=== PATIENT | male | born 1955 | race Caucasian/White ===

== ENCOUNTER 2017-07-10 19:30 | Inpatient (IN) ==
[2017-07-10 20:15] LABS: Basophils # 0.1 K/mcL (0.0-0.2); Basophils % 0.7 %; Eosinophils # 0.4 K/mcL (0.0-0.6); Eosinophils % 5.3 %; Hematocrit 44.7 % (37.5-50.1); Hemoglobin 15.8 g/dL (12.9-16.9); Immature Granulocytes % 0.5 % (0-4); Lymphocytes # 2.9 K/mcL (0.6-4.6); Lymphocytes % 36.2 %; Mean Corpuscular HGB Conc 35.3 g/dL (31.6-35.5); Mean Corpuscular Hemoglobin 31.2 pg (28.0-33.3); Mean Corpuscular Volume 88.3 fL (83.0-100.0); Mean Platelet Volume 9.4 fL (9.4-12.4); Monocytes # 0.5 K/mcL (0.0-1.3); Monocytes % 6.7 %; Neutrophils # 4.1 K/mcL (1.6-8.9); Platelet Count 248 K/mcL (140-400); Red Blood Count 5.06 M/mcL (4.19-5.50); Red Cell Distribution Width 12.4 % (11.5-14.5); Segmented Neutrophils % 50.6 %
[2017-07-10 20:21] LABS: INR 2.9; Prothrombin Time 32.3 Seconds (9.4-12.1)
[2017-07-10 20:24] LABS: Activated Partial Thrombo Time 42.5 Seconds (26.0-36.0)
[2017-07-10 20:27] LABS: BUN/Creatinine Ratio 15 (6-26); Blood Urea Nitrogen 17 mg/dL (8-26); Calcium 9.7 mg/dL (8.6-10.8); Carbon Dioxide 23 mEq/L (19-29); Chloride 104 mEq/L (98-109); Glucose 167 mg/dL (70-99); Osmolality,Calculated 291 (280-300); Potassium 4.3 mEq/L (3.5-4.5); Sodium 138 mEq/L (136-145); eGFR For African Americans > 60 (> 60); eGFR For Non-African Americans > 60 (> 60)
--- NOTE | 2017-07-10 20:40 | Emergency Department Note ---
Disposition Clinical Impression: NSTEMI (non-ST elevated myocardial infarction), Elevated troponin Chest pain Qualifiers: Chest pain type: unspecified Qualified Code(s): R07.9 - Chest pain, unspecified Disposition: Admitted As Inpatient Condition: Good General Adult HPI - General Chief complaint: ED Chest Pain Stated complaint: "CP/SOB" Time Seen by Provider: 07/10/17 20:18 Source: patient Limitations: no limitations Nursing Notes Reviewed: Yes Vital Signs Reviewed: Yes - History of Present Illness HPI Narrative: 61-year-old male who reports left-sided chest pain and dyspnea. He states this feels exactly the same as when he had his prior heart issues requiring stents. He has had multiple stents on at least 3 different occasions. Most recent of which was approximately 2 years ago. He states that he is on aspirin, Plavix, and Coumadin. He has a history of atrial fibrillation and says that he takes coumadin. He also denies any history of DVT or valve replacement. Other medical problems include hypertension, hyperlipidemia, diabetes. He denies a productive cough. He states that this is been going on for 1-2 weeks which has slowly been worsening. It was initially intermittent and is now becoming more constant. 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 Arciniega who recommended that he come to the emergency department if his symptoms worsen. They have worsened so he presented here. Radiation: non-radiation Pain Severity: moderate Pain Scale: 5 Consistency: intermittent Improves with: nothing Worsens with: other (Exertion) Associated symptoms: Reports: denies other symptoms Treatments Prior to Arrival: none - Related Data Home Medications Medication Instructions Recorded Confirmed Clopidogrel [Plavix] 75 mg PO DAILY 09/24/15 07/10/17 Insulin ASPART [NovoLOG] 0 unit SQ TIDWM 09/24/15 07/10/17 Insulin Glargine,Hum.rec.anlog 50 unit SQ BID 09/24/15 07/10/17 [Lantus Solostar] Ranolazine [Ranexa] 500 mg PO BID 09/24/15 07/10/17 Alirocumab [Praluent Pen] 75 mg SQ Q2W 07/10/17 07/10/17 Amlodipine Besylate 10 mg PO DAILY 07/10/17 07/10/17 Aspirin Enteric Coated [Aspirin EC] 81 mg PO DAILY 07/10/17 07/10/17 Isosorbide MONOnitrate [Isosorbide 240 mg PO DAILY 07/10/17 07/10/17 Mononitrate ER] Losartan [Cozaar] 12.5 mg PO DAILY 07/10/17 07/10/17 Metformin HCl [Glucophage] 1,000 mg PO BID 07/10/17 07/10/17 Metoprolol Succinate 100 mg PO DAILY 07/10/17 07/10/17 Metoprolol XL (24 HR) Succ [Toprol 25 mg PO DAILY 07/10/17 07/10/17 XL] Nitroglycerin [Nitroglycerin] 1 - 2 spray SL AD PRN 07/10/17 07/10/17 Nitroglycerin [Nitrostat] 0.4 mg SL Q5M PRN 07/10/17 07/10/17 Warfarin perPT [Coumadin perPT] 7 mg PO QPM 07/10/17 07/10/17 Allergies Allergy/AdvReac Type Severity Reaction Status Date / Time lisinopril AdvReac Cough Verified 07/10/17 19:59 Oxycodone [From OxyContin] AdvReac Gastrointestinal Verified 07/10/17 19:59 Upset All systems ED: reviewed and negative except as stated. Constitutional: Denies: fever ENT ED: Denies: throat pain Cardiovascular: Reports: chest pain Respiratory: Reports: dyspnea. Denies: cough Gastrointestinal: Denies: abdominal pain Musculoskeletal: Denies: back pain Integumentary: Denies: rash Endocrine: Denies: fatigue Past Medical History - Past Medical History Medical history: Reports: coronary artery disease, diabetes Surgical history: Reports: angioplasty/stent, appendectomy, knee replacement, pacemaker/AICD Psychiatric history: Reports: no psych history - Social History Smoking Status: Never smoker Smokeless Tobacco Status: No Alcohol use: Reports: none Drug use: Reports: none Physical Exam - General Limitations: no limitations General appearance: alert, in no apparent distress - Head Head exam: atraumatic - Eye Eye exam: Present: normal appearance, PERRL - ENT ENT exam: normal exam - Neck Neck exam: Present: normal inspection - Chest Chest inspection: Present: normal inspection - Respiratory Respiratory exam: Present: normal lung sounds bilaterally. Absent: respiratory distress - Cardiovascular Cardiovascular exam: Present: regular rate, normal rhythm - Abdominal Exam Abdominal exam: Present: soft - Extremities Exam Extremities exam: Present: normal inspection - Neurological Exam Neurological exam: Present: alert, oriented X3 - Skin Skin exam: Present: warm, dry Course Course Narrative: History troponin is elevated at 0.15. No changes on EKG to suggest a ST elevation. I called and spoke with Dr. Arciniega with cardiology. He does not recommend heparin at this time as the patient is already anticoagulated with a INR greater than 2. We have started a nitroglycerin drip and given him his aspirin. He will be admitted to the hospitalist with a cardiology consult Vital Signs Temperature 98.1 F 07/10/17 19:55 Pulse Rate 71 07/10/17 19:55 Respiratory Rate 20 07/10/17 19:55 Blood Pressure 162/78 07/10/17 19:55 O2 Sat by Pulse Oximetry 98 07/10/17 19:55 Temperature 98.1 F 07/10/17 19:55 Pulse Rate 60 07/10/17 22:50 Respiratory Rate 12 07/10/17 22:50 Blood Pressure 125/62 07/10/17 22:50 O2 Sat by Pulse Oximetry 96 07/10/17 22:50 Oxygen Delivery Oxygen Delivery Room Air Medical Decision Making - Medical Records Medical records reviewed: Yes I reviewed the patient's medical records. - Lab Data Lab results reviewed: Yes I reviewed the patient's lab results. Result diagrams: 07/10/17 20:05 07/10/17 20:05 Lab Results 07/10/17 07/10/17 07/10/17 Range/Units 20:05 20:05 20:05 WBC 8.1 (4.3-11.1) K/mcL RBC 5.06 (4.19-5.50) M/mcL Hgb 15.8 (12.9-16.9) g/dL Hct 44.7 (37.5-50.1) % MCV 88.3 (83.0-100.0) fL MCH 31.2 (28.0-33.3) pg MCHC 35.3 (31.6-35.5) g/dL RDW 12.4 (11.5-14.5) % Plt Count 248 (140-400) K/mcL MPV 9.4 (9.4-12.4) fL Immature Gran % 0.5 (0-4) % Seg Neutrophils % 50.6 % Lymphocytes % 36.2 % Monocytes % 6.7 % Eosinophils % 5.3 % Basophils % 0.7 % Neutrophils # 4.1 (1.6-8.9) K/mcL Lymphocytes # 2.9 (0.6-4.6) K/mcL Monocytes # 0.5 (0.0-1.3) K/mcL Eosinophils # 0.4 (0.0-0.6) K/mcL Basophils # 0.1 (0.0-0.2) K/mcL PT 32.3 H (9.4-12.1) Seconds INR 2.9 APTT 42.5 H (26.0-36.0) Seconds Sodium 138 (136-145) mEq/L Potassium 4.3 (3.5-4.5) mEq/L Chloride 104 (98-109) mEq/L Carbon Dioxide 23 (19-29) mEq/L BUN 17 (8-26) mg/dL Creatinine 1.12 (0.72-1.25) mg/dL Est GFR ( Amer) > 60 (> 60) Est GFR (Non-Af Amer) > 60 (> 60) BUN/Creatinine Ratio 15 (6-26) Glucose 167 H (70-99) mg/dL Calculated Osmolality 291 (280-300) Calcium 9.7 (8.6-10.8) mg/dL Troponin I (0-0.03) ng/mL 07/10/17 Range/Units 20:05 WBC (4.3-11.1) K/mcL RBC (4.19-5.50) M/mcL Hgb (12.9-16.9) g/dL Hct (37.5-50.1) % MCV (83.0-100.0) fL MCH (28.0-33.3) pg MCHC (31.6-35.5) g/dL RDW (11.5-14.5) % Plt Count (140-400) K/mcL MPV (9.4-12.4) fL Immature Gran % (0-4) % Seg Neutrophils % % Lymphocytes % % Monocytes % % Eosinophils % % Basophils % % Neutrophils # (1.6-8.9) K/mcL Lymphocytes # (0.6-4.6) K/mcL Monocytes # (0.0-1.3) K/mcL Eosinophils # (0.0-0.6) K/mcL Basophils # (0.0-0.2) K/mcL PT (9.4-12.1) Seconds INR APTT (26.0-36.0) Seconds Sodium (136-145) mEq/L Potassium (3.5-4.5) mEq/L Chloride (98-109) mEq/L Carbon Dioxide (19-29) mEq/L BUN (8-26) mg/dL Creatinine (0.72-1.25) mg/dL Est GFR ( Amer) (> 60) Est GFR (Non-Af Amer) (> 60) BUN/Creatinine Ratio (6-26) Glucose (70-99) mg/dL Calculated Osmolality (280-300) Calcium (8.6-10.8) mg/dL Troponin I 0.15 H* (0-0.03) ng/mL - Radiology Data Radiology results reviewed: Yes I reviewed the patient's radiology results. - EKG Data EKG #1 EKG attestation: Yes I reviewed and interpreted this EKG. Rate: normal Interpretation: other (Ventricular pacemaker with a rate of 66. No Linda' s criteria fulfilled.) Critical Care Time Critical Care Time: Yes Total Critical Care Time: 40 Attestation: Critical care performed: Time is exclusive of separately billable procedures. Time includes: direct patient care, patient reassessment, coordination of patient care, interpretation of data (laboratory data, radiology data, and respiratory data), review of patient's medical records, medical consultation and documentation of patient care. Procedures included in critical care time: Procedures excluded from critical care time: Attestation Statement - Attestation Attestation: I, Devonte Okeefe MD, personally evaluated this patient and discussed their management with the resident physician. I reviewed the resident's note and agree with the documented findings, medical decision making, and plan of care. 61-year-old male with history of coronary artery disease and multiple coronary artery stents presents to the emergency department complaining of intermittent left-sided chest pains over the past 1-2 weeks which have been getting progressively worse. Today the pain became worse with exertion. He describes it as a dull heaviness in the left chest which he states is the same as the pain he had last time he had to have a stent placed. On examination patient is a well-developed well-nourished well-appearing male in no acute distress. He is alert and oriented 3. There is no cyanosis or diaphoresis. Chest is nontender to palpation. Breath sounds are clear and equal bilaterally. Heart regular rate and rhythm. Abdomen soft and nontender with normal bowel sounds. EKG shows an electronic ventricular pacemaker with a totally paced rhythm. Chest x-ray negative. Labs reviewed. Troponin is elevated at 0.15. Patient was placed on a nitroglycerin drip. Dr. Palmer discussed with cardiology and they recommended admission and serial troponins. The hospitalist, Dr. Wade, was consulted and accepted admission of the patient.
[2017-07-10] MEDS ORDERED: Aspirin 325 MG TABLET PO ONE (21:01)
[2017-07-10] MEDS ORDERED: Nitroglycerin 0.4 MG TAB.SUBL SL PRN (21:59)
[2017-07-10] MEDS: Nitroglycerin 25 MG/250 ML INFUS..BTL IVC SCH (22:10)
--- NOTE | 2017-07-11 00:28 | Internal Med History&Physical ---
Date of Encounter: 07/11/17 Time of Encounter: 00:25 Assessment and Plan (1) Paroxysmal A-fib Current visit: Yes Status: Acute Patient is on Coumadin, INR's 2.9, hold Coumadin for anticipated coronary angiogram (2) Diabetes mellitus Current visit: No Status: Chronic Patient is NPO for possible coronary angiography. We will keep patient on sliding scale insulin Q4 hours. his glucose is 167. He is a large dose of insulin at home will hold for now since he is NPO and unsure of timing of coronary angiography. Qualifiers: Diabetes mellitus type: type 2 Diabetes mellitus complication status: with unspecified complications Qualified Code(s): E11.8 - Type 2 diabetes mellitus with unspecified complications; Z79.4 - prison (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 insulin; Z79.4 - manager intermediate (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 insulin; Z79.4 - manager intermediate (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 insulin; Z79.4 - manager intermediate (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 insulin (3) NSTEMI (non-ST elevated myocardial infarction) Current visit: Yes Status: Acute Patient is currently on nitro drip. We will keep NPO for possible coronary angiography in the morning. Heart rate IS 60. Continue aspirin Plavix, beta blockers. His INR IS 2.9. Cardiology service therefore recommend holding off heparin drip for now Internal Medicine - H&P: HPI Chief complaint: chest pain History of present illness: Mr. Dominguez is a 61 year old male patient with history of coronary artery disease status post PCI presents with emergency room today with the main complaining of chest pain. For the past 2 weeks patient has been having left pectoral chest pain that was initially occurring intermittently but today pain has been more or less constant at rest. This provoked the patient to come to the emergency room for further management. He noticed that the pain was associated shortness of breath. Patient notices some improvement to the pain with sublingual nitroglycerin. Patient heaven angiogram at our facility 1 1/2 year ago and was found to have chronic total occlusion of the RCA and distal LAD and was transferred to [place] where he had one stent placed. Patient is compliant with his cardiac medications including aspirin Plavix Past Med Surg Social Fam HX - Past Medical History Medical history: coronary artery disease, diabetes Psychiatric history: no psych history - Past Surgical History Surgical History: angioplasty/stent, appendectomy, knee replacement, pacemaker/ AICD - Social History Smoking Status: Never smoker Smokeless Tobacco Status: No Alcohol use: none Drug use: none - Family History Father Living Status: Hx Family Cardiac Disorders: Yes ([place]) Mother Living Status: Hx Family Cardiac Disorders: Yes ([place]) Internal Medicine - H&P: Meds Clopidogrel [Plavix] 75 mg PO DAILY 09/24/15 [History] Insulin ASPART [NovoLOG] 0 unit SQ TIDWM 09/24/15 [History] Insulin Glargine,Hum.rec.anlog [Lantus Solostar] 50 unit SQ BID 09/24/15 [ History] Ranolazine [Ranexa] 500 mg PO BID 09/24/15 [History] Alirocumab [Praluent Pen] 75 mg SQ Q2W 07/10/17 [History] Amlodipine Besylate 10 mg PO DAILY 07/10/17 [History] Aspirin Enteric Coated [Aspirin EC] 81 mg PO DAILY 07/10/17 [History] Isosorbide MONOnitrate [Isosorbide Mononitrate ER] 240 mg PO DAILY 07/10/17 [ History] Losartan [Cozaar] 12.5 mg PO DAILY 07/10/17 [History] Metformin HCl [Glucophage] 1,000 mg PO BID 07/10/17 [History] Metoprolol Succinate 100 mg PO DAILY 07/10/17 [History] Metoprolol XL (24 HR) Succ [Toprol XL] 25 mg PO DAILY 07/10/17 [History] Nitroglycerin [Nitroglycerin] 1 - 2 spray SL AD PRN 07/10/17 [History] Nitroglycerin [Nitrostat] 0.4 mg SL Q5M PRN 07/10/17 [History] Warfarin perPT [Coumadin perPT] 7 mg PO QPM 07/10/17 [History] 3 Allergy/AdvReac Type Severity Reaction Status Date / Time lisinopril AdvReac Cough Verified 07/10/17 19:59 Oxycodone [From OxyContin] AdvReac Gastrointestinal Verified 07/10/17 19:59 Upset All Systems PM: A 10-system review of systems was performed and is negative for pertinent findings except as documented above in the HPI. Review of systems: 10 point review systems is negative except for HPI - Constitutional Vitals: Temp Pulse Resp BP Pulse Ox 98 F 60 16 147/79 96 07/11/17 00:12 07/11/17 00:12 07/11/17 00:12 07/11/17 00:12 07/11/17 00:12 Exam: Gen.: patient is alert oriented times 3 cardiac: normal S1 S2 no additional sounds or murmurs chest: no active wheezing or bronchial breathing abdomen soft nontender nondistended normal bowel sounds lower extremity no swelling. Neuro: no new focal deficits Internal Med - H&P Results - Labs CBC & Chem 7: 07/10/17 20:05 07/10/17 20:05
[2017-07-11 03:09] LABS: Basophils # 0.1 K/mcL (0.0-0.2); Basophils % 0.7 %; Eosinophils # 0.4 K/mcL (0.0-0.6); Eosinophils % 5.2 %; Hematocrit 42.3 % (37.5-50.1); Hemoglobin 14.7 g/dL (12.9-16.9); Immature Granulocytes % 0.4 % (0-4); Lymphocytes # 3.6 K/mcL (0.6-4.6); Lymphocytes % 47.3 %; Mean Corpuscular HGB Conc 34.8 g/dL (31.6-35.5); Mean Corpuscular Hemoglobin 30.8 pg (28.0-33.3); Mean Corpuscular Volume 88.5 fL (83.0-100.0); Mean Platelet Volume 9.3 fL (9.4-12.4); Monocytes # 0.5 K/mcL (0.0-1.3); Monocytes % 6.5 %; Neutrophils # 3.1 K/mcL (1.6-8.9); Platelet Count 195 K/mcL (140-400); Red Blood Count 4.78 M/mcL (4.19-5.50); Red Cell Distribution Width 12.4 % (11.5-14.5); Segmented Neutrophils % 39.9 %
[2017-07-11 03:17] LABS: INR 2.7; Prothrombin Time 29.2 Seconds (9.4-12.1)
[2017-07-11 03:20] LABS: Activated Partial Thrombo Time 39.8 Seconds (26.0-36.0)
[2017-07-11 03:24] LABS: BUN/Creatinine Ratio 18 (6-26); Blood Urea Nitrogen 16 mg/dL (8-26); Calcium 9.1 mg/dL (8.6-10.8); Carbon Dioxide 25 mEq/L (19-29); Chloride 105 mEq/L (98-109); Glucose 111 mg/dL (70-99); Osmolality,Calculated 284 (280-300); Potassium 3.5 mEq/L (3.5-4.5); Sodium 136 mEq/L (136-145); eGFR For African Americans > 60 (> 60); eGFR For Non-African Americans > 60 (> 60)
[2017-07-11] MEDS: *HR* Morphine 2 MG/ML SYRINGE IVP PRN ×4 (06:20→21:02)
[2017-07-11] MEDS: Insulin LISPRO 300 UNITS/3 ML VIAL SQ SCH ×5 (06:25→20:58)
[2017-07-11] MEDS: Isosorbide MONOnitrate (24 HR) 60 MG TAB.ER.24H PO SCH (09:05)
[2017-07-11] MEDS: Ranolazine 500 MG TAB.ER.12H PO SCH ×2 (09:06→20:52)
[2017-07-11] MEDS: Aspirin Enteric Coated 81 MG Tablet PO SCH (09:06)
[2017-07-11] MEDS: Metoprolol XL (24 HR) Succ 25 MG TAB.ER.24H PO SCH (09:06)
[2017-07-11] MEDS: Metoprolol XL (24 HR) Succ 50 MG TAB.ER.24H PO SCH (09:07)
[2017-07-11] MEDS: amLODIPine 5 MG TABLET PO SCH (09:07)
--- NOTE | 2017-07-11 09:39 | Event Note ---
<Lorenzo Anderson - Last Filed: 07/11/17 09:28> Date of Encounter: 07/11/17 Time of Encounter: 09:28 61 year old male with PMH CAD s/p multiple stents, dual lead pacemaker for ALance fib (on coumadin), HTN, HLD, and type 2 DM presented with chest pain and found to have a STEMI. He reports that his pain has been increasing in frequency and consistency over the past 2 weeks. This morning his chest pain is more controlled (/) on nitro drip and PRN morphine. He reports some dyspnea on exertion as well. He denies syncope, light-headedness, palpitations, cough, N/V/ D/C, dysuria, or leg pain/edema. Exam: Gen: NAD, A&Ox3, well developed, well nourished CV: RRR, no murmurs, no peripheral edema Lungs: CTAB, no wheezes, rhonchi, or crackles Abd: soft, NT/ND, BSx4, no organomegaly Ext: pulses symmetric, no edema Skin: dry and intact Neuro: no focal deficits A/P: NSTEMI - on ASA, Plavix, and coumadin. Troponins stable 0.15, 0.23, 0.22 - continue nitro drip - cardiology consulted A. fib - paced at 60 bpm, coumadin being held in expectation for LHC - INR 2.7 this morning (down from 2.9) DM - on insulin at home. Continue SSI. Monitor blood sugar as pt is currently NPO HTN - normotensive currently - continue home meds <Debbie Ibrahim - Last Filed: 07/11/17 14:56> Date of Encounter: 07/11/17 I have seen and examined the patient independently. I have discussed with resident physician regarding the management plan. Agree with the documentation. Patient has history of CAD, with elevated troponin and chest pain. Consider NSTEMI. Cardiology consult on case and plan for LHC. Patient currently has improved the chest pain. We will continue NTG drip and morphine for pain. Continue closely monitor patient. Hold the Coumadin to prepare catheterization.
--- NOTE | 2017-07-11 10:12 | Cardiology Consult Note ---
Date of Encounter: 07/11/17 Time of Encounter: 08:00 Assessment and Plan (1) NSTEMI (non-ST elevated myocardial infarction) Current Visit: Yes Status: Acute Per cardiology: -ADmitted with chest pain. -Troponins 0.15, 0.23, 0.22. -No acute ischemic ECG findings -Typical chest pain symptoms. -Currently on nitro drip at 15mcg/min. -On asa, statin, beta rené, and plavix. -Of note, INR 2.7. -Currently rates pain 2/10, states much improved. -Recommend holding coumadin in anticipation for LHC. -Unable to perform LHC today due to INR 2.7. Will make NPO after midnight for possible LHC tomorrow. -Recommend titrating nitroglycerin drip for chest pain control. Only on 15mcg/ min. Continue morphine PRN. -Will order TTE. (2) Chest pain Current Visit: Yes Status: Acute Per cardiology: -Admitted with chest pain. -Occurs with exertion. -Pain relieved with nitro. -States similar to previous angina symptoms. -States at worse, pain was 8/10. -Currently pain 2/10. -On nitro drip at 15mcg/min. -Has mophine PRN. -Recommend titrating nitroglycerin drip for pain control. -Continue morphine PRN. Qualifiers: Chest pain type: unspecified Qualified Code(s): R07.9 - Chest pain, unspecified (3) Ischemic cardiomyopathy Current Visit: No Status: Chronic Per cardiology: -Known ischemic cardiomyopathy. -Last TTE 09/2015 with LVEF 50%, atypical septal motion, mild-moderate MR, mild TR, mild SC, device lead visualized, apex, apical septal, mid anterior septal kemp hypokinetic. All other visualized kemp with normal motion. -On beta rené and ARB. -Euvolemic on exam. -Will repeat TTE. (4) Paroxysmal A-fib Current Visit: Yes Status: Chronic Per cardiology: -Known PAF. -Last device check in office with no events noted. -On beta rené and coumadin. -Hold coumadin for anticipation of LHC. -Will continue to monitor. (5) Coronary artery disease Current Visit: No Status: Chronic Per cardiology: -Known CAD with previous PCI. -Last LHC with 15% stenosis left main, 15% in stent restenosis of proximal LAD, 50% mid LAD, 100% distal/apical LAD, apical LAD fillw via left to left collaterals, 80% diagonal 1 small vessel. 30% proximal circumflex, 30% mid circumflex, 60% OM1 small vessel and diffusely diseased, 40% OM2, 100% proximal RCA, right PDA fills via colleterals from left to right. -On asa, statin, beta rené, ARB, plavix, and ranexa. -Current on nitro drip. -Echo pending. -PLan for [facility] when able. Qualifiers: Coronary Disease-Associated Artery/Lesion type: [place] artery [place] vs. transplanted heart: [place] heart Associated angina: angina presence unspecified Qualified Code(s): I25.10 - Atherosclerotic heart disease of [place] coronary artery without angina pectoris (6) Pacemaker Current Visit: Yes Status: Chronic Per cardiology: -Has known dual chamber pacemaker for complete heart block. -Last device check 04/03/17 with no event noted, battery longevity 8 years. -Will continue to monitor. Discussion w patient/family: The assessment and plan as outlined above was discussed with the patient who expressed understanding and agreement. All questions were answered. Thank you for involving us in the care of your patient. Please call with any questions. Discussed and reviewed with . History of Present Illness Consult date: 07/10/17 Requesting physician: Ronnie Palmer Consult reason: chest pain, elevated troponin Chief complaint: chest pain History of present illness: Mr. Dominguez is a 61 year old male with a relevant past medical history of CAD s/p PCI, atrial fibrillation, cardiomyopathy, hyperlipidemia, HTN, DMII. Patient presented to [facility] with complaints of chest pain. Patient states he has been having intermittent chest pain for a few weeks. Patient states yesterday while lifting a chair, he had 8/10 chest pain that was sharp and mid sternal. Patient states pain is similar to previous anginal symptoms. Patient reports pain increased with exertion and is lessened with nitroglycerin. Patient also reports increased fatigue and increased shortness of breath. Currently patient states has chest pressure and rates a 2/10. States pain much improved from admission. Past Med Surg Social Fam HX - Past Medical History Attestation: Yes The following information was validated with the patient. Source: patient, old records reviewed Medical history: coronary artery disease, diabetes Psychiatric history: no psych history - Past Surgical History Surgical History: angioplasty/stent, appendectomy, knee replacement, pacemaker/ AICD - Social History Smoking Status: Never smoker Smokeless Tobacco Status: No Alcohol use: none Drug use: none - Family History Father Living Status: Age at : 60 Cause of : heart attack Hx Family Cardiac Disorders: Yes (AL) Mother Living Status: Age at : 85 Hx Family Cardiac Disorders: Yes (AL) Medications and Allergies Clopidogrel [Plavix] 75 mg PO DAILY 09/24/15 [History] Insulin ASPART [NovoLOG] 0 unit SQ TIDWM 09/24/15 [History] Insulin Glargine,Hum.rec.anlog [Lantus Solostar] 50 unit SQ BID 09/24/15 [ History] Ranolazine [Ranexa] 500 mg PO BID 09/24/15 [History] Alirocumab [Praluent Pen] 75 mg SQ Q2W 07/10/17 [History] Amlodipine Besylate 10 mg PO DAILY 07/10/17 [History] Aspirin Enteric Coated [Aspirin EC] 81 mg PO DAILY 07/10/17 [History] Isosorbide MONOnitrate [Isosorbide Mononitrate ER] 240 mg PO DAILY 07/10/17 [ History] Losartan [Cozaar] 12.5 mg PO DAILY 07/10/17 [History] Metformin HCl [Glucophage] 1,000 mg PO BID 07/10/17 [History] Metoprolol Succinate 100 mg PO DAILY 07/10/17 [History] Metoprolol XL (24 HR) Succ [Toprol XL] 25 mg PO DAILY 07/10/17 [History] Nitroglycerin [Nitroglycerin] 1 - 2 spray SL AD PRN 07/10/17 [History] Nitroglycerin [Nitrostat] 0.4 mg SL Q5M PRN 07/10/17 [History] Warfarin perPT [Coumadin perPT] 7 mg PO QPM 07/10/17 [History] 3 Allergy/AdvReac Type Severity Reaction Status Date / Time lisinopril AdvReac Cough Verified 07/10/17 19:59 Oxycodone [From OxyContin] AdvReac Gastrointestinal Verified 07/10/17 19:59 Upset All Systems Review: A 10-system review of systems was performed and is negative for pertinent findings except as documented above in the HPI. - Constitutional Constitutional: fatigue - Cardiovascular Cardiovascular: as per HPI, chest pain with exertion, dyspnea on exertion Physical Examination Vital Signs, Last 4 Hours Temp Pulse Resp BP Pulse Ox 07/11/17 07:34 97.8 F 62 14 129/75 95 General: Conversant, No Apparent Distress HEENT: Atraumatic, Normocephaly, Mucus Membranes Moist Neck: No JVD, Normal carotid pulses Cardiac: Reg Rate and Rhythm, Normal S1 and S2, No Murmur Lungs: Normal Breath Sounds, No Wheeze, Rales, Rhonchi Neuro: Alert and responsive, No focal deficits noted Abdomen: Soft, Non-Tender Skin: No rashes noted on visualized skin Musculoskeletal: No Chest Wall Tenderness Extremities: No Clubbing, No Cyanosis, No Edema, Normal Pulses Results 07/11/17 03:01 07/11/17 03:01 Lab Results Impressions Chest X-Ray 07/10/17 20:01 IMPRESSION: No acute process. D/ / Lukas Castañeda MD / Lukas Castañeda MD Interpreting Provider: Lukas Castañeda MD Active Medications Amlodipine Besylate (Norvasc) 10 mg PO DAILY [facility] Stop: 01/10/18 09:01 Last Admin: 07/11/17 09:07 Dose: 10 mg Aspirin (Aspirin Ec) 81 mg PO DAILY [facility] Stop: 01/10/18 09:01 Last Admin: 07/11/17 09:06 Dose: 81 mg Clopidogrel Bisulfate (Plavix) 75 mg PO DAILY [facility] Stop: 01/10/18 09:01 Last Admin: 07/11/17 09:06 Dose: 75 mg Nitroglycerin (Nitroglycerin Premix 25 Mg/250 Ml) 25 mg in 250 mls @ 3 mls/hr IVC .Q24H [facility]; 5 MCG/MIN PRN Reason: Protocol Stop: 01/09/18 21:01 Last Titration: 07/10/17 22:51 Dose: 15 mcg/min, 9 mls/hr Insulin Human Lispro (Humalog) 0 units SQ Q4HR [facility] PRN Reason: Protocol Stop: 01/10/18 04:01 Last Admin: 07/11/17 09:14 Dose: Not Given Isosorbide Mononitrate (Imdur) 240 mg PO DAILY [facility] Stop: 01/10/18 09:01 Last Admin: 07/11/17 09:05 Dose: 240 mg Losartan Potassium (Cozaar) 12.5 mg PO DAILY [facility] PRN Reason: Protocol Stop: 01/10/18 09:01 Last Admin: 07/11/17 09:06 Dose: 12.5 mg Metoprolol Succinate (Toprol Xl) 100 mg PO DAILY [facility] Stop: 01/10/18 09:01 Last Admin: 07/11/17 09:07 Dose: 100 mg Metoprolol Succinate (Toprol Xl) 25 mg PO DAILY [facility] Stop: 01/10/18 09:01 Last Admin: 07/11/17 09:06 Dose: 25 mg Morphine Sulfate (Morphine Sulfate) 2 mg IVP Q4HR PRN PRN Reason: Chest Pain Stop: 01/10/18 04:55 Last Admin: 07/11/17 06:20 Dose: 2 mg Nitroglycerin (Nitroglycerin) 0.4 mg SL Q5MIN PRN PRN Reason: Chest Pain Stop: 01/09/18 22:00 Ranolazine (Ranexa) 500 mg PO BID [facility] Stop: 01/10/18 09:01 Last Admin: 07/11/17 09:06 Dose: 500 mg Laboratory Tests 07/10/17 07/11/17 07/11/17 20:05 03:01 03:01 Hgb 14.7 INR Creatinine Troponin I 0.15 H* 0.23 H* 07/11/17 07/11/17 07/11/17 03:01 03:01 07:35 Hgb INR 2.7 Creatinine 0.87 Troponin I 0.22 H* - Imaging and Cardiology Chest Xray: report reviewed Stress Test: report reviewed Echo: report reviewed - EKG Interpretation EKG results cardiology: personally reviewed (ECG with paced rhythm, HR 66.), other (Telemetry reviewed with average HR previous 12 hours noted to be 61, paced rhythm.) Consult Discharge Plan - Plan Referrals: Tera Massey DO [Primary Care Provider] -
[2017-07-11] MEDS ORDERED: Dextrose Gel 15 GM PO PRN ×2 (13:44)
[2017-07-11] MEDS ORDERED: D5% in Water 1,000 ML IVC PRN (13:44)
[2017-07-11] MEDS ORDERED: *HR* Dextrose 50 % in Water (Syg) 50 ML SYRINGE IVP PRN (13:44)
[2017-07-11] MEDS ORDERED: ALIROCUMAB 75 MG/ML SQ SCH (17:00)
--- NOTE | 2017-07-11 19:20 | Electrocardiograph Report ---
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
[2017-07-11] MEDS: Insulin DETEMIR 100 UNIT/ML X5UNITS SQ SCH (20:52)
[2017-07-12] MEDS: Nitroglycerin 25 MG/250 ML INFUS..BTL IVC SCH ×2 (01:19→20:18)
[2017-07-12] MEDS: Insulin LISPRO 300 UNITS/3 ML VIAL SQ SCH ×6 (01:20→20:14)
[2017-07-12] MEDS: *HR* Morphine 2 MG/ML SYRINGE IVP PRN ×5 (02:04→20:32)
[2017-07-12 04:55] LABS: Hematocrit 45.2 % (37.5-50.1); Hemoglobin 15.5 g/dL (12.9-16.9); Mean Corpuscular HGB Conc 34.3 g/dL (31.6-35.5); Mean Corpuscular Hemoglobin 30.6 pg (28.0-33.3); Mean Corpuscular Volume 89.2 fL (83.0-100.0); Mean Platelet Volume 9.3 fL (9.4-12.4); Platelet Count 211 K/mcL (140-400); Red Blood Count 5.07 M/mcL (4.19-5.50); Red Cell Distribution Width 12.5 % (11.5-14.5)
[2017-07-12 04:57] LABS: INR 1.7; Prothrombin Time 18.8 Seconds (9.4-12.1)
[2017-07-12 05:12] LABS: BUN/Creatinine Ratio 14 (6-26); Blood Urea Nitrogen 13 mg/dL (8-26); Calcium 9.2 mg/dL (8.6-10.8); Carbon Dioxide 23 mEq/L (19-29); Chloride 106 mEq/L (98-109); Glucose 195 mg/dL (70-99); Osmolality,Calculated 291 (280-300); Potassium 4.2 mEq/L (3.5-4.5); Sodium 138 mEq/L (136-145); eGFR For African Americans > 60 (> 60); eGFR For Non-African Americans > 60 (> 60)
[2017-07-12] MEDS: Ranolazine 500 MG TAB.ER.12H PO SCH ×2 (08:07→20:14)
[2017-07-12] MEDS: Metoprolol XL (24 HR) Succ 50 MG TAB.ER.24H PO SCH (08:07)
[2017-07-12] MEDS: Isosorbide MONOnitrate (24 HR) 60 MG TAB.ER.24H PO SCH (08:08)
[2017-07-12] MEDS: Aspirin Enteric Coated 81 MG Tablet PO SCH (08:08)
[2017-07-12] MEDS: amLODIPine 5 MG TABLET PO SCH (08:08)
[2017-07-12] MEDS: Metoprolol XL (24 HR) Succ 25 MG TAB.ER.24H PO SCH (08:08)
--- NOTE | 2017-07-12 08:45 | Event Note ---
Date of Encounter: 07/12/17 Time of Encounter: 08:45 - Cardiology Event Note NSTEMI, peak troponin 0.23. CP currently 2/10 on nitro gtt. INR 1.7 today. LHC today--R/B/A discussed. Pt agrees to proceed.
--- NOTE | 2017-07-12 09:04 | Pre-Sedation Evaluation ---
Pre-sedation evaluation - Pre-sedation checklist Date of procedure: 07/12/17 Procedure: [facility] Recent Vitals: Last Vital Signs Temp 97.7 F 07/12/17 07:49 Pulse 61 07/12/17 07:49 Resp 18 07/12/17 07:49 BP 117/71 07/12/17 07:49 Pulse Ox 95 07/12/17 07:49 H&P (including ROS) documented in medical record: Yes Previous reaction to sedatives/anesthetics: No Dietary Status: NPO after Midnight Airway Assessment: Patient can open mouth completely, TMJ function normal Dentition: No loose teeth or bridges, full dentition Possible difficult airway: No ASA Classification *see protocol: CLASS IV-Severe systemic disease/constant threat to pt's life Plan of Care: Pt appropriate candidate for procedure/moderate/conscious sedation , Risks/benefits of procedure/sedation discussed w/ patient/family, If not NPO; Risk of intake outweiged by necessity to perform procedure
[2017-07-12] MEDS ORDERED: *HR* Midazolam HCl 2 MG/2 ML VIAL ONE (09:07)
[2017-07-12] MEDS ORDERED: 0.9 % Sodium Chloride 1,000 ML ONE (09:07)
[2017-07-12] MEDS ORDERED: Heparin 1,000 UNITS/500 mL NS 500 ML ONE (10:24)
[2017-07-12] MEDS ORDERED: Nitroglycerin 1,000 MCG/10 ML VIAL IV ONE (10:24)
[2017-07-12] MEDS ORDERED: *HR* Heparin 10,000 UNIT/10 ML VIAL ONE (10:24)
--- NOTE | 2017-07-12 10:27 | Invasive Diagnostic Lab Proc ---
Name: Lukas Dominguez Date of Study: 07/12/2017 Date: 1955 Ht: 72.0in Medical Record#: [id number] Age: 61 Wt: 216.05lb Gender: Male BSA: 2.2 Order #: [id number] BMI: 29.26 Physicians Procedure Physician: Jone Townsend DO Referring MD: Referring MD: Staff Name Position Time In Joselin Rivera RT (R) Scrub 08:58 AM Carolina Paulino RN Monitor 08:58 AM Javon Corrigan RN Branch Rental Manager 08:58 AM Joselin Rivera RT (R) Scrub 09:04 AM Elvin Almaraz RN Branch Rental Manager 09:05 AM Carolina Paulino RN Monitor 09:05 AM Elvin Almaraz RN Branch Rental Manager 08:58 AM Indications Indication Non-Stemi Procedures Performed Procedure L HRT ARTERY/VENTRICLE ANGIO Pre-Procedure Checklist Informed consent is complete signed and on chart. H&P is on chart. ID band is on and ID verified with patient. Patient NPO for procedure The procedure was described for the patient and questions were answered. Blood Pressure: 145/72 ECG is on chart. Rhythm: Paced Plan of Care Patient will tolerate the procedure without complications. Adequate level of comfort will be maintained. Hemodynamics will remain stable Patient will recover from procedure without complications. Respiratory function will be maintained. Cardiac rhythm will remain stable. Patient temperature will be maintained. Patient and/or family have verbalized understanding of the procedure. Patient Education Chief Complaint/Reason for Test: Cardiac Cath Developmental Category: Adult (18-64 years) Developmentally Appropriate for Age: Yes Learning Barriers: None Education Needs: Procedure Education Method: Verbal Information Taught: Cardiac Cath Educational Evaluation: Able to repeat information Intravenous Access Time IV Size Location DC'd Fluid/Drip Rate Units RN 08:59 AM 18g 1 1/" Patent On Arrival Rt Antecubital Allergies lisinopril Oxycodone Vital Signs Time BP (mmHg) HR (bpm) O2 Sat. RR (bpm) LOC 117 / 71 61 95 % 18 09:08 AM / % 5 = Fully awake and oriented or at pre-proc level 09:08 AM / % 5 = Fully awake and oriented or at pre-proc level 09:23 AM / % 5 = Fully awake and oriented or at pre-proc level 09:38 AM / % 5 = Fully awake and oriented or at pre-proc level 09:43 AM / % 5 = Fully awake and oriented or at pre-proc level 09:08 AM 145 / 72 70 95 % 18 09:12 AM 140 / 70 60 98 % 17 09:17 AM 111 / 58 59 96 % 21 09:23 AM 122 / 61 60 96 % 17 09:27 AM 123 / 65 60 97 % 15 09:32 AM 119 / 61 60 97 % 12 09:37 AM 119 / 66 60 98 % 15 09:42 AM 123 / 68 60 98 % 11 09:47 AM 131 / 67 60 96 % 20 09:52 AM 130 / 67 60 98 % 19 09:57 AM 138 / 68 59 97 % 22 10:02 AM 138 / 75 60 98 % 18 10:07 AM 132 / 73 60 96 % 17 Procedural Medications Time Medication Dose Units Method Given By 09:17 AM Oxygen 2 L/min nasal cannula Elvin Almaraz RN 09:18 AM Versed 2 mg Intravenous Elvin Almaraz RN 09:39 AM Lidocaine 2% 10 ml Subcutaneous Jone Townsend DO ASA Classification: CLASS IV- Severe systemic that is constant threat to patient's life Magali Score Preprocedure Postprocedure Activity 2- Moves 4 extremities sustained head lift Activity 2- Moves 4 extremities sustained head lift Circulation 2- SBP +/= 20 points of pre-anesthetic level Circulation 2- SBP +/= 20 points of pre-anesthetic level Consciousness 2- Awake and alert oriented x 3 Consciousness 2- Awake and alert oriented x 3 O2 Saturation 2- Able to maintain O2 satruation of 92% on room air O2 Saturation 2- Able to maintain O2 satruation of 92% on room air Respiratory 2- Able to deep breathe and cough well Respiratory 2- Able to deep breathe and cough well Total Score 10 Total Score 10 Contrast Agent: Isovue Diagnostic Contrast: 60 ml Total Contrast: 60 ml Fluoro Dose: 217 mGy Procedure Log Time Note Enter By 08:58 AM Pt arrived to general labor 2 at 08:58 [facility] 08:58 AM Joselin Rivera RT (R) Position: Scrub Time in: 08:58 [email or web address] 08:58 AM Carolina Paulino RN Position: Monitor [facility]: [email or web address] 08:58 AM Elvin Almaraz RN Position: Branch Rental Manager Time in: 8:58 ejohnson 08:58 AM Patient charges- Angio tray pack, Navilyst 3mm J, Pulse Oximetry and ACIST tubing and transducer [email or web address] 08:58 AM IV Supplies used: J loop Angio Cath. [email or web address] 09:04 AM CathStat 09:05 AM Patient charges- Angio tray pack, Navilyst 3mm J, Pulse Oximetry and ACIST tubing and transducer dspell 09:05 AM Case Delayed No [email or web address] 09:06 AM Hair removed from procedure site in procedure lab using clippers. Bilateral groin prepped with Chloraprep by Joselin Rivera (R), safety strap applied then patient was draped. Skin intact. [email or web address] 09:06 AM Physician arrived 09:06 [email or web address] 09:06 AM Meet and greet completed dsp 09:06 AM Sign in performed according to hospital policy. [email or web address] 09:06 AM Procedure start 09:06 dspell 09:07 AM Vitals capture started with the following parameters, Patient=Adult, Interval=5 min, Initial Avwjvvxk=924 mmHg, Deflation Rate=5 mmHg, Cuff placed on Right Arm 09:07 AM Recorded ECG: HR=63 Condition=Condition 1 09:07 AM Time: 09:07 Patient comfortable and pain free: Yes ejlanson 09:08 AM Time: 09:08LOC: 5 = Fully awake and oriented or at pre-proc level ejohnson 09:08 AM HR=70 bpm, HUWG=577/72 mmhg, SpO2=95.0 %, Resp=18 B/min, Comment=V-Paced 09:12 AM HR=60 bpm, NEYU=967/70 mmhg, SpO2=98.0 %, Resp=17 B/min, Comment=V-Paced 09:17 AM ASA Class CLASS IV- Severe systemic that is constant threat to patient's life ejohnson 09:17 AM HR=59 bpm, TBAE=919/58 mmhg, SpO2=96.0 %, Resp=21 B/min, Comment=V-Paced 09:17 AM Time: 09:17 Oxygen on at 2 L/min per nasal cannula by Elvin Almaraz RN [email or web address] 09:18 AM Time: 09:18 Versed 2 mg Intravenous Given by Elvin Almaraz RNlajenni 09:18 AM physician paged. He returned call and stated that he was seeing a patient with an elevated troponin on one of the nursing units ejohnson 09:18 AM Pressure channel 2 zeroed. 09:23 AM Time: 09:08LOC: 5 = Fully awake and oriented or at pre-proc level ejohnson 09:23 AM Time: 09:07 Patient comfortable and pain free: Yes ejohnson 09:23 AM HR=60 bpm, CPLI=617/61 mmhg, SpO2=96.0 %, Resp=17 B/min, Comment=V-Paced 09:27 AM HR=60 bpm, PVTI=730/65 mmhg, SpO2=97.0 %, Resp=15 B/min, Comment=V-Paced 09:32 AM HR=60 bpm, RSES=218/61 mmhg, SpO2=97.0 %, Resp=12 B/min, Comment=V-Paced 09:37 AM HR=60 bpm, SVBU=067/66 mmhg, SpO2=98.0 %, Resp=15 B/min, Comment=V-Paced 09:38 AM Time: :23LOC: 5 = Fully awake and oriented or at pre-proc level ejohnson 09:38 AM Time: 09:23 Patient comfortable and pain free: Yes ejohnson 09:39 AM Time out performed according to hospital policy ejohnson 09:39 AM Time: 09:39 10 ml Lidocaine 2% to right groin Subcutaneous Given by Jone Townsend DO ejohnson 09:40 AM Pressure channel 2 zeroed. 09:42 AM Micro-Introducer Kit utilized for sheath placement ejohnson 09:42 AM Sheath exchanged for a 6 Fr 11 cm Cordis Jennifer sheath [id number] ejohnson 09:42 AM HR=60 bpm, GJBL=154/68 mmhg, SpO2=98.0 %, Resp=11 B/min, Comment=V-Paced 09:43 AM 5Fr FR 4 catheter inserted over the wire DNC ejohnson 09:43 AM Time: 09:38LOC: 5 = Fully awake and oriented or at pre-proc level ejohnson 09:43 AM Time: 09:38 Patient comfortable and pain free: Yes ejohnson 09:43 AM Pressure channel 2 zeroed. 09:44 AM Recorded Pressure: LV, HR=61, Condition=Condition 1 (Left Ventricle) LV 112/0/12 09:44 AM Recorded Pressure: LV, Ao, HR=60, Condition=Condition 1 (Left Ventricle) LV 105/-1/6, (Aorta) Ao 102/55/73 09:44 AM Recorded Pressure: Ao, HR=60, Condition=Condition 1 (Aorta) Ao 99/52/73 09:44 AM Recorded Pressure: Ao, HR=60, Condition=Condition 1 (Aorta) Ao 109/55/76 09:45 AM RCA angiography performed in AP. ejohnson 09:45 AM Catheter removed ejohnson 09:45 AM 6Fr XB LAD 3.5 [place] Bright-Tip guide catheter was used to cannulate the PCI vessel successfully. reused? No ejohnson 09:46 AM Coronary Dominance: Left ejohnson 09:46 AM Lesion found in Mid RCA. Pre Stenosis: 100 ejohnson 09:46 AM Right Coronary, Right Posterior Descending Arteries with Right Posterolateral and Acute Marginal branches with 100 % stenosis. ejohnson 09:47 AM Recorded Pressure: Ao, HR=59, Condition=Condition 1 (Aorta) Ao 107/54/74 09:47 AM LCA angiography performed in multiple views. ejohnson 09:47 AM HR=60 bpm, QQPV=661/67 mmhg, SpO2=96.0 %, Resp=20 B/min, Comment=V-Paced 09:50 AM Cardiothoracic surgeon consulted by physician ejohnson 09:52 AM HR=60 bpm, XDTK=852/67 mmhg, SpO2=98.0 %, Resp=19 B/min, Comment=V-Paced 09:55 AM Catheter removed ejohnson 09:57 AM HR=59 bpm, TNQG=724/68 mmhg, SpO2=97.0 %, Resp=22 B/min, Comment=V-Paced 09:59 AM Time: 09:43 Patient comfortable and pain free: Yes ejohnson 09:59 AM Time: 09:43LOC: 5 = Fully awake and oriented or at pre-proc level ejohnson 09:59 AM Procedure completed at 09:59 ejohnson 10:00 AM Sign out completed: Radiation Dose 217.47 mGy Fluoro Time: 1.3 Isovue 370 - 200ml contrast 60 ml given by Jone Townsend, DO. Complications: NoneCardiac Rehab Consult needed: NoConfirmed administered medications: Yes ejohnson 10:00 AM Arterial sheath pulled using manual compression and V+ Pad for 15 minutes by Joselin Rivera RT (R), then Vpad was replaced with sterile 4x4 before going back to his room ejohnson 10:01 AM Post ECG Paced ejohnson 10:01 AM Post Blood Pressure 138/68 ejohnson 10:01 AM 10:01 Post Pulses Bilateral DP & PT 1+ ejohnson 10:01 AM Information taught Cardiac Cath ejohnson 10:01 AM Education needs Plan of Care, Disease Process, and Responsibilities of Patient in Care ejohnson 10:01 AM Learning barriers :None ejohnson 10:01 AM Education Methods Verbal ejohnson 10:01 AM Education evaluation Able to repeat information ejohnson 10:02 AM Plavix, Effient or Brilinta given No, was given on the unit ejohnson 10:02 AM Family placed in consult room ejohnson 10:02 AM HR=60 bpm, NUDI=918/75 mmhg, SpO2=98.0 %, Resp=18 B/min, Comment=V-Paced 10:03 AM Complications: None ejohnson 10:07 AM Lesion found in Proximal LAD. Pre Stenosis: 95 ejohnson 10:07 AM Lesion found in Distal LAD. Pre Stenosis: 99 ejohnson 10:07 AM Lesion found in 1st Diagonal. Pre Stenosis: 90 ejohnson 10:07 AM HR=60 bpm, CJYI=806/73 mmhg, SpO2=96.0 %, Resp=17 B/min, Comment=V-Paced 10:08 AM Lesion found in 1st Marginal. Pre Stenosis: 80 ejohnson 10:08 AM Proximal Left Anterior Descending Coronary Artery with 95% stenosis. ejohnson 10:09 AM Mid/Distal Left Anterior Descending Coronary Artery and diagonal branches with 99% stenosis. ejohnson 10:09 AM Circumflex, Obtuse Marginal, Left Posterior Descending, and Left Posterolateral Coronary Arteries with 80 % stenosis. ejohnson 10:14 AM Site status No bleeding/hematoma - Rt Groin as reported by Joselin Rivera RT (R) at 10:14 ejohnson 10:14 AM Opsite applied ejohnson 10:14 AM Time: 09:59 Patient comfortable and pain free: Yes ejohnson 10:18 AM Report given to Herb OROZCO Pt taken to 2NE Room #27. 10:18 ejohnson 10:18 AM Delay to floor No ejohnson 10:18 AM Patient out of room: 10:18 ejohnson Complications Complication None Hemodynamics Pressures Site Systolic/A Wave Diastolic/V Wave Mean LV 112 0 12 LV 105 -1 6 AO 102 55 73 AO 99 52 73 AO 109 55 76 AO 107 54 74 Post Procedure Information Blood Pressure: 138/68 mmHg Rhythm: Paced Post procedural instructions were given Surgery consult for CABG Site Checks Time Location Status Staff Sheath In? Note 10:14 AM Rt Groin No bleeding/hematoma Joselin Rivera RT (R) Pulses Time Site Pre-Procedure Post-Procedure Note 07/12/2017 8:59:00 AM Bilateral DP & PT 2+ 07/12/2017 8:59:00 AM Bilateral radial 2+ 10:01:00 AM Bilateral DP & PT 1+ Updated by Carolina Paulino RN on 07/12/2017 10:19:31 AM Carolina Paulino RN electronically signed on 07/12/2017 10:20:08 AM with status of Final
[2017-07-12] MEDS: 0.9 % Sodium Chloride 1,000 ML IVC SCH (10:45)
[2017-07-12] MEDS: Insulin DETEMIR 100 UNIT/ML X5UNITS SQ SCH ×2 (10:59→20:13)
--- NOTE | 2017-07-12 12:26 | Cardiothoracic Consult Note ---
Date of Encounter: 07/12/17 Time of Encounter: 12:21 Assessment and Plan (1) Coronary artery disease Current Visit: No Status: Chronic The assessment and plan as outlined above was discussed with the patient and/or family members who expressed understanding and agreement. All questions were answered. The patient has well preserved ventricular function. The right coronary artery is small and does not appear bypassable. The circumflex coronary artery is 80% blocked and has branches which could the bypass. The proximal one half of the LAD is filled with stents and has a 95% in-stent stenosis. The distal LAD is 99 % and a small vessel. There does appear to be a segment between the proximal and distal parts that might be amenable to bypass. However, the only way that I am aware of 2 no would be at surgery. If the LAD was not bypassable, he would be best if the patient was at [facility] surgery could be placed on ventricular support for possible eventual transplant. This was discussed with the family and they are also requesting transfer back to [facility]. Qualifiers: Coronary Disease-Associated Artery/Lesion type: [place] artery [place] vs. transplanted heart: [place] heart Associated angina: angina presence unspecified Qualified Code(s): I25.10 - Atherosclerotic heart disease of [place] coronary artery without angina pectoris - History of Present Illness Consult date: 07/12/17 History of present illness: Mr. Dominguez is a 61 year old male The patient is a 61-year-old gentleman who has a history of previous stent placement, both here and in [place]. He was told 2 years ago at [facility] that his only option was a heart transplant. He was admitted with chest pain and a positive troponin of 0.23. He does have a history of atrial fibrillation and is status post ablation. He has a pacemaker in place. He has been on Coumadin for atrial fibrillation and Plavix for his stents. He did receive Plavix today. Echocardiogram revealed ejection fraction of 55% and no significant valvular dysfunction. Cardiac catheterization revealed ejection fraction of 60%. His right coronary artery was 100% small and did not appear to be bypassable. It did fill by collaterals. The circumflex was 80% blocked and had several branches which could be bypassed. The proximal one half of the LAD was filled with stents. There was a 95% in-stent restenosis in the proximal LAD. The distal LAD was 99% and a small vessel. Past medical history is notable for diabetes on insulin and oral agents. He has had diabetes for many years. He also has a history of hypertension and hyperlipidemia. Social history. He lives outside of [place]. 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 Does not smoke and does not drink. Family history is positive for coronary artery disease. Review of systems is negative for stroke or TIA. Negative for saphenous vein varicosities or strippings. He is status post bilateral total knee replacements. Past Med Surg Social Fam HX - Past Medical History Medical history: coronary artery disease, diabetes Psychiatric history: no psych history - Past Surgical History Surgical History: angioplasty/stent, appendectomy, knee replacement, pacemaker/ AICD - Social History Smoking Status: Never smoker Smokeless Tobacco Status: No Alcohol use: none Drug use: none - Family History Father Living Status: Age at : 60 Cause of : heart attack Hx Family Cardiac Disorders: Yes ([place]) Mother Living Status: Age at : 85 Hx Family Cardiac Disorders: Yes ([place]) Medications and Allergies Clopidogrel [Plavix] 75 mg PO DAILY 09/24/15 [History] Insulin ASPART [NovoLOG] 0 unit SQ TIDWM 09/24/15 [History] Insulin Glargine,Hum.rec.anlog [Lantus Solostar] 50 unit SQ BID 09/24/15 [ History] Ranolazine [Ranexa] 500 mg PO BID 09/24/15 [History] Alirocumab [Praluent Pen] 75 mg SQ Q2W 07/10/17 [History] Amlodipine Besylate 10 mg PO DAILY 07/10/17 [History] Aspirin Enteric Coated [Aspirin EC] 81 mg PO DAILY 07/10/17 [History] Isosorbide MONOnitrate [Isosorbide Mononitrate ER] 240 mg PO DAILY 07/10/17 [ History] Losartan [Cozaar] 12.5 mg PO DAILY 07/10/17 [History] Metformin HCl [Glucophage] 1,000 mg PO BID 07/10/17 [History] Metoprolol Succinate 100 mg PO DAILY 07/10/17 [History] Metoprolol XL (24 HR) Succ [Toprol XL] 25 mg PO DAILY 07/10/17 [History] Nitroglycerin [Nitroglycerin] 1 - 2 spray SL AD PRN 07/10/17 [History] Nitroglycerin [Nitrostat] 0.4 mg SL Q5M PRN 07/10/17 [History] Warfarin perPT [Coumadin perPT] 7 mg PO QPM 07/10/17 [History] 3 Allergy/AdvReac Type Severity Reaction Status Date / Time lisinopril AdvReac Cough Verified 07/10/17 19:59 Oxycodone [From OxyContin] AdvReac Gastrointestinal Verified 07/10/17 19:59 Upset All Systems Review: A 10-system review of systems was performed and is negative for pertinent findings except as documented above in the HPI. Physical Examination Vital Signs, Last 4 Hours Temp Pulse Resp BP Pulse Ox 07/12/17 11:03 60 122/89 07/12/17 11:00 61 119/68 07/12/17 10:37 97.8 F 60 12 122/89 94 Pupils are equal, round and reactive to light and accommodation. No oral lesions. Neck is supple. Trachea in the midline. No thyromegaly or carotid bruits. Lungs are clear to percussion and auscultation. Heart is in a paced rhythm and appears to be sinus. No murmurs, gallops or rubs. Abdomen is benign. No tenderness, rebound or guarding. He is status post appendectomy. Extremities. He is status post bilateral total knee replacements. No saphenous vein varicosities or strippings. 2+ pulses. Cranial nerves, motor and sensory intact. Results 07/12/17 04:27 07/12/17 04:27 Lab Results, Last 24 hours 07/12/17 07/12/17 07/12/17 04:27 04:27 04:27 WBC 7.0 Hgb 15.5 Hct 45.2 Plt Count 211 INR 1.7 Sodium 138 Potassium 4.2 Chloride 106 Carbon Dioxide 23 BUN 13 Creatinine 0.93 Glucose 195 H Calcium 9.2 Consult Discharge Plan - Plan Referrals: Tera Massey DO [Primary Care Provider] - 07/19/17 9:30 am
[2017-07-12] MEDS ORDERED: *HR* Heparin 5,000 UNIT/ML VIAL IVP PRN (12:30)
[2017-07-12] MEDS ORDERED: *HR* Heparin 5,000 UNIT/ML VIAL IVP ONE (12:30)
[2017-07-12] MEDS: Heparin 25,000 UNIT/500 ML D5W 25,000 UNIT/500 ML MLS IVC SCH (13:00)
[2017-07-12 13:28] LABS: Hematocrit 45.2 % (37.5-50.1); Hemoglobin 15.6 g/dL (12.9-16.9); Mean Corpuscular HGB Conc 34.5 g/dL (31.6-35.5); Mean Corpuscular Hemoglobin 30.7 pg (28.0-33.3); Mean Platelet Volume 9.8 fL (9.4-12.4); Platelet Count 234 K/mcL (140-400); Red Blood Count 5.08 M/mcL (4.19-5.50); Red Cell Distribution Width 12.5 % (11.5-14.5)
[2017-07-12 13:32] LABS: INR 1.6; Prothrombin Time 17.1 Seconds (9.4-12.1)
--- NOTE | 2017-07-12 14:29 | Discharge Summary ---
<Lorenzo Anderson - Last Filed: 07/12/17 15:06> Date of Encounter: 07/12/17 Time of Encounter: 14:27 - Discharge Diagnosis (1) Coronary artery disease Priority: Primary Status: Chronic Qualifiers: Coronary Disease-Associated Artery/Lesion type: [place] artery [place] vs. transplanted heart: [place] heart Associated angina: with unstable angina Qualified Code(s): I25.110 - Atherosclerotic heart disease of [place] coronary artery with unstable angina pectoris (2) NSTEMI (non-ST elevated myocardial infarction) Priority: Secondary Status: Acute (3) Pacemaker-dependent due to [place] cardiac rhythm insufficient to support life Priority: Secondary Status: Chronic (4) Diabetes mellitus Priority: Secondary Status: Chronic Qualifiers: Diabetes mellitus type: type 2 Diabetes mellitus complication status: with unspecified complications Diabetes mellitus mcc insulin use: with mcc use Qualified Code(s): E11.8 - Type 2 diabetes mellitus with unspecified complications; Z79.4 - 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 (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 insulin; Z79.4 - 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 ( 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 insulin; Z79.4 - detention (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 insulin; Z79.4 - 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 (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 insulin - Discharge Medications Home Medications: Clopidogrel [Plavix] 75 mg PO DAILY 09/24/15 [History] Insulin ASPART [NovoLOG] 0 unit SQ TIDWM 09/24/15 [History] Insulin Glargine,Hum.rec.anlog [Lantus Solostar] 50 unit SQ BID 09/24/15 [ History] Ranolazine [Ranexa] 500 mg PO BID 09/24/15 [History] Alirocumab [Praluent Pen] 75 mg SQ Q2W 07/10/17 [History] Amlodipine Besylate 10 mg PO DAILY 07/10/17 [History] Aspirin Enteric Coated [Aspirin EC] 81 mg PO DAILY 07/10/17 [History] Isosorbide MONOnitrate [Isosorbide Mononitrate ER] 240 mg PO DAILY 07/10/17 [ History] Losartan [Cozaar] 12.5 mg PO DAILY 07/10/17 [History] Metformin HCl [Glucophage] 1,000 mg PO BID 07/10/17 [History] Metoprolol Succinate 100 mg PO DAILY 07/10/17 [History] Metoprolol XL (24 HR) Succ [Toprol XL] 25 mg PO DAILY 07/10/17 [History] Nitroglycerin [Nitroglycerin] 1 - 2 spray SL AD PRN 07/10/17 [History] Nitroglycerin [Nitrostat] 0.4 mg SL Q5M PRN 07/10/17 [History] Warfarin perPT [Coumadin perPT] 7 mg PO QPM 07/10/17 [History] Allergies/Adverse Reactions: 3 Allergy/AdvReac Type Severity Reaction Status Date / Time lisinopril AdvReac Cough Verified 07/10/17 19:59 Oxycodone [From OxyContin] AdvReac Gastrointestinal Verified 07/10/17 19:59 Upset Procedures/tests Complete & Pending: Procedures Performed prior 72 hours Category Date Time Status CL Cardiac Catheterization [CL] Routine Train Electronic Technician 07/12/17 08:44 Completed EV echocardiogram Routine Y 07/11/17 08:25 Completed Date of admission: 07/11/17 00:22 Primary care physician: Tera Massey, Consults: 07/11/17 09:34 Consult to Cardiac Rehabilitation-Phase1 [CONS] Routine Comment: Reason for Consult: NSTEMI Call Completed: No Discharging clinician: Lorenzo Anderson Anticipated date of discharge: 07/12/17 - Patient Status Disposition: Transfer Other Condition: Good Functional capacity at discharge: independent ambulation Overall status at discharge: patient is not back to baseline - Discharge Instructions Follow Up With: Tera Massey DO [Primary Care Provider] - 07/19/17 9:30 am - Diet and Activity Activity: as per the cardiac rehab, as per physical therapy Diet: low fat, low cholesterol, low salt diet Interval History: Pt seen and examined. Reports continued chest discomfort, but responding well to nitro drip and morphine. He denies syncope, light-headedness, diaphoresis, dyspnea, cough, N/V/D/C, dysuria, or leg pain/edema. Hospital course: Mr. Dominguez is a 61 year old male with PMH of CAD s/p multiple stents, A. fib with pacemaker on coumadin, HTN, bilateral knee replacements, and type 2 DM presents to the hospital with chest pain and found to have NSTEMI. Troponins stable 0.15 , 0.23, 0.23. The patients is on ASA, plavix, statin, and BB. Chest pain is well controlled with nitro drip and morphine. He was told 2 years ago at [facility] that his only option was a heart transplant. Cardiology consulted and held coumadin in preparation for LHC. LHC shows severe three vessel coronary artery disease. LVEF 60%. Per cardiothoracic surgery consult: "The right coronary artery is small and does not appear bypassable. The circumflex coronary artery is 80% blocked and has branches which could the bypass. The proximal one half of the LAD is filled with stents and has a 95% in-stent stenosis. The distal LAD is 99% and a small vessel. There does appear to be a segment between the proximal and distal parts that might be amenable to bypass. If the LAD was not bypassable, he would be best if the patient was at [facility] surgery could be placed on ventricular support for possible eventual transplant. This was discussed with the family and they are also requesting transfer back to [facility]." The patient is currently on a heparin drip and a nitro drip. The patient is hemodynamically stable and will be transferred to [facility] for further evaluation and management. - Time Spent with Patient Total time spent providing and/or coordinating discharge services: Greater than 30 minutes - Constitutional Vitals: Temp Pulse Resp BP Pulse Ox 97.8 F 60 12 122/89 94 07/12/17 10:37 07/12/17 11:03 07/12/17 10:37 07/12/17 11:03 07/12/17 10:37 General appearance: Present: A&O X 3, no acute distress - Head Head exam: Present: atraumatic, normocephalic - Eye Eye exam: Present: conjuntiva pink, sclera anicteric - Neck Neck exam general surgery: Present: supple, trachea midline. Absent: lymphadenopathy - Respiratory Respiratory exam: Present: CTAB. Absent: accessory muscle use, rales, rhonchi, wheezes - Cardiovascular Cardiovascular exam: Present: RRR (paced), +S1, +S2. Absent: diastolic murmur, systolic murmur - GI/Abdominal GI/Abdominal exam: Present: normal bowel sounds, soft, no peritoneal signs. Absent: distended, tenderness - Extremities Exam Extremities exam: Present: warm, radial pulses palpable and symmetrical. Absent : calf tenderness, cyanotic, pedal edema - Neurological Exam Neurological exam: Present: CN II-XII intact, oriented X3, no focal deficits. Absent: facial droop, speech deficit - Skin Skin exam: Present: dry, intact <Debbie Ibrahim - Last Filed: 07/12/17 16:14> Date of Encounter: 07/12/17 Procedures/tests Complete & Pending: Procedures Performed prior 72 hours Category Date Time Status CL Cardiac Catheterization [CL] Routine Train Electronic Technician 07/12/17 08:44 Completed EV echocardiogram Routine Y 07/11/17 08:25 Completed Date of admission: 07/11/17 00:22 Primary care physician: Tera Massey, Consults: 07/11/17 09:34 Consult to Cardiac Rehabilitation-Phase1 [CONS] Routine Comment: Reason for Consult: NSTEMI Call Completed: No Hospital course: Mr. Dominguez is a 61 year old male - Time Spent with Patient Total time spent providing and/or coordinating discharge services: - Constitutional Vitals: Temp Pulse Resp BP Pulse Ox 97.7 F 63 12 96/53 94 07/12/17 15:16 07/12/17 15:16 07/12/17 15:16 07/12/17 15:16 07/12/17 15:16 - Attending Attestation I have seen and examined patient independently. I have discussed with the resident physician regarding the management plan. Agree with the documentation. Per cardiology and CT surgeon recommendation, Patient will be transferred to [facility] for further management. We will continue NTG drip and morphine for pain at this point. Hold the Coumadin, Plavix for possible future procedure. Waiting for [facility] bed available now.
[2017-07-12] MEDS: *HR* Heparin 5,000 UNIT/ML VIAL IVP PRN (22:27)
[2017-07-13] MEDS: Insulin LISPRO 300 UNITS/3 ML VIAL SQ SCH ×4 (00:03→13:21)
[2017-07-13] MEDS: *HR* Morphine 2 MG/ML SYRINGE IVP PRN ×3 (02:01→13:20)
[2017-07-13] MEDS: *HR* Heparin 5,000 UNIT/ML VIAL IVP PRN (06:11)
[2017-07-13] MEDS: amLODIPine 5 MG TABLET PO SCH (07:58)
[2017-07-13] MEDS: Metoprolol XL (24 HR) Succ 25 MG TAB.ER.24H PO SCH (07:58)
[2017-07-13] MEDS: Metoprolol XL (24 HR) Succ 50 MG TAB.ER.24H PO SCH (07:58)
[2017-07-13] MEDS: Ranolazine 500 MG TAB.ER.12H PO SCH (07:59)
[2017-07-13] MEDS: Aspirin Enteric Coated 81 MG Tablet PO SCH (07:59)
[2017-07-13] MEDS: Isosorbide MONOnitrate (24 HR) 60 MG TAB.ER.24H PO SCH (07:59)
[2017-07-13] MEDS: 0.9 % Sodium Chloride 1,000 ML IVC SCH ×2 (08:00→08:16)
[2017-07-13] MEDS: Insulin DETEMIR 100 UNIT/ML X5UNITS SQ SCH (08:04)
[2017-07-13 10:50] VITALS: BP 105/69
[2017-07-13] MEDS: Heparin 25,000 UNIT/500 ML D5W 25,000 UNIT/500 ML MLS IVC SCH (13:28)
--- NOTE | 2017-07-13 15:50 | Event Note ---
<Lorenzo Anderson - Last Filed: 07/13/17 15:48> Date of Encounter: 07/13/17 Time of Encounter: 15:48 The patient remained in the hospital overnight awaiting a bed at [facility]. He remained hemodynamically stable overnight and his pain was controlled. Reports no new symptoms and physical exam remained unremarkable. Heparin and Nitro drips were continued. He has now been transferred to [facility] for further management. <Debbie Ibrahim - Last Filed: 07/13/17 17:21> Date of Encounter: 07/13/17 I have seen and examined pt independently, I have discussed with Resident physician regarding the management plan. Agree with the documentation. Pt remains stable. On heparin and NTG drip. Transfered to [facility] in the afternoon.
[2017-07-13 18:10] LABS: CK-BB (CK isoenzymes) 0 % (0-0); CK-MB (CK isoenzymes) 0 % (0-4); CK-MM (CK-isoenzymes) 100 % (96-100)
[2017-07-13 18:10] LABS: CK-BB (CK isoenzymes) 0 % (0-0); CK-MB (CK isoenzymes) 0 % (0-4); CK-MM (CK-isoenzymes) 100 % (96-100)
[2017-07-16 08:09] LABS: CK Total (Ck Isoenzymes) 84 U/L (20-200)
[2017-07-16 08:09] LABS: CK Total (Ck Isoenzymes) 90 U/L (20-200)
== END 2017-07-13 15:04 | disposition short-term general hospital (02) | DRG 281 ==
LOC: EMEROO 19:30 → 2NENU 19:30
PROVIDERS: ADMIT Hospitalist; ATTEND Internal Medicine

== ENCOUNTER 2017-12-24 17:27 | Inpatient (IN) ==
[2017-12-24 18:15] LABS: Basophils # 0.1 K/mcL (0.0-0.2); Basophils % 0.7 %; Eosinophils # 0.3 K/mcL (0.0-0.6); Hematocrit 46.1 % (37.5-50.1); Hemoglobin 15.7 g/dL (12.9-16.9); Immature Granulocytes % 0.5 % (0-4); Lymphocytes # 2.9 K/mcL (0.6-4.6); Lymphocytes % 38.5 %; Mean Corpuscular HGB Conc 34.1 g/dL (31.6-35.5); Mean Corpuscular Hemoglobin 30.1 pg (28.0-33.3); Mean Corpuscular Volume 88.3 fL (83.0-100.0); Mean Platelet Volume 9.7 fL (9.4-12.4); Monocytes # 0.7 K/mcL (0.0-1.3); Monocytes % 9.3 %; Neutrophils # 3.5 K/mcL (1.6-8.9); Nucleated Red Blood Cells 0.9 /100 WBC (0); Platelet Count 295 K/mcL (140-400); Red Blood Count 5.22 M/mcL (4.19-5.50); Red Cell Distribution Width 14.3 % (11.5-14.5)
[2017-12-24 18:26] LABS: Troponin I < 0.03 ng/mL (< 0.04)
[2017-12-24 18:27] LABS: Alanine Aminotransferase 24 Units/L (7-52); Albumin 4.6 g/dL (3.5-5.7); Albumin/Globulin Ratio 1.8 (1.1-2.2); Alkaline Phosphatase 50 Units/L (34-104); Aspartate Amino Transferase 23 Units/L (13-39); BUN/Creatinine Ratio 17 (6-26); Bilirubin,Total 0.5 mg/dL (0.3-1.0); Blood Urea Nitrogen 16 mg/dL (8-23); Carbon Dioxide 23 mEq/L (23-29); Chloride 103 mEq/L (98-107); Globulin 2.6 g/dL (2.4-3.5); Glucose 185 mg/dL (70-105); Osmolality,Calculated 288 (280-300); Potassium 4.5 mEq/L (3.5-5.1); Sodium 136 mEq/L (136-145); Total Protein 7.2 g/dL (6.4-8.9); eGFR For African Americans > 60 (> 60); eGFR For Non-African Americans > 60 (> 60)
[2017-12-24] MEDS ORDERED: Nitroglycerin 0.4 MG TAB.SUBL SL ONE (19:09)
[2017-12-24] MEDS: Nitroglycerin 0.4 MG TAB.SUBL SL PRN ×3 (19:11→19:22)
--- NOTE | 2017-12-24 19:16 | Emergency Department Note ---
Disposition Clinical Impression: Unstable angina Disposition: Admitted As Inpatient Condition: Fair Time of Disposition: 20:35 Chest Pain HPI - General Chief Complaint: ED Chest Pain Stated Complaint: "CP, took 1 spray of nitro" Time Seen by Provider: 12/24/17 19:13 Source: patient Limitations: no limitations Vital Signs Reviewed: Yes Nursing Notes Reviewed: Yes - History of Present Illness HPI Narrative: Mr. Dominguez, a 62-year-old male, presents from home for evaluation of chest pain. Described as a left chest squeezing and 8 with radiation down his left arm described as tightness. He is associated worsening of his dyspnea. This occurred approximately 10 times today and 5 times yesterday. Each occurrence immediately improved with nitroglycerin nasal spray. To him, his symptoms are eerily similar to his prior ACS resulting in CABG. His symptoms occur at rest. One of these occurrences yesterday was 1 driving and was severe enough he had to extract puller. Commercial Producer: Dr. Pushpa Arciniega. He attempted to call her office today however, by time he called, she was not in. He was previously told by her that if his chest pain worsens to come to the emergency department. He was not sure if he should come here or to [facility] where he had his CABG. History of CAD with ACS status post CABG 3 (surgery at [facility], Dr. Pate July 2017). Hyperlipidemia. Pacemaker in place. ROS: Positive: As above Negative: Fever, chills, nausea, vomiting, diaphoresis Severity scale (1-10): 6 - Related Data Home Medications Medication Instructions Recorded Confirmed Clopidogrel [Plavix] 75 mg PO DAILY 09/24/15 12/24/17 Insulin ASPART [NovoLOG] 0 unit SQ TIDWM PRN 09/24/15 12/24/17 Insulin Glargine,Hum.rec.anlog 20 unit SQ BID 09/24/15 12/24/17 [Lantus Solostar] Ranolazine [Ranexa] 500 mg PO BID 09/24/15 12/24/17 Alirocumab [Praluent Pen] 75 mg SQ Q2W 07/10/17 12/24/17 Aspirin Enteric Coated [Aspirin EC] 81 mg PO DAILY 07/10/17 12/24/17 Metformin HCl [Glucophage] 1,000 mg PO BID 07/10/17 12/24/17 Nitroglycerin [Nitroglycerin] 1 - 2 spray SL AD PRN 07/10/17 12/24/17 Nitroglycerin [Nitrostat] 0.4 mg SL Q5M PRN 07/10/17 12/24/17 Warfarin perPT [Coumadin perPT] 6 mg PO DAILY 07/10/17 12/24/17 Lantus Solostar 20 units SQ BID 09/19/17 12/24/17 Mv-Mn/FA/Vit K/Lycop/Lut/Coq10 1 tab PO DAILY 09/19/17 12/24/17 [Daily Multivitamin Capsule] Amlodipine Besylate [Amlodipine 2.5 mg PO DAILY 12/24/17 12/24/17 Besylate] HYDROcodone/Acet 5/325 mg [[place] 1 tab PO TID PRN 12/24/17 12/24/17 5-325 mg] Metoprolol Tartrate [Metoprolol 50 mg PO BID 12/24/17 12/24/17 Tartrate] Tizanidine HCl [Tizanidine HCl] 4 mg PO TID PRN 12/24/17 12/24/17 Allergies Allergy/AdvReac Type Severity Reaction Status Date / Time lisinopril AdvReac Cough Verified 12/24/17 20:12 All systems ED: reviewed and negative except as stated. Review of Systems: As Per HPI Chest Pain PMH - Past Medical History Medical history: Reports: atrial fibrillation, coronary artery disease, diabetes , hyperlipidemia, hypertension Surgical history: Reports: angioplasty/stent, appendectomy, knee replacement, pacemaker/AICD Psychiatric history: Reports: no psych history Prior Cardiac Testing/Procedures: Echocardiogram, Stress Test, Stenting - Social History Smoking Status: Never smoker Alcohol use: Reports: none Drug use: Reports: none Physical Exam - General Limitations: no limitations General appearance: alert Course Course Narrative: I discussed the patient with Dr. Villa Arciniega, on-call cardiology. He agrees to bring the patient and will rule out ACS and will consider catheter needed. EKG dated 12/24/17 at 17:31 interpreted as electronic atrio ventricular paced rate of 71. Nonspecific ST-T changes. Compared to previous dated 07/10/2017 shows ventricular paced. Patient's lab work is unremarkable specifically troponin is normal. Chest x-ray is unremarkable. Patient's chest pain improved but returned after sublingual nitroglycerin 3. Patient's pain improved from 04/12-6/ with 1 inch Nitropaste drip. Will begin nitroglycerin drip watching for hypotension. I discussed the patient with the admitting hospitalist who agrees to accept the patient for continued evaluation and management with cardiology following. EKG dated 12/24/17 at 20:12 shows electronic paced at a rate of 62. Unchanged from previous. Chest X-Ray 12/24/17 17:34 IMPRESSION: No acute cardiopulmonary process. D/ / 12/24/2017 17:54:03 Clementine Byrne MD / viral Interpreting Provider: Clementine Byrne MD Vital Signs Temperature 98.1 F 12/24/17 17:30 Pulse Rate 84 12/24/17 17:30 Respiratory Rate 20 12/24/17 17:30 Blood Pressure 164/82 12/24/17 17:30 O2 Sat by Pulse Oximetry 95 12/24/17 17:30 Temperature 97.8 F 12/25/17 04:37 Pulse Rate 66 12/25/17 04:37 Respiratory Rate 14 12/25/17 04:37 Blood Pressure 115/64 12/25/17 04:37 O2 Sat by Pulse Oximetry 95 12/25/17 04:37 Oxygen Delivery Oxygen Delivery Room Air Chest Pain - Lab Data Result diagrams: 12/24/17 17:47 12/24/17 17:47 Lab Results 12/24/17 12/24/17 12/24/17 Range/Units 17:47 17:47 17:47 WBC 7.5 (4.3-11.1) K/mcL RBC 5.22 (4.19-5.50) M/mcL Hgb 15.7 (12.9-16.9) g/dL Hct 46.1 (37.5-50.1) % MCV 88.3 (83.0-100.0) fL MCH 30.1 (28.0-33.3) pg MCHC 34.1 (31.6-35.5) g/dL RDW 14.3 (11.5-14.5) % Plt Count 295 (140-400) K/mcL MPV 9.7 (9.4-12.4) fL Immature Gran % 0.5 (0-4) % Seg Neutrophils % 47.0 % Lymphocytes % 38.5 % Monocytes % 9.3 % Eosinophils % 4.0 % Basophils % 0.7 % Neutrophils # 3.5 (1.6-8.9) K/mcL Lymphocytes # 2.9 (0.6-4.6) K/mcL Monocytes # 0.7 (0.0-1.3) K/mcL Eosinophils # 0.3 (0.0-0.6) K/mcL Basophils # 0.1 (0.0-0.2) K/mcL Nucleated RBCs/100 WBC 0.9 H (0) /100 WBC PT 28.0 H (9.4-12.1) Seconds INR 2.5 Sodium 136 (136-145) mEq/L Potassium 4.5 (3.5-5.1) mEq/L Chloride 103 (98-107) mEq/L Carbon Dioxide 23 (23-29) mEq/L BUN 16 (8-23) mg/dL Creatinine 0.92 (0.70-1.30) mg/dL Est GFR ( Amer) > 60 (> 60) Est GFR (Non-Af Amer) > 60 (> 60) BUN/Creatinine Ratio 17 (6-26) Glucose 185 H (70-105) mg/dL Calculated Osmolality 288 (280-300) Calcium 10.0 (8.6-10.3) mg/dL Total Bilirubin 0.5 (0.3-1.0) mg/dL AST 23 (13-39) Units/L ALT 24 (7-52) Units/L Alkaline Phosphatase 50 (34-104) Units/L Troponin I < 0.03 (< 0.04) ng/mL Serum Total Protein 7.2 (6.4-8.9) g/dL Albumin 4.6 (3.5-5.7) g/dL Globulin 2.6 (2.4-3.5) g/dL Albumin/Globulin Ratio 1.8 (1.1-2.2) Heart Score - Score History: Highly Suspicious EKG: Non Specific repolarisation Disturbance Age: 45-65 Risk Factors: Equal/Greater than 3 risk factor or history of atherosclerotic disease Troponin: Less than normal limit HEART Score Total: 6 Attestation Statement - Attestation Attestation: I examined this patient and my medical decision-making was reviewed with the Resident Physician. I agree with the documented findings, disposition and treatment plan as described except to the extent set forth below. Chest pain. History of coronary artery disease. Patient will be admitted for further management at the recommendation of cardiology here Dr. Arciniega. EKG does not suggest STEMI at time of admission.
[2017-12-24] MEDS ORDERED: Nitroglycerin 1 INCH/GM PACKET TP ONE (19:19)
[2017-12-24 20:44] LABS: INR 2.5
[2017-12-24] MEDS ORDERED: tiZANidine 4 MG TABLET PO PRN (21:02)
[2017-12-24] MEDS ORDERED: Naloxone 0.4 MG/ML INJ IVP PRN (21:03)
[2017-12-24] MEDS ORDERED: Acetaminophen 325 MG TABLET PO PRN (21:03)
[2017-12-24] MEDS ORDERED: *HR* OxyCODONE Immed Rel 5 MG TABLET PO PRN (21:03)
[2017-12-24] MEDS: Nitroglycerin 25 MG/250 ML INFUS..BTL IVC SCH (21:10)
[2017-12-24] MEDS ORDERED: 0.9 % Sodium Chloride 500 ML ONE (21:15)
[2017-12-24] MEDS ORDERED: D5% in Water 1,000 ML IVC PRN (21:17)
[2017-12-24] MEDS ORDERED: *HR* Dextrose 50 % in Water (Syg) 50 ML SYRINGE IVP PRN (21:17)
[2017-12-24] MEDS ORDERED: Dextrose Gel 15 GM/37.5 ML TUBE PO PRN ×2 (21:17)
--- NOTE | 2017-12-24 21:58 | Internal Med History&Physical ---
Date of Encounter: 12/24/17 Time of Encounter: 21:56 Internal Medicine - H&P: HPI Chief complaint: Chest pain Admitted From: Home Plans for Post Hospital Care: Home History of present illness: Mr. Dominguez is a 62 year old male with medical history of coronary artery disease status post coronary artery bypass grafting done in 07/2017 at the [facility], atrial fibrillation with a pacemaker on Coumadin, diabetes mellitus, hyperlipidemia, nonsmoker. The patient reports a history of stable angina since his procedure, however since the past 24 hours, his chest pain has not resolved with his home doses of nitroglycerin. He states that chest pain feel pressure-like, nonradiating, with associated shortness of breath. There is no dizziness, no palpitations. He denies leg swelling, cough, fever or chills. There is no history of trauma. In the emergency room, the patient received Nitropaste, with minimal relief, he received nitroglycerin sublingual 3 times, with minimal relief, his chest pain got relieved with nitroglycerin infusion. He denies any neurologic, abdominal, or genitourinary symptoms. EKG was paced with a normal ventricular rate, no ST segment changes, initial troponin is negative. INR is therapeutic. Past Med Surg Social Fam HX - Past Medical History Medical history: atrial fibrillation, coronary artery disease, diabetes, hypertension Psychiatric history: no psych history - Past Surgical History Surgical History: angioplasty/stent, appendectomy, knee replacement, pacemaker/ AICD - Social History Smoking Status: Never smoker Smokeless Tobacco Status: No Alcohol use: none Drug use: none - Family History Father Living Status: Hx Family Cardiac Disorders: Yes ([place]) Mother Living Status: Hx Family Cardiac Disorders: Yes ([place]) Internal Medicine - H&P: Meds Clopidogrel [Plavix] 75 mg PO DAILY 09/24/15 [History] Insulin ASPART [NovoLOG] 0 unit SQ TIDWM PRN 09/24/15 [History] Insulin Glargine,Hum.rec.anlog [Lantus Solostar] 20 unit SQ BID 09/24/15 [ History] Ranolazine [Ranexa] 500 mg PO BID 09/24/15 [History] Alirocumab [Praluent Pen] 75 mg SQ Q2W 07/10/17 [History] Aspirin Enteric Coated [Aspirin EC] 81 mg PO DAILY 07/10/17 [History] Metformin HCl [Glucophage] 1,000 mg PO BID 07/10/17 [History] Nitroglycerin [Nitroglycerin] 1 - 2 spray SL AD PRN 07/10/17 [History] Nitroglycerin [Nitrostat] 0.4 mg SL Q5M PRN 07/10/17 [History] Warfarin perPT [Coumadin perPT] 6 mg PO DAILY 07/10/17 [History] Lantus Solostar 20 units SQ BID 09/19/17 [History] Mv-Mn/FA/Vit K/Lycop/Lut/Coq10 [Daily Multivitamin Capsule] 1 tab PO DAILY 09/19 [History] Amlodipine Besylate [Amlodipine Besylate] 2.5 mg PO DAILY 12/24/17 [History] HYDROcodone/Acet 5/325 mg [[place] 5-325 mg] 1 tab PO TID PRN 12/24/17 [History] Metoprolol Tartrate [Metoprolol Tartrate] 50 mg PO BID 12/24/17 [History] Tizanidine HCl [Tizanidine HCl] 4 mg PO TID PRN 12/24/17 [History] 3 Allergy/AdvReac Type Severity Reaction Status Date / Time lisinopril AdvReac Cough Verified 12/24/17 20:12 All Systems PM: A 10-system review of systems was performed and is negative for pertinent findings except as documented above in the HPI. - Constitutional Constitutional: as per HPI - EENT Eyes: as per HPI Ears: as per HPI Nose, mouth and throat: as per HPI - Breasts Breasts: as per HPI - Cardiovascular Cardiovascular ROS IM: as per HPI - Respiratory Respiratory: as per HPI - Gastrointestinal Gastrointestinal: as per HPI - Musculoskeletal Musculoskeletal ROS IM: as per HPI - Integumentary Integumentary IM: as per HPI - Neurological Neurological ROS: as per HPI - Hematologic/Lymphatic Hematologic/Lymphatic: as per HPI - Constitutional Vitals: Temp Pulse Resp BP Pulse Ox 98.6 F 75 14 161/78 95 12/24/17 21:30 12/24/17 21:45 12/24/17 21:30 12/24/17 21:45 12/24/17 21:30 General appearance: Present: A&O X 3, pleasant, no acute distress - Head Head exam: Present: atraumatic, normocephalic - Eye Eye exam: Present: PERRL, conjuntiva pink, sclera anicteric Pupils: Present: PERRL - Neck Neck exam general surgery: Present: supple, trachea midline. Absent: lymphadenopathy - Respiratory Respiratory exam: Present: CTAB. Absent: accessory muscle use, rales, rhonchi, wheezes - Cardiovascular Cardiovascular exam: Present: irregular rhythm, +S1, +S2. Absent: diastolic murmur, gallop, rubs, systolic murmur - GI/Abdominal GI/Abdominal exam: Present: normal bowel sounds, soft, no peritoneal signs. Absent: distended, tenderness - Extremities Exam Extremities exam: Present: warm, radial pulses palpable and symmetrical. Absent : calf tenderness, cyanotic, pedal edema - Neurological Exam Neurological exam: Present: alert, CN II-XII intact, oriented X3, no focal deficits. Absent: pronater drift, facial droop, speech deficit - Skin Skin exam: Present: dry, intact Internal Med - H&P Results - Labs CBC & Chem 7: 12/24/17 17:47 12/24/17 17:47 - Assessment and plan (1) Unstable angina pectoris Current Visit: Yes Status: Acute Assessment and plan: Continue nitroglycerin drip Continue home doses of aspirin and Plavix Continue home dose of metoprolol Patient has allergies to lisinopril and statins. Echocardiogram in the morning Stress test in the morning if patient is chest pain-free Cardiology evaluation Patient is hemodynamically stable at this time (2) Coronary artery disease with unstable angina pectoris Current Visit: Yes Status: Chronic Assessment and plan: As above Qualifiers: Coronary Disease-Associated Artery/Lesion type: [place] artery [place] vs. transplanted heart: [place] heart Qualified Code(s): I25.110 - Atherosclerotic heart disease of [place] coronary artery with unstable angina pectoris (3) Atrial fibrillation Current Visit: Yes Status: Chronic Assessment and plan: Heart rate is currently controlled and INR is therapeutic. Continue metoprolol and warfarin. Qualifiers: Atrial fibrillation type: chronic Qualified Code(s): I48.2 - Chronic atrial fibrillation (4) Diabetes mellitus Current Visit: Yes Status: Chronic Assessment and plan: Diabetic diet, fingersticks before meals at bedtime, basal and supplemental scale insulin. 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 Receives shots every 2 weeks. Check lipid panel in the morning. (6) Pacemaker Current Visit: Yes Status: Chronic Assessment and plan: Heart rate is stable. - Time Spent With Patient Total time spent is greater than 50% in coordination of care (as documented) at patient's floor/unit and/or counseling patient:
[2017-12-24] MEDS ORDERED: *HR* Warfarin 3 MG TABLET PO ONE (22:00)
[2017-12-24] MEDS: Ranolazine 500 MG TAB.ER.12H PO SCH (22:14)
[2017-12-24] MEDS: *HR* Morphine 2 MG/ML SYRINGE IVP PRN (23:24)
[2017-12-25] MEDS: *HR* Morphine 2 MG/ML SYRINGE IVP PRN ×5 (03:23→20:45)
[2017-12-25 05:02] LABS: INR 2.5; Prothrombin Time 27.9 Seconds (9.4-12.1)
[2017-12-25] MEDS ORDERED: Regadenoson 0.4 MG/5 ML SYRINGE IVP ONE (05:20)
[2017-12-25 05:26] LABS: Chol/HDL Ratio 3.6 (0-4.9)
[2017-12-25] MEDS: Multivit/Ca/Min/Fe/FA 1 TAB TABLET PO SCH (07:37)
[2017-12-25] MEDS: Aspirin Enteric Coated 81 MG Tablet PO SCH (07:37)
[2017-12-25] MEDS: amLODIPine 5 MG TABLET PO SCH (07:37)
[2017-12-25] MEDS: Ranolazine 500 MG TAB.ER.12H PO SCH ×2 (07:37→22:10)
[2017-12-25] MEDS: Insulin LISPRO 300 UNITS/3 ML VIAL SQ SCH ×4 (07:41→20:50)
[2017-12-25] MEDS ORDERED: Ranolazine 500 MG TAB.ER.12H PO SCH (09:00)
[2017-12-25] MEDS: Ondansetron 4 MG/2 ML VIAL IVP PRN ×3 (09:19→22:06)
--- NOTE | 2017-12-25 09:53 | Cardiology Consult Note ---
<EstelaWilfredo young R - Last Filed: 12/25/17 09:48> Date of Encounter: 12/25/17 Time of Encounter: 09:48 Assessment and Plan (1) Unstable angina Current Visit: Yes Status: Acute Presented with intermittent chest pain occurring at rest, left sided with radiation to left arm associated with nausea, not relieved by SL nitro, similar to prior anginal equivalent. Seen by Dr. Pushpa Arciniega 11/23/17. LHC was discussed at that time and pt opted for medical therapy, Ranexa 500mg BID was added. No improvement. Will increase to 1000mg BID. Nitro gtt and morphine have helped with pain. Nitro gtt currently at 30mcg/min. Troponin negative x 3. EKG paced. Symptoms concerning for unstable angina. CABG x 3 07/2017. TTE 07/2017 EF preserved. Will recheck TTE. Recommend LHC. R/B/A discussed. Pt agreeable. On Coumadin, INR 2.5. Will hold coumadin and plan for LHC once INR allows. (2) Coronary artery disease Current Visit: Yes Status: Chronic CAD with hx of PCI and CABG x 3 07/2017. ASA, Statin, Plavix, BB, Ranexa. Qualifiers: Coronary Disease-Associated Artery/Lesion type: [place] artery [place] vs. transplanted heart: [place] heart Associated angina: with unstable angina Qualified Code(s): I25.110 - Atherosclerotic heart disease of [place] coronary artery with unstable angina pectoris (3) Atrial fibrillation Current Visit: Yes Status: Chronic Known A-Fib, anticoagulated on Coumadin INR 2.5. Currently paced. Hold Coumadin in anticipation for LHC. Qualifiers: Atrial fibrillation type: chronic Qualified Code(s): I48.2 - Chronic atrial fibrillation Discussion w patient/family: The assessment and plan as outlined above was discussed with the patient and/or family members who expressed understanding and agreement. All questions were answered. Thank you for involving us in the care of your patient. Please call with any questions. I will discuss all the above with Dr. Townsend and make changes as necessary. History of Present Illness Consult date: 12/25/17 Requesting physician: Memo Patterson Consult reason: Chest pain, unstable angina Chief complaint: chest pain History of present illness: Mr. Dominguez is a 62 year old male with PMH of CAD s/p PCI, CABG x 3, atrial fibrillation, HTN, hyperlipidemia, PPM. His CABG was in July 2017 at [facility]. He states since that time he has had chronic chest wall pain and intermittent chest pain relieved with nitro. However, on Sunday, he began experiencing worsening chest pain at rest while driving and he had to pull off the road. This chest pain has been intermittent and not relieved with SL nitro, prompting ED evaluation. Troponin negative x 3. He is currently on nitro gtt at 30mcg/ min. He states nitro gtt and morphine have helped. Chest pain is described as left sided, achy, radiates to left arm associated with nausea. Current pain . Chronic exertional dyspnea. Reports current chest pain is similar to his prior anginal equivalent. He saw Dr. Pushpa Arciniega 11/23/17, reported chest pain at that time and LHC vs aggressive medical management was discussed and he opted for medical management at that time. Prior CV testing: Echocardiogram [facility] 07/22/17: Limited study EF 55-60% with hypokinesis of apical, anteroseptal, anterolateral kemp Cardiac catheterization 07/09/17: Impressions: There is severe three vessel coronary artery disease. The left ventricle is normal and has normal contractility EF 60% Coronary Dominance: Left Lesion Findings/Interventions * Left Main Coronary Artery The LMCA is angiographically free of disease. * Left Anterior Descending The Proximal LAD has patent stents present from a previous procedure. The Mid LAD has patent stents present from a previous procedure. There is a 95% in-stent stenosis in the Proximal LAD. There is a 99% stenosis in the Distal LAD. The lesion has collaterals which feed from left to left. There is a 90% stenosis in the 1st Diagonal. * Circumflex There is a 80% stenosis in the 1st Marginal. * Right Coronary Artery There is a 100% stenosis in the Mid RCA. The lesion has a ALICIA flow of 0 and has collaterals which feed from left to right. Past Med Surg Social Fam HX - Past Medical History Medical history: atrial fibrillation, coronary artery disease, diabetes, hyperlipidemia, hypertension Psychiatric history: no psych history - Past Surgical History Surgical History: angioplasty/stent, appendectomy, coronary bypass (CABG), knee replacement, pacemaker/AICD - Social History Smoking Status: Never smoker Smokeless Tobacco Status: No Alcohol use: none Drug use: none - Family History Father Living Status: Hx Family Cardiac Disorders: Yes ([place]) Mother Living Status: Hx Family Cardiac Disorders: Yes ([place]) Medications and Allergies Clopidogrel [Plavix] 75 mg PO DAILY 09/24/15 [History] Insulin ASPART [NovoLOG] 0 unit SQ TIDWM PRN 09/24/15 [History] Insulin Glargine,Hum.rec.anlog [Lantus Solostar] 20 unit SQ BID 09/24/15 [ History] Ranolazine [Ranexa] 500 mg PO BID 09/24/15 [History] Alirocumab [Praluent Pen] 75 mg SQ Q2W 07/10/17 [History] Aspirin Enteric Coated [Aspirin EC] 81 mg PO DAILY 07/10/17 [History] Metformin HCl [Glucophage] 1,000 mg PO BID 07/10/17 [History] Nitroglycerin [Nitroglycerin] 1 - 2 spray SL AD PRN 07/10/17 [History] Nitroglycerin [Nitrostat] 0.4 mg SL Q5M PRN 07/10/17 [History] Warfarin perPT [Coumadin perPT] 6 mg PO DAILY 07/10/17 [History] Lantus Solostar 20 units SQ BID 09/19/17 [History] Mv-Mn/FA/Vit K/Lycop/Lut/Coq10 [Daily Multivitamin Capsule] 1 tab PO DAILY 09/19 [History] Amlodipine Besylate [Amlodipine Besylate] 2.5 mg PO DAILY 12/24/17 [History] HYDROcodone/Acet 5/325 mg [[place] 5-325 mg] 1 tab PO TID PRN 12/24/17 [History] Metoprolol Tartrate [Metoprolol Tartrate] 50 mg PO BID 12/24/17 [History] Tizanidine HCl [Tizanidine HCl] 4 mg PO TID PRN 12/24/17 [History] 3 Allergy/AdvReac Type Severity Reaction Status Date / Time lisinopril AdvReac Cough Verified 12/24/17 20:12 All Systems Review: The remainder of the systems were reviewed and are negative - Cardiovascular Cardiovascular: as per HPI, chest pain at rest, chest pain with exertion, dyspnea on exertion, radiating jaw, neck or arm pain - Respiratory Respiratory: dyspnea - Gastrointestinal Gastrointestinal: nausea Physical Examination Vital Signs, Last 4 Hours Temp Pulse Resp BP Pulse Ox 12/25/17 09:23 61 14 111/62 95 12/25/17 07:31 97.8 F 62 16 114/64 95 Vital Signs Temp Pulse Resp BP Pulse Ox 12/25/17 09:23 61 14 111/62 95 12/25/17 07:31 97.8 F 62 16 114/64 95 12/25/17 04:37 97.8 F 66 14 115/64 95 12/25/17 02:29 97.8 F 63 16 109/68 96 12/25/17 01:08 118/73 12/25/17 00:01 60 129/72 12/24/17 23:16 98.3 F 60 14 121/72 96 12/24/17 22:51 63 143/77 12/24/17 22:39 73 126/76 12/24/17 22:16 71 139/77 12/24/17 21:57 65 141/80 12/24/17 21:45 75 161/78 12/24/17 21:30 98.6 F 66 14 158/77 95 12/24/17 21:03 98.6 F 65 14 172/82 98 12/24/17 20:54 18 143/86 12/24/17 19:28 71 18 135/75 99 12/24/17 19:15 69 18 153/92 95 12/24/17 17:30 98.1 F 84 20 164/82 95 Intake and Output 12/24/17 12/25/17 12/25/17 23:59 07:59 15:59 Intake Total 12.. 0 / 0 Output Total 0 / 0 400 / 400 Balance 12. / .1 -400 / -400 Intake: IV Fluids 12..1 Nitroglycerin Premix 25 MG/250 .. ML 25 mg In 250 ml @ 5 MCG/MIN 3 mls/hr IVC .Q24H [facility] Rx#: [id number] Oral 0 / 0 0 / 0 Output: Urine 0 / 0 400 / 400 Other: Weight 93.894 kg 88.4 kg Blood Glucose* 135 187 Patient Weight 12/25/17 23:59 Weight 88.4 kg General: Conversant, No Apparent Distress HEENT: Atraumatic, Normocephaly, Mucus Membranes Moist Neck: No JVD, Normal carotid pulses Cardiac: Other (paced) Lungs: Normal Breath Sounds, No Wheeze, Rales, Rhonchi Neuro: Alert and responsive, No focal deficits noted Abdomen: Soft, Non-Tender Skin: No rashes noted on visualized skin Musculoskeletal: No Chest Wall Tenderness Extremities: No Clubbing, No Cyanosis, No Edema, Normal Pulses Results 12/24/17 17:47 12/24/17 17:47 Lab Results 12/24/17 12/25/17 12/25/17 23:38 03:23 03:23 INR 2.5 Troponin I < 0.03 < 0.03 Short CBC 12/24/17 Range/Units 17:47 WBC 7.5 (4.3-11.1) K/mcL Hgb 15.7 (12.9-16.9) g/dL Hct 46.1 (37.5-50.1) % Plt Count 295 (140-400) K/mcL Neutrophils # 3.5 (1.6-8.9) K/mcL BMP 12/24/17 Range/Units 17:47 Sodium 136 (136-145) mEq/L Potassium 4.5 (3.5-5.1) mEq/L Chloride 103 (98-107) mEq/L Carbon Dioxide 23 (23-29) mEq/L BUN 16 (8-23) mg/dL Creatinine 0.92 (0.70-1.30) mg/dL Glucose 185 H (70-105) mg/dL Calcium 10.0 (8.6-10.3) mg/dL Cardiac Enzymes 12/25/17 12/24/17 12/24/17 Range/Units 03:23 23:38 17:47 Troponin I < 0.03 < 0.03 < 0.03 (< 0.04) ng/mL Liver Function 12/24/17 Range/Units 17:47 Total Bilirubin 0.5 (0.3-1.0) mg/dL AST 23 (13-39) Units/L ALT 24 (7-52) Units/L Alkaline Phosphatase 50 (34-104) Units/L Albumin 4.6 (3.5-5.7) g/dL Impressions Chest X-Ray 12/24/17 17:34 IMPRESSION: No acute cardiopulmonary process. D/ / 12/24/2017 17:54:03 Clementine Byrne MD / viral Interpreting Provider: Clementine Byrne MD Active Medications Acetaminophen (Tylenol) 650 mg PO Q6HR PRN PRN Reason: Mild Pain/Fever Stop: 06/25/18 21:04 Hydrocodone Bitart/Acetaminophen ([place] 5-325 Mg) 1 tab PO TID PRN PRN Reason: Pain Stop: 06/25/18 21:03 Amlodipine Besylate (Norvasc) 2.5 mg PO DAILY [facility]GR[facility] Stop: 06/26/18 09:01 Last Admin: 12/25/17 07:37 Dose: 2.5 mg Aspirin (Aspirin Ec) 81 mg PO DAILY NEGRITO Stop: 06/26/18 09:01 Last Admin: 12/25/17 07:37 Dose: 81 mg Clopidogrel Bisulfate (Plavix) 75 mg PO DAILY NEGRITO Stop: 06/26/18 09:01 Last Admin: 12/25/17 07:37 Dose: 75 mg Dextrose/Water (Dextrose 50% (Syg)) 25 ml IVP AD PRN PRN Reason: Hypoglycemia Stop: 06/25/18 21:18 Glucagon (Glucagen) 1 mg IM ONCE PRN PRN Reason: Hypoglycemia Stop: 06/25/18 21:18 Glucose (Gluctose) 15 gm PO ONCE PRN PRN Reason: Hypoglycemia Stop: 06/25/18 21:18 Glucose (Gluctose) 30 gm PO ONCE PRN PRN Reason: Hypoglycemia Stop: 06/25/18 21:18 Nitroglycerin (Nitroglycerin Premix 25 Mg/250 Ml) 25 mg in 250 mls @ 3 mls/hr IVC .Q24H NEGRITO; 5 MCG/MIN PRN Reason: Protocol Stop: 06/25/18 20:16 Last Titration: 12/24/17 22:40 Dose: 30 mcg/min, 18 mls/hr Dextrose (Dextrose 5%) 1,000 mls @ 100 mls/hr IVC .Q10H PRN PRN Reason: HYPOGLYCEMIA Stop: 06/25/18 21:18 Insulin Detemir (Levemir) 14 unit 0.15 unit/kg (14 unit) SQ HS NEGRITO Stop: 06/26/18 21:01 Insulin Human Lispro (Humalog) 0 units SQ TIDAC [facility]GR[facility] PRN Reason: Protocol Stop: 06/26/18 07:31 Last Admin: 12/25/17 07:41 Dose: Not Given Insulin Human Lispro (Humalog) 0 units SQ HS [facility] PRN Reason: Protocol Stop: 06/26/18 21:01 Metoprolol Tartrate (Lopressor) 50 mg PO BID [facility] Stop: 06/25/18 22:16 Last Admin: 12/25/17 07:37 Dose: 50 mg Morphine Sulfate (Morphine Sulfate) 2 mg IVP Q4HR PRN; Protocol PRN Reason: Chest Pain Stop: 06/25/18 23:20 Last Admin: 12/25/17 07:34 Dose: 2 mg Multivitamins/Calcium (Thera M Plus) 1 tab PO DAILY [facility] Stop: 06/26/18 09:01 Last Admin: 12/25/17 07:37 Dose: 1 tab Naloxone HCl (Narcan) 0.4 mg IVP Q2MIN PRN PRN Reason: SEE COMMENTS Stop: 06/25/18 21:04 Nitroglycerin (Nitroglycerin) 0.4 mg SL Q5MIN PRN PRN Reason: Chest Pain Stop: 06/25/18 19:01 Last Admin: 12/24/17 19:22 Dose: 0.4 mg Ondansetron HCl (Zofran) 4 mg IVP Q6HR PRN; Protocol PRN Reason: Nausea And Vomiting Stop: 06/26/18 09:09 Last Admin: 12/25/17 09:19 Dose: 4 mg Ranolazine (Ranexa) 500 mg PO BID [facility] Stop: 06/25/18 22:05 Last Admin: 12/25/17 07:37 Dose: 500 mg Tizanidine HCl (Zanaflex) 4 mg PO TID PRN PRN Reason: Muscle Spasm Stop: 06/25/18 21:03 Warfarin Sodium (Coumadin Perpt) 1 each PO DAILY@1800 PRN PRN Reason: SEE COMMENTS Stop: 06/26/18 18:01 - Imaging and Cardiology Echo: report reviewed Cardiac cath: report reviewed - EKG Interpretation EKG results cardiology: personally reviewed (paced), other (12 hr tele AVG HR 62 , paced) Consult Discharge Plan - Plan Referrals: Lico Gómez, [Primary Care Provider] - <Jone Townsend - Last Filed: 12/25/17 10:59> Date of Encounter: 12/25/17 - Attending Attestation I have personally performed a face to face evaluation on this patient. I have reviewed and agree with the care plan. History and Exam by me shows: CC: Chest pain Pt complains of recurrent mid epigastric chest pain, described as a squeezing sensation, accompanied by shortness of breath and mild diaphoresis, provoked by exercise although has occurred at rest, lasts five to fifteen minutes, usually relieved with one sublingual ntg. Pt reports recurrent episodes of chest pain on 12/22 and 12/23, took a total of twelve sl ntg for pain relief. He reports chest pain improved in ER with sl ntg, IV ntg, and IV Morphine, now 10/13, reports is present but pt is comfortable, reports he can rest and sleep at this level of pain. PMHx: Reviewed, reviewed pre CABG cath film PE: pt seen and examined, agree with findings as documented, with the addition of bilateral chest wall tenderness along mid clavicular line, different from presenting chest pain. IMP/Plan 1. Acute coronary syndrome, has ruled out for myocardial necrosis so far, chest pain improved but not resolved. Discussed LHC/possible PCI, risks and benfits reviewed, pt agrees to proceed. Pt is comfortable, INR still high at 2.6, will defer LHC x 24 hours for INR to normalize unless pt becomes acutely symptomatic or troponins rise. 2. CAD: severe three vessel CAD, post CABG at [facility] 08/19. 3. Chronic A fib with controlled ventricular response, on warfarin for primary stroke risk reduction, on hold for LHC. Assessment and Plan Discussion w patient/family: The assessment and plan as outlined above was discussed with the patient and/or family members who expressed understanding and agreement. All questions were answered. Thank you for involving us in the care of your patient. Please call with any questions. History of Present Illness History of present illness: Mr. Dominguez is a 62 year old male All Systems Review: The remainder of the systems were reviewed and are negative Physical Examination Vital Signs, Last 4 Hours Temp Pulse Resp BP Pulse Ox 12/25/17 09:23 61 14 111/62 95 12/25/17 07:31 97.8 F 62 16 114/64 95 Results 12/24/17 17:47 12/24/17 17:47 Lab Results 12/24/17 12/25/17 12/25/17 23:38 03:23 03:23 INR 2.5 Troponin I < 0.03 < 0.03
--- NOTE | 2017-12-25 10:55 | Internal Med Progress Note ---
Date of Encounter: 12/25/17 Time of Encounter: 10:52 - Assessment and plan (1) Unstable angina pectoris Current Visit: Yes Status: Acute Assessment and plan: Patient presented with intermittent chest pain which was occurring at rest not relieved by sublingual nitroglycerin he had been seen by Dr. Pushpa Arciniega at that time a left heart catheter was discussed however he opted for medical therapy was placed on Ranexa. Symptoms concerning for unstable angina Does have a history of CABG He was initiated on nitroglycerin drip and morphine which did help relieve the pain he is presently at 30 mics per minute of nitroglycerin. Troponins are negative 3 his EKG is a paced rhythm Patient was seen by cardiology recommending left heart catheter. Patient is agreeable however he is on Coumadin his INR is 2.5. Coumadin will be held and INR monitored will have left heart catheter once INR is acceptable Continue home doses of aspirin and Plavix Continue home dose of metoprolol Patient has allergies to lisinopril and statins. Echocardiogram pending results Nothing by mouth after midnight for pending left heart catheter Continuous cardiac monitoring (2) Coronary artery disease with unstable angina pectoris Current Visit: Yes Status: Chronic Assessment and plan: As above Qualifiers: Coronary Disease-Associated Artery/Lesion type: [place] artery [place] vs. transplanted heart: [place] heart Qualified Code(s): I25.110 - Atherosclerotic heart disease of [place] coronary artery with unstable angina pectoris (3) Atrial fibrillation Current Visit: Yes Status: Chronic Assessment and plan: Heart rate is currently controlled and INR is therapeutic. Continue metoprolol we will hold Coumadin for impending left heart catheter in a.m. Qualifiers: Atrial fibrillation type: chronic Qualified Code(s): I48.2 - Chronic atrial fibrillation (4) Dyslipidemia Current Visit: Yes Status: Chronic Assessment and plan: Not on a statins due to myalgia. Receives shots every 2 weeks. (5) Diabetes mellitus Current Visit: Yes Status: Chronic Assessment and plan: Diabetic diet, Accu-Cheks before meals at bedtime, basal and supplemental scale insulin. Qualifiers: Diabetes mellitus type: type 2 Diabetes mellitus snf insulin use: with middle or intermediate school principal use Diabetes mellitus complication status: with unspecified complications Qualified Code(s): E11.8 - Type 2 diabetes mellitus with unspecified complications; Z79.4 - bed bug exterminator (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 insulin; Z79.4 - bed bug exterminator (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 insulin; Z79.4 - bed bug exterminator (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 insulin; Z79.4 - bed bug exterminator (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 insulin (6) Pacemaker Current Visit: Yes Status: Chronic Assessment and plan: Heart rate is stable. - Time Spent With Patient Total time spent is greater than 50% in coordination of care (as documented) at patient's floor/unit and/or counseling patient: - Subjective Interval history: This patient is new to me,I did review medical records. Patient complains of 3/ 4 constant chest pressure, which is non radiaitng with no agrevating factors, states improve with nitroglycerine and morphine. He was seen by cardiology anticipating Left heart cath once INR is appropriate level - Constitutional Vitals: Temp Pulse Resp BP Pulse Ox 97.8 F 61 14 111/62 95 12/25/17 07:31 12/25/17 09:23 12/25/17 09:23 12/25/17 09:23 12/25/17 09:23 General appearance: Present: A&O X 3, pleasant, no acute distress - Head Head exam: Present: atraumatic, normocephalic - Eye Eye exam: Present: PERRL, conjuntiva pink, sclera anicteric Pupils: Present: PERRL - Neck Neck exam general surgery: Present: supple, trachea midline. Absent: lymphadenopathy - Respiratory Respiratory exam: Present: CTAB. Absent: accessory muscle use, rales, rhonchi, wheezes - Cardiovascular Cardiovascular exam: Present: RRR, +S1, +S2. Absent: diastolic murmur, gallop, rubs, systolic murmur - GI/Abdominal GI/Abdominal exam: Present: normal bowel sounds, soft, no peritoneal signs. Absent: distended, tenderness - Extremities Exam Extremities exam: Present: warm, radial pulses palpable and symmetrical. Absent : calf tenderness, cyanotic, pedal edema - Neurological Exam Neurological exam: Present: CN II-XII intact, oriented X3, no focal deficits. Absent: pronater drift, facial droop, speech deficit - Skin Skin exam: Present: dry, intact Internal Medicine: Result - Labs CBC & Chem 7: 12/25/17 10:54 12/25/17 10:54 Labs: Cardiac Enzymes 12/24/17 12/25/17 Range/Units 23:38 03:23 Troponin I < 0.03 < 0.03 (< 0.04) ng/mL - ABG Interpretation ABG results: PT/INR, D-dimer PT 27.9 Seconds (9.4-12.1) H 12/25/17 03:23 Consult Discharge Plan - Plan Referrals: Lico Gómez DO [Primary Care Provider] -
[2017-12-25 11:10] LABS: Basophils % 0.5 %; Eosinophils # 0.2 K/mcL (0.0-0.6); Eosinophils % 2.9 %; Hematocrit 40.3 % (37.5-50.1); Immature Granulocytes % 0.5 % (0-4); Lymphocytes % 23.9 %; Mean Corpuscular HGB Conc 34.5 g/dL (31.6-35.5); Mean Corpuscular Hemoglobin 30.4 pg (28.0-33.3); Mean Corpuscular Volume 88.2 fL (83.0-100.0); Mean Platelet Volume 9.7 fL (9.4-12.4); Monocytes # 0.7 K/mcL (0.0-1.3); Monocytes % 8.2 %; Neutrophils # 5.4 K/mcL (1.6-8.9); Platelet Count 243 K/mcL (140-400); Red Blood Count 4.57 M/mcL (4.19-5.50); Red Cell Distribution Width 14.3 % (11.5-14.5)
[2017-12-25 11:20] LABS: Hemoglobin 13.9 g/dL (12.9-16.9)
[2017-12-25 11:28] LABS: BUN/Creatinine Ratio 16 (6-26); Blood Urea Nitrogen 14 mg/dL (8-23); Carbon Dioxide 26 mEq/L (23-29); Chloride 103 mEq/L (98-107); Glucose 232 mg/dL (70-105); Osmolality,Calculated 288 (280-300); Potassium 4.6 mEq/L (3.5-5.1); Sodium 135 mEq/L (136-145); eGFR For African Americans > 60 (> 60); eGFR For Non-African Americans > 60 (> 60)
[2017-12-25] MEDS ORDERED: *HR* Promethazine 25 MG/ML VIAL IVP ONE (11:42)
[2017-12-25] MEDS ORDERED: *HR* Promethazine 25 MG/ML VIAL ONE (11:44)
[2017-12-25] MEDS: Nitroglycerin 25 MG/250 ML INFUS..BTL IVC SCH (11:50)
[2017-12-25] MEDS ORDERED: Warfarin perPT PO PRN (18:00)
[2017-12-25] MEDS ORDERED: 0.9 % Sodium Chloride 1,000 ML ONE (18:01)
[2017-12-25] MEDS: Insulin DETEMIR 100 UNIT/ML X5UNITS SQ SCH (20:48)
[2017-12-26] MEDS: Nitroglycerin 25 MG/250 ML INFUS..BTL IVC SCH ×2 (00:41→14:45)
[2017-12-26] MEDS: *HR* Morphine 2 MG/ML SYRINGE IVP PRN ×6 (00:45→22:46)
[2017-12-26] MEDS: Ondansetron 4 MG/2 ML VIAL IVP PRN ×4 (04:50→18:03)
[2017-12-26 06:31] LABS: Eosinophils % 4.5 %; Hematocrit 39.3 % (37.5-50.1); Hemoglobin 13.3 g/dL (12.9-16.9); Immature Granulocytes % 0.3 % (0-4); Lymphocytes % 31.8 %; Mean Corpuscular HGB Conc 33.8 g/dL (31.6-35.5); Mean Corpuscular Hemoglobin 29.9 pg (28.0-33.3); Mean Corpuscular Volume 88.3 fL (83.0-100.0); Mean Platelet Volume 9.7 fL (9.4-12.4); Monocytes % 12.1 %; Platelet Count 215 K/mcL (140-400); Red Blood Count 4.45 M/mcL (4.19-5.50); Red Cell Distribution Width 14.3 % (11.5-14.5); Segmented Neutrophils % 50.8 %
[2017-12-26 06:32] LABS: Basophils % 0.5 %; Eosinophils # 0.3 K/mcL (0.0-0.6); Lymphocytes # 2.1 K/mcL (0.6-4.6); Monocytes # 0.8 K/mcL (0.0-1.3); Neutrophils # 3.3 K/mcL (1.6-8.9)
[2017-12-26 06:34] LABS: INR 2.7; Prothrombin Time 29.2 Seconds (9.4-12.1)
[2017-12-26 06:43] LABS: BUN/Creatinine Ratio 11 (6-26); Blood Urea Nitrogen 11 mg/dL (8-23); Carbon Dioxide 24 mEq/L (23-29); Chloride 103 mEq/L (98-107); Glucose 230 mg/dL (70-105); Osmolality,Calculated 287 (280-300); Potassium 4.2 mEq/L (3.5-5.1); Sodium 135 mEq/L (136-145); eGFR For African Americans > 60 (> 60); eGFR For Non-African Americans > 60 (> 60)
[2017-12-26] MEDS: Aspirin Enteric Coated 81 MG Tablet PO SCH (08:57)
[2017-12-26] MEDS: Ranolazine 500 MG TAB.ER.12H PO SCH ×2 (08:57→20:39)
[2017-12-26] MEDS: amLODIPine 5 MG TABLET PO SCH (08:57)
[2017-12-26] MEDS: Multivit/Ca/Min/Fe/FA 1 TAB TABLET PO SCH (08:57)
[2017-12-26] MEDS: Insulin LISPRO 300 UNITS/3 ML VIAL SQ SCH ×4 (08:59→20:40)
--- NOTE | 2017-12-26 08:59 | Internal Med Progress Note ---
Date of Encounter: 12/26/17 Time of Encounter: 08:57 - Assessment and plan (1) Unstable angina pectoris Current Visit: Yes Status: Acute Assessment and plan: Patient presented with intermittent chest pain which was occurring at rest not relieved by sublingual nitroglycerin he had been seen by Dr. Pushpa Arciniega at that time a left heart catheter was discussed however he opted for medical therapy was placed on Ranexa. Symptoms concerning for unstable angina Does have a history of CABG He was initiated on nitroglycerin drip and morphine which did help relieve the pain he is presently at 30 mics per minute of nitroglycerin. Troponins are negative 3 his EKG is a paced rhythm Patient was seen by cardiology recommending left heart catheter. Patient is agreeable however he is on Coumadin his INR 2.5 on presentation Coumadin was held overnight and it was 2.7 this a.m. he was given 10 mg of vitamin K per cardiology recheck this afternoon was 2.1 we will continue to hold Coumadin and proceed with [facility] once INR appropriate level Continue home doses of aspirin and Plavix Continue home dose of metoprolol Patient has allergies to lisinopril and statins. Echocardiogram pending results Nothing by mouth after midnight for pending left heart catheter Continuous cardiac monitoring (2) Coronary artery disease with unstable angina pectoris Current Visit: Yes Status: Chronic Assessment and plan: As above Qualifiers: Coronary Disease-Associated Artery/Lesion type: [place] artery [place] vs. transplanted heart: [place] heart Qualified Code(s): I25.110 - Atherosclerotic heart disease of [place] coronary artery with unstable angina pectoris (3) Atrial fibrillation Current Visit: Yes Status: Chronic Assessment and plan: Heart rate is currently controlled and INR is therapeutic. Continue metoprolol we will hold Coumadin for impending left heart catheter in a.m. Qualifiers: Atrial fibrillation type: chronic Qualified Code(s): I48.2 - Chronic atrial fibrillation (4) Dyslipidemia Current Visit: Yes Status: Chronic Assessment and plan: Not on a statins due to myalgia. Receives shots every 2 weeks. (5) Diabetes mellitus Current Visit: Yes Status: Chronic Assessment and plan: Diabetic diet, Accu-Cheks before meals at bedtime, basal and supplemental scale insulin. Qualifiers: Diabetes mellitus type: type 2 Diabetes mellitus shelter insulin use: with intermediate frame tender use Diabetes mellitus complication status: with unspecified complications Qualified Code(s): E11.8 - Type 2 diabetes mellitus with unspecified complications; Z79.4 - intermediate frame tender (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 insulin; Z79.4 - intermediate frame tender (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 insulin; Z79.4 - nursing home (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 insulin; Z79.4 - intermediate frame tender (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 insulin (6) Pacemaker Current Visit: Yes Status: Chronic Assessment and plan: Heart rate is stable. - Time Spent With Patient Total time spent is greater than 50% in coordination of care (as documented) at patient's floor/unit and/or counseling patient: - Subjective Interval history: Patient cont to complain of CP on nitro gtt at 30mcg relieved with morphine. - Constitutional Vitals: Temp Pulse Resp BP Pulse Ox 98.0 F 73 14 120/66 95 12/26/17 07:00 12/26/17 08:56 12/26/17 08:56 12/26/17 08:56 12/26/17 08:56 General appearance: Present: A&O X 3, pleasant, no acute distress - Head Head exam: Present: atraumatic, normocephalic - Eye Eye exam: Present: PERRL, conjuntiva pink, sclera anicteric Pupils: Present: PERRL - Neck Neck exam general surgery: Present: supple, trachea midline. Absent: lymphadenopathy - Respiratory Respiratory exam: Present: CTAB. Absent: accessory muscle use, rales, rhonchi, wheezes - Cardiovascular Cardiovascular exam: Present: RRR, +S1, +S2. Absent: diastolic murmur, gallop, rubs, systolic murmur - GI/Abdominal GI/Abdominal exam: Present: normal bowel sounds, soft, no peritoneal signs. Absent: distended, tenderness - Extremities Exam Extremities exam: Present: warm, radial pulses palpable and symmetrical. Absent : calf tenderness, cyanotic, pedal edema - Neurological Exam Neurological exam: Present: CN II-XII intact, oriented X3, no focal deficits. Absent: pronater drift, facial droop, speech deficit - Skin Skin exam: Present: dry, intact Internal Medicine: Result - Labs CBC & Chem 7: 12/26/17 05:59 12/26/17 05:59 Labs: Short CBC 12/25/17 12/26/17 Range/Units 10:54 05:59 WBC 8.3 6.5 (4.3-11.1) K/mcL Hgb 13.9 D 13.3 (12.9-16.9) g/dL Hct 40.3 39.3 (37.5-50.1) % Plt Count 243 215 (140-400) K/mcL Neutrophils # 5.4 3.3 (1.6-8.9) K/mcL BMP 12/25/17 12/26/17 10:54 05:59 Sodium 135 L 135 L Potassium 4.6 4.2 Chloride 103 103 Carbon Dioxide 26 24 BUN 14 11 Creatinine 0.88 0.99 Glucose 232 H 230 H Calcium 9.0 9.0 - ABG Interpretation ABG results: PT/INR, D-dimer PT 29.2 Seconds (9.4-12.1) H 12/26/17 05:59 Consult Discharge Plan - Plan Referrals: Lico Gómez DO [Primary Care Provider] -
--- NOTE | 2017-12-26 10:49 | Event Note ---
Date of Encounter: 12/26/17 Time of Encounter: 10:48 - Cardiology Event Note INR 2.7 today despite holding Coumadin. Discussed with Dr. Townsend, who recommends 10mg IV vitamin K. Recheck INR at noon. If INR acceptable range at that time, then [facility] this afternoon. Pt continues to report intermittent chest pain overnight, on 30mcg/min nitro gtt. TTE pending.
[2017-12-26 12:28] LABS: INR 2.1; Prothrombin Time 22.5 Seconds (9.4-12.1)
--- NOTE | 2017-12-26 13:26 | Cardiology Progress Note ---
Date of Encounter: 12/26/17 Time of Encounter: 13:24 Assessment and Plan (1) Unstable angina Current Visit: Yes Status: Acute Presented with intermittent chest pain occurring at rest, left sided with radiation to left arm associated with nausea, not relieved by SL nitro, similar to prior anginal equivalent. Seen by Dr. Pushpa Arciniega 11/23/17. LHC was discussed at that time and pt opted for medical therapy, Ranexa 500mg BID was added. No improvement. Increased to 1000mg BID. Nitro gtt and morphine have helped with pain. Nitro gtt currently at 30mcg/min. Troponin negative x 3. EKG paced. Symptoms concerning for unstable angina. CABG x 3 07/2017. TTE 07/2017 EF preserved. Will recheck TTE. Recommend LHC. R/B/A discussed. Pt agreeable. On Coumadin, INR 2.7 this AM, gave 10mg IV Vitamin K, INR 2.1. LHC once INR allows. (2) Coronary artery disease Current Visit: Yes Status: Chronic CAD with hx of PCI and CABG x 3 07/2017. ASA, Statin, Plavix, BB, Ranexa. Qualifiers: Coronary Disease-Associated Artery/Lesion type: [place] artery [place] vs. transplanted heart: [place] heart Associated angina: with unstable angina Qualified Code(s): I25.110 - Atherosclerotic heart disease of [place] coronary artery with unstable angina pectoris (3) Atrial fibrillation Current Visit: Yes Status: Chronic Known A-Fib, anticoagulated on Coumadin INR 2.1. Currently paced. Hold Coumadin in anticipation for LHC. Qualifiers: Atrial fibrillation type: chronic Qualified Code(s): I48.2 - Chronic atrial fibrillation Discussion w patient/family: The assessment and plan as outlined above was discussed with the patient and/or family members who expressed understanding and agreement. All questions were answered. Thank you for involving us in the care of your patient. Please call with any questions. I will discuss all the above with Dr. Townsend and make changes as necessary. Subjective Principal diagnosis: Unstable angina Interval history: Continues to have intermittent chest pain on nitro gtt at 30mcg/min. Currently chest pain free. INR 2.7 this AM. Gave 10mg IV Vitamin K, rechecked INR at noon , 2.1. Objective Vital Signs, Last 4 Hours Temp Pulse Resp BP Pulse Ox 12/26/17 11:11 98.5 F 60 17 104/56 93 Vital Signs Temp Pulse Resp BP Pulse Ox 12/26/17 11:11 98.5 F 60 17 104/56 93 12/26/17 08:56 73 14 120/66 95 12/26/17 07:00 98.0 F 67 16 108/56 92 12/26/17 04:56 99.0 F 70 15 113/62 93 12/26/17 02:54 99.5 F 76 14 107/64 92 12/25/17 23:38 98.8 F 68 14 118/62 92 12/25/17 21:29 72 130/65 93 12/25/17 19:23 98.2 F 70 14 131/65 93 12/25/17 17:05 98.4 F 69 16 128/50 93 12/25/17 15:29 97.9 F 61 16 114/58 92 12/25/17 13:30 98.4 F 60 16 120/63 93 Intake and Output 12/25/17 12/26/17 12/26/17 23:59 07:59 15:59 Intake Total 460 / 460 250 / 250 0 / 0 Balance 460 / 460 250 / 250 0 / 0 Intake: IV Fluids 250 / 250 Nitroglycerin Premix 25 MG/250 250 / 250 ML 25 mg In 250 ml @ 5 MCG/MIN 3 mls/hr IVC .Q24H NEGRITO Rx#: [id number] Oral 460 / 460 0 / 0 Other: Meal Dinner NPO Percent of Meal Consumed 100% # Voids 1 Blood Glucose* 208 247 266 General: Conversant, No Apparent Distress HEENT: Atraumatic, Normocephaly, Mucus Membranes Moist Neck: No JVD, Normal carotid pulses Cardiac: Reg Rate and Rhythm, Normal S1 and S2, No Murmur Lungs: Normal Breath Sounds, No Wheeze, Rales, Rhonchi Neuro: Alert and responsive, No focal deficits noted Abdomen: Soft, Non-Tender Skin: No rashes noted on visualized skin Musculoskeletal: No Chest Wall Tenderness Extremities: No Clubbing, No Cyanosis, No Edema, Normal Pulses Results 12/26/17 05:59 12/26/17 05:59 Lab Results 12/26/17 12/26/17 12/26/17 05:59 05:59 05:59 WBC 6.5 Hgb 13.3 Hct 39.3 Plt Count 215 INR 2.7 Sodium 135 L Potassium 4.2 Chloride 103 Carbon Dioxide 24 BUN 11 Creatinine 0.99 Glucose 230 H Calcium 9.0 Magnesium 12/26/17 12/26/17 05:59 11:54 WBC Hgb Hct Plt Count INR 2.1 Sodium Potassium Chloride Carbon Dioxide BUN Creatinine Glucose Calcium Magnesium 1.9 Short CBC 12/26/17 Range/Units 05:59 WBC 6.5 (4.3-11.1) K/mcL Hgb 13.3 (12.9-16.9) g/dL Hct 39.3 (37.5-50.1) % Plt Count 215 (140-400) K/mcL Neutrophils # 3.3 (1.6-8.9) K/mcL BMP 12/26/17 Range/Units 05:59 Sodium 135 L (136-145) mEq/L Potassium 4.2 (3.5-5.1) mEq/L Chloride 103 (98-107) mEq/L Carbon Dioxide 24 (23-29) mEq/L BUN 11 (8-23) mg/dL Creatinine 0.99 (0.70-1.30) mg/dL Glucose 230 H (70-105) mg/dL Calcium 9.0 (8.6-10.3) mg/dL Impressions Echocardiogram 12/25/17 21:07 Impressions: LVEF 55%. Normal LV chamber size and function. Mild concentric left ventricular hypertrophy. Mild left ventricular diastolic dysfunction. Atypical septal motion consistent with post-operative status. Normal right ventricular structure and function. Mild mitral regurgitation. Mild to moderate tricuspid regurgitation. Mild pulmonary hypertension. Left Ventricular Wall Motion: Rest Echo Findings All wall segments showed normal motion. Findings: Study Quality * Technically adequate exam. ECG Findings * Paced rhythm. Left Ventricle * LVEF 55%. * Normal LV chamber size and function. * Mild concentric left ventricular hypertrophy. * Mild left ventricular diastolic dysfunction. * Atypical septal motion consistent with post-operative status. Right Ventricle * Normal right ventricular structure and function. Left Atrium * Mild to moderately dilated left atrium. Right Atrium * Mildly dilated right atrium. Aortic Valve * Trileaflet aortic valve with normal function. * No aortic regurgitation. * No aortic stenosis. Mitral Valve * Normal mitral valve structure. * Mild mitral regurgitation. * No mitral stenosis. Tricuspid Valve * Normal tricuspid valve structure and function. * Mild to moderate tricuspid regurgitation. * Mild pulmonary hypertension. Pulmonic Valve * Normal pulmonic valve structure and function. * Trace pulmonic regurgitation. Aorta * Normally sized aortic root. Pericardium * The pericardium appears normal. IVC * The IVC is not well evaluated. Pulmonary Artery * Normal visualized portions of the main pulmonary artery. Device lead * Device per history. Leads were not well visualized. Active Medications Acetaminophen (Tylenol) 650 mg PO Q6HR PRN PRN Reason: Mild Pain/Fever Stop: 06/25/18 21:04 Hydrocodone Bitart/Acetaminophen ([place] 5-325 Mg) 1 tab PO TID PRN PRN Reason: Pain Stop: 06/25/18 21:03 Amlodipine Besylate (Norvasc) 2.5 mg PO DAILY NEGRITO Stop: 06/26/18 09:01 Last Admin: 12/26/17 08:57 Dose: 2.5 mg Aspirin (Aspirin Ec) 81 mg PO DAILY NEGRITO Stop: 06/26/18 09:01 Last Admin: 12/26/17 08:57 Dose: 81 mg Clopidogrel Bisulfate (Plavix) 75 mg PO DAILY NEGRITO Stop: 06/26/18 09:01 Last Admin: 12/26/17 08:57 Dose: 75 mg Dextrose/Water (Dextrose 50% (Syg)) 25 ml IVP AD PRN PRN Reason: Hypoglycemia Stop: 06/25/18 21:18 Glucagon (Glucagen) 1 mg IM ONCE PRN PRN Reason: Hypoglycemia Stop: 06/25/18 21:18 Glucose (Gluctose) 15 gm PO ONCE PRN PRN Reason: Hypoglycemia Stop: 06/25/18 21:18 Glucose (Gluctose) 30 gm PO ONCE PRN PRN Reason: Hypoglycemia Stop: 06/25/18 21:18 Nitroglycerin (Nitroglycerin Premix 25 Mg/250 Ml) 25 mg in 250 mls @ 3 mls/hr IVC .Q24H NEGRITO; 5 MCG/MIN PRN Reason: Protocol Stop: 06/25/18 20:16 Last Admin: 12/26/17 00:41 Dose: 30 mcg/min, 18 mls/hr Dextrose (Dextrose 5%) 1,000 mls @ 100 mls/hr IVC .Q10H PRN PRN Reason: HYPOGLYCEMIA Stop: 06/25/18 21:18 Insulin Detemir (Levemir) 14 unit 0.15 unit/kg (14 unit) SQ HS NEGRITO Stop: 06/26/18 21:01 Last Admin: 12/25/17 20:48 Dose: 14 unit Insulin Human Lispro (Humalog) 0 units SQ TIDAC NEGRITO PRN Reason: Protocol Stop: 06/26/18 07:31 Last Admin: 12/26/17 12:10 Dose: Not Given Insulin Human Lispro (Humalog) 0 units SQ HS NEGRITO PRN Reason: Protocol Stop: 06/26/18 21:01 Last Admin: 12/25/17 20:50 Dose: 2 units Metoprolol Tartrate (Lopressor) 50 mg PO BID NEGRITO Stop: 06/25/18 22:16 Last Admin: 12/26/17 08:57 Dose: 50 mg Morphine Sulfate (Morphine Sulfate) 2 mg IVP Q4HR PRN; Protocol PRN Reason: Chest Pain Stop: 06/25/18 23:20 Last Admin: 12/26/17 09:07 Dose: 2 mg Multivitamins/Calcium (Thera M Plus) 1 tab PO DAILY NEGRITO Stop: 06/26/18 09:01 Last Admin: 12/26/17 08:57 Dose: 1 tab Naloxone HCl (Narcan) 0.4 mg IVP Q2MIN PRN PRN Reason: SEE COMMENTS Stop: 06/25/18 21:04 Nitroglycerin (Nitroglycerin) 0.4 mg SL Q5MIN PRN PRN Reason: Chest Pain Stop: 06/25/18 19:01 Last Admin: 12/24/17 19:22 Dose: 0.4 mg Ondansetron HCl (Zofran) 4 mg IVP Q6HR PRN; Protocol PRN Reason: Nausea And Vomiting Stop: 06/26/18 09:09 Last Admin: 12/26/17 09:07 Dose: 4 mg Ranolazine (Ranexa) 1,000 mg PO BID NEGRITO Stop: 06/26/18 21:01 Last Admin: 12/26/17 08:57 Dose: 1,000 mg Tizanidine HCl (Zanaflex) 4 mg PO TID PRN PRN Reason: Muscle Spasm Stop: 06/25/18 21:03 - Imaging and Cardiology Echo: report reviewed - EKG Interpretation EKG results cardiology: other (12 hr tele AVG HR 68, paced) Consult Discharge Plan - Plan Referrals: Lico Gómez, [Primary Care Provider] -
[2017-12-26] MEDS: Insulin DETEMIR 100 UNIT/ML X5UNITS SQ SCH (20:40)
[2017-12-26] MEDS: *HR* HYDROcodone/Acet 5/325 mg TABLET PO PRN (23:57)
[2017-12-27] MEDS: *HR* Morphine 2 MG/ML SYRINGE IVP PRN ×2 (02:55→08:29)
[2017-12-27 05:24] LABS: INR 1.3; Prothrombin Time 14.5 Seconds (9.4-12.1)
[2017-12-27] MEDS: Nitroglycerin 25 MG/250 ML INFUS..BTL IVC SCH (05:31)
[2017-12-27] MEDS: Ranolazine 500 MG TAB.ER.12H PO SCH ×2 (08:18→20:31)
[2017-12-27] MEDS: amLODIPine 5 MG TABLET PO SCH (08:18)
[2017-12-27] MEDS: Aspirin Enteric Coated 81 MG Tablet PO SCH (08:18)
[2017-12-27] MEDS: Multivit/Ca/Min/Fe/FA 1 TAB TABLET PO SCH (08:20)
[2017-12-27] MEDS: Insulin LISPRO 300 UNITS/3 ML VIAL SQ SCH ×4 (08:23→20:33)
[2017-12-27 08:28] LABS: Basophils % 0.6 %; Eosinophils # 0.3 K/mcL (0.0-0.6); Eosinophils % 5.9 %; Hematocrit 40.8 % (37.5-50.1); Hemoglobin 13.7 g/dL (12.9-16.9); Immature Granulocytes % 0.2 % (0-4); Lymphocytes # 2.4 K/mcL (0.6-4.6); Lymphocytes % 44.7 %; Mean Corpuscular HGB Conc 33.6 g/dL (31.6-35.5); Mean Corpuscular Hemoglobin 30.1 pg (28.0-33.3); Mean Corpuscular Volume 89.7 fL (83.0-100.0); Mean Platelet Volume 9.7 fL (9.4-12.4); Monocytes # 0.5 K/mcL (0.0-1.3); Monocytes % 9.8 %; Neutrophils # 2.1 K/mcL (1.6-8.9); Platelet Count 204 K/mcL (140-400); Red Blood Count 4.55 M/mcL (4.19-5.50); Red Cell Distribution Width 14.1 % (11.5-14.5); Segmented Neutrophils % 38.8 %
--- NOTE | 2017-12-27 08:30 | Event Note ---
Date of Encounter: 12/27/17 Time of Encounter: 08:30 - Cardiology Event Note INR 1.3 today--acceptable to proceed with C today. R/B/A discussed. Pt agrees to proceed.
[2017-12-27 08:38] LABS: BUN/Creatinine Ratio 9 (6-26); Blood Urea Nitrogen 9 mg/dL (8-23); Calcium 9.2 mg/dL (8.6-10.3); Carbon Dioxide 25 mEq/L (23-29); Chloride 104 mEq/L (98-107); Glucose 224 mg/dL (70-105); Osmolality,Calculated 288 (280-300); Potassium 4.2 mEq/L (3.5-5.1); Sodium 136 mEq/L (136-145); eGFR For African Americans > 60 (> 60); eGFR For Non-African Americans > 60 (> 60)
[2017-12-27] MEDS ORDERED: 0.9 % Sodium Chloride 1,000 ML ONE ×2 (08:45→09:07)
[2017-12-27] MEDS ORDERED: ISOVUE-370 200 ML INFUS..BTL IV ONE ×2 (08:45→10:27)
[2017-12-27] MEDS ORDERED: Heparin 1,000 UNITS/500 mL 500 ML ONE (08:45)
[2017-12-27] MEDS ORDERED: *HR* Heparin 10,000 UNIT/10 ML VIAL ONE (08:45)
[2017-12-27] MEDS ORDERED: *HR* Midazolam HCl 2 MG/2 ML VIAL ONE (09:07)
[2017-12-27] MEDS ORDERED: Nitroglycerin 1,000 MCG/10 ML VIAL IV ONE (09:18)
--- NOTE | 2017-12-27 09:24 | Pre-Sedation Evaluation ---
Pre-sedation evaluation - Pre-sedation checklist Date of procedure: 12/27/17 Procedure: heart cath Recent Vitals: Last Vital Signs Temp 98.1 F 12/27/17 08:51 Pulse 67 12/27/17 08:51 Resp 15 12/27/17 08:51 BP 148/84 12/27/17 08:51 Pulse Ox 96 12/27/17 08:51 H&P (including ROS) documented in medical record: Yes Previous reaction to sedatives/anesthetics: No Dietary Status: NPO after Midnight Airway Assessment: Patient can open mouth completely, TMJ function normal Dentition: No loose teeth or bridges Possible difficult airway: No ASA Classification *see protocol: CLASS III-Severe systemic disease Plan of Care: Risks/benefits of procedure/sedation discussed w/ patient/family
[2017-12-27] MEDS ORDERED: *HR* Bivalirudin 250 MG VIAL IVC ONE (09:49)
--- NOTE | 2017-12-27 14:01 | Invasive Diagnostic Lab Proc ---
Name: Lukas Dominguez Date of Study: 12/27/2017 Date: 1955 Ht: 72.0in Medical Record#: [id number] Age: 62 Wt: 194.01lb Gender: Male BSA: 2.1 Order #: [id number] BMI: 26.28 Physicians Procedure Physician: Jone Townsend DO Referring MD: Referring MD: Staff Name Position Time In SnugElvin bess RN Monitor 09:09 AM Tre Chaves RT (R) Scrub 09:09 AM Javon Corrigan RN Ammonia Print Operator 09:09 AM Indications Indication Unstable Angina Procedures Performed Procedure L HRT ART/GRFT ANGIO PRQ CARD ROBINSON STENT W/ANGIO 1 VSL Pre-Procedure Checklist Informed consent is complete signed and on chart. H&P is on chart. ID band is on and ID verified with patient. Patient NPO for procedure The procedure was described for the patient and questions were answered. Blood Pressure: 108/56 ECG is on chart. Rhythm: Paced Plan of Care Patient will tolerate the procedure without complications. Adequate level of comfort will be maintained. Hemodynamics will remain stable Patient will recover from procedure without complications. Respiratory function will be maintained. Cardiac rhythm will remain stable. Patient temperature will be maintained. Patient and/or family have verbalized understanding of the procedure. Patient Education Intravenous Access Time IV Size Location DC'd Fluid/Drip Rate Units RN 18g 1 1/" Patent On Arrival Lt Arm Javon Corrigan RN Allergies lisinopril Oxycodone Vital Signs Time BP (mmHg) HR (bpm) O2 Sat. RR (bpm) LOC 09:11 AM / % 5 = Fully awake and oriented or at pre-proc level 09:11 AM / % 4 = Oriented but drowsy 09:26 AM / % 4 = Oriented but drowsy 09:41 AM / % 4 = Oriented but drowsy 09:56 AM / % 4 = Oriented but drowsy 10:11 AM / % 4 = Oriented but drowsy 10:26 AM / % 4 = Oriented but drowsy 09:28 AM 132 / 74 60 98 % 09:33 AM 136 / 79 61 97 % 09:38 AM 125 / 72 60 98 % 09:43 AM 136 / 77 62 95 % 09:48 AM 129 / 69 65 97 % 09:53 AM 131 / 76 61 96 % 09:58 AM 136 / 73 61 96 % 10:03 AM 129 / 75 60 95 % 10:08 AM 135 / 71 60 98 % 10:13 AM 135 / 79 60 96 % 09:09 AM 146 / 85 71 95 % 09:13 AM 143 / 80 64 98 % 09:18 AM 134 / 77 60 99 % 09:23 AM 126 / 72 60 96 % 10:18 AM 133 / 75 62 94 % 10:23 AM 135 / 73 60 95 % 10:28 AM 141 / 81 64 97 % 10:33 AM 136 / 75 60 96 % 10:44 AM 136 / 92 63 94 % 16 5 = Fully awake and oriented or at pre-proc level 11:00 AM 126 / 77 64 93 % 16 5 = Fully awake and oriented or at pre-proc level 11:20 AM 117 / 79 60 93 % 16 5 = Fully awake and oriented or at pre-proc level 11:30 AM 127 / 77 60 94 % 16 5 = Fully awake and oriented or at pre-proc level 11:45 AM 123 / 78 60 93 % 16 4 = Oriented but drowsy 12:00 PM 142 / 77 60 91 % 16 4 = Oriented but drowsy 12:15 PM 139 / 82 60 94 % 16 5 = Fully awake and oriented or at pre-proc level 12:30 PM 121 / 83 61 94 % 16 5 = Fully awake and oriented or at pre-proc level 12:45 PM 130 / 86 60 95 % 16 5 = Fully awake and oriented or at pre-proc level 01:00 PM 121 / 79 60 96 % 16 5 = Fully awake and oriented or at pre-proc level 01:15 PM 148 / 87 60 96 % 18 5 = Fully awake and oriented or at pre-proc level 01:30 PM 140 / 85 60 96 % 16 5 = Fully awake and oriented or at pre-proc level 01:45 PM 124 / 81 62 96 % 16 5 = Fully awake and oriented or at pre-proc level Procedural Medications Time Medication Dose Units Method Given By 09:14 AM Oxygen 2 L/min nasal cannula Javon Corrigan RN 09:14 AM Versed 2 mg Intravenous Javon Corrigan RN 09:30 AM Lidocaine 2% 10 ml Subcutaneous Jone Townsend DO 09:51 AM Angiomax 0.75mg/kg bolus: 13.5 ml Intravenous Javon Corrigan RN 09:51 AM Angiomax 1.75mg/kg/hr: 31.5 ml/hr Intravenous Javon Corrigan RN 10:15 AM Nitroglycerin 100 mcg Intracoronary Jone Townsend DO ASA Classification: CLASS III- Severe systemic disease (i.e. prior AMI, diabetes with vascular complications, morbid obesity) Magali Score Preprocedure Postprocedure Activity 2- Moves 4 extremities sustained head lift Activity 2- Moves 4 extremities sustained head lift Circulation 2- SBP +/= 20 points of pre-anesthetic level Circulation 2- SBP +/= 20 points of pre-anesthetic level Consciousness 2- Awake and alert oriented x 3 Consciousness 2- Awake and alert oriented x 3 O2 Saturation 2- Able to maintain O2 satruation of 92% on room air O2 Saturation 2- Able to maintain O2 satruation of 92% on room air Respiratory 2- Able to deep breathe and cough well Respiratory 2- Able to deep breathe and cough well Total Score 10 Total Score 10 Contrast Agent: Isovue Diagnostic Contrast: 210 ml Total Contrast: 210 ml Fluoro Dose: 3075 mGy Procedure Log Time Note Enter By 09:05 AM Pt arrived to propagator laborer 2 at 09:05 [facility] 09:05 AM CathStat 09:05 AM Physician arrived 09:05 [facility] 09:05 AM Edinson and concepción completed [facility] 09:05 AM Sign in performed according to hospital policy. [facility] 09:05 AM Procedure start 09:05 [facility] 09:07 AM Vitals capture started with the following parameters, Patient=Adult, Interval=5 min, Initial Bcbxefrk=091 mmHg, Deflation Rate=5 mmHg, Cuff placed on Right Arm 09:09 AM HR=71 bpm, UABO=150/85 mmhg, SpO2=95.0 %, Comment=PACED 09:09 AM Elvin Almaraz RN Position: Monitor Time in: : [facility] 09:09 AM Tre Chaves RT (R) Position: Scrub Time in: : [facility] 09:09 AM Javon Corrigna RN Position: Ammonia Print Operator Time in: 09: [facility] 09:09 AM Patient charges- Angio tray pack, Navilyst 3mm J, Pulse Oximetry and ACIST tubing and transducer [facility] 09:10 AM Recorded ECG: HR=73 Condition=Condition 1 09:10 AM Hair removed from procedure site in procedure lab using clippers. Bilateral groin prepped with Chloraprep by Tre Chaves (More), then patient was draped. Skin intact. :11 AM Time: 09:11 Patient comfortable and pain free: Yes jcall: AM Time: :11LOC: 5 = Fully awake and oriented or at pre-proc level jcallan :11 AM Clinical Presentation: Unstable angina jcall:13 AM HR=64 bpm, NMJZ=201/80 mmhg, SpO2=98.0 %, Comment=PACED 09:14 AM Time: :14 Oxygen on at 2 L/min per nasal cannula by Javon Corrigan RN chidi :14 AM Time: :14 Versed 2 mg Intravenous Given by J[facility]on Cor[facility]igan [facility] AM Pressure channel 2 zeroed. 09:18 AM HR=60 bpm, DFUV=706/77 mmhg, SpO2=99.0 %, Comment=PACED :23 AM HR=60 bpm, OREO=447/72 mmhg, SpO2=96.0 %, Comment=PACED :26 AM Time: 09:11 Patient comfortable and pain free: Yes [facility] AM Time: :LOC: 4 = Oriented but drowsy jcan :27 AM ASA Class CLASS III- Severe systemic disease (i.e. prior AMI, diabetes with vascular complications, morbid obesity) jcall 09:28 AM HR=60 bpm, CVWU=790/74 mmhg, SpO2=98.0 %, Comment=PACED :30 AM Time out performed according to hospital policy :31 AM Time: :30 10 ml Lidocaine 2% to right groin Subcutaneous Given by Jone Townsend DO jcmaria alejandra 09:32 AM Micro-Introducer Kit utilized for sheath placement jc:33 AM Access obtained by percutaneous puncture. 6Fr 10cm Terumo Peerless sheath placed in right Femoral artery. [id number] [facility] 09:33 AM HR=61 bpm, WUKL=532/79 mmhg, SpO2=97.0 %, Comment=PACED 09:34 AM Recorded Pressure: LV, HR=61, Condition=Condition 1 (Left Ventricle) LV 68/-20/-18 09:34 AM 6Fr FR 4 catheter inserted over the wire DN jcallihan 09:34 AM Recorded Pressure: LV, Ao, HR=61, Condition=Condition 1 (Left Ventricle) LV 117/-5/5, (Aorta) Ao 113/59/81 09:34 AM Catheter selectively placed in left ventricle jcallihan 09:35 AM Bolus angiogram of left Ventricle complete: Hand injected 10 ml jcallihan 09:35 AM Catheter repositioned to RCA jcallihan 09:35 AM Recorded Pressure: Ao, HR=61, Condition=Condition 1 (Aorta) Ao 125/61/85 09:35 AM RCA angiography performed in multiple views. jcallihan 09:38 AM Recorded Pressure: Ao, HR=60, Condition=Condition 1 (Aorta) Ao 121/55/78 09:38 AM HR=60 bpm, STKI=790/72 mmhg, SpO2=98.0 %, Comment=PACED 09:39 AM Left DORINA to the LAD angio performed in multiple views. jcallihan 09:39 AM Catheter removed jcallihan 09:39 AM 6Fr FL 4 catheter inserted over the wire [facility] jcallihan 09:40 AM SVG to the 1st Diag angio performed in multiple views. Jump graft, occluded at 1st OM jcallihan 09:40 AM LCA angiography performed in multiple views. jcallihan 09:41 AM Time: 09:26 Patient comfortable and pain free: Yes jcallihan 09:41 AM Time: 09:26LOC: 4 = Oriented but drowsy jcallihan 09:41 AM Recorded Pressure: Ao, HR=63, Condition=Condition 1 (Aorta) Ao 120/59/82 09:43 AM HR=62 bpm, KGPD=167/77 mmhg, SpO2=95.0 %, Comment=PACED 09:48 AM HR=65 bpm, MOKC=343/69 mmhg, SpO2=97.0 %, Comment=PACED 09:49 AM Catheter removed jcallihan 09:49 AM PCI Status Urgent jcallihan 09:49 AM PCI Indication: PCI for high risk Non-STEMI or unstable angina jcallihan 09:49 AM Lesion found in 1st Marginal. Pre Stenosis: 80 Pre ALICIA Flow: 3: Complete and Brisk Flow/Perfusion jcallihan 09:50 AM 6Fr JL4 Cordis guide catheter was used to cannulate the PCI vessel successfully. reused? No jcallihan 09:50 AM .014 ChoICE PT Extra Support 300cm guide wire across target lesion- successful. reused? No jcallihan 09:50 AM Inflation device was opened. jcallihan 09:51 AM Time: 09:51 Angiomax 0.75mg/kg bolus: 13.5 ml Intravenous Given by Javon Corrigan RN Fierro pump jcallihan 09:52 AM Time: 09:51 Angiomax 1.75mg/kg/hr: 31.5 ml/hr Intravenous Given by Javon Corrigan RN Fierro pump jcallihan 09:52 AM Lesion found in Proximal LAD. Pre Stenosis: 90 Pre ALICIA Flow: jcallihan 09:53 AM Lesion found in Mid LAD. Pre Stenosis: 90 Pre ALICIA Flow: jcallihan 09:53 AM HR=61 bpm, XEVA=917/76 mmhg, SpO2=96.0 %, Comment=PACED 09:53 AM Lesion found in Ramus. Pre Stenosis: 80 Pre ALICIA Flow: jcallihan 09:54 AM 2.25mm x 20mm Synergy drug-eluting stent across target lesion- successful Lot #[id number] jcallihan 09:56 AM Time: 09:41LOC: 4 = Oriented but drowsy jcallihan 09:56 AM Time: 09:41 Patient comfortable and pain free: Yes jcallihan 09:56 AM Recorded Pressure: Ao, HR=61, Condition=Condition 1 (Aorta) Ao 119/67/87 09:56 AM Stent deployed @ 16 ricardo for 21 seconds jcallihan 09:57 AM Stent balloon reinflated @ 10 ricardo for 16 seconds jcallihan 09:58 AM Stent delivery system removed intact. jcallihan 09:58 AM HR=61 bpm, RETT=042/73 mmhg, SpO2=96.0 %, Comment=PACED 09:59 AM Lesion found in Mid RCA. Pre Stenosis: 100 Pre ALICIA Flow: jcallihan 09:59 AM Right Coronary, Right Posterior Descending Arteries with Right Posterolateral and Acute Marginal branches with 100 % stenosis. If graft is supplying this area, 0 % stenosis jcallihan 09:59 AM Circumflex, Obtuse Marginal, Left Posterior Descending, and Left Posterolateral Coronary Arteries with 80 % stenosis. If graft is supplying this area, 0 % stenosis jcallihan 10:00 AM Proximal Left Anterior Descending Coronary Artery with 90% stenosis. If graft is supplying this territory, 0 % stenosis. jcallihan 10:00 AM Mid/Distal Left Anterior Descending Coronary Artery and diagonal branches with 90% stenosis. If graft is supplying this area, 0 % stenosis jcallihan 10:02 AM 2.25mm x 20mm Synergy drug-eluting stent across target lesion- successful Lot #[id number] jcallan 10:03 AM Stent removed, undeployed. jcallihan 10:03 AM HR=60 bpm, XURD=818/75 mmhg, SpO2=95.0 %, Comment=PACED 10:04 AM 2.25mm x 12mm Synergy drug-eluting stent across target lesion- successful [facility][id number] [facility] Recorded Pressure: Ao, HR=61, Condition=Condition 1 (Aorta) Ao 129/69/91 10:07 AM .014 Choice Extra Support 300cm guide wire across target lesion- successful. reused? No ( 2nd wire down circ) jcallihan 10:08 AM HR=60 bpm, FUUP=597/71 mmhg, SpO2=98.0 %, Comment=PACED 10:09 AM Stent deployed @ 12 ricardo for 16 seconds [facility] Stent balloon reinflated @ 14 ricardo for 14 seconds [facility] AM Stent delivery system removed intact. jcallan 10:11 AM Time: 09:56 Patient comfortable and pain free: Yes jcallihan 10:11 AM Time: 09:56LOC: 4 = Oriented but drowsy jcallihan 10:11 AM 2.25mm x 12mm Synergy drug-eluting stent across target lesion- successful Lot [facility][id number] [facility] 10[facility]13 AM HR=60 bpm, UVHG=413/79 mmhg, SpO2=96.0 %, Comment=PACED 10:14 AM Stent deployed @ 14 ricardo for 20 seconds jcallan 10:14 AM 2nd Guide wire removed intact. jcallihan 10:15 AM Recorded Pressure: Ao, HR=61, Condition=Condition 1 (Aorta) Ao 133/72/95 10:15 AM Stent balloon reinflated @ 14 ricardo for 11 seconds jcallan 10:15 AM Stent delivery system removed intact. jcallihan 10:16 AM Time: 10:15 Nitroglycerin 100 mcg Intracoronary Given by Jone Townsend DO jcallihan 10:18 AM HR=62 bpm, EJQN=797/75 mmhg, SpO2=94.0 %, Comment=PACED 10:21 AM Recorded Pressure: Ao, HR=60, Condition=Condition 1 (Aorta) Ao 122/66/86 10:22 AM .014 ChoICE PT Extra Support 300cm guide wire across target lesion- successful. reused? No jcallihan 10:22 AM 1st wire in CIRC, 2nd wire in OM jcallihan 10:23 AM HR=60 bpm, PSOQ=273/73 mmhg, SpO2=95.0 %, Comment=PACED 10:25 AM 2.25mm x 8mm Synergy drug-eluting stent across target lesion- successful Lot #[id number] jcallihan 10:26 AM Time: 10:11LOC: 4 = Oriented but drowsy jcallihan 10:26 AM Time: 10:11 Patient comfortable and pain free: Yes jcallihan 10:27 AM Stent deployed @ 14 ricardo for 15 seconds jcallihan 10:28 AM Stent delivery system removed intact. jcallihan 10:28 AM HR=64 bpm, YEEU=716/81 mmhg, SpO2=97.0 %, Comment=PACED 10:28 AM Guide wire removed intact. #1 jcallihan 10:28 AM Guide wire removed intact. #2 jcallihan 10:29 AM Right groin shot obtained. jcallihan 10:30 AM Guide catheter removed intact. jcallihan 10:32 AM Procedure completed at 10:32 jcallihan 10:32 AM Did you address ALICIA flow and Dominance? Yes jcallihan 10:32 AM Coronary Dominance: Left jcallihan 10:32 AM Angiomaxx off jcallihan 10:33 AM Sign out completed: Radiation Dose 3075 mGy Fluoro Time: 18.6 Isovue 370 - 200ml contrast 210 ml given by Jone Townsend DO. Complications: NoneCardiac Rehab Consult needed: YesConfirmed administered medications: Yes jcallihan 10:33 AM Isovue 370 - 200ml,2 Bottle(s) used. jcallihan 10:33 AM Sheath left in place to be pulled on floor/holding areaV+Pad jcallihan 10:33 AM Estimated Blood Loss: less than 20cc jcallihan 10:33 AM HR=60 bpm, FCJF=197/75 mmhg, SpO2=96.0 %, Comment=PACED 10:41 AM Post ECG Paced jcallihan 10:41 AM Post Blood Pressure 136/75 jcallihan 10:41 AM Time: 10:26 Patient comfortable and pain free: Yes jcallihan 10:41 AM Time: 10:LOC: 4 = Oriented but drowsy jcallihan 10:43 AM 10:43 Post Pulses Bilateral DP & PT 1+ jcallihan 10:43 AM 10:43 Post Pulses Bilateral radial 2+ jcallihan 10:44 AM Information taught Cardiac Cath and PCI jcallihan 10:44 AM Education needs Procedure, Plan of Care, and Responsibilities of Patient in Care jcallihan 10:44 AM Learning barriers :None jcallihan 10:44 AM Education Methods Verbal jcallihan 10:44 AM Education evaluation Able to repeat information jcallihan 10:44 AM Site status No bleeding/hematoma - Rt Groin as reported by Tre Chaves RT (R) at 10:44 jcallihan 10:44 AM Opsite applied jcallihan 10:44 AM Report given to mary OROZCO Pt taken to Holding room Room #14. 10:44 jcallihan 10:44 AM Plavix, Effient or Brilinta given Yes jcallihan 10:44 AM Patient out of room: 10:44 jcallihan 10:44 AM Family placed in consult room. jcallihan 10:44 AM Complications: None jcallihan 10:44 AM Fluoro Time: 18.6 jcallihan 10:45 AM Isovue 370 - 200ml contrast 210 ml given by Jone Townsend. jcallihan 10:45 AM Radiation Dose 3075 mGy jcallihan 12:45 PM patient voided 700cc per urinal mprater 01:25 PM Arterial sheath pulled using manual compression and V+ Pad for 15 minutes by Mary Ivey RN mprater 01:40 PM Arterial sheath pulled, 2X2 closure device used and was Successful S/N. mprater 01:49 PM report called to [place] on 2N mprater 01:52 PM patient transported to 2N mprater Complications Complication None None Hemodynamics Pressures Site Systolic/A Wave Diastolic/V Wave Mean LV 68 -20 -18 LV 117 -5 5 AO 113 59 81 AO 125 61 85 AO 121 55 78 AO 120 59 82 AO 119 67 87 AO 129 69 91 AO 133 72 95 AO 122 66 86 Post Procedure Information Blood Pressure: 136/75 mmHg Rhythm: Paced Post procedural instructions were given Site Checks Time Location Status Staff Sheath In? Note 10:44 AM Rt Groin No bleeding/hematoma Tre Chaves RT (R) Yes 11:00 AM Rt Groin No bleeding/ No Hematoma Mary Ivey RN Yes 11:20 AM Rt Groin No bleeding/ No Hematoma Mary Ivey RN Yes 11:30 AM Rt Groin No bleeding/ No Hematoma Mary Ivey RN Yes 11:45 AM Rt Groin No bleeding/ No Hematoma Rodolfo Rincon RN Yes 12:00 PM Rt Groin No bleeding/ No Hematoma Rodolfo Rincon RN Yes 12:15 PM Rt Groin No bleeding/ No Hematoma Mary Ivey RN Yes 12:30 PM Rt Groin No bleeding/ No Hematoma Mary Ivey RN Yes 12:45 PM Rt Groin No bleeding/ No Hematoma Mary Ivey RN Yes 01:00 PM Rt Groin No bleeding/ No Hematoma Mary Ivey RN Yes 01:15 PM Rt Groin No bleeding/ No Hematoma Mary Ivey RN Yes 01:30 PM Rt Groin No bleeding/ No Hematoma Mary Ivey RN 01:48 PM Rt Groin No bleeding/ No Hematoma Mary Ivey RN Pulses Time Site Pre-Procedure Post-Procedure Note Rt DP and PT 2+ Lt DP and PT 1+ Bilateral radial 2+ 10:43:00 AM Bilateral DP & PT 1+ 10:43:00 AM Bilateral radial 2+ 12/27/2017 11:00:00 AM Bilateral DP & PT 1+ 12/27/2017 11:30:00 AM Bilateral DP & PT 1+ 12/27/2017 11:45:00 AM Bilateral DP & PT 1+ 12/27/2017 12:15:00 PM Bilateral DP & PT 1+ 12/27/2017 12:30:00 PM Bilateral DP & PT 1+ 12/27/2017 12:45:00 PM Bilateral DP & PT 1+ 12/27/2017 1:00:00 PM Bilateral DP & PT 1+ 12/27/2017 1:45:00 PM Bilateral DP & PT 1+ Updated by Mary Ivey RN on 12/27/2017 1:52:15 PM Mary Ivey RN electronically signed on 12/27/2017 1:53:25 PM with status of Final
[2017-12-27] MEDS: *HR* HYDROcodone/Acet 5/325 mg TABLET PO PRN ×2 (16:05→22:51)
[2017-12-27] MEDS ORDERED: Warfarin perPT PO PRN (18:00)
[2017-12-27] MEDS: Insulin DETEMIR 100 UNIT/ML X5UNITS SQ SCH (20:32)
--- NOTE | 2017-12-27 21:10 | Internal Med Progress Note ---
Date of Encounter: 12/27/17 Time of Encounter: 15:00 - Assessment and plan (1) Unstable angina pectoris Current Visit: Yes Status: Acute Assessment and plan: Patient presented with intermittent chest pain which was occurring at rest not relieved by sublingual nitroglycerin he had been seen by Dr. Pushpa Arciniega at that time a left heart catheter was discussed however he opted for medical therapy was placed on Ranexa. Symptoms concerning for unstable angina Does have a history of CABG He was initiated on nitroglycerin drip and morphine which did help relieve the pain he is presently at 30 mics per minute of nitroglycerin. Troponins are negative 3 his EKG is a paced rhythm Patient was seen by cardiology recommending left heart catheter. Patient is agreeable however he is on Coumadin waitied until INR acceptable,underwent LHC today Severe three vessel coronary disease PTCA/Drug eluting stent placed in 1st OM Cont cardiac monitoring coumadin resumed per cardiology No CP I (2) Coronary artery disease with unstable angina pectoris Current Visit: Yes Status: Chronic Assessment and plan: As above Qualifiers: Coronary Disease-Associated Artery/Lesion type: [place] artery [place] vs. transplanted heart: [place] heart Qualified Code(s): I25.110 - Atherosclerotic heart disease of [place] coronary artery with unstable angina pectoris (3) Atrial fibrillation Current Visit: Yes Status: Chronic Assessment and plan: Heart rate is currently controlled and check INR in am Continue metoprolol Coumadin resumed per cardiology. Qualifiers: Atrial fibrillation type: chronic Qualified Code(s): I48.2 - Chronic atrial fibrillation (4) Dyslipidemia Current Visit: Yes Status: Chronic Assessment and plan: Not on a statins due to myalgia. Receives shots every 2 weeks. (5) Diabetes mellitus Current Visit: Yes Status: Chronic Assessment and plan: Diabetic diet, Accu-Cheks before meals at bedtime, basal and supplemental scale insulin. Qualifiers: Diabetes mellitus type: type 2 Diabetes mellitus intermediate manager insulin use: with fdc use Diabetes mellitus complication status: with unspecified complications Qualified Code(s): E11.8 - Type 2 diabetes mellitus with unspecified complications; Z79.4 - computer terminal operator (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 insulin; Z79.4 - [facility] (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 insulin; Z79.4 - computer terminal operator (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 insulin; Z79.4 - [facility] (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 insulin (6) Pacemaker Current Visit: Yes Status: Chronic Assessment and plan: Heart rate is stable. - Time Spent With Patient Total time spent is greater than 50% in coordination of care (as documented) at patient's floor/unit and/or counseling patient: - Subjective Interval history: Patient seen and examined at bedside earlier today. Underwent LHC with stent placement tolerated procedure well, No cp voiced at this time , no bleeding he is hemodynamically stable - Constitutional Vitals: Temp Pulse Resp BP Pulse Ox 98.0 F 63 17 133/83 98 12/27/17 19:20 12/27/17 19:20 12/27/17 19:20 12/27/17 19:20 12/27/17 19:20 General appearance: Present: A&O X 3, pleasant, no acute distress - Head Head exam: Present: atraumatic, normocephalic - Eye Eye exam: Present: PERRL, conjuntiva pink, sclera anicteric Pupils: Present: PERRL - Neck Neck exam general surgery: Present: supple, trachea midline. Absent: lymphadenopathy - Respiratory Respiratory exam: Present: CTAB. Absent: accessory muscle use, rales, rhonchi, wheezes - Cardiovascular Cardiovascular exam: Present: RRR, +S1, +S2. Absent: diastolic murmur, gallop, rubs, systolic murmur - GI/Abdominal GI/Abdominal exam: Present: normal bowel sounds, soft, no peritoneal signs. Absent: distended, tenderness - Extremities Exam Extremities exam: Present: radial pulses palpable and symmetrical Additional comments: pedal pulses present lower extremities pink and warm with brisk cap refill. No hematoma to R groin area - Neurological Exam Neurological exam: Present: CN II-XII intact, oriented X3, no focal deficits. Absent: pronater drift, facial droop, speech deficit - Skin Skin exam: Present: dry, intact Internal Medicine: Result - Labs CBC & Chem 7: 12/27/17 07:55 12/27/17 07:55 Labs: Short CBC 12/27/17 Range/Units 07:55 WBC 5.4 (4.3-11.1) K/mcL Hgb 13.7 (12.9-16.9) g/dL Hct 40.8 (37.5-50.1) % Plt Count 204 (140-400) K/mcL Neutrophils # 2.1 (1.6-8.9) K/mcL BMP 12/27/17 07:55 Sodium 136 Potassium 4.2 Chloride 104 Carbon Dioxide 25 BUN 9 Creatinine 1.01 Glucose 224 H Calcium 9.2 - ABG Interpretation ABG results: PT/INR, D-dimer PT 14.5 Seconds (9.4-12.1) H 12/27/17 04:21 Consult Discharge Plan - Plan Referrals: Pushpa Arciniega MD [Partnered Physician] - 01/02/18 9:00 am Lico Gómez DO [Primary Care Provider] - 01/04/18 11:30 am
[2017-12-27] MEDS ORDERED: *HR* Warfarin 5 MG TABLET PO ONE (21:20)
[2017-12-28] MEDS: *HR* HYDROcodone/Acet 5/325 mg TABLET PO PRN ×4 (03:11→17:51)
[2017-12-28 05:13] LABS: Basophils # 0.1 K/mcL (0.0-0.2); Basophils % 0.8 %; Eosinophils # 0.3 K/mcL (0.0-0.6); Eosinophils % 5.1 %; Hematocrit 42.8 % (37.5-50.1); Hemoglobin 14.3 g/dL (12.9-16.9); Immature Granulocytes % 0.2 % (0-4); Lymphocytes # 2.1 K/mcL (0.6-4.6); Lymphocytes % 35.9 %; Mean Corpuscular HGB Conc 33.4 g/dL (31.6-35.5); Mean Corpuscular Hemoglobin 29.4 pg (28.0-33.3); Mean Corpuscular Volume 88.1 fL (83.0-100.0); Mean Platelet Volume 9.6 fL (9.4-12.4); Monocytes # 0.5 K/mcL (0.0-1.3); Monocytes % 8.4 %; Neutrophils # 2.9 K/mcL (1.6-8.9); Platelet Count 214 K/mcL (140-400); Red Blood Count 4.86 M/mcL (4.19-5.50); Red Cell Distribution Width 14.4 % (11.5-14.5); Segmented Neutrophils % 49.6 %
[2017-12-28 05:30] LABS: INR 1.2; Prothrombin Time 12.6 Seconds (9.4-12.1)
[2017-12-28 05:35] LABS: BUN/Creatinine Ratio 11 (6-26); Blood Urea Nitrogen 10 mg/dL (8-23); Calcium 9.2 mg/dL (8.6-10.3); Carbon Dioxide 24 mEq/L (23-29); Chloride 102 mEq/L (98-107); Glucose 249 mg/dL (70-105); Osmolality,Calculated 285 (280-300); Potassium 4.3 mEq/L (3.5-5.1); Sodium 134 mEq/L (136-145); eGFR For African Americans > 60 (> 60); eGFR For Non-African Americans > 60 (> 60)
[2017-12-28] MEDS: Insulin LISPRO 300 UNITS/3 ML VIAL SQ SCH ×3 (07:32→18:00)
[2017-12-28] MEDS: amLODIPine 5 MG TABLET PO SCH (07:32)
[2017-12-28] MEDS: Multivit/Ca/Min/Fe/FA 1 TAB TABLET PO SCH (07:33)
[2017-12-28] MEDS: Aspirin Enteric Coated 81 MG Tablet PO SCH (07:33)
[2017-12-28] MEDS: Ranolazine 500 MG TAB.ER.12H PO SCH (07:33)
--- NOTE | 2017-12-28 10:12 | Cardiology Progress Note ---
Date of Encounter: 12/28/17 Time of Encounter: 10:00 Assessment and Plan (1) Unstable angina Current Visit: Yes Status: Acute Per Cardiology: Chest pain free. Off NITRO drip, we will officially discontinue. (2) Coronary artery disease Current Visit: Yes Status: Chronic Per Cardiology: Hx CAD with hx of PCI and CABG x 3 07/2017. Status post catheterization with ROBINSON x 4: Impressions: There is severe three vessel coronary artery disease. The left ventricle is normal and has normal contractility EF 40%Patient had successful PTCA/Drug-Eluting Stent placement in the 1st OM. Lesion Findings/Interventions * Left Main Coronary Artery The LMCA is angiographically free of disease. * Left Anterior Descending There is a 90% stenosis in the Proximal LAD. There is a 90% stenosis in the Mid LAD. Distal LAD Filled by DAUGHERTY * Circumflex There is a 52 mm long, 80% stenosis in the 1st Marginal. The lesion has a ALICIA flow of 3. An intervention was performed on the 1st Marginal with a final stenosis of 0%. There were no lesion complications. The final ALICIA flow was 3. * Ramus There is a long 80% stenosis in the Ramus. Vessel is small. * Right Coronary Artery There is a 100% stenosis in the Mid RCA. L to R collaterals. Additional Findings: Grafts * The left internal mammary graft to the Mid LAD is patent. ALICIA flow is 3. * The saphenous vein graft to the 1st Diagonal is patent. ALICIA flow is 3. * The sequential saphenous vein graft to the 1st Marginal is occluded. CP free and hemodynamically stable post procedure. On ASA, Statin (Praluent injection as outpatient), Plavix, BB, Ranexa. Education provided regarding medications and postprocedure care. Cardiology will sign off, reconsult as needed, follow-up is arranged. All questions answered. Qualifiers: Coronary Disease-Associated Artery/Lesion type: [place] artery [place] vs. transplanted heart: [place] heart Associated angina: with unstable angina Qualified Code(s): I25.110 - Atherosclerotic heart disease of [place] coronary artery with unstable angina pectoris (3) Atrial fibrillation Current Visit: Yes Status: Chronic Per Cardiology: Known A-Fib, Currently AV paced. Anticoagulated on Coumadin, current INR 1.2-- subtherapeutic (was held prior to catheterization). Target INR 2.0-3.0. No bridging warranted. Patient remains on triple therapy. Qualifiers: Atrial fibrillation type: chronic Qualified Code(s): I48.2 - Chronic atrial fibrillation Discussion w patient/family: The assessment and plan as outlined above was discussed with the patient and/or family members who expressed understanding and agreement. All questions were answered. Thank you for involving us in the care of your patient. Please call with any questions. Subjective Principal diagnosis: Unstable angina Interval history: He denies any chest pain, shortness of breath, palpitations. Denies any concerns from his right groin site. Objective Vital Signs, Last 4 Hours Temp Pulse Resp BP Pulse Ox 12/28/17 08:07 98.0 F 60 16 124/75 93 General: Conversant, No Apparent Distress HEENT: Atraumatic, Normocephaly, Mucus Membranes Moist Neck: No JVD, Normal carotid pulses Cardiac: Reg Rate and Rhythm, Normal S1 and S2, No Murmur Lungs: Normal Breath Sounds, No Wheeze, Rales, Rhonchi Neuro: Alert and responsive, No focal deficits noted Abdomen: Soft, Non-Tender Skin: No rashes noted on visualized skin, Other (Right groin site dry and intact , no hematoma, no bleeding, no ecchymosis, right PT and DP pulses 2+ palpable) Musculoskeletal: No Chest Wall Tenderness Extremities: No Clubbing, No Cyanosis, No Edema, Normal Pulses Results 12/28/17 04:40 12/28/17 04:40 Lab Results Laboratory Tests 12/24/17 12/24/17 12/25/17 17:47 23:38 03:23 INR Creatinine Est GFR (Non-Af Amer) Troponin I < 0.03 < 0.03 < 0.03 12/28/17 12/28/17 04:40 04:40 INR 1.2 Creatinine 0.94 Est GFR (Non-Af Amer) > 60 Troponin I ITS Impressions Chest X-Ray 12/24/17 17:34 IMPRESSION: No acute cardiopulmonary process. D/ / 12/24/2017 17:54:03 Clementine Byrne MD / viral Interpreting Provider: Clementine Byrne MD Echocardiogram 12/25/17 21:07 Impressions: LVEF 55%. Normal LV chamber size and function. Mild concentric left ventricular hypertrophy. Mild left ventricular diastolic dysfunction. Atypical septal motion consistent with post-operative status. Normal right ventricular structure and function. Mild mitral regurgitation. Mild to moderate tricuspid regurgitation. Mild pulmonary hypertension. Left Ventricular Wall Motion: Rest Echo Findings All wall segments showed normal motion. Findings: Study Quality * Technically adequate exam. ECG Findings * Paced rhythm. Left Ventricle * LVEF 55%. * Normal LV chamber size and function. * Mild concentric left ventricular hypertrophy. * Mild left ventricular diastolic dysfunction. * Atypical septal motion consistent with post-operative status. Right Ventricle * Normal right ventricular structure and function. Left Atrium * Mild to moderately dilated left atrium. Right Atrium * Mildly dilated right atrium. Aortic Valve * Trileaflet aortic valve with normal function. * No aortic regurgitation. * No aortic stenosis. Mitral Valve * Normal mitral valve structure. * Mild mitral regurgitation. * No mitral stenosis. Tricuspid Valve * Normal tricuspid valve structure and function. * Mild to moderate tricuspid regurgitation. * Mild pulmonary hypertension. Pulmonic Valve * Normal pulmonic valve structure and function. * Trace pulmonic regurgitation. Aorta * Normally sized aortic root. Pericardium * The pericardium appears normal. IVC * The IVC is not well evaluated. Pulmonary Artery * Normal visualized portions of the main pulmonary artery. Device lead * Device per history. Leads were not well visualized. Active Medications Acetaminophen (Tylenol) 650 mg PO Q6HR PRN PRN Reason: Mild Pain/Fever Stop: 06/25/18 21:04 Hydrocodone Bitart/Acetaminophen ([place] 5-325 Mg) 1 tab PO TID PRN PRN Reason: Pain Stop: 06/25/18 21:03 Last Admin: 12/28/17 07:32 Dose: 1 tab Amlodipine Besylate (Norvasc) 2.5 mg PO DAILY NEGRITO Stop: 06/26/18 09:01 Last Admin: 12/28/17 07:32 Dose: 2.5 mg Aspirin (Aspirin Ec) 81 mg PO DAILY NEGRITO Stop: 06/26/18 09:01 Last Admin: 12/28/17 07:33 Dose: 81 mg Clopidogrel Bisulfate (Plavix) 75 mg PO DAILY NEGRITO Stop: 06/26/18 09:01 Last Admin: 12/28/17 07:33 Dose: 75 mg Dextrose/Water (Dextrose 50% (Syg)) 25 ml IVP AD PRN PRN Reason: Hypoglycemia Stop: 06/25/18 21:18 Glucagon (Glucagen) 1 mg IM ONCE PRN PRN Reason: Hypoglycemia Stop: 06/25/18 21:18 Glucose (Gluctose) 15 gm PO ONCE PRN PRN Reason: Hypoglycemia Stop: 06/25/18 21:18 Glucose (Gluctose) 30 gm PO ONCE PRN PRN Reason: Hypoglycemia Stop: 06/25/18 21:18 Nitroglycerin (Nitroglycerin Premix 25 Mg/250 Ml) 25 mg in 250 mls @ 3 mls/hr IVC .Q24H NEGRITO; 5 MCG/MIN PRN Reason: Protocol Stop: 06/25/18 20:16 Last Admin: 12/27/17 05:31 Dose: 30 mcg/min, 18 mls/hr Dextrose (Dextrose 5%) 1,000 mls @ 100 mls/hr IVC .Q10H PRN PRN Reason: HYPOGLYCEMIA Stop: 06/25/18 21:18 Insulin Detemir (Levemir) 14 unit 0.15 unit/kg (14 unit) SQ HS [facility] Stop: 06/26/18 21:01 Last Admin: 12/27/17 20:32 Dose: 14 unit Insulin Human Lispro (Humalog) 0 units SQ TIDAC NEGRITO PRN Reason: Protocol Stop: 06/26/18 07:31 Last Admin: 12/28/17 07:32 Dose: 6 units Insulin Human Lispro (Humalog) 0 units SQ HS [facility] PRN Reason: Protocol Stop: 06/26/18 21:01 Last Admin: 12/27/17 20:33 Dose: 3 units Metoprolol Tartrate (Lopressor) 50 mg PO BID [facility] Stop: 06/25/18 22:16 Last Admin: 12/28/17 07:33 Dose: 50 mg Morphine Sulfate (Morphine Sulfate) 2 mg IVP Q4HR PRN; Protocol PRN Reason: Chest Pain Stop: 06/25/18 23:20 Last Admin: 12/27/17 08:29 Dose: 2 mg Multivitamins/Calcium (Thera M Plus) 1 tab PO DAILY NEGRITO Stop: 06/26/18 09:01 Last Admin: 12/28/17 07:33 Dose: 1 tab Naloxone HCl (Narcan) 0.4 mg IVP Q2MIN PRN PRN Reason: SEE COMMENTS Stop: 06/25/18 21:04 Nitroglycerin (Nitroglycerin) 0.4 mg SL Q5MIN PRN PRN Reason: Chest Pain Stop: 06/25/18 19:01 Last Admin: 12/24/17 19:22 Dose: 0.4 mg Ondansetron HCl (Zofran) 4 mg IVP Q6HR PRN; Protocol PRN Reason: Nausea And Vomiting Stop: 06/26/18 09:09 Last Admin: 12/26/17 18:03 Dose: 4 mg Ranolazine (Ranexa) 1,000 mg PO BID NEGRITO Stop: 06/26/18 21:01 Last Admin: 12/28/17 07:33 Dose: 1,000 mg Tizanidine HCl (Zanaflex) 4 mg PO TID PRN PRN Reason: Muscle Spasm Stop: 06/25/18 21:03 Warfarin Sodium (Coumadin Perpt) 1 each PO DAILY@1800 PRN PRN Reason: SEE COMMENTS Stop: 06/28/18 18:01 - Imaging and Cardiology Echo: report reviewed Cardiac cath: report reviewed Consult Discharge Plan - Plan Referrals: Pushpa Arciniega MD [Partnered Physician] - 01/02/18 9:00 am Lico Gómez DO [Primary Care Provider] - 01/04/18 11:30 am
[2017-12-28 15:35] VITALS: BP 135/76
--- NOTE | 2017-12-28 16:53 | Electrocardiograph Report ---
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
--- NOTE | 2017-12-28 16:57 | Electrocardiograph Report ---
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
--- NOTE | 2017-12-28 17:18 | Discharge Summary ---
- NOTES TO OUTPATIENT PROVIDER Notes to Outpatient Provider: status post LHC with ROBINSON x4 - Severe three vessel CAD- INR 1.2 on discharge recheck on sunday- coumadin 6mg Date of Encounter: 12/28/17 Time of Encounter: 17:10 - Discharge Diagnosis (1) Unstable angina pectoris Priority: Primary Status: Acute (2) Coronary artery disease with unstable angina pectoris Priority: Secondary Status: Chronic Qualifiers: Coronary Disease-Associated Artery/Lesion type: [place] artery [place] vs. transplanted heart: [place] heart Qualified Code(s): I25.110 - Atherosclerotic heart disease of [place] coronary artery with unstable angina pectoris (3) Atrial fibrillation Priority: Secondary Status: Chronic Qualifiers: Atrial fibrillation type: chronic Qualified Code(s): I48.2 - Chronic atrial fibrillation (4) Dyslipidemia Priority: Secondary Status: Chronic (5) Diabetes mellitus Priority: Secondary Status: Chronic Qualifiers: Diabetes mellitus type: type 2 Diabetes mellitus fci insulin use: with fci use Diabetes mellitus complication status: with unspecified complications Qualified Code(s): E11.8 - Type 2 diabetes mellitus with unspecified complications; 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 Dominguez is a 62 year old male past medical hx of CAD s/p CABG 07/2017 at [facility] atrial fibrillation with pacemaker on coumadin DM HLD nonsmoker . The patient reports stable angina since procedure relieved with nitro. He saw Pushpa Arciniega 11/23/2017 with CP at that time offered LHC declined and opted for aggressive medical management. However he began to experience worsening CP at rest while driving and he had to pull off the road, pain was not relieved with nitro. He as seen in the ED trop negative x3 started on nitro gtt morphine relieved chest pain He was seen by cardiology he was to undergo LHC however he is on coumadin, which was held waiting for opitmal INR- given vit K INR appropiate and he received LHC 12/27/2016 wich revealed severe 3 vessel CAD and ROBINSON x4. He tolerated procedure well he was resumed back on Coumadin. Advised by cardiology to cont ASA Plavix and coumadin, statin BB, Renexa. current INR 1.2 will cont coumadin 6 mg over weekend and recheck INR on Sunday. He is to follow up with PCP and cardiology. I reveiwed medications follow up appointment and lab draw. He verbalized understanding He is hemodynamically stable and ready for discharge Discharge discussed with: patient - Time Spent with Patient Total time spent providing and/or coordinating discharge services: - Discharge Medications Prescriptions: HYDROcodone/Acet 5/325 mg [[place] 5-325 mg] 1 tab PO TID PRN 1 Days #3 tablet PRN Reason: Pain Home Medications: Clopidogrel [Plavix] 75 mg PO DAILY 09/24/15 [History] Insulin ASPART [NovoLOG] 0 unit SQ TIDWM PRN 09/24/15 [History] Insulin Glargine,Hum.rec.anlog [Lantus Solostar] 20 unit SQ BID 09/24/15 [ History] Ranolazine [Ranexa] 500 mg PO BID 09/24/15 [History] Alirocumab [Praluent Pen] 75 mg SQ Q2W 07/10/17 [History] Aspirin Enteric Coated [Aspirin EC] 81 mg PO DAILY 07/10/17 [History] Metformin HCl [Glucophage] 1,000 mg PO BID 07/10/17 [History] Nitroglycerin 1 - 2 spray SL AD PRN 07/10/17 [History] Nitroglycerin [Nitrostat] 0.4 mg SL Q5M PRN 07/10/17 [History] Warfarin perPT [Coumadin perPT] 6 mg PO DAILY 07/10/17 [History] Lantus Solostar 20 units SQ BID 09/19/17 [History] Mv-Mn/FA/Vit K/Lycop/Lut/Coq10 [Daily Multivitamin Capsule] 1 tab PO DAILY 09/19 [History] Amlodipine Besylate 2.5 mg PO DAILY 12/24/17 [History] Metoprolol Tartrate 50 mg PO BID 12/24/17 [History] Tizanidine HCl 4 mg PO TID PRN 12/24/17 [History] HYDROcodone/Acet 5/325 mg [[place] 5-325 mg] 1 tab PO TID PRN 1 Days #3 tablet [Rx] Allergies/Adverse Reactions: 3 Allergy/AdvReac Type Severity Reaction Status Date / Time lisinopril AdvReac Cough Verified 12/24/17 20:12 Date of admission: 12/28/17 09:42 Primary care physician: Lico Gómez DO Discharging clinician: Bella Ramirez Anticipated date of discharge: 12/28/17 - Constitutional Vitals: Temp Pulse Resp BP Pulse Ox 98.1 F 60 17 135/76 93 12/28/17 15:31 12/28/17 15:31 12/28/17 15:31 12/28/17 15:31 12/28/17 15:31 General appearance: Present: A&O X 3, pleasant, no acute distress - Head Head exam: Present: atraumatic, normocephalic - Eye Eye exam: Present: PERRL, conjuntiva pink, sclera anicteric Pupils: Present: PERRL - Neck Neck exam general surgery: Present: supple, trachea midline. Absent: lymphadenopathy - Respiratory Respiratory exam: Present: CTAB. Absent: accessory muscle use, rales, rhonchi, wheezes - Cardiovascular Cardiovascular exam: Present: RRR, +S1, +S2. Absent: diastolic murmur, gallop, rubs, systolic murmur - GI/Abdominal GI/Abdominal exam: Present: normal bowel sounds, soft, no peritoneal signs. Absent: distended, tenderness - Extremities Exam Extremities exam: Present: warm, radial pulses palpable and symmetrical. Absent : calf tenderness, cyanotic, pedal edema Additional comments: no swelling bleeding or hematoma at cath site - Neurological Exam Neurological exam: Present: CN II-XII intact, oriented X3, no focal deficits. Absent: pronater drift, facial droop, speech deficit - Skin Skin exam: Present: dry, intact - Patient Status Disposition: Home, Self-Care Condition: Fair Functional capacity at discharge: independent ambulation Overall status at discharge: patient is back to baseline - Discharge Instructions Instructions: Chest Pain (DC), Heart Healthy Diet (DC) Follow Up With: Pushpa Arciniega MD [Partnered Physician] - 01/02/18 9:00 am Lico Gómez DO [Primary Care Provider] - 01/04/18 11:30 am Additional Instructions: RISK FACTORS: STOP SMOKING: If you smoke, STOP. Smoking or tobacco use significantly increases your risk of heart disease because nicotine causes the arteries to narrow or constrict. It also causes fats to stick to the artery. Your chances of having a heart attack are greatly increased if you continue to smoke. For more information, call the education line for smoking cessation 3-976-HRLLNMT EAT A LOW FAT/CHOLESTEROL/SODIUM DIET: This diet may help reduce your chances of having a heart attack. LIFTING: Avoid lifting anything more than 10 pounds for 5-7 days Prior to straining, laughing, sneezing and/or coughing, apply manual pressure directly over insertion site. ACTIVITY: You may walk or climb stairs as tolerated You can resume sexual activity as tolerated In general, you are encouraged to engage in a minimum of 30 minutes or more of moderate intensity physical activity, such as brisk walking, daily or at least 3 -4 times weekly BATHING Do not submerge the site into water (bath tub, hot tub, swimming pool) for 1 week. This can be a source for infection into the blood stream. You may shower after 24 hours SITE CARE: After 24 hours, you may remove the dressing and leave the site open to air. Keep the site clean and dry. Clean gently and pat dry. You can expect bruising and tenderness that gradually resolve within a week or two. Return to work as instructed per your physician Resume driving as instructed per physician Keep all scheduled follow up appointments Resume medications as instructed IMPORTANT: If prescribed a Platelet Aggregation Inhibitor such as, Plavix, Brilinta or Effient: Duration of therapy is minimum one year These medications are often used in combination with Aspirin in prevention of future heart attacks Never discontinue unless consult with your Life Coach STROKE (CVA) Risk factors for a stroke are: Age, cigarette smoking, diabetes, excessive alcohol consumption, family history, high blood pressure, overweight, physical inactivity, prior stroke, heart attack, diagnosis of carotid artery stenosis or other artery disease. Warning signs: Sudden numbness or weakness of the face, arm or leg; especially on one side of the body, sudden confusion, trouble speaking or understanding, sudden trouble seeing in one or both eyes, sudden trouble walking, dizziness, loss of balance or coordination, sudden severe headache with no cause. Call 911 or go to the Emergency Room. CONGESTIVE HEART FAILURE: If you have been diagnosed with Congestive Heart Failure (CHF) and your symptoms return, make an appointment with your physician Weigh yourself daily. Notify your physician if you have a weight gain of two or more pounds in one day or five or more pounds in one week. If you experience any difficulty breathing, please call 911 BLEEDING: Although the risk of bleeding is minimal, it can happen. If you have any bleeding from the site, apply firm pressure above the puncture site for 10-15 minutes. If the bleeding does not stop, continue manual pressure and call 911 Contact your physician if: You develop a fever greater than 101 degrees Fahrenheit Your site becomes reddened or has any drainage You have an increase in pain or burning at the site or if a large knot forms at the site. If you experience chest pain, shortness of breath, dizziness, or extreme tiredness, stop the activity and rest. Please notify your physicians office if you experience any of these symptoms and they are not relieved by rest please call 911! - Diet and Activity Activity: increase activity as tolerated Diet: advance to your usual diet
[2017-12-28] MEDS ORDERED: *HR* Warfarin 3 MG TABLET PO ONE (18:00)
== END 2017-12-28 18:15 | disposition home or self-care (01) | DRG 246 ==
LOC: EMEROO 17:27 → 3BNU 17:27 → 2NNU 12-27 14:10
PROVIDERS: ADMIT Nurse Practitioner Acute Care; ATTEND Internal Medicine

== ENCOUNTER 2018-01-28 19:40 | Inpatient (IN) ==
[2018-01-28 20:14] LABS: Basophils # 0.1 K/mcL (0.0-0.2); Basophils % 0.9 %; Eosinophils # 0.3 K/mcL (0.0-0.6); Eosinophils % 4.8 %; Hemoglobin 14.1 g/dL (12.9-16.9); Immature Granulocytes % 0.3 % (0-4); Lymphocytes # 2.2 K/mcL (0.6-4.6); Lymphocytes % 34.8 %; Mean Corpuscular HGB Conc 34.4 g/dL (31.6-35.5); Mean Corpuscular Volume 90.1 fL (83.0-100.0); Mean Platelet Volume 9.9 fL (9.4-12.4); Monocytes # 0.5 K/mcL (0.0-1.3); Monocytes % 8.4 %; Neutrophils # 3.3 K/mcL (1.6-8.9); Platelet Count 230 K/mcL (140-400); Red Blood Count 4.55 M/mcL (4.19-5.50); Red Cell Distribution Width 13.3 % (11.5-14.5); Segmented Neutrophils % 50.8 %
[2018-01-28] MEDS ORDERED: Aspirin 81 MG TAB.CHEW PO STA (20:17)
--- NOTE | 2018-01-28 20:17 | Emergency Department Note ---
Disposition Clinical Impression: Chest pain Qualifiers: Chest pain type: unspecified Qualified Code(s): R07.9 - Chest pain, unspecified Disposition: Admitted As Inpatient Condition: Undetermined Referrals: Lico Gómez DO [Primary Care Provider] - Forms: ED Satisfaction Letter Time of Disposition: 20:54 Chest Pain HPI - General Chief Complaint: ED Chest Pain Stated Complaint: chest pain Time Seen by Provider: 01/28/18 19:49 Source: patient Mode of arrival: ambulatory Limitations: no limitations Vital Signs Reviewed: Yes Nursing Notes Reviewed: Yes - History of Present Illness HPI Narrative: Patient is a 62-year-old male who presents to [facility] ED with a chief complaint of 4 days of chest pain. States it has been constant and he has been getting short of breath with this as well. States the nitroglycerin seems to ease it up a little bit but then it comes right back. Denies any nausea, vomiting, fever or chills. States he has had intermittent coughing fits over the last several days. States it feels just like when one of his bypass grafts clotted off. Patient had triple bypass surgery done in July of last year at the [facility]. He then 2 months ago had chest pain and was admitted here and had 4 different stents placed by Dr. Townsend. Pt complaint: chest pain Duration: constant Pain Location: substernal Severity: moderate Severity scale (1-10): 6 Quality: aching Pain Radiation: none Improves with: nitroglycerin Worsens with: nothing Associated symptoms: Reports: dyspnea, cough. Denies: nausea, vomiting, diaphoresis, fever Treatments prior to arrival chest pain: aspirin (81 mg), nitroglycerin - Related Data Home Medications Medication Instructions Recorded Confirmed Clopidogrel [Plavix] 75 mg PO DAILY 09/24/15 12/24/17 Insulin ASPART [NovoLOG] 0 unit SQ TIDWM PRN 09/24/15 12/24/17 Insulin Glargine,Hum.rec.anlog 20 unit SQ BID 09/24/15 12/24/17 [Lantus Solostar] Ranolazine [Ranexa] 500 mg PO BID 09/24/15 12/24/17 Alirocumab [Praluent Pen] 75 mg SQ Q2W 07/10/17 12/24/17 Aspirin Enteric Coated [Aspirin EC] 81 mg PO DAILY 07/10/17 12/24/17 Metformin HCl [Glucophage] 1,000 mg PO BID 07/10/17 12/24/17 Nitroglycerin 1 - 2 spray SL AD PRN 07/10/17 12/24/17 Nitroglycerin [Nitrostat] 0.4 mg SL Q5M PRN 07/10/17 12/24/17 Warfarin perPT [Coumadin perPT] 6 mg PO DAILY 07/10/17 12/24/17 Lantus Solostar 20 units SQ BID 09/19/17 12/24/17 Mv-Mn/FA/Vit K/Lycop/Lut/Coq10 1 tab PO DAILY 09/19/17 12/24/17 [Daily Multivitamin Capsule] Amlodipine Besylate 2.5 mg PO DAILY 12/24/17 12/24/17 Metoprolol Tartrate 50 mg PO BID 12/24/17 12/24/17 Tizanidine HCl 4 mg PO TID PRN 12/24/17 12/24/17 Previous Rx's Medication Instructions Recorded HYDROcodone/Acet 5/325 mg [[place] 1 tab PO TID PRN 1 Days #3 tablet 12/28/17 5-325 mg] Allergies Allergy/AdvReac Type Severity Reaction Status Date / Time lisinopril AdvReac Cough Verified 12/24/17 20:12 All systems ED: reviewed and negative except as stated. Chest Pain PMH - Past Medical History Medical history: Reports: atrial fibrillation, coronary artery disease, diabetes , hyperlipidemia, hypertension Surgical history: Reports: angioplasty/stent, appendectomy, coronary bypass ( CABG), knee replacement, pacemaker/AICD Psychiatric history: Reports: no psych history Prior Cardiac Testing/Procedures: Echocardiogram, Stress Test, Stenting - Social History Smoking Status: Never smoker Alcohol use: Reports: none Drug use: Reports: none Physical Exam - General Limitations: no limitations General appearance: alert, in no apparent distress - Head Head exam: atraumatic, normocephalic, normal inspection - Eye Eye exam: Present: normal appearance, EOMI - ENT ENT exam: normal exam, normal oropharynx, mucous membranes moist - Neck Neck exam: Present: normal inspection, full ROM, trachea midline - Chest Chest inspection: Present: normal inspection, symmetric chest wall rise - Respiratory Respiratory exam: Present: normal lung sounds bilaterally - Cardiovascular Cardiovascular exam: Present: regular rate, normal rhythm, normal heart sounds - Abdominal Exam Abdominal exam: Present: soft, Non-Tender. Absent: tenderness, distention, guarding, rebound, rigidity - Extremities Exam Extremities exam: Present: normal inspection, full ROM. Absent: tenderness, pedal edema - Back Exam Back exam: Present: normal inspection, full ROM. Absent: tenderness - Neurological Exam Neurological exam: Present: alert, oriented X3 - Psychiatric Psychiatric exam: Present: normal affect, normal mood - Skin Skin exam: Present: warm, dry, intact, normal color Course Course Narrative: Patient seen and examined. Chest pain with difficulty breathing. History of coronary artery disease status post three-vessel bypass and four more stents recently. Cardiopulmonary workup initiated. Patient took a baby aspirin this morning, we will give 3 more aspirin. Concern for ACS. We will likely admit to hospitalist. With the patient's persistent chest pain, we will start nitro drip to help with his pain. - Reevaluation(s) Reevaluation #1: Labwork unremarkable. Troponin negative. We will admit for chest pain workup. I discussed with hospitalist who has accepted patient for admission. Time: 20:53 Vital Signs Pulse Rate 67 01/28/18 19:55 Respiratory Rate 19 01/28/18 19:55 Blood Pressure 162/85 01/28/18 19:55 O2 Sat by Pulse Oximetry 98 01/28/18 19:55 Pulse Rate 67 01/28/18 19:55 Respiratory Rate 19 01/28/18 19:55 Blood Pressure 162/85 01/28/18 19:55 O2 Sat by Pulse Oximetry 98 01/28/18 19:55 Oxygen Delivery Oxygen Delivery Room Air Chest Pain - Medical Records Medical records reviewed: Yes I reviewed the patient's medical records. - Lab Data Lab results reviewed: Yes I reviewed the patient's lab results. Result diagrams: 01/28/18 20:03 01/28/18 20:03 Lab Results 01/28/18 01/28/18 01/28/18 Range/Units 19:53 19:53 19:53 WBC (4.3-11.1) K/mcL RBC (4.19-5.50) M/mcL Hgb (12.9-16.9) g/dL Hct (37.5-50.1) % MCV (83.0-100.0) fL MCH (28.0-33.3) pg MCHC (31.6-35.5) g/dL RDW (11.5-14.5) % Plt Count (140-400) K/mcL MPV (9.4-12.4) fL Immature Gran % (0-4) % Seg Neutrophils % % Lymphocytes % % Monocytes % % Eosinophils % % Basophils % % Neutrophils # (1.6-8.9) K/mcL Lymphocytes # (0.6-4.6) K/mcL Monocytes # (0.0-1.3) K/mcL Eosinophils # (0.0-0.6) K/mcL Basophils # (0.0-0.2) K/mcL PT 28.2 H (9.4-12.1) Seconds INR 2.6 APTT 43.1 H (26.0-36.0) Seconds Sodium (136-145) mEq/L Potassium (3.5-5.1) mEq/L Chloride (98-107) mEq/L Carbon Dioxide (23-29) mEq/L BUN (8-23) mg/dL Creatinine (0.70-1.30) mg/dL Est GFR ( Amer) (> 60) Est GFR (Non-Af Amer) (> 60) BUN/Creatinine Ratio (6-26) Glucose (70-105) mg/dL Calculated Osmolality (280-300) Calcium (8.6-10.3) mg/dL Total Bilirubin 0.5 (0.3-1.0) mg/dL Direct Bilirubin 0.1 (0.0-0.2) mg/dL Indirect Bilirubin 0.4 (0.0-1.2) mg/dL AST 18 (13-39) Units/L ALT 19 (7-52) Units/L Alkaline Phosphatase 47 (34-104) Units/L Troponin I (< 0.04) ng/mL B-Natriuretic Peptide 128 H (Less than 100) pg/mL Serum Total Protein 6.8 (6.4-8.9) g/dL Albumin 4.5 (3.5-5.7) g/dL Globulin 2.3 L (2.4-3.5) g/dL Albumin/Globulin Ratio 2.0 (1.1-2.2) Lipase 30 (11-82) Units/L 01/28/18 01/28/18 Range/Units 20:03 20:03 WBC 6.4 (4.3-11.1) K/mcL RBC 4.55 (4.19-5.50) M/mcL Hgb 14.1 (12.9-16.9) g/dL Hct 41.0 (37.5-50.1) % MCV 90.1 (83.0-100.0) fL MCH 31.0 (28.0-33.3) pg MCHC 34.4 (31.6-35.5) g/dL RDW 13.3 (11.5-14.5) % Plt Count 230 (140-400) K/mcL MPV 9.9 (9.4-12.4) fL Immature Gran % 0.3 (0-4) % Seg Neutrophils % 50.8 % Lymphocytes % 34.8 % Monocytes % 8.4 % Eosinophils % 4.8 % Basophils % 0.9 % Neutrophils # 3.3 (1.6-8.9) K/mcL Lymphocytes # 2.2 (0.6-4.6) K/mcL Monocytes # 0.5 (0.0-1.3) K/mcL Eosinophils # 0.3 (0.0-0.6) K/mcL Basophils # 0.1 (0.0-0.2) K/mcL PT (9.4-12.1) Seconds INR APTT (26.0-36.0) Seconds Sodium 138 (136-145) mEq/L Potassium 4.1 (3.5-5.1) mEq/L Chloride 105 (98-107) mEq/L Carbon Dioxide 23 (23-29) mEq/L BUN 15 (8-23) mg/dL Creatinine 1.25 (0.70-1.30) mg/dL Est GFR ( Amer) > 60 (> 60) Est GFR (Non-Af Amer) 59 L (> 60) BUN/Creatinine Ratio 12 (6-26) Glucose 230 H (70-105) mg/dL Calculated Osmolality 294 (280-300) Calcium 9.5 (8.6-10.3) mg/dL Total Bilirubin (0.3-1.0) mg/dL Direct Bilirubin (0.0-0.2) mg/dL Indirect Bilirubin (0.0-1.2) mg/dL AST (13-39) Units/L ALT (7-52) Units/L Alkaline Phosphatase (34-104) Units/L Troponin I < 0.03 (< 0.04) ng/mL B-Natriuretic Peptide (Less than 100) pg/mL Serum Total Protein (6.4-8.9) g/dL Albumin (3.5-5.7) g/dL Globulin (2.4-3.5) g/dL Albumin/Globulin Ratio (1.1-2.2) Lipase (11-82) Units/L - Radiology Data Radiology results reviewed: Yes I reviewed the patient's radiology results. Chest X-Ray 01/28/18 19:53 IMPRESSION: Stable chest with no change left lower lobe scarring and/or atelectasis. D/ / 01/28/2018 20:45:04 Fabrizio Herrera MD / sarah Interpreting Provider: Fabrizio Herrera MD - EKG Data EKG attestation: Yes I reviewed and interpreted this EKG. EKG results narrative: EKG done at 1947 shows electronic ventricular paced rhythm with a rate of [address] elevation. There is mild ST depression in leads 1 and aVL with inverted T waves. This appears unchanged from prior EKG done 12/24/2017. Heart Score - Score History: Moderately Suspicious EKG: Non Specific repolarisation Disturbance Age: 45-65 Risk Factors: Equal/Greater than 3 risk factor or history of atherosclerotic disease Troponin: Less than normal limit HEART Score Total: 5
[2018-01-28 20:19] LABS: INR 2.6; Prothrombin Time 28.2 Seconds (9.4-12.1)
[2018-01-28 20:21] LABS: Activated Partial Thrombo Time 43.1 Seconds (26.0-36.0)
--- NOTE | 2018-01-28 20:31 | Emergency Department Note ---
Disposition Clinical Impression: Chest pain Qualifiers: Chest pain type: unspecified Qualified Code(s): R07.9 - Chest pain, unspecified Disposition: Admitted As Inpatient Condition: Undetermined Referrals: Lico Gómez DO [Primary Care Provider] - Forms: ED Satisfaction Letter General Adult HPI - General Chief complaint: ED Chest Pain Stated complaint: chest pain Time Seen by Provider: 01/28/18 19:49 Source: patient Mode of arrival: ambulatory Limitations: no limitations - History of Present Illness Pain Scale: 6 - Related Data Home Medications Medication Instructions Recorded Confirmed Clopidogrel [Plavix] 75 mg PO DAILY 09/24/15 12/24/17 Insulin ASPART [NovoLOG] 0 unit SQ TIDWM PRN 09/24/15 12/24/17 Insulin Glargine,Hum.rec.anlog 20 unit SQ BID 09/24/15 12/24/17 [Lantus Solostar] Ranolazine [Ranexa] 500 mg PO BID 09/24/15 12/24/17 Alirocumab [Praluent Pen] 75 mg SQ Q2W 07/10/17 12/24/17 Aspirin Enteric Coated [Aspirin EC] 81 mg PO DAILY 07/10/17 12/24/17 Metformin HCl [Glucophage] 1,000 mg PO BID 07/10/17 12/24/17 Nitroglycerin 1 - 2 spray SL AD PRN 07/10/17 12/24/17 Nitroglycerin [Nitrostat] 0.4 mg SL Q5M PRN 07/10/17 12/24/17 Warfarin perPT [Coumadin perPT] 6 mg PO DAILY 07/10/17 12/24/17 Lantus Solostar 20 units SQ BID 09/19/17 12/24/17 Mv-Mn/FA/Vit K/Lycop/Lut/Coq10 1 tab PO DAILY 09/19/17 12/24/17 [Daily Multivitamin Capsule] Amlodipine Besylate 2.5 mg PO DAILY 12/24/17 12/24/17 Metoprolol Tartrate 50 mg PO BID 12/24/17 12/24/17 Tizanidine HCl 4 mg PO TID PRN 12/24/17 12/24/17 Previous Rx's Medication Instructions Recorded HYDROcodone/Acet 5/325 mg [[place] 1 tab PO TID PRN 1 Days #3 tablet 12/28/17 5-325 mg] Allergies Allergy/AdvReac Type Severity Reaction Status Date / Time lisinopril AdvReac Cough Verified 12/24/17 20:12 Past Medical History - Past Medical History Medical history: Reports: atrial fibrillation, coronary artery disease, diabetes , hyperlipidemia, hypertension Surgical history: Reports: angioplasty/stent, appendectomy, coronary bypass ( CABG), knee replacement, pacemaker/AICD Psychiatric history: Reports: no psych history - Social History Smoking Status: Never smoker Smokeless Tobacco Status: No Alcohol use: Reports: none Drug use: Reports: none Physical Exam - General Limitations: no limitations General appearance: alert, in no apparent distress Course Vital Signs Pulse Rate 67 01/28/18 19:55 Respiratory Rate 01/28/18 19:55 Blood Pressure 162/85 01/28/18 19:55 O2 Sat by Pulse Oximetry 98 01/28/18 19:55 Pulse Rate 67 01/28/18 19:55 Respiratory Rate 19 01/28/18 19:55 Blood Pressure 162/85 01/28/18 19:55 O2 Sat by Pulse Oximetry 98 01/28/18 19:55 Oxygen Delivery Oxygen Delivery Room Air Medical Decision Making - Lab Data Result diagrams: 01/28/18 20:03 Lab Results 01/28/18 01/28/18 Range/Units 19:53 20:03 WBC 6.4 (4.3-11.1) K/mcL RBC 4.55 (4.19-5.50) M/mcL Hgb 14.1 (12.9-16.9) g/dL Hct 41.0 (37.5-50.1) % MCV 90.1 (83.0-100.0) fL MCH 31.0 (28.0-33.3) pg MCHC 34.4 (31.6-35.5) g/dL RDW 13.3 (11.5-14.5) % Plt Count 230 (140-400) K/mcL MPV 9.9 (9.4-12.4) fL Immature Gran % 0.3 (0-4) % Seg Neutrophils % 50.8 % Lymphocytes % 34.8 % Monocytes % 8.4 % Eosinophils % 4.8 % Basophils % 0.9 % Neutrophils # 3.3 (1.6-8.9) K/mcL Lymphocytes # 2.2 (0.6-4.6) K/mcL Monocytes # 0.5 (0.0-1.3) K/mcL Eosinophils # 0.3 (0.0-0.6) K/mcL Basophils # 0.1 (0.0-0.2) K/mcL PT 28.2 H (9.4-12.1) Seconds INR 2.6 APTT 43.1 H (26.0-36.0) Seconds Attestation Statement - Attestation Attestation: I examined this patient and my medical decision-making was reviewed with the Resident Physician. I agree with the documented findings, disposition and treatment plan as described except to the extent set forth below. 62 year old male presents to the ED with complaints of chest pain that is simliar to his event in the past and had 4 new stents placed here from two month ago, and CABG in , and before tht 9 stsents placed. PAtient states this is exactly how it feels whenevr he had his stents collapse in the past. Patient states that nitro does help his pain and that he follows here for his stents and his CABG was in [facility]. Denies productive cough or hemoptyosis. WE will admit to medicine.
[2018-01-28 20:39] LABS: Albumin 4.5 g/dL (3.5-5.7); Bilirubin,Direct 0.1 mg/dL (0.0-0.2); Bilirubin,Indirect 0.4 mg/dL (0.0-1.2); Bilirubin,Total 0.5 mg/dL (0.3-1.0); Globulin 2.3 g/dL (2.4-3.5); Total Protein 6.8 g/dL (6.4-8.9)
[2018-01-28 20:41] LABS: BUN/Creatinine Ratio 12 (6-26); Blood Urea Nitrogen 15 mg/dL (8-23); Calcium 9.5 mg/dL (8.6-10.3); Carbon Dioxide 23 mEq/L (23-29); Chloride 105 mEq/L (98-107); Glucose 230 mg/dL (70-105); Osmolality,Calculated 294 (280-300); Potassium 4.1 mEq/L (3.5-5.1); Sodium 138 mEq/L (136-145); Troponin I < 0.03 ng/mL (< 0.04); eGFR For African Americans > 60 (> 60); eGFR For Non-African Americans 59 (> 60)
[2018-01-28] MEDS: Nitroglycerin 25 MG/250 ML INFUS..BTL IVC SCH (20:46)
[2018-01-28] MEDS ORDERED: *HR* FentaNYL (PF) 100 MCG/2 ML VIAL IVP ONE (21:31)
[2018-01-28] MEDS ORDERED: Naloxone 0.4 MG/ML INJ IVP PRN (21:34)
[2018-01-28] MEDS ORDERED: *HR* OxyCODONE Immed Rel 5 MG TABLET PO PRN (21:34)
[2018-01-28] MEDS ORDERED: Acetaminophen 325 MG TABLET PO PRN (21:34)
[2018-01-28] MEDS ORDERED: Dextrose Gel 15 GM/37.5 ML TUBE PO PRN ×2 (21:40)
[2018-01-28] MEDS ORDERED: *HR* Dextrose 50 % in Water (Syg) 50 ML SYRINGE IVP PRN (21:40)
[2018-01-28] MEDS ORDERED: D5% in Water 1,000 ML IVC PRN (21:40)
--- NOTE | 2018-01-28 21:49 | Internal Med History&Physical ---
Date of Encounter: 01/28/18 Time of Encounter: 20:30 Internal Medicine - H&P: HPI Chief complaint: Chest pain Admitted From: Home Plans for Post Hospital Care: Home History of present illness: Mr. Dominguez is a 62 year old male presented to ER for chest pain. Past medical history is significant for diabetes, A. fib S/P ablation and PPM on Coumadin, CAD S/P CABG and stent, hypertension. Patient said he had CABG in last July and four stents about 2 months ago. Started from 2 weeks ago, he has intermittent chest pain. In last 4-5 days, the pain is getting worse and became constant. The pain located on left chest, dull, 8-9/10, no radiation. Patient denies nausea, vomiting. He has mild shortness of breath and diaphoresis. The chest pain is not related to breathing. Patient takes nitroglycerin, which can partially relieve the pain. Patient came to ER for further management. In the emergency room, EKG shows no significant ST changes, first troponin negative, chest x-ray unremarkable. Patient was started nitroglycerin drip, the pain get down to 7/10 on nitro drip. Patient was considered as stable angina and admitted for further management. Past Med Surg Social Fam HX - Past Medical History Medical history: atrial fibrillation, coronary artery disease, diabetes, hyperlipidemia, hypertension Psychiatric history: no psych history - Past Surgical History Surgical History: angioplasty/stent, appendectomy, coronary bypass (CABG), knee replacement, pacemaker/AICD - Social History Smoking Status: Never smoker Smokeless Tobacco Status: No Alcohol use: none Drug use: none - Family History Father Living Status: Hx Family Cardiac Disorders: Yes ([place]) Mother Living Status: Hx Family Cardiac Disorders: Yes ([place]) Internal Medicine - H&P: Meds Clopidogrel [Plavix] 75 mg PO DAILY 09/24/15 [History] Insulin ASPART [NovoLOG] 0 unit SQ TIDWM PRN 09/24/15 [History] Insulin Glargine,Hum.rec.anlog [Lantus Solostar] 20 unit SQ BID 09/24/15 [ History] Ranolazine [Ranexa] 500 mg PO BID 09/24/15 [History] Alirocumab [Praluent Pen] 75 mg SQ Q2W 07/10/17 [History] Aspirin Enteric Coated [Aspirin EC] 81 mg PO DAILY 07/10/17 [History] Metformin HCl [Glucophage] 1,000 mg PO BID 07/10/17 [History] Nitroglycerin 1 - 2 spray SL AD PRN 07/10/17 [History] Nitroglycerin [Nitrostat] 0.4 mg SL Q5M PRN 07/10/17 [History] Warfarin perPT [Coumadin perPT] 6 mg PO DAILY 07/10/17 [History] Lantus Solostar 20 units SQ BID 09/19/17 [History] Mv-Mn/FA/Vit K/Lycop/Lut/Coq10 [Daily Multivitamin Capsule] 1 tab PO DAILY 09/19 [History] Amlodipine Besylate 2.5 mg PO DAILY 12/24/17 [History] Metoprolol Tartrate 50 mg PO BID 12/24/17 [History] HYDROcodone/Acet 5/325 mg [[place] 5-325 mg] 1 tab PO TID PRN 1 Days #3 tablet [Rx] 3 Allergy/AdvReac Type Severity Reaction Status Date / Time lisinopril AdvReac Cough Verified 12/24/17 20:12 All Systems PM: A 10-system review of systems was performed and is negative for pertinent findings except as documented above in the HPI. - Constitutional Vitals: Pulse Resp BP Pulse Ox 59 12 139/69 98 01/28/18 20:53 01/28/18 20:53 01/28/18 20:53 01/28/18 20:53 General appearance: Present: A&O X 3, no acute distress, answers questions appropriately - Head Head exam: Present: atraumatic, normocephalic - Eye Eye exam: Present: PERRL, conjuntiva pink, sclera anicteric Pupils: Present: PERRL - Neck Neck exam general surgery: Present: supple, trachea midline. Absent: lymphadenopathy - Respiratory Respiratory exam: Present: CTAB. Absent: accessory muscle use, rales, rhonchi, wheezes - Cardiovascular Cardiovascular exam: Present: RRR, +S1, +S2. Absent: diastolic murmur, gallop, rubs, systolic murmur - GI/Abdominal GI/Abdominal exam: Present: normal bowel sounds, soft, no peritoneal signs. Absent: distended, tenderness - Extremities Exam Extremities exam: Present: warm, radial pulses palpable and symmetrical. Absent : calf tenderness, cyanotic, pedal edema - Neurological Exam Neurological exam: Present: CN II-XII intact, oriented X3, no focal deficits. Absent: pronater drift, facial droop, speech deficit - Skin Skin exam: Present: dry, intact Internal Med - H&P Results - Labs CBC & Chem 7: 01/28/18 20:03 01/28/18 20:03 - EKG Data -: EKG Interpreted by Myself (Pacing rhythm) Rate: normal - Assessment and plan (1) DVT prophylaxis Current Visit: Yes Status: Acute Assessment and plan: Patient is on Coumadin, INR is therapeutic. Continue Coumadin (2) Chest pain Current Visit: Yes Status: Acute Assessment and plan: Consider as stable angina considering patient has history of CAD S/P stent and pain is partially relieved by nitroglycerin. - Continuous cardiac monitoring - Track 3 sets of troponin - Echocardiogram in a.m. to reevaluate and the rule out wall movement abnormality and pericardial problem - Continue nitroglycerin drip, pain medication to help pain control - Continue home medication aspirin, Plavix, beta rené, ranexa, and imdur - Consult cardiology in a.m. for medication optimalization and further management. Qualifiers: Chest pain type: unspecified Qualified Code(s): R07.9 - Chest pain, unspecified (3) Coronary artery disease Current Visit: No Status: Chronic Assessment and plan: S/P stent, continue DAPT, beta rené. imdur, ranexa. Qualifiers: Coronary Disease-Associated Artery/Lesion type: circle artery [place] vs. 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 Continue Coumadin. Heart rate is well controlled now. Qualifiers: Atrial fibrillation type: chronic Qualified Code(s): I48.2 - Chronic atrial fibrillation (6) Unstable angina Current Visit: No Status: Acute Assessment and plan: Management as above (7) Hypertension Current Visit: Yes Status: Acute Assessment and plan: Hold home medications amlodipine because patient on nitroglycerin drip. Closely monitor BP Qualifiers: Hypertension type: essential hypertension Qualified Code(s): I10 - Essential (primary) hypertension - Time Spent With Patient Total time spent is greater than 50% in coordination of care (as documented) at patient's floor/unit and/or counseling patient: 40 minutes Greater than 35 minutes
[2018-01-28] MEDS: Insulin LISPRO 300 UNITS/3 ML VIAL SQ SCH (22:51)
[2018-01-28] MEDS: Insulin DETEMIR 100 UNIT/ML X5UNITS SQ SCH (22:51)
[2018-01-28] MEDS: *HR* FentaNYL (PF) 100 MCG/2 ML VIAL IVP PRN (23:51)
[2018-01-29 02:02] LABS: Basophils # 0.1 K/mcL (0.0-0.2); Basophils % 0.7 %; Eosinophils # 0.3 K/mcL (0.0-0.6); Eosinophils % 4.7 %; Hemoglobin 13.6 g/dL (12.9-16.9); Immature Granulocytes % 0.4 % (0-4); Lymphocytes % 40.8 %; Mean Corpuscular HGB Conc 34.9 g/dL (31.6-35.5); Mean Corpuscular Hemoglobin 31.8 pg (28.0-33.3); Mean Corpuscular Volume 91.1 fL (83.0-100.0); Mean Platelet Volume 10.1 fL (9.4-12.4); Monocytes # 0.6 K/mcL (0.0-1.3); Monocytes % 8.5 %; Neutrophils # 3.3 K/mcL (1.6-8.9); Platelet Count 209 K/mcL (140-400); Red Blood Count 4.28 M/mcL (4.19-5.50); Red Cell Distribution Width 13.3 % (11.5-14.5); Segmented Neutrophils % 44.9 %
[2018-01-29 02:15] LABS: INR 2.6; Prothrombin Time 28.5 Seconds (9.4-12.1)
[2018-01-29 02:24] LABS: BUN/Creatinine Ratio 18 (6-26); Blood Urea Nitrogen 18 mg/dL (8-23); Calcium 9.4 mg/dL (8.6-10.3); Carbon Dioxide 24 mEq/L (23-29); Chloride 106 mEq/L (98-107); Chol/HDL Ratio 3.6 (0-4.9); Cholesterol 141 mg/dL (< 200); Glucose 96 mg/dL (70-105); HDL Cholesterol 39 mg/dL (40-59); LDL Cholesterol,Calculated 53 mg/dL (0-99); Magnesium 1.9 mg/dL (1.6-2.6); Osmolality,Calculated 292 (280-300); Potassium 3.9 mEq/L (3.5-5.1); Sodium 140 mEq/L (136-145); Triglycerides 244 mg/dL (< 150); Troponin I < 0.03 ng/mL (< 0.04); eGFR For African Americans > 60 (> 60); eGFR For Non-African Americans > 60 (> 60)
[2018-01-29] MEDS: Insulin LISPRO 300 UNITS/3 ML VIAL SQ SCH ×4 (07:24→21:10)
[2018-01-29] MEDS: Aspirin Enteric Coated 81 MG Tablet PO SCH (07:43)
[2018-01-29] MEDS: Ranolazine 500 MG TAB.ER.12H PO SCH ×2 (07:43→21:10)
[2018-01-29] MEDS: *HR* FentaNYL (PF) 100 MCG/2 ML VIAL IVP PRN ×4 (07:50→21:10)
[2018-01-29] MEDS: Nitroglycerin 25 MG/250 ML INFUS..BTL IVC SCH ×2 (08:18→16:53)
[2018-01-29] MEDS ORDERED: Isosorbide MONOnitrate (24 HR) 30 MG TAB.ER.24H PO SCH (09:00)
--- NOTE | 2018-01-29 09:32 | Cardiology Consult Note ---
<Wilfredo Palmer R - Last Filed: 01/29/18 09:48> Date of Encounter: 01/29/18 Time of Encounter: 09:19 Assessment and Plan (1) Angina pectoris Current Visit: Yes Status: Acute Presented with chest pain at both rest and exertion, left sided associated with dyspnea and diaphoresis, mild relief with SL nitro, reports "identical" to prior anginal equivalent. Currently on nitro gtt at 40mcg/min. Nitro gtt and pain medication have helped. Troponin negative x 3. EKG paced. Ranexa was previously increased to 1000mg BID, unable to tolerate. Continue lower dose of 500mg BID. Imdur 30mg started as outpt 12/2017. Will increase to 60mg daily. Symptoms concerning for unstable angina. TTE 12/2017 EF 55%. Recheck limited TTE to re-evaluate EF. Discussed with Dr. Sibley. Recommend [facility]. R/B/A discussed. Pt agreeable. On Coumadin, INR 2.6 this AM. Will give 10mg IV Vitamin K today. Hold Coumadin and recheck INR in AM. C once INR allows. (2) Coronary artery disease Current Visit: No Status: Chronic CAD with hx of PCI and CABG x 3 07/2017 and PCI/ROBINSON to 1st OM 12/27/17. Reports compliance with DAPT. ASA, Statin, Plavix, BB, Imdur, Ranexa. Increase Imdur to 60mg daily. Qualifiers: Coronary Disease-Associated Artery/Lesion type: [place] artery [place] vs. transplanted heart: [place] heart Associated angina: with unstable angina Qualified Code(s): I25.110 - Atherosclerotic heart disease of [place] coronary artery with unstable angina pectoris (3) Atrial fibrillation Current Visit: No Status: Chronic Known A-Fib, anticoagulated on Coumadin INR 2.6. Currently paced. Hold Coumadin in anticipation for C. Will give Vitamin K 5mg PO tonight. Check INR in AM. Qualifiers: Atrial fibrillation type: unspecified Qualified Code(s): I48.91 - Unspecified atrial fibrillation Discussion w patient/family: The assessment and plan as outlined above was discussed with the patient and/or family members who expressed understanding and agreement. All questions were answered. Thank you for involving us in the care of your patient. Please call with any questions. I will discuss all the above with Dr. Sibley and make changes as necessary. History of Present Illness Consult date: 01/29/18 Requesting physician: Debbie Ibrahim Consult reason: angina Chief complaint: chest pain History of present illness: Mr. Dominguez is a 62 year old male with PMH of CAD s/p PCI, CABG x 3, atrial fibrillation on Coumadin, HTN, hyperlipidemia, PPM. His CABG was in July 2017 at [facility]. He states since that time he has had chronic chest wall pain and intermittent chest pain relieved with nitro. He experienced worsening chest pain 12/2017 and underwent LHC with ROBINSON to 1st OM. He states symptoms improved until 2 weeks ago when he started experiencing increasing chest pain, progressively worse in recent days. He describes the chest pain as left sided, achy and reports it feels "identical" to prior anginal equivalent. No exacerbating factors. Reports nitro helps take the edge off, but does not relieve it. He is currently on nitro gtt at 40mcg/min. He states nitro gtt and pain meds have helped. Intermittent dyspnea and diaphoresis. Chronic exertional dyspnea. Reports compliance with DAPT. Troponins negative x 3. Cardiology consulted for further recs. Prior CV testing: LHC 12/27/17: Severe 3 vessel CAD, EF 40%. Successful PTCA/ROBINSON to 1st OM. DAUGHERTY- LAD patent, SVG-1st OM occluded. Significant small vessel disease. TTE 12/25/17: EF 55%, mild cLVH mild LVDD, mild MR, mild-moderate TR, mild pthn. Past Med Surg Social Fam HX - Past Medical History Medical history: atrial fibrillation, coronary artery disease, diabetes, hyperlipidemia, hypertension Psychiatric history: no psych history - Past Surgical History Surgical History: angioplasty/stent, appendectomy, coronary bypass (CABG), knee replacement, pacemaker/AICD - Social History Smoking Status: Never smoker Smokeless Tobacco Status: No Alcohol use: none Drug use: none - Family History Father History Unknown: Yes Living Status: Hx Family Cardiac Disorders: Yes (MD) Mother Living Status: Hx Family Cardiac Disorders: Yes (Heart disease) Medications and Allergies Clopidogrel [Plavix] 75 mg PO DAILY 09/24/15 [History] Insulin ASPART [NovoLOG] 0 unit SQ TIDWM PRN 09/24/15 [History] Insulin Glargine,Hum.rec.anlog [Lantus Solostar] 20 unit SQ BID 09/24/15 [ History] Ranolazine [Ranexa] 500 mg PO BID 09/24/15 [History] Alirocumab [Praluent Pen] 75 mg SQ Q2W 07/10/17 [History] Aspirin Enteric Coated [Aspirin EC] 81 mg PO DAILY 07/10/17 [History] Metformin HCl [Glucophage] 1,000 mg PO BID 07/10/17 [History] Nitroglycerin 1 - 2 spray SL AD PRN 07/10/17 [History] Nitroglycerin [Nitrostat] 0.4 mg SL Q5M PRN 07/10/17 [History] Warfarin perPT [Coumadin perPT] 6 mg PO DAILY 07/10/17 [History] Mv-Mn/FA/Vit K/Lycop/Lut/Coq10 [Daily Multivitamin Capsule] 1 tab PO DAILY 09/19 [History] Amlodipine Besylate 2.5 mg PO DAILY 12/24/17 [History] Metoprolol Tartrate 50 mg PO BID 12/24/17 [History] Isosorbide MONOnitrate (24 HR) [Imdur] 30 mg PO DAILY 01/29/18 [History] 3 Allergy/AdvReac Type Severity Reaction Status Date / Time colchicine [From Colcrys] Allergy Difficulty Verified 01/29/18 08:48 Breathing ibuprofen Allergy Difficulty Verified 01/29/18 08:48 Breathing lisinopril AdvReac Cough Verified 12/24/17 20:12 pantoprazole AdvReac Difficulty Verified 01/29/18 08:48 Breathing All Systems Review: The remainder of the systems were reviewed and are negative - Cardiovascular Cardiovascular: as per HPI, chest pain at rest, chest pain with exertion, diaphoresis, dyspnea at rest, dyspnea on exertion - Respiratory Respiratory: dyspnea Physical Examination Vital Signs, Last 4 Hours Temp Pulse Resp BP Pulse Ox 01/29/18 08:00 60 148/85 01/29/18 07:55 60 01/29/18 07:12 97.8 F 60 17 123/69 97 01/29/18 06:00 61 121/67 Vital Signs Temp Pulse Resp BP Pulse Ox 01/29/18 09:00 60 132/69 01/29/18 08:00 60 148/85 05/29/18 07:55 60 01/29/18 07:12 97.8 F 60 17 123/69 97 01/29/18 06:00 61 121/67 01/29/18 05:00 60 116/68 01/29/18 04:44 97.7 F 60 18 121/67 98 01/29/18 04:00 61 121/67 01/29/18 03:00 60 119/66 01/29/18 02:00 60 130/67 01/29/18 01:00 60 137/75 01/29/18 00:00 60 138/80 01/28/18 23:00 69 151/79 01/28/18 22:51 98.1 F 65 20 147/86 97 01/28/18 22:20 16 135/72 01/28/18 22:07 64 12 135/75 97 01/28/18 21:48 60 20 117/61 98 01/28/18 20:53 59 12 139/69 98 01/28/18 19:55 67 19 162/85 98 Intake and Output 01/28/18 01/29/18 01/29/18 23:59 07:59 15:59 Intake Total 0 / 0 250 / 250 Output Total 0 / 0 100 / 100 Balance 0 / 0 150 / 150 Intake: IV Fluids 250 / 250 Nitroglycerin Premix 25 MG/250 250 / 250 ML 25 mg In 250 ml @ 20 MCG/MIN 12 mls/hr IVC .[id number] [facility] Rx# :[id number] Oral 0 / 0 Output: Urine 0 / 0 100 / 100 Other: Weight 94.9 kg Blood Glucose* 126 General: Conversant, No Apparent Distress HEENT: Atraumatic, Normocephaly, Mucus Membranes Moist Neck: No JVD, Normal carotid pulses Cardiac: Reg Rate and Rhythm, Normal S1 and S2, No Murmur Lungs: Normal Breath Sounds, No Wheeze, Rales, Rhonchi Neuro: Alert and responsive, No focal deficits noted Abdomen: Soft, Non-Tender Skin: No rashes noted on visualized skin Musculoskeletal: No Chest Wall Tenderness Extremities: No Clubbing, No Cyanosis, No Edema, Normal Pulses Results 01/29/18 01:45 01/29/18 01:45 Lab Results 01/29/18 01/29/18 01/29/18 01:45 01:45 01:45 WBC 7.3 Hgb 13.6 Hct 39.0 Plt Count 209 INR 2.6 Sodium Potassium Chloride Carbon Dioxide BUN Creatinine Glucose Calcium Magnesium Troponin I < 0.03 01/29/18 01/29/18 01:45 08:05 WBC Hgb Hct Plt Count INR Sodium 140 Potassium 3.9 Chloride 106 Carbon Dioxide 24 BUN 18 Creatinine 1.00 Glucose 96 Calcium 9.4 Magnesium 1.9 Troponin I < 0.03 < 0.03 Short CBC 01/29/18 01/28/18 Range/Units 01:45 20:03 WBC 7.3 6.4 (4.3-11.1) K/mcL Hgb 13.6 14.1 (12.9-16.9) g/dL Hct 39.0 41.0 (37.5-50.1) % Plt Count 209 230 (140-400) K/mcL Neutrophils # 3.3 3.3 (1.6-8.9) K/mcL BMP 01/29/18 01/28/18 Range/Units 01:45 20:03 Sodium 140 138 (136-145) mEq/L Potassium 3.9 4.1 (3.5-5.1) mEq/L Chloride 106 105 (98-107) mEq/L Carbon Dioxide 24 23 (23-29) mEq/L BUN 18 15 (8-23) mg/dL Creatinine 1.00 1.25 (0.70-1.30) mg/dL Glucose 96 230 H (70-105) mg/dL Calcium 9.4 9.5 (8.6-10.3) mg/dL Cardiac Enzymes 01/29/18 01/29/18 01/29/18 Range/Units 08:05 01:45 01:45 Troponin I < 0.03 < 0.03 < 0.03 (< 0.04) ng/mL 01/28/18 Range/Units 20:03 Troponin I < 0.03 (< 0.04) ng/mL Liver Function 01/28/18 Range/Units 19:53 Total Bilirubin 0.5 (0.3-1.0) mg/dL Direct Bilirubin 0.1 (0.0-0.2) mg/dL AST 18 (13-39) Units/L ALT 19 (7-52) Units/L Alkaline Phosphatase 47 (34-104) Units/L Albumin 4.5 (3.5-5.7) g/dL Impressions Chest X-Ray 01/28/18 19:53 IMPRESSION: Stable chest with no change left lower lobe scarring and/or atelectasis. D/ / 01/28/2018 20:45:04 Fabrizio Herrera MD / sarah Interpreting Provider: Fabrizio Herrera MD Active Medications Acetaminophen (Tylenol) 650 mg PO Q6HR PRN PRN Reason: Mild Pain/Fever Stop: 07/30/18 21:35 Hydrocodone Bitart/Acetaminophen ([place] 5-325 Mg) 1 tab PO Q6HR PRN PRN Reason: Moderate Pain Stop: 07/30/18 21:35 Aspirin (Aspirin Ec) 81 mg PO DAILY NEGRITO Stop: 07/31/18 09:01 Last Admin: 01/29/18 07:43 Dose: 81 mg Clopidogrel Bisulfate (Plavix) 75 mg PO DAILY NEGRITO Stop: 07/31/18 09:01 Last Admin: 01/29/18 07:43 Dose: 75 mg Dextrose/Water (Dextrose 50% (Syg)) 25 ml IVP AD PRN PRN Reason: Hypoglycemia Stop: 07/30/18 21:41 Fentanyl Citrate (Fentanyl (Pf)) 25 mcg IVP Q4H PRN PRN Reason: Chest Pain Stop: 07/30/18 23:46 Last Admin: 01/29/18 07:50 Dose: 25 mcg Glucagon (Glucagen) 1 mg IM ONCE PRN PRN Reason: Hypoglycemia Stop: 07/30/18 21:41 Glucose (Gluctose) 15 gm PO ONCE PRN PRN Reason: Hypoglycemia Stop: 07/30/18 21:41 Glucose (Gluctose) 30 gm PO ONCE PRN PRN Reason: Hypoglycemia Stop: 07/30/18 21:41 Nitroglycerin (Nitroglycerin Premix 25 Mg/250 Ml) 25 mg in 250 mls @ 12 mls/hr IVC .[id number] NEGRITO; 20 MCG/MIN PRN Reason: Protocol Stop: 07/30/18 20:31 Last Admin: 01/29/18 08:18 Dose: 40 mcg/min, 24 mls/hr Dextrose (Dextrose 5%) 1,000 mls @ 100 mls/hr IVC .Q10H PRN PRN Reason: HYPOGLYCEMIA Stop: 07/30/18 21:41 Insulin Detemir (Levemir) 20 unit SQ BID [facility] Stop: 07/30/18 21:46 Last Admin: 01/28/18 22:51 Dose: Not Given Insulin Human Lispro (Humalog) 0 units SQ HS [facility] PRN Reason: Protocol Stop: 07/30/18 21:46 Last Admin: 01/28/18 22:51 Dose: Not Given Insulin Human Lispro (Humalog) 0 units SQ TIDAC [facility] PRN Reason: Protocol Stop: 07/31/18 07:31 Last Admin: 01/29/18 07:24 Dose: Not Given Isosorbide Mononitrate (Imdur) 30 mg PO DAILY [facility] Stop: 07/31/18 09:01 Last Admin: 01/29/18 07:43 Dose: 30 mg Metoprolol Tartrate (Lopressor) 50 mg PO BID [facility] Stop: 07/31/18 09:01 Last Admin: 01/29/18 07:43 Dose: 50 mg Naloxone HCl (Narcan) 0.4 mg IVP Q2MIN PRN PRN Reason: SEE COMMENTS Stop: 07/30/18 21:35 Ranolazine (Ranexa) 500 mg PO BID [facility] Stop: 07/31/18 09:01 Last Admin: 01/29/18 07:43 Dose: 500 mg Warfarin Sodium (Coumadin Perpt) 0 each PO DAILY@1800 PRN PRN Reason: SEE COMMENTS Stop: 07/31/18 18:01 Warfarin Sodium (Coumadin) 6 mg PO 1800 [facility] Stop: 07/31/18 18:01 - Imaging and Cardiology Echo: report reviewed Cardiac cath: report reviewed - EKG Interpretation EKG results cardiology: personally reviewed (paced), other (12 hr tele AVG HR 61 , paced, no ventricular arrhythmias noted.) Consult Discharge Plan - Plan Referrals: Lico Gómez DO [Primary Care Provider] - <Fermin Sibley - Last Filed: 01/29/18 11:27> Date of Encounter: 01/29/18 - Attending Attestation I have personally performed a face to face evaluation on this patient. I have reviewed and agree with the care plan. History and Exam by me shows: 62 YOM with hx of CAD, CABG x 3 07/2017 and PCI/ROBINSON to 1st OM 12/27/17 here with chest pain similiar to previous in 12/2017 On IV nitro with some improvement, negative trops. LHC when INR lower, vit K administered Assessment and Plan Discussion w patient/family: The assessment and plan as outlined above was discussed with the patient and/or family members who expressed understanding and agreement. All questions were answered. Thank you for involving us in the care of your patient. Please call with any questions. History of Present Illness History of present illness: Mr. Dominguez is a 62 year old male All Systems Review: The remainder of the systems were reviewed and are negative Physical Examination Vital Signs, Last 4 Hours Temp Pulse Resp BP Pulse Ox 01/29/18 11:19 60 01/29/18 11:04 97.9 F 59 17 119/70 99 01/29/18 10:00 60 126/74 01/29/18 09:00 60 132/69 Results 01/29/18 01:45 01/29/18 01:45
[2018-01-29] MEDS ORDERED: Isosorbide MONOnitrate (24 HR) 30 MG TAB.ER.24H PO ONE (10:01)
[2018-01-29] MEDS: Insulin DETEMIR 100 UNIT/ML X5UNITS SQ SCH ×2 (10:29→21:10)
--- NOTE | 2018-01-29 16:38 | Internal Med Progress Note ---
Date of Encounter: 01/29/18 Time of Encounter: 16:37 - Assessment and plan (1) Chest pain Current Visit: Yes Status: Acute Assessment and plan: Stable angina. Cardiology consulted; appreciate input. Continue telemetry. Troponin negative x 3. ECHO showed LVEF 55%, normal LV size and function, mild concentric LV hypertrophy, atypical septal motion consistent with bundle branch block, and normal RV structure and function. Continue nitroglycerin drip. Continue home medications - aspirin, Plavix, beta rené, ranexa, and imdur. Plan for [facility] tomorrow if INR normalized. Qualifiers: Chest pain type: unspecified Qualified Code(s): R07.9 - Chest pain, unspecified (2) Coronary artery disease Current Visit: Yes Status: Chronic Assessment and plan: Management as per above. Qualifiers: Coronary Disease-Associated Artery/Lesion type: [place] artery [place] vs. transplanted heart: [place] heart Associated angina: with unstable angina Qualified Code(s): I25.110 - Atherosclerotic heart disease of [place] coronary artery with unstable angina pectoris (3) Diabetes mellitus Current Visit: Yes Status: Chronic Assessment and plan: Continue home basal insulin and diabetic diet. Continue accuchecks and SSI QID AC/HS. NPO after midnight for [facility]. Qualifiers: Diabetes mellitus type: type 2 Diabetes mellitus group home insulin use: with group home use Diabetes mellitus complication status: with unspecified complications Qualified Code(s): E11.8 - Type 2 diabetes mellitus with unspecified complications; Z79.4 - long-term (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 insulin; Z79.4 - long-term (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 insulin; Z79.4 - long term care pharmacist (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 insulin; Z79.4 - long-term (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 insulin (4) Atrial fibrillation Current Visit: Yes Status: Chronic Assessment and plan: S/P ablation, S/P PPM. Hold Coumadin for [facility]; given vitamin K today. Consider FFP in AM if INR not normal. Heart rate is well controlled now. Qualifiers: Atrial fibrillation type: unspecified Qualified Code(s): I48.91 - Unspecified atrial fibrillation (5) Unstable angina Current Visit: Yes Status: Acute Assessment and plan: Management as per above. (6) Hypertension Current Visit: Yes Status: Chronic Assessment and plan: Holding home amlodipine while on nitroglycerin drip. Closely monitor BP. Qualifiers: Hypertension type: essential hypertension Qualified Code(s): I10 - Essential (primary) hypertension (7) DVT prophylaxis Current Visit: Yes Status: Acute Assessment and plan: Patient is on Coumadin. Holding coumadin for now for LHC; will resume after procedure. - Time Spent With Patient Total time spent is greater than 50% in coordination of care (as documented) at patient's floor/unit and/or counseling patient: less than 15 minutes - Subjective Interval history: Patient had no acute events overnight. He states that pain in chest is still the same, but nitro drip helping "somewhat." He does not look to be in any pain or distress. He states that cardiology is planning for LHC tomorrow if his INR allows. He denies fever, chills, SOB, nausea, vomiting, or abdominal pain. He has no other complaints at this time. - Constitutional Vitals: Temp Pulse Resp BP Pulse Ox 97.9 F 60 17 121/70 99 01/29/18 11:04 01/29/18 15:18 01/29/18 11:04 01/29/18 15:00 01/29/18 11:04 General appearance: Present: cooperative, A&O X 3, pleasant, no acute distress, answers questions appropriately - Respiratory Respiratory exam: Present: CTAB. Absent: accessory muscle use, rales, rhonchi, wheezes Additional comments: Normal WOB - Cardiovascular Cardiovascular exam: Present: RRR, +S1, +S2. Absent: diastolic murmur, gallop, rubs, systolic murmur Additional comments: No BLE edema - GI/Abdominal GI/Abdominal exam: Present: normal bowel sounds, soft. Absent: distended, hepatomegaly, mass, splenomegaly, tenderness - Psychiatric Psychiatric exam: Present: normal affect, normal mood. Absent: agitated, anxious, depressed - Skin Skin exam: Present: dry, intact, warm. Absent: cyanosis, rash Internal Medicine: Result - Labs CBC & Chem 7: 01/29/18 01:45 01/29/18 01:45 - ABG Interpretation ABG results: PT/INR, D-dimer PT 28.5 Seconds (9.4-12.1) H 01/29/18 01:45 - Impressions Impressions Echocardiogram Limited Views 01/29/18 11:31 Impressions: LVEF 55%. Normal LV chamber size and function. Mild concentric left ventricular hypertrophy. Atypical septal motion consistent with bundle branch block. Normal right ventricular structure and function. Left Ventricular Wall Motion: Rest Echo Findings All wall segments showed normal motion. Findings: Study Quality * Technically adequate exam. ECG Findings * Sinus rhythm with BBB. Left Ventricle * LVEF 55%. * Normal LV chamber size and function. * Mild concentric left ventricular hypertrophy. * Atypical septal motion consistent with bundle branch block. Right Ventricle * Normal right ventricular structure and function. IVC * The IVC is not well evaluated. Pericardium * The pericardium appears normal. Aorta * Normally sized aortic root. Consult Discharge Plan - Plan Referrals: Uriah Saleh, [employer] [Advanced Practice Nurse] - (office will call patient at home with follow up appointment) Lico Gómez DO [Primary Care Provider] - 02/04/18 11:30 am
[2018-01-29] MEDS ORDERED: Warfarin perPT PO PRN (18:00)
[2018-01-29] MEDS ORDERED: *HR* Warfarin 3 MG TABLET PO SCH (18:00)
[2018-01-30] MEDS: Nitroglycerin 25 MG/250 ML INFUS..BTL IVC SCH (01:33)
[2018-01-30] MEDS: *HR* FentaNYL (PF) 100 MCG/2 ML VIAL IVP PRN ×3 (03:27→12:02)
[2018-01-30 05:24] LABS: Basophils # 0.1 K/mcL (0.0-0.2); Basophils % 0.7 %; Eosinophils # 0.4 K/mcL (0.0-0.6); Eosinophils % 5.1 %; Hematocrit 39.5 % (37.5-50.1); Hemoglobin 13.8 g/dL (12.9-16.9); Immature Granulocytes % 0.5 % (0-4); Lymphocytes # 2.3 K/mcL (0.6-4.6); Lymphocytes % 31.4 %; Mean Corpuscular HGB Conc 34.9 g/dL (31.6-35.5); Mean Corpuscular Hemoglobin 31.4 pg (28.0-33.3); Mean Corpuscular Volume 89.8 fL (83.0-100.0); Monocytes # 0.7 K/mcL (0.0-1.3); Monocytes % 8.9 %; Platelet Count 207 K/mcL (140-400); Segmented Neutrophils % 53.4 %
[2018-01-30 05:31] LABS: INR 1.3
[2018-01-30 05:34] LABS: Activated Partial Thrombo Time 32.7 Seconds (26.0-36.0)
[2018-01-30 05:35] LABS: Prothrombin Time 14.2 Seconds (9.4-12.1)
[2018-01-30 05:40] LABS: BUN/Creatinine Ratio 12 (6-26); Blood Urea Nitrogen 10 mg/dL (8-23); Calcium 9.2 mg/dL (8.6-10.3); Carbon Dioxide 23 mEq/L (23-29); Chloride 106 mEq/L (98-107); Glucose 104 mg/dL (70-105); Osmolality,Calculated 283 (280-300); Potassium 3.7 mEq/L (3.5-5.1); Sodium 137 mEq/L (136-145); eGFR For African Americans > 60 (> 60); eGFR For Non-African Americans > 60 (> 60)
[2018-01-30] MEDS: Insulin LISPRO 300 UNITS/3 ML VIAL SQ SCH ×4 (07:26→21:48)
[2018-01-30] MEDS: Ranolazine 500 MG TAB.ER.12H PO SCH ×2 (07:48→20:17)
[2018-01-30] MEDS: Aspirin Enteric Coated 81 MG Tablet PO SCH (07:49)
--- NOTE | 2018-01-30 08:13 | Electrocardiograph Report ---
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
[2018-01-30] MEDS ORDERED: Isosorbide MONOnitrate (24 HR) 30 MG TAB.ER.24H PO SCH ×2 (09:00→15:07)
[2018-01-30] MEDS: Insulin DETEMIR 100 UNIT/ML X5UNITS SQ SCH ×2 (09:13→21:49)
--- NOTE | 2018-01-30 09:49 | Event Note ---
Date of Encounter: 01/30/18 Time of Encounter: 09:48 - Cardiology Event Note Limited TTE EF 55%. Pt continues to have chest pain, on nitro gtt at 40mcg/min. INR 1.3. [facility] today. R/B/A discussed. Pt agrees to proceed.
--- NOTE | 2018-01-30 10:37 | Pre-Sedation Evaluation ---
Pre-sedation evaluation - Pre-sedation checklist Date of procedure: 01/30/18 Procedure: heart cath Recent Vitals: Last Vital Signs Temp 98.1 F 01/30/18 07:02 Pulse 60 01/30/18 07:02 Resp 17 01/30/18 07:02 BP 153/94 01/30/18 07:02 Pulse Ox 94 01/30/18 07:02 H&P (including ROS) documented in medical record: Yes Previous reaction to sedatives/anesthetics: No Dietary Status: NPO after Midnight Dentition: No loose teeth or bridges ASA Classification *see protocol: CLASS II-Mild systemic disease Plan of Care: Pt appropriate candidate for procedure/moderate/conscious sedation , Risks/benefits of procedure/sedation discussed w/ patient/family
[2018-01-30] MEDS ORDERED: ISOVUE-370 200 ML INFUS..BTL IV ONE (13:13)
[2018-01-30] MEDS ORDERED: Verapamil 5 MG/2 ML VIAL ONE (13:13)
[2018-01-30] MEDS ORDERED: Nitroglycerin 1,000 MCG/10 ML VIAL IV ONE (13:13)
[2018-01-30] MEDS ORDERED: Heparin 1,000 UNITS/500 mL 500 ML ONE (13:13)
[2018-01-30] MEDS ORDERED: *HR* Heparin 10,000 UNIT/10 ML VIAL ONE (13:13)
[2018-01-30] MEDS ORDERED: 0.9 % Sodium Chloride 1,000 ML ONE ×2 (13:13→13:21)
[2018-01-30] MEDS ORDERED: Nitroglycerin 25 MG/250 ML INFUS..BTL IVC ONE (14:02)
[2018-01-30] MEDS ORDERED: *HR* Midazolam HCl 2 MG/2 ML VIAL ONE (14:05)
[2018-01-30] MEDS ORDERED: *HR* FentaNYL (PF) 100 MCG/2 ML VIAL ONE (14:06)
--- NOTE | 2018-01-30 15:33 | Invasive Diagnostic Lab Proc ---
Name: Lukas Dominguez Date of Study: 01/30/2018 Date: 1955 Ht: 72.0in Medical Record#: [id number] Age: 62 Wt: 205.03lb Gender: Male BSA: 2.15 Order #: [id number] BMI: 27.77 Physicians Procedure Physician: Alli Russ MD, [facility] Referring MD: Referring MD: Staff Name Position Time In [facility], Bridget RT (R) Monitor 02:02 PM Dereje Ardon RN Archeology Faculty Member 02:02 PM Sintia Patricia RN Monitor 02:02 PM [facility], Bridget RT (R) Scrub 02:15 PM Indications Indication Unstable Angina Procedures Performed Procedure L HRT ART/GRFT ANGIO IV Doppler BLD Flow 1st Vessel Pre-Procedure Checklist Informed consent is complete signed and on chart. H&P is on chart. ID band is on and ID verified with patient. Patient NPO for procedure The procedure was described for the patient and questions were answered. Blood Pressure: 153/94 ECG is on chart. Rhythm: Paced Plan of Care Patient will tolerate the procedure without complications. Adequate level of comfort will be maintained. Hemodynamics will remain stable Patient will recover from procedure without complications. Respiratory function will be maintained. Cardiac rhythm will remain stable. Patient temperature will be maintained. Patient and/or family have verbalized understanding of the procedure. Patient Education Chief Complaint/Reason for Test: Cardiac Cath Developmental Category: Adult (18-64 years) Developmentally Appropriate for Age: Yes Learning Barriers: None Education Needs: Procedure Education Method: Verbal Information Taught: Cardiac Cath Educational Evaluation: Able to repeat information Intravenous Access Time IV Size Location DC'd Fluid/Drip Rate Units RN 18g 1 09/06" Patent On Arrival Rt Antecubital 0.9NaCl 25 mg/hr Sintia Patricia RN Allergies lisinopril colchicine ibuprofen pantoprazole Oxycodone Vital Signs Time BP (mmHg) HR (bpm) O2 Sat. RR (bpm) LOC 02:03 PM / % 5 = Fully awake and oriented or at pre-proc level 02:03 PM / % 4 = Oriented but drowsy 02:18 PM / % 4 = Oriented but drowsy 02:33 PM / % 4 = Oriented but drowsy 02:49 PM / % 4 = Oriented but drowsy 02:11 PM 160 / 83 60 99 % 02:16 PM 128 / 71 60 99 % 02:21 PM 126 / 68 60 99 % 02:26 PM 134 / 77 60 97 % 02:31 PM 142 / 71 61 98 % 02:36 PM 139 / 65 61 98 % 02:41 PM 136 / 72 60 99 % 02:46 PM 132 / 70 60 99 % 02:51 PM 163 / 74 60 98 % 02:56 PM 131 / 72 60 98 % 03:01 PM 144 / 75 60 100 % Procedural Medications Time Medication Dose Units Method Given By 02:02 PM Oxygen 2 L/min nasal cannula Dereje Ardon RN 02:14 PM Versed 2 mg Intravenous Dereje Ardon RN 02:14 PM Fentanyl 50 mcg Intravenous Dereje Ardon RN 02:55 PM Heparin 4000 units Intravenous Dereje Ardon RN 02:56 PM Nitroglycerin 150 mcg Intracoronary Alli Russ MD 02:57 PM Adenosine 781 ml/hr Intracoronary Alli Russ MD, [facility] ASA Classification: CLASS II- Mild systemic disease (i.e. well-controlled diabetes, hypertension, asthma, cigarette smoking) Magali Score Preprocedure Postprocedure Activity 2- Moves 4 extremities sustained head lift Activity 2- Moves 4 extremities sustained head lift Circulation 2- SBP +/= 20 points of pre-anesthetic level Circulation 2- SBP +/= 20 points of pre-anesthetic level Consciousness 2- Awake and alert oriented x 3 Consciousness 2- Awake and alert oriented x 3 O2 Saturation 2- Able to maintain O2 satruation of 92% on room air O2 Saturation 2- Able to maintain O2 satruation of 92% on room air Respiratory 2- Able to deep breathe and cough well Respiratory 2- Able to deep breathe and cough well Total Score 10 Total Score 10 Contrast Agent: Isovue Diagnostic Contrast: 100 ml Total Contrast: 100 ml Fluoro Dose: 804 mGy Activated Clotting Time Time Seconds to Clot 03:06 PM 231 Procedure Log Time Note Enter By 01:17 PM CathStat 02:02 PM Pt arrived to sleep lab technologist 2 at 14:02 tsites 02:02 PM Dereje Ardon RN Position: Archeology Faculty Member Time in: 14:02 tsites 02:02 PM Sintia Patricia RN Position: Monitor Time in: 14:02 tsites 02:02 PM Physician arrived 14:02 tsites 02:02 PM Edinson and concepción completed tsites 02:02 PM Sign in performed according to hospital policy. tsites 02:02 PM Procedure start 14:02 tsites 02:02 PM Time: 14:02 Oxygen on at 2 L/min per nasal cannula by Dereje Ardon RN tsites 02:03 PM Time: 14:02 Patient comfortable and pain free: Yes tsites 02:03 PM Time: 14:03LOC: 5 = Fully awake and oriented or at pre-proc level tsites 02:03 PM Clinical Presentation: Unstable angina tsites 02:09 PM Vitals capture started with the following parameters, Patient=Adult, Interval=5 min, Initial Kwwcorqc=000 mmHg, Deflation Rate=5 mmHg, Cuff placed on Right Arm 02:10 PM Vitals capture started with the following parameters, Patient=Adult, Interval=5 min, Initial Nnprzffv=882 mmHg, Deflation Rate=5 mmHg, Cuff placed on Right Arm 02:11 PM HR=60 bpm, OQWQ=691/83 mmhg, SpO2=99.0 %, Comment=NSR 02:14 PM Time: 14:14 Versed 2 mg Intravenous Given by Dereje Ardon RN scoates 02:14 PM Time: 14:14 Fentanyl 50 mcg Intravenous Given by Dereje Ardon RN scoates 02:15 PM Clinical Presentation: Unstable angina scoates 02:15 PM ASA Class CLASS II- Mild systemic disease (i.e. well-controlled diabetes, hypertension, asthma, cigarette smoking) scoates 02:15 PM Patient charges- Angio tray pack, Navilyst 3mm J, Pulse Oximetry and ACIST tubing and transducer scoates 02:15 PM Sites, Bridget RT (R) Position: Scrub Time in: 14:15 scoates 02:16 PM HR=60 bpm, RYEC=839/71 mmhg, SpO2=99.0 %, Comment=NSR 02:16 PM Case Delayed No, inpatient scoates 02:16 PM Hair removed from procedure site in procedure lab using clippers. Bilateral groin prepped with Chloraprep by Sintia Patricia RN, then patient was draped. Skin intact. scoates 02:18 PM Time: 14:03 Patient comfortable and pain free: Yes scoates 02:18 PM Time: 14:03LOC: 4 = Oriented but drowsy scoates 02:19 PM Time out performed according to hospital policy scoates 02:20 PM Access obtained by percutaneous puncture. 5Fr 10cm Terumo Faxon sheath placed in right Femoral artery. [id number] scoates 02:21 PM HR=60 bpm, NYTH=660/68 mmhg, SpO2=99.0 %, Comment=NSR 02:23 PM 5Fr FL 4 catheter inserted over the wire DNC scoates 02:25 PM Catheter removed scoates 02:25 PM 5Fr IM catheter inserted over the wire [id number] scoates 02:26 PM 0.035 260cm Navilyst 3mmJ wire [id number] scoates 02:26 PM HR=60 bpm, HRPO=700/77 mmhg, SpO2=97.0 %, Comment=NSR 02:26 PM Recorded Pressure: Ao, HR=60, Condition=Condition 1 (Aorta) Ao 111/72/91 02:26 PM Left DORINA to the LAD angio performed in multiple views. scoates 02:27 PM Catheter removed scoates 02:27 PM FL4 reinserted scoates 02:28 PM LCA angiography performed in multiple views. scoates 02:29 PM Recorded Pressure: Ao, HR=62, Condition=Condition 1 (Aorta) Ao 108/67/86 02:30 PM Catheter removed scoates 02:31 PM 5Fr FR 4 catheter inserted over the wire DNC scoates 02:31 PM HR=61 bpm, USUN=890/71 mmhg, SpO2=98.0 % 02:31 PM Lesion found in Distal LAD. Pre Stenosis: 100 Pre ALICIA Flow: scoates 02:32 PM Lesion found in Mid Circumflex. Pre Stenosis: 30 Pre ALICIA Flow: scoates 02:32 PM Lesion found in Left PDA. Pre Stenosis: 95 Pre ALICIA Flow: scoates 02:32 PM RCA angiography performed in multiple views. scoates 02:32 PM Recorded Pressure: Ao, HR=61, Condition=Condition 1 (Aorta) Ao 108/69/87 02:33 PM Lesion found in Proximal RCA. Pre Stenosis: 100 Pre ALICIA Flow: scoates 02:33 PM Time: 14:18 Patient comfortable and pain free: Yes scoates 02:33 PM Time: 14:18LOC: 4 = Oriented but drowsy scoates 02:34 PM catheter repositioned to SVG graft scoates 02:36 PM HR=61 bpm, TNGR=485/65 mmhg, SpO2=98.0 % 02:36 PM Recorded Pressure: LV, HR=65, Condition=Condition 1 (Left Ventricle) LV 128/-4/8 02:37 PM Recorded Pressure: LV, Ao, HR=65, Condition=Condition 1 (Left Ventricle) LV 118/1/18, (Aorta) Ao 127/59/84 02:37 PM Coronary Dominance: Co-dominant scoates 02:37 PM Catheter removed scoates 02:37 PM 5Fr Pigtail catheter inserted over the wire [facility] scoates 02:37 PM Catheter selectively placed in left ventricle scoates 02:37 PM Bolus angiogram of left Ventricle complete: 10 ml/sec for a total of 20 mls scoates 02:41 PM HR=60 bpm, EXRB=039/72 mmhg, SpO2=99.0 %, Comment=NSR 02:43 PM physician reviewing films scoates 02:44 PM Recorded Pressure: Ao, HR=60, Condition=Condition 1 (Aorta) Ao 119/63/85 02:46 PM HR=60 bpm, NSWC=878/70 mmhg, SpO2=99.0 % 02:49 PM Time: 14:33LOC: 4 = Oriented but drowsy scoates 02:49 PM Time: 14:33 Patient comfortable and pain free: Yes scoates 02:51 PM HR=60 bpm, KLHA=308/74 mmhg, SpO2=98.0 % 02:53 PM physician reviewing films scoates 02:53 PM Inflation device was opened. scoates 02:54 PM .014 [place] 180cm guide wire across target lesion- successful. reused? No scoates 02:54 PM Recorded Pressure: Ao, HR=60, Condition=Condition 1 (Aorta) Ao 118/63/85 02:55 PM Time: 14:55 Heparin 4000 units Intravenous Given by Dereje Ardon RN scoates 02:56 PM HR=60 bpm, VJMY=732/72 mmhg, SpO2=98.0 %, Comment=NSR 02:56 PM Time: 14:56 Nitroglycerin 150 mcg Intracoronary Given by Alli Russ MD scoates 02:57 PM Asist FFR Catheter advanced to target lesion. scoates 02:57 PM Time: 14:57 Adenosine 781 ml/hr administered Intracoronary by Alli Russ MD, [facility] scoates 02:59 PM adenosine gtt off scoates 03:01 PM FFR Measurement: 1.00 scoates 03:01 PM HR=60 bpm, PTMW=002/75 mmhg, UcX9=196.0 %, Comment=NSR 03:03 PM Guide wire removed intact. scoates 03:03 PM Flow Wire/Catheter removed intact scoates 03:04 PM Time: 14:49 Patient comfortable and pain free: Yes scoates 03:04 PM Time: 14:49LOC: 4 = Oriented but drowsy scoates 03:04 PM Procedure completed at 15:04 scoates 03:06 PM Sign out completed: Radiation Dose 804 mGy Fluoro Time: 9.7 Isovue 370 - 200ml contrast 100 ml given by Alli Russ MD, [facility]. Complications: NoneCardiac Rehab Consult needed: NoConfirmed administered medications: Yes scoates 03:06 PM Isovue 370 - 200ml,1 Bottle(s) used. scoates 03:06 PM Sheath left in place to be pulled on floor/holding area scoates 03:06 PM At 15:06 the ACT was 231 seconds. scoates 03:06 PM Estimated Blood Loss: minimal scoates 03:07 PM Post ECG paced scoates 03:08 PM 15:08 Post Pulses Bilateral DP & PT 1+ scoates 03:08 PM Information taught Cardiac Cath scoates 03:08 PM Education needs Procedure, Plan of Care, and Responsibilities of Patient in Care scoates 03:08 PM Learning barriers :None scoates 03:08 PM Education Methods Verbal scoates 03:08 PM Education evaluation Able to repeat information scoates 03:08 PM Site status No bleeding/hematoma - Rt Groin as reported by Sites, Bridget RT (R) at 15:08 scoates 03:08 PM Plavix, Effient or Brilinta given No scoates 03:08 PM Delay to floor No scoates 03:09 PM Family placed in consult room. scoates 03:09 PM Fluoro Time: 9.7 scoates 03:09 PM Isovue 370 - 200ml contrast [address] Russ. scoates 03:12 PM Report given to Tanisha OROZCO Pt taken to 2N Room #1. 15:12 scoates 03:12 PM Patient out of room: 15:12 scoates 03:12 PM Delay to floor No scoates 03:15 PM Post Blood Pressure 144/75 scoates 03:18 PM Proximal Left Anterior Descending Coronary Artery with 100% stenosis. If graft is supplying this territory, 0 % stenosis. scoates 03:18 PM Right Coronary, Right Posterior Descending Arteries with Right Posterolateral and Acute Marginal branches with 100 % stenosis. If graft is supplying this area, 0 % stenosis scoates 03:18 PM Circumflex, Obtuse Marginal, Left Posterior Descending, and Left Posterolateral Coronary Arteries with 30 % stenosis. If graft is supplying this area, 0 % stenosis scoates Complications Complication None Hemodynamics Pressures Site Systolic/A Wave Diastolic/V Wave Mean AO 111 72 91 AO 108 67 86 AO 108 69 87 LV 128 -4 8 LV 118 1 18 AO 127 59 84 AO 119 63 85 AO 118 63 85 Post Procedure Information Blood Pressure: 144/75 mmHg Rhythm: Paced Post procedural instructions were given Closure Device Time Device Success/Fail 01/30/2018 3:12:00 PM Manual Compression - sheath to be pulled on 2N Successful Site Checks Time Location Status Staff Sheath In? Note 03:08 PM Rt Groin No bleeding/hematoma Sites, Bridget RT (R) Pulses Time Site Pre-Procedure Post-Procedure Note Bilateral DP & PT 1+ Bilateral radial 2+ 3:08:00 PM Bilateral DP & PT 1+ Updated by Bridget Payan RT (R) on 01/30/2018 3:27:49 PM Bridget Payan RT electronically signed on 01/30/2018 3:28:33 PM with status of Final
--- NOTE | 2018-01-30 16:25 | Internal Med Progress Note ---
Date of Encounter: 01/30/18 Time of Encounter: 16:23 - Assessment and plan (1) Chest pain Current Visit: Yes Status: Acute Assessment and plan: Stable angina. Cardiology consulted; appreciate input. Continue telemetry. Troponin negative x 3. ECHO showed LVEF 55%, normal LV size and function, mild concentric LV hypertrophy, atypical septal motion consistent with bundle branch block, and normal RV structure and function. S/P LHC with no interventions. Discontinue nitroglycerin drip. Continue home medications - aspirin, Plavix, beta rené, ranexa (increased dose), and imdur (increased dose). Will await further cardiology recommendations tomorrow. Qualifiers: Chest pain type: unspecified Qualified Code(s): R07.9 - Chest pain, unspecified (2) Coronary artery disease Current Visit: Yes Status: Chronic Assessment and plan: Management as per above. Qualifiers: Coronary Disease-Associated Artery/Lesion type: [place] artery Circle vs. transplanted heart: [place] heart Associated angina: with unstable angina Qualified Code(s): I25.110 - Atherosclerotic heart disease of [place] coronary artery with unstable angina pectoris (3) Diabetes mellitus Current Visit: Yes Status: Chronic Assessment and plan: Continue home basal insulin and diabetic diet. Continue accuchecks and SSI QID AC/HS. Start diabetic/cardiac diet. Qualifiers: Diabetes mellitus type: type 2 Diabetes mellitus ocean transportation intermediary insulin use: with ocean transportation intermediary use Diabetes mellitus complication status: with unspecified complications Qualified Code(s): E11.8 - Type 2 diabetes mellitus with unspecified complications; Z79.4 - termite exterminator helper (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 insulin; Z79.4 - termite exterminator helper (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 insulin; Z79.4 - shelter (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 insulin; Z79.4 - termite exterminator helper (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 insulin (4) Atrial fibrillation Current Visit: Yes Status: Chronic Assessment and plan: S/P ablation, S/P PPM. Heart rate is well controlled now. Restart coumadin tomorrow; pharmacy consulted. Qualifiers: Atrial fibrillation type: unspecified Qualified Code(s): I48.91 - Unspecified atrial fibrillation (5) Unstable angina Current Visit: Yes Status: Acute Assessment and plan: Management as per above. (6) Hypertension Current Visit: Yes Status: Chronic Assessment and plan: Normotensive. Restart home amlodipine if BP increases. Closely monitor BP. Qualifiers: Hypertension type: essential hypertension Qualified Code(s): I10 - Essential (primary) hypertension (7) DVT prophylaxis Current Visit: Yes Status: Acute Assessment and plan: Restart home coumadin tomorrow; pharmacy consulted. Continue SCDs for now. - Time Spent With Patient Total time spent is greater than 50% in coordination of care (as documented) at patient's floor/unit and/or counseling patient: less than 15 minutes - Subjective Interval history: Patient had no acute events overnight. He is s/p C today. He states procedure went well. He has some mild groin tenderness at insertion site. Chest pain is little better, but still there. He states no interventions performed during cath. Animal Husbandman wants to optimize his medications. We will await cardiology recommendations tomorrow. He denies SOB, fever, chills, nausea, vomiting, or abdominal pain. He has no other complaints at this time. - Constitutional Vitals: Temp Pulse Resp BP Pulse Ox 98.0 F 60 18 113/66 97 01/30/18 16:13 01/30/18 16:13 01/30/18 16:13 01/30/18 16:13 01/30/18 16:13 General appearance: Present: cooperative, A&O X 3, pleasant, no acute distress, answers questions appropriately - Respiratory Respiratory exam: Present: CTAB. Absent: accessory muscle use, rales, rhonchi, wheezes Additional comments: Normal WOB - Cardiovascular Cardiovascular exam: Present: RRR, +S1, +S2. Absent: diastolic murmur, gallop, rubs, systolic murmur Additional comments: No BLE edema - GI/Abdominal GI/Abdominal exam: Present: normal bowel sounds, soft. Absent: distended, hepatomegaly, mass, splenomegaly, tenderness - Psychiatric Psychiatric exam: Present: normal affect, normal mood. Absent: agitated, anxious, depressed - Skin Skin exam: Present: dry, warm. Absent: cyanosis, erythema, rash Internal Medicine: Result - Labs CBC & Chem 7: 01/30/18 04:38 01/30/18 04:38 Labs: Short CBC 01/30/18 Range/Units 04:38 WBC 7.4 (4.3-11.1) K/mcL Hgb 13.8 (12.9-16.9) g/dL Hct 39.5 (37.5-50.1) % Plt Count 207 (140-400) K/mcL Neutrophils # 4.0 (1.6-8.9) K/mcL BMP 01/30/18 04:38 Sodium 137 Potassium 3.7 Chloride 106 Carbon Dioxide 23 BUN 10 Creatinine 0.81 Glucose 104 Calcium 9.2 - ABG Interpretation ABG results: PT/INR, D-dimer PT 14.2 Seconds (9.4-12.1) H D 01/30/18 04:38 Consult Discharge Plan - Plan Referrals: Uriah Saleh, AD TRAFFICKER [Advanced Practice Nurse] - (office will call patient at home with follow up appointment) Lico Gómez DO [Primary Care Provider] - 02/04/18 11:30 am
[2018-01-30] MEDS: *HR* HYDROcodone/Acet 5/325 mg TABLET PO PRN ×2 (16:38→22:41)
[2018-01-30] MEDS ORDERED: Ondansetron 4 MG/2 ML VIAL IVP PRN (16:45)
--- NOTE | 2018-01-30 17:37 | Event Note ---
Date of Encounter: 01/30/18 Time of Encounter: 17:35 - Cardiology Event Note Discussed with Dr. Russ. [facility] completed no interventions. Seen to have small vessel CAD that may be causing his symptoms. NTG gtt will be weaned off and ranexa added. Increase anti-anginals as tolerated. Call with questions.
[2018-01-30] MEDS ORDERED: *HR* Atropine Sulfate 1 MG/10 ML SYRINGE ONE (17:43)
[2018-01-31 04:22] LABS: Basophils % 0.5 %; Eosinophils # 0.2 K/mcL (0.0-0.6); Eosinophils % 4.2 %; Hematocrit 40.9 % (37.5-50.1); Hemoglobin 14.1 g/dL (12.9-16.9); Immature Granulocytes % 0.2 % (0-4); Lymphocytes # 2.3 K/mcL (0.6-4.6); Lymphocytes % 40.2 %; Mean Corpuscular HGB Conc 34.5 g/dL (31.6-35.5); Mean Corpuscular Volume 89.9 fL (83.0-100.0); Mean Platelet Volume 9.8 fL (9.4-12.4); Monocytes # 0.5 K/mcL (0.0-1.3); Monocytes % 8.5 %; Neutrophils # 2.7 K/mcL (1.6-8.9); Platelet Count 191 K/mcL (140-400); Red Blood Count 4.55 M/mcL (4.19-5.50); Red Cell Distribution Width 13.1 % (11.5-14.5); Segmented Neutrophils % 46.4 %
[2018-01-31 04:39] LABS: BUN/Creatinine Ratio 15 (6-26); Blood Urea Nitrogen 13 mg/dL (8-23); Calcium 9.7 mg/dL (8.6-10.3); Carbon Dioxide 22 mEq/L (23-29); Chloride 105 mEq/L (98-107); Glucose 168 mg/dL (70-105); Osmolality,Calculated 284 (280-300); Potassium 3.8 mEq/L (3.5-5.1); Sodium 135 mEq/L (136-145); eGFR For African Americans > 60 (> 60); eGFR For Non-African Americans > 60 (> 60)
[2018-01-31] MEDS: *HR* HYDROcodone/Acet 5/325 mg TABLET PO PRN ×2 (05:15→13:28)
[2018-01-31] MEDS: Aspirin Enteric Coated 81 MG Tablet PO SCH (08:24)
[2018-01-31] MEDS: Ranolazine 500 MG TAB.ER.12H PO SCH (08:24)
[2018-01-31] MEDS: Insulin LISPRO 300 UNITS/3 ML VIAL SQ SCH ×2 (08:24→13:24)
[2018-01-31] MEDS ORDERED: Isosorbide MONOnitrate (24 HR) 30 MG TAB.ER.24H PO SCH (09:00)
[2018-01-31] MEDS: Insulin DETEMIR 100 UNIT/ML X5UNITS SQ SCH (10:17)
[2018-01-31 11:47] VITALS: BP 114/69
--- NOTE | 2018-01-31 15:28 | Discharge Summary ---
- NOTES TO OUTPATIENT PROVIDER Notes to Outpatient Provider: Follow up with PCP in 2-3 days after discharge. Follow up with cardiology as directed. Orders not resulted at time of discharge: Pending orders 01/30/18 08:28 CL Cardiac Catheterization [CL] Routine 02/01/18 04:00 INR/PT [Prothrombin Time INR] [COAG] AM 0400 02/02/18 04:00 INR/PT [Prothrombin Time INR] [COAG] AM 0400 Date of Encounter: 01/31/18 Time of Encounter: 15:25 - Discharge Diagnosis (1) Chest pain Priority: Primary Status: Acute Qualifiers: Chest pain type: unspecified Qualified Code(s): R07.9 - Chest pain, unspecified (2) Coronary artery disease Priority: Secondary Status: Chronic Qualifiers: Coronary Disease-Associated Artery/Lesion type: [place] artery [place] vs. 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 helper use Diabetes mellitus complication status: with unspecified complications Qualified Code(s): E11.8 - Type 2 diabetes mellitus with unspecified complications; Z79.4 - buttermilk drier operator (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 insulin; Z79.4 - penitentiary (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 insulin; Z79.4 - buttermilk drier operator (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 insulin; Z79.4 - buttermilk drier operator (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 insulin (4) Atrial fibrillation Priority: Secondary Status: Chronic Qualifiers: Atrial fibrillation type: unspecified Qualified Code(s): I48.91 - Unspecified atrial fibrillation (5) Unstable angina Priority: Secondary Status: Acute (6) Hypertension Priority: Secondary Status: Chronic Qualifiers: Hypertension type: essential hypertension Qualified Code(s): I10 - Essential (primary) hypertension (7) DVT prophylaxis Priority: Secondary Status: Acute Hospital course: Mr. Dominguez is a 62 year old male admitted for chest pain. He was admitted to step down floor with telemetry. Troponin trended negative x 3. Nitro drip and opioids were used for pain control. Cardiology was consulted. Patient's coumadin was held and he was taken for LHC once INR normalized. No interventions during LHC. Ranexa and imdur doses were increased, and he was told to follow up in cardiology clinic as outpatient. He states chest pain is improved, but not resolved. He is not in any distress. He wants to go home. Patient will follow up with PCP in 2-3 days after discharge. He will follow up with cardiology as directed. Patient has met maximum benefit of this hospitalization and will be discharged home in stable condition. Discharge discussed with: patient, nurse, other (Pharmacist) - Time Spent with Patient Total time spent providing and/or coordinating discharge services: Greater than 30 minutes - Discharge Medications Prescriptions: Isosorbide MONOnitrate (24 HR) [Imdur] 90 mg PO DAILY 14 Days #14 tab.er.24h Ranolazine [Ranexa] 1,000 mg PO BID 14 Days #28 tab.er.12h Home Medications: Clopidogrel [Plavix] 75 mg PO DAILY 09/24/15 [History] Insulin ASPART [NovoLOG] 0 unit SQ TIDWM PRN 09/24/15 [History] Insulin Glargine,Hum.rec.anlog [Lantus Solostar] 20 unit SQ BID 09/24/15 [ History] Alirocumab [Praluent Pen] 75 mg SQ Q2W 07/10/17 [History] Aspirin Enteric Coated [Aspirin EC] 81 mg PO DAILY 07/10/17 [History] Metformin HCl [Glucophage] 1,000 mg PO BID 07/10/17 [History] Nitroglycerin 1 - 2 spray SL AD PRN 07/10/17 [History] Nitroglycerin [Nitrostat] 0.4 mg SL Q5M PRN 07/10/17 [History] Warfarin perPT [Coumadin perPT] 6 mg PO DAILY 07/10/17 [History] Mv-Mn/FA/Vit K/Lycop/Lut/Coq10 [Daily Multivitamin Capsule] 1 tab PO DAILY 09/19 [History] Amlodipine Besylate 2.5 mg PO DAILY 12/24/17 [History] Metoprolol Tartrate 50 mg PO BID 12/24/17 [History] Isosorbide MONOnitrate (24 HR) [Imdur] 90 mg PO DAILY 14 Days #14 tab.er.24h [Rx] Ranolazine [Ranexa] 1,000 mg PO BID 14 Days #28 tab.er.12h 01/31/18 [Rx] Allergies/Adverse Reactions: 3 Allergy/AdvReac Type Severity Reaction Status Date / Time colchicine [From Colcrys] Allergy Difficulty Verified 01/29/18 08:48 Breathing ibuprofen Allergy Difficulty Verified 01/29/18 08:48 Breathing lisinopril AdvReac Cough Verified 12/24/17 20:12 pantoprazole AdvReac Difficulty Verified 01/29/18 08:48 Breathing Date of admission: 01/29/18 08:58 Primary care physician: Lico Gómez DO Consults: Cardiology 01/30/18 16:28 Consult for Pharmacy Education [CONS] Routine Reason for Consult: Coumadin Management. Restart coumadin tomorrow. Call Completed: No Discharging clinician: Mitchell Nogueira Anticipated date of discharge: 01/31/18 - Constitutional Vitals: Temp Pulse Resp BP Pulse Ox 97.9 F 62 18 114/69 97 01/31/18 11:43 01/31/18 11:43 01/31/18 11:43 01/31/18 11:43 01/31/18 11:43 General appearance: Present: cooperative, A&O X 3, pleasant, no acute distress, answers questions appropriately - Respiratory Respiratory exam: Present: CTAB. Absent: accessory muscle use, rales, rhonchi, wheezes Additional comments: Normal WOB - Cardiovascular Cardiovascular exam: Present: RRR, +S1, +S2. Absent: diastolic murmur, gallop, rubs, systolic murmur Additional comments: No BLE edema - GI/Abdominal GI/Abdominal exam: Present: normal bowel sounds, soft. Absent: distended, hepatomegaly, mass, splenomegaly, tenderness - Psychiatric Psychiatric exam: Present: normal affect, normal mood. Absent: agitated, anxious, depressed - Skin Skin exam: Present: dry, intact, warm. Absent: cyanosis, rash - Patient Status Disposition: Home, Self-Care Condition: Good Overall status at discharge: patient is progressing back to baseline - Discharge Instructions Follow Up With: Uriah Saleh, [employer]EARCH [employer] [Advanced Practice Nurse] - (office will call patient at home with follow up appointment) Lico Gómez DO [Primary Care Provider] - 02/04/18 11:30 am Additional Instructions: Follow up with PCP in 2-3 days after discharge. Follow up with cardiology as directed. - Diet and Activity Activity: resume usual activities as tolerated Diet: diabetic diet, low fat, low cholesterol, low salt diet, other (Cardiac Diet) - VTE Documentation of Mechanical Device: Intermittent pneumatic compression device
[2018-01-31] MEDS ORDERED: Adenosine 90 MG/30 ML MLS IV ONE (16:41)
[2018-01-31] MEDS ORDERED: *HR* Warfarin 3 MG TABLET PO SCH (18:00)
[2018-01-31] MEDS ORDERED: Warfarin perPT PO PRN (18:00)
== END 2018-01-31 16:42 | disposition home or self-care (01) | DRG 287 ==
LOC: 2NNU 19:40 → EMEROO 19:40 → 2NNU 22:33
PROVIDERS: ADMIT Family Medicine; ATTEND Internal Medicine

== ENCOUNTER 2019-01-17 19:40 | Inpatient (IN) ==
[2019-01-17] MEDS ORDERED: 0.9 % Sodium Chloride 500 ML IVC ONE (19:55)
[2019-01-17] MEDS ORDERED: Aspirin 81 MG TAB.CHEW PO ONE (19:55)
--- NOTE | 2019-01-17 19:55 | Emergency Department Note ---
Disposition Clinical Impression: Unstable angina Disposition: Admitted As Inpatient Condition: Fair Referrals: Lico Gómez DO [Primary Care Provider] - Forms: ED Satisfaction Letter Time of Disposition: 22:42 General Adult HPI - General Stated complaint: Chest Pain / SOB Time Seen by Provider: 01/17/19 19:47 Source: patient, family Mode of arrival: ambulatory Limitations: no limitations Nursing Notes Reviewed: Yes Vital Signs Reviewed: Yes - History of Present Illness HPI Narrative: 63-year-old male past medical history significant for 13 stents, multiple myocardial infarctions, triple bypass 1 year ago presents for 2 day history of gradually progressive and worsening left sided chest pain. Patient states he has taken 6 nitroglycerin today with moderate relief of symptoms. Patient state 81 mg aspirin this morning. Patient states he has been diaphoretic with cold chills, some shortness of breath related to the pain. Patient states this feels exactly like when his last stent became occluded. Patient states he is currently being worked up at [facility] for heart transplant. Onset (ago): day(s) Location: chest Radiation: non-radiation Pain Scale: 5 Quality: crushing Consistency: Worsening Improves with: medication Associated symptoms: Reports: chest pain, diaphoresis, loss of appetite, malaise, nausea/vomiting, shortness of breath, weakness Treatments Prior to Arrival: Aspirin, other (Nitroglycerin) - Related Data Home Medications Medication Instructions Recorded Confirmed Clopidogrel [Plavix] 75 mg PO DAILY 09/24/15 01/29/18 Insulin ASPART [NovoLOG] 0 unit SQ TIDWM PRN 09/24/15 01/29/18 Insulin Glargine,Hum.rec.anlog 20 unit SQ BID 09/24/15 01/29/18 [Lantus Solostar] Alirocumab [Praluent Pen] 75 mg SQ Q2W 07/10/17 01/29/18 Aspirin Enteric Coated [Aspirin EC] 81 mg PO DAILY 07/10/17 01/29/18 Metformin HCl [Glucophage] 1,000 mg PO BID 07/10/17 01/29/18 Nitroglycerin 1 - 2 spray SL AD PRN 07/10/17 01/29/18 Nitroglycerin [Nitrostat] 0.4 mg SL Q5M PRN 07/10/17 01/29/18 Warfarin perPT [Coumadin perPT] 6 mg PO DAILY 07/10/17 01/29/18 Mv-Mn/FA/Vit K/Lycop/Lut/Coq10 1 tab PO DAILY 09/19/17 01/29/18 [Daily Multivitamin Capsule] Amlodipine Besylate 2.5 mg PO DAILY 12/24/17 01/29/18 Metoprolol Tartrate 50 mg PO BID 12/24/17 01/29/18 Previous Rx's Medication Instructions Recorded Isosorbide MONOnitrate (24 HR) 90 mg PO DAILY 14 Days #14 01/31/18 [Imdur] tab.er.24h Ranolazine [Ranexa] 1,000 mg PO BID 14 Days #28 01/31/18 tab.er.12h Allergies Allergy/AdvReac Type Severity Reaction Status Date / Time colchicine [From Colcrys] Allergy Difficulty Verified 01/29/18 08:48 Breathing ibuprofen Allergy Difficulty Verified 01/29/18 08:48 Breathing lisinopril AdvReac Cough Verified 12/24/17 20:12 pantoprazole AdvReac Difficulty Verified 01/29/18 08:48 Breathing Review of Systems: Constitutional: Admits to diaphoresis Denies: fever, chills Cardiovascular: Admits to chest pain radiating into his left jaw Respiratory: Admits dyspnea Gastrointestinal: Admits to nausea Denies: abdominal pain, vomiting, diarrhea, constipation, hematemesis, melena, hematochezia Genitourinary: Denies: hematuria Musculoskeletal: Denies: back pain, neck pain Integumentary: Denies: rash Neurological: Admits to generalized weakness Denies: headache, numbness, paresthesias Endocrine: Admits fatigue All systems ED: reviewed and negative except as stated. Review of Systems: As Per HPI Past Medical History - Past Medical History Medical history: Reports: atrial fibrillation, coronary artery disease, diabetes, hyperlipidemia, hypertension Surgical history: Reports: angioplasty/stent, appendectomy, coronary bypass (CABG), knee replacement, pacemaker/AICD Psychiatric history: Reports: no psych history - Social History Smoking Status: Never smoker Smokeless Tobacco Status: No Alcohol use: Reports: none Drug use: Reports: none Physical Exam Constitutional: No acute distress, [id number], engaged to conversation, speech is fluid, answers questions appropriately Neuro: GCS 15, no overt focal neurological deficits Head: Atraumatic, normocephalic Eyes: Pupils equal, round and reactive to light, no scleral icterus, no conjunctival injection Neck: Trachea midline without deviation. Anterior neck is supple without swelling. *Chest: Symmetric chest wall rise *Heart: Cardiac rhythm and rate are regular with S1 and S2 , no S3 or S4 appreciated, no murmurs, gallops, rubs, or clicks. *Lungs: Lungs are clear to auscultation bilaterally, without accessory muscle use or prolonged expiratory phase. No wheezes, rhonchi or stridor appreciated. Abdomen: Abdomen is flat, soft to palpation, normal bowel sounds. No abdominal bruit auscultated. Non-distended, non-rigid, no organomegaly, no ascites appreciated. No pulsatile mass, no tenderness or guarding to palpation in all four quadrants, no rebound Extremities: Normal capillary refill without evidence of pedal edema, joint swelling or erythema. Pulses/motor/sensory intact in all 4 extremities. Psychiatric exam: Patient displays a normal affect and mood for the environment. No overt signs of hallucination. Integumentary: warm, dry, intact, normal color. No rash, cyanosis, diaphoresis, erythema, or pallor - General Limitations: no limitations General appearance: alert, in no apparent distress Course Course Narrative: Concern for ACS ED chest pain workup Vital Signs Temperature 98.1 F 01/17/19 19:48 Pulse Rate 62 01/17/19 19:48 Respiratory Rate 18 01/17/19 19:48 Blood Pressure 116/77 01/17/19 19:48 O2 Sat by Pulse Oximetry 100 01/17/19 19:48 Temperature 98.1 F 01/17/19 19:48 Pulse Rate 67 01/17/19 21:57 Respiratory Rate 18 01/17/19 21:57 Blood Pressure 107/57 01/17/19 21:57 O2 Sat by Pulse Oximetry 99 01/17/19 21:57 Oxygen Delivery Oxygen Delivery Room Air Medical Decision Making - [facility] Narrative Medical decision making narrative: Laboratory, EKG, imaging results negative for acute pathology. Patient admitted to hospitalist medicine service for further evaluation and management of unstable angina. - Lab Data Lab results reviewed: Yes I reviewed the patient's lab results. Result diagrams: 01/17/19 20:07 01/17/19 20:07 Lab Results 01/17/19 01/17/19 01/17/19 Range/Units 20:07 20:07 20:07 WBC 6.9 (4.3-11.1) K/mcL RBC 4.47 (4.19-5.50) M/mcL Hgb 13.5 (12.9-16.9) g/dL Hct 40.2 (37.5-50.1) % MCV 89.9 (83.0-100.0) fL MCH 30.2 (28.0-33.3) pg MCHC 33.6 (31.6-35.5) g/dL RDW 14.4 (11.5-14.5) % Plt Count 229 (140-400) K/mcL MPV 9.4 (9.4-12.4) fL Immature Gran % 0.1 (0-4) % Seg Neutrophils % 52.5 % Lymphocytes % 30.4 % Monocytes % 12.4 % Eosinophils % 4.2 % Basophils % 0.4 % Neutrophils # 3.6 (1.6-8.9) K/mcL Lymphocytes # 2.1 (0.6-4.6) K/mcL Monocytes # 0.9 (0.0-1.3) K/mcL Eosinophils # 0.3 (0.0-0.6) K/mcL Basophils # 0.0 (0.0-0.2) K/mcL PT 20.5 H (9.4-12.1) Seconds INR 1.8 APTT 38.6 H (26.0-36.0) Seconds Sodium 136 (136-145) mEq/L Potassium 4.4 (3.5-5.1) mEq/L Chloride 102 (98-107) mEq/L Carbon Dioxide 25 (23-29) mEq/L BUN 19 (8-23) mg/dL Creatinine 1.17 (0.70-1.30) mg/dL Est GFR ( Amer) > 60 (> 60) Est GFR (Non-Af Amer) > 60 (> 60) BUN/Creatinine Ratio 16 (6-26) Glucose 171 H (70-105) mg/dL Calculated Osmolality 288 (280-300) Calcium 9.8 (8.6-10.3) mg/dL Troponin I 0.03 (< 0.04) ng/mL - Radiology Data Radiology results reviewed: Yes I reviewed the patient's radiology results. Chest X-Ray 05/17/19 19:56 IMPRESSION: Band like opacity in the left lung base which appears similar to previous exam and may represent chronic scarring. D/ / Shira Diaz MD / Shira Diaz MD Interpreting Provider: Shira Diaz MD - EKG Data EKG #1 EKG attestation: Yes I reviewed and interpreted this EKG. EKG results narrative: Patient's EKG shows dual paced rhythm with a heart rate of 69 bpm [place] interval of 212 ms, QS duration of 171 ms, QT/QTc interval of 448/480 ms respectively. There are no significant ST segment elevations, or depressions, or any overt signs of acute ischemic change. This EKG is generally consistent with prior EKG performed on 08/06/2018.
[2019-01-17 20:28] LABS: Basophils % 0.4 %; Eosinophils # 0.3 K/mcL (0.0-0.6); Eosinophils % 4.2 %; Hematocrit 40.2 % (37.5-50.1); Hemoglobin 13.5 g/dL (12.9-16.9); Immature Granulocytes % 0.1 % (0-4); Lymphocytes # 2.1 K/mcL (0.6-4.6); Lymphocytes % 30.4 %; Mean Corpuscular HGB Conc 33.6 g/dL (31.6-35.5); Mean Corpuscular Hemoglobin 30.2 pg (28.0-33.3); Mean Corpuscular Volume 89.9 fL (83.0-100.0); Mean Platelet Volume 9.4 fL (9.4-12.4); Monocytes # 0.9 K/mcL (0.0-1.3); Monocytes % 12.4 %; Neutrophils # 3.6 K/mcL (1.6-8.9); Platelet Count 229 K/mcL (140-400); Red Blood Count 4.47 M/mcL (4.19-5.50); Red Cell Distribution Width 14.4 % (11.5-14.5); Segmented Neutrophils % 52.5 %
[2019-01-17 20:34] LABS: INR 1.8; Prothrombin Time 20.5 Seconds (9.4-12.1)
[2019-01-17 20:36] LABS: Activated Partial Thrombo Time 38.6 Seconds (26.0-36.0)
[2019-01-17 20:38] LABS: BUN/Creatinine Ratio 16 (6-26); Blood Urea Nitrogen 19 mg/dL (8-23); Calcium 9.8 mg/dL (8.6-10.3); Carbon Dioxide 25 mEq/L (23-29); Chloride 102 mEq/L (98-107); Glucose 171 mg/dL (70-105); Osmolality,Calculated 288 (280-300); Potassium 4.4 mEq/L (3.5-5.1); Sodium 136 mEq/L (136-145); eGFR For Non-African Americans > 60 (> 60)
[2019-01-17 20:54] LABS: Troponin I 0.03 ng/mL (< 0.04)
[2019-01-17] MEDS: Nitroglycerin 25 MG/250 ML INFUS..BTL IVC SCH (21:18)
--- NOTE | 2019-01-17 22:04 | Emergency Department Note ---
Disposition Clinical Impression: Unstable angina Disposition: Admitted As Inpatient Condition: Fair Referrals: Lico Gómez DO [Primary Care Provider] - General Adult HPI - General Chief complaint: ED Chest Pain Stated complaint: Chest Pain / SOB Time Seen by Provider: 01/17/19 19:47 Source: patient, family Mode of arrival: ambulatory Limitations: no limitations - History of Present Illness Location: chest Pain Scale: 5 Quality: crushing Improves with: medication Associated symptoms: Reports: chest pain, diaphoresis, loss of appetite, malaise, nausea/vomiting, shortness of breath, weakness Treatments Prior to Arrival: Aspirin, other (Nitroglycerin) - Related Data Home Medications Medication Instructions Recorded Confirmed Clopidogrel [Plavix] 75 mg PO DAILY 09/24/15 01/29/18 Insulin ASPART [NovoLOG] 0 unit SQ TIDWM PRN 09/24/15 01/29/18 Insulin Glargine,Hum.rec.anlog 20 unit SQ BID 09/24/15 01/29/18 [Lantus Solostar] Alirocumab [Praluent Pen] 75 mg SQ Q2W 07/10/17 01/29/18 Aspirin Enteric Coated [Aspirin EC] 81 mg PO DAILY 07/10/17 01/29/18 Metformin HCl [Glucophage] 1,000 mg PO BID 07/10/17 01/29/18 Nitroglycerin 1 - 2 spray SL AD PRN 07/10/17 01/29/18 Nitroglycerin [Nitrostat] 0.4 mg SL Q5M PRN 07/10/17 01/29/18 Warfarin perPT [Coumadin perPT] 6 mg PO DAILY 07/10/17 01/29/18 Mv-Mn/FA/Vit K/Lycop/Lut/Coq10 1 tab PO DAILY 09/19/17 01/29/18 [Daily Multivitamin Capsule] Amlodipine Besylate 2.5 mg PO DAILY 12/24/17 01/29/18 Metoprolol Tartrate 50 mg PO BID 12/24/17 01/29/18 Previous Rx's Medication Instructions Recorded Isosorbide MONOnitrate (24 HR) 90 mg PO DAILY 14 Days #14 01/31/18 [Imdur] tab.er.24h Ranolazine [Ranexa] 1,000 mg PO BID 14 Days #28 01/31/18 tab.er.12h Allergies Allergy/AdvReac Type Severity Reaction Status Date / Time colchicine [From Colcrys] Allergy Difficulty Verified 01/29/18 08:48 Breathing ibuprofen Allergy Difficulty Verified 01/29/18 08:48 Breathing lisinopril AdvReac Cough Verified 12/24/17 20:12 pantoprazole AdvReac Difficulty Verified 01/29/18 08:48 Breathing Past Medical History - Past Medical History Medical history: Reports: atrial fibrillation, coronary artery disease, diabetes, hyperlipidemia, hypertension, myocardial infarction Surgical history: Reports: angioplasty/stent, appendectomy, coronary bypass (CABG), knee replacement, pacemaker/AICD Psychiatric history: Reports: no psych history - Social History Smoking Status: Never smoker Smokeless Tobacco Status: No Alcohol use: Reports: none Drug use: Reports: none Physical Exam - General Limitations: no limitations General appearance: alert, in no apparent distress Course Vital Signs Temperature 98.1 F 01/17/19 19:48 Pulse Rate 62 01/17/19 19:48 Respiratory Rate 18 01/17/19 19:48 Blood Pressure 116/77 01/17/19 19:48 O2 Sat by Pulse Oximetry 100 01/17/19 19:48 Temperature 98.1 F 01/17/19 19:48 Pulse Rate 67 01/17/19 21:57 Respiratory Rate 18 01/17/19 21:57 Blood Pressure 107/57 01/17/19 21:57 O2 Sat by Pulse Oximetry 99 01/17/19 21:57 Oxygen Delivery Oxygen Delivery Room Air Medical Decision Making - Lab Data Result diagrams: 01/17/19 20:07 01/17/19 20:07 Lab Results 01/17/19 01/17/19 01/17/19 Range/Units 20:07 20:07 20:07 WBC 6.9 (4.3-11.1) K/mcL RBC 4.47 (4.19-5.50) M/mcL Hgb 13.5 (12.9-16.9) g/dL Hct 40.2 (37.5-50.1) % MCV 89.9 (83.0-100.0) fL MCH 30.2 (28.0-33.3) pg MCHC 33.6 (31.6-35.5) g/dL RDW 14.4 (11.5-14.5) % Plt Count 229 (140-400) K/mcL MPV 9.4 (9.4-12.4) fL Immature Gran % 0.1 (0-4) % Seg Neutrophils % 52.5 % Lymphocytes % 30.4 % Monocytes % 12.4 % Eosinophils % 4.2 % Basophils % 0.4 % Neutrophils # 3.6 (1.6-8.9) K/mcL Lymphocytes # 2.1 (0.6-4.6) K/mcL Monocytes # 0.9 (0.0-1.3) K/mcL Eosinophils # 0.3 (0.0-0.6) K/mcL Basophils # 0.0 (0.0-0.2) K/mcL PT 20.5 H (9.4-12.1) Seconds INR 1.8 APTT 38.6 H (26.0-36.0) Seconds Sodium 136 (136-145) mEq/L Potassium 4.4 (3.5-5.1) mEq/L Chloride 102 (98-107) mEq/L Carbon Dioxide 25 (23-29) mEq/L BUN 19 (8-23) mg/dL Creatinine 1.17 (0.70-1.30) mg/dL Est GFR ( Amer) > 60 (> 60) Est GFR (Non-Af Amer) > 60 (> 60) BUN/Creatinine Ratio 16 (6-26) Glucose 171 H (70-105) mg/dL Calculated Osmolality 288 (280-300) Calcium 9.8 (8.6-10.3) mg/dL Troponin I 0.03 (< 0.04) ng/mL Attestation Statement - Attestation Attestation: I examined this patient and my medical decision-making was reviewed with the Resident Physician. I agree with the documented findings, disposition and treatment plan as described except to the extent set forth below. Patient with history of more than 20 heart catheterizations and 13 stenting procedures presents with chest pain replicating his prior angina. Incomplete relief with nitroglycerin at home. Arrives with persistent pain. I was present for the residency EKG interpretation, he has AV sequential pacing. INR slightly subtherapeutic at 1.8. Troponin is negative. We are titrating IV nitroglycerin at this point. He will require admission to the hospital.
[2019-01-18] MEDS ORDERED: *HR* Morphine 2 MG/ML SYRINGE IVP PRN (01:05)
[2019-01-18] MEDS ORDERED: *HR* Heparin 5,000 UNIT/ML VIAL IVP ONE (01:51)
[2019-01-18] MEDS ORDERED: *HR* Heparin 5,000 UNIT/ML VIAL IVP PRN ×2 (01:51)
--- NOTE | 2019-01-18 01:55 | Internal Med History&Physical ---
Date of Encounter: 01/18/19 Time of Encounter: 01:35 Internal Medicine - H&P: HPI Chief complaint: Chest Pain History of present illness: Mr. Dominguez is a 63 year old male with PMH of CAD s/p PCI, CABG x 3, atrial fibrillation on Coumadin, HTN, hyperlipidemia, PPM who presents with worsening chest pain over the past 2 days. Patient reporting intermittent left-sided chest pain radiating to the neck over the past 2 days occurring at rest and with exertion described as a tightness similar in quality to chest pain prior to last heart catheter. Pain has been responsive to nitroglycerin. Patient has a history of angina pectoris currently on optimal medical management with a long- acting nitrate and ranolazine. Patient has been compliant with his medications. Patient took 14 sublingual nitroglycerin glycerin tablets last night before deciding to come in for further evaluation. Patient reports that he is currently being evaluated for a heart transplant at [facility] and has been undergoing screening evaluation workup. He states he has approximately 13 stents. Endor ses shortness of breath, diaphoresis with these episodes of chest pain and nausea. Patient denies any fever, chills, cough, abdominal pain, vomiting or diarrhea. On arrival vitals were stable. Troponin 0.03. EKG showed paced rhythm with no significant changes from previous EKG in January. Patient received loading dose of aspirin in the ED. My assessment patients chest pain significantly improved. Currently a 2 out of 10. Vital stable. Past Med Surg Social Fam HX - Past Medical History Medical history: atrial fibrillation, coronary artery disease, diabetes, hyperlipidemia, hypertension, myocardial infarction Additional medical history: "leaky valves" Psychiatric history: no psych history - Past Surgical History Surgical History: angioplasty/stent, appendectomy, coronary bypass (CABG), knee replacement, pacemaker/AICD Additional surgical history: CABG-July 2017. Aleksandar-2013. 4 knee replacements. 13 cardiac stents - Social History Smoking Status: Never smoker Smokeless Tobacco Status: No Alcohol use: none Drug use: none - Family History Father Living Status: Hx Family Cardiac Disorders: Yes (OR) Mother Living Status: Hx Family Cardiac Disorders: Yes (Heart disease) Internal Medicine - H&P: Meds Clopidogrel [Plavix] 75 mg PO DAILY 09/24/15 [History] Insulin Glargine,Hum.rec.anlog [Lantus Solostar] 20 unit SQ BID 09/24/15 [History] Alirocumab [Praluent Pen] 75 mg SQ Q2W 07/10/17 [History] Metformin HCl [Glucophage] 1,000 mg PO BIDWM 07/10/17 [History] Nitroglycerin 1 - 2 spray SL AD PRN 07/10/17 [History] Nitroglycerin [Nitrostat] 0.4 mg SL Q5M PRN 07/10/17 [History] Allopurinol [Zyloprim 300 MG] 300 mg PO DAILY 01/18/19 [History] Amlodipine Besylate 5 mg PO DAILY 01/18/19 [History] Aspirin [Adult Aspirin Regimen] 81 mg PO DAILY 01/18/19 [History] Dulaglutide [Trulicity] 1.5 mg SQ WE 01/18/19 [History] Furosemide [Lasix] 20 mg PO DAILY PRN 01/18/19 [History] Insulin ASPART [Novolog Flexpen] 0 unit SQ TIDWM PRN 01/18/19 [History] Isosorbide MONOnitrate [Isosorbide Mononitrate ER] 240 mg PO DAILY 01/18/19 [History] Losartan Potassium 12.5 mg PO DAILY 01/18/19 [History] Metoprolol Tartrate 100 mg PO BID 01/18/19 [History] Morphine Sulfate [Arymo ER] 15 mg PO BID 01/18/19 [History] Pantoprazole Sodium [Protonix] 40 mg PO DAILY 01/18/19 [History] Warfarin Sodium 6 mg PO QPM 01/18/19 [History] Allergy/AdvReac Type Severity Reaction Status Date / Time colchicine [From Colcrys] Allergy Difficulty Verified 01/18/19 11:48 Breathing ibuprofen Allergy Difficulty Verified 01/18/19 11:48 Breathing lisinopril AdvReac Cough Verified 01/18/19 11:48 pantoprazole AdvReac Difficulty Verified 01/18/19 11:48 Breathing All Systems PM: A 10-system review of systems was performed and is negative for pertinent findings except as documented above in the HPI. - Constitutional Constitutional: no chills, no fever(s), no night sweats - EENT Eyes: no change in vision, no discharge, no pain, no photophobia Ears: no ear discharge, no ear pain, no tinnitus Nose, mouth and throat: no dysphagia, no nasal discharge, no neck pain, no sore throat - Cardiovascular Cardiovascular ROS IM: no chest pain, no diaphoresis, no dyspnea, no lightheadedness, no palpitations, no syncope - Respiratory Respiratory: no cough, no dyspnea, no wheezing, no excessive phlegm production - Gastrointestinal Gastrointestinal: no abdominal pain, no diarrhea, no hematemesis, no hematochezia, no melena, no nausea, no vomiting - Musculoskeletal Musculoskeletal ROS IM: no numbness, no tingling - Integumentary Integumentary IM: no rash, no unusual bruising - Neurological Neurological ROS: no confusion, no convulsions, no focal weakness, no numbness, no tingling, no tremor(s) - Hematologic/Lymphatic Hematologic/Lymphatic: no easy bruising - Constitutional Vitals: Temp Pulse Resp BP Pulse Ox 98.3 F 65 16 137/64 98 01/17/19 23:31 01/17/19 23:31 01/17/19 23:31 01/17/19 23:31 01/17/19 23:31 Exam: General: Alert and oriented 3 lying in bed in no acute distress Skin:Normal color, no rash, no lesions. HEENT:EOM, pupils equal, round and reactive. Cardiovascular:Normal S1 & S2, 2 out of 10 systolic murmur No JVD. Pulse regular. Lungs:Normal breath sounds, no wheezes or crackles. Abdomen:Soft, non-tender, no rigidity. Extremities:No deformity, no edema or tenderness, no joint swelling or clubbing. Neurological:Normal cognition and motor skills. Pulses:Carotid and radial pulses normal +2. Rest of the physical exam is non contributory Internal Med - H&P Results - Labs CBC & Chem 7: 01/18/19 02:29 01/18/19 02:29 Labs: Short CBC 01/17/19 Range/Units 20:07 WBC 6.9 (4.3-11.1) K/mcL Hgb 13.5 (12.9-16.9) g/dL Hct 40.2 (37.5-50.1) % Plt Count 229 (140-400) K/mcL Neutrophils # 3.6 (1.6-8.9) K/mcL BMP 01/17/19 20:07 Sodium 136 Potassium 4.4 Chloride 102 Carbon Dioxide 25 BUN 19 Creatinine 1.17 Glucose 171 H Calcium 9.8 Cardiac Enzymes 01/17/19 Range/Units 20:07 Troponin I 0.03 (< 0.04) ng/mL - Impressions ITS Impressions Chest X-Ray 01/17/19 19:56 IMPRESSION: Band like opacity in the left lung base which appears similar to previous exam and may represent chronic scarring. D/ / Shira Diaz MD / Shira Diaz MD Interpreting Provider: Shira Diaz MD - Assessment and Plan (1) Unstable angina Current Visit: Yes Status: Acute Assessment and plan: Presented with chest pain at both rest and exertion, left sided radiating to the neck associated with dyspnea and diaphoresis, relieved with SL nitro. Chest pain reports "identical" to prior anginal equivalent. Currently on nitro gtt. Nitro gtt and pain medication have helped. Patient reporting angina-like symptoms despite being on optimal medical management for his stable angina and thus concerning for unstable angina. Initial troponin 0.03. EKG shows paced rhythm unchanged from previous EKG in January. As he loading dose of aspirin. TTE 12/2017 EF 55%. Recheck limited TTE to re-evaluate EF. Heart catheter in January 2018 showing severe three-vessel coronary artery disease with an EF of 45%. -Continue telemetry -Trend troponin -Continue nitro drip. Will add heparin drip due to concern for unstable angina. -Continue aspirin, statin, beta rené and Plavix -We will obtain echocardiogram -We will keep patient nothing by mouth in the event he may require cardiac catheter in the morning. -Consult to cardiology (2) Atrial fibrillation Current Visit: No Status: Chronic Assessment and plan: History of atrial fibrillation currently paced rhythm. On anticoagulation with warfarin. INR 1.8. -We will hold warfarin in the event of cardiac catheter. Repeat INR in the morning Qualifiers: Atrial fibrillation type: unspecified Qualified Code(s): I48.91 - Unspecified atrial fibrillation (3) Coronary artery disease Current Visit: No Status: Chronic Assessment and plan: CAD with hx of PCI and CABG x 3 07/2017 and PCI/ROBINSON to 1st OM 12/27/17. Reports compliance with DAPT. ASA, Statin, Plavix, BB, Ranexa. Hold IMdur as currently on nitro drip Qualifiers: Coronary Disease-Associated Artery/Lesion type: [place] artery [place] vs. transplanted heart: [place] heart Associated angina: with unstable angina Qualified Code(s): I25.110 - Atherosclerotic heart disease of [place] coronary artery with unstable angina pectoris (4) Diabetes mellitus Current Visit: No Status: Chronic Assessment and plan: Blood glucose checks. Sliding scale insulin every 6 hours Qualifiers: Diabetes mellitus type: type 2 Diabetes mellitus prison insulin use: with prison use Diabetes mellitus complication status: with unspecified complications Qualified Code(s): E11.8 - Type 2 diabetes mellitus with unspecified complications; Z79.4 - joint terminal attack controller (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 insulin; Z79.4 - correction (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 insulin; Z79.4 - correction (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 insulin; Z79.4 - correction (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 insulin (5) DVT prophylaxis Current Visit: No Status: Acute Assessment and plan: Currently sub-therapeutically anticoagulated with an INR of 1.8. Will hold warfarin for now. Transition to pneumatic compression devices. - Time Spent With Patient Total time spent is greater than 50% in coordination of care (as documented) at patient's floor/unit and/or counseling patient:
[2019-01-18] MEDS ORDERED: *HR* Dextrose 50 % in Water (Syg) 50 ML SYRINGE IVP PRN (02:06)
[2019-01-18] MEDS ORDERED: Dextrose Gel 15 GM/37.5 ML TUBE PO PRN ×2 (02:06)
[2019-01-18] MEDS ORDERED: D5% in Water 1,000 ML IVC PRN (02:06)
[2019-01-18 02:45] LABS: Basophils % 0.5 %; Eosinophils # 0.2 K/mcL (0.0-0.6); Eosinophils % 3.9 %; Hematocrit 36.7 % (37.5-50.1); Hemoglobin 12.2 g/dL (12.9-16.9); Immature Granulocytes % 0.3 % (0-4); Lymphocytes # 2.2 K/mcL (0.6-4.6); Lymphocytes % 35.4 %; Mean Corpuscular HGB Conc 33.2 g/dL (31.6-35.5); Mean Corpuscular Hemoglobin 29.5 pg (28.0-33.3); Mean Corpuscular Volume 88.9 fL (83.0-100.0); Mean Platelet Volume 9.4 fL (9.4-12.4); Monocytes # 0.6 K/mcL (0.0-1.3); Monocytes % 10.2 %; Neutrophils # 3.1 K/mcL (1.6-8.9); Platelet Count 202 K/mcL (140-400); Red Blood Count 4.13 M/mcL (4.19-5.50); Red Cell Distribution Width 14.3 % (11.5-14.5); Segmented Neutrophils % 49.7 %
[2019-01-18 03:03] LABS: Alanine Aminotransferase 14 Units/L (7-52); Albumin 3.9 g/dL (3.5-5.7); Albumin/Globulin Ratio 1.7 (1.1-2.2); Alkaline Phosphatase 55 Units/L (34-104); Aspartate Amino Transferase 12 Units/L (13-39); BUN/Creatinine Ratio 16 (6-26); Bilirubin,Total 0.4 mg/dL (0.3-1.0); Blood Urea Nitrogen 16 mg/dL (8-23); Calcium 9.4 mg/dL (8.6-10.3); Carbon Dioxide 23 mEq/L (23-29); Chloride 104 mEq/L (98-107); Globulin 2.3 g/dL (2.4-3.5); Glucose 135 mg/dL (70-105); Magnesium 1.8 mg/dL (1.6-2.6); Osmolality,Calculated 285 (280-300); Sodium 136 mEq/L (136-145); Total Protein 6.2 g/dL (6.4-8.9); eGFR For Non-African Americans > 60 (> 60)
[2019-01-18 03:06] LABS: Heparin anti-factor XA UFH 0.04 IU/mL (0.30-0.70); INR 1.9; Prothrombin Time 21.9 Seconds (9.4-12.1)
[2019-01-18] MEDS: Heparin 25,000 UNIT/250 ML D5W 25,000 UNIT/250 ML IV.SOLN IVC SCH ×2 (03:13→23:37)
[2019-01-18] MEDS ORDERED: Insulin LISPRO 300 UNITS/3 ML VIAL SQ SCH (06:00)
[2019-01-18] MEDS: Nitroglycerin 25 MG/250 ML INFUS..BTL IVC SCH ×2 (08:35→20:09)
[2019-01-18] MEDS: amLODIPine 5 MG TABLET PO SCH (08:38)
[2019-01-18] MEDS: Ranolazine 500 MG TAB.ER.12H PO SCH ×3 (08:38→21:06)
[2019-01-18] MEDS: Aspirin Enteric Coated 81 MG Tablet PO SCH (08:39)
[2019-01-18 09:22] LABS: Heparin anti-factor XA UFH 0.27 IU/mL (0.30-0.70); INR 1.9; Prothrombin Time 21.8 Seconds (9.4-12.1)
[2019-01-18 09:26] LABS: Activated Partial Thrombo Time 62.8 Seconds (26.0-36.0)
--- NOTE | 2019-01-18 09:36 | Internal Med Progress Note ---
Hospitalist Progress Note - Encounter Date of Encounter: 01/18/19 Time of Encounter: 11:38 - Subjective Interval History: chest improved since admission dyspnea on admission has decreased as well no palpitations no syncope - Exam Vitals: Temp Pulse Resp BP Pulse Ox 97.9 F 69 16 111/57 96 01/18/19 07:10 01/18/19 07:10 01/18/19 07:10 01/18/19 07:10 01/18/19 07:10 Exam: General: Alert and oriented 3 lying in bed in no acute distress Skin:Normal color, no rash, no lesions. HEENT: no scleral icterus Cardiovascular:Normal S1 & S2, 2 out of 6 systolic murmur No JVD. Pulse regular. Lungs:Normal breath sounds, no wheezes or crackles. Abdomen:Soft, non-tender, no rigidity. Extremities:No deformity, no edema or tenderness, no swelling Neurological:Normal cognition and motor skills. No dysarthria Pulses: radial pulses normal +2. - Assessment and Plan (1) Chest pain Current Visit: No Status: Acute (2) Coronary artery disease Current Visit: No Status: Chronic (3) Ischemic cardiomyopathy Current Visit: No Status: Chronic (4) Hypertension Current Visit: No Status: Chronic (5) Diabetes mellitus Current Visit: No Status: Chronic (6) Atrial fibrillation Current Visit: No Status: Chronic (7) Unstable angina pectoris Current Visit: No Status: Acute - Summary of Assessment and Plan Summary of Assessment and Plan: Per H&P: """Mr. Dominguez is a 63 year old male with PMH of CAD s/p PCI, CABG x 3, atrial fibrillation on Coumadin, HTN, hyperlipidemia, PPM who presents with worsening chest pain over the past 2 days. Patient reporting intermittent left- sided chest pain radiating to the neck over the past 2 days occurring at rest and with exertion described as a tightness similar in quality to chest pain prior to last heart catheter. Pain has been responsive to nitroglycerin. Patient has a history of angina pectoris currently on optimal medical management with a long-acting nitrate and ranolazine. Patient has been compliant with his medications. Patient took 14 sublingual nitroglycerin glycerin tablets last night before deciding to come in for further evaluation. Patient reports that he is currently being evaluated for a heart transplant at [facility] and has been undergoing screening evaluation workup. He states he has approximately 13 stents. Endorses shortness of breath, diaphoresis with these episodes of chest pain and nausea. Patient denies any fever, chills, cough, abdominal pain, vomiting or diarrhea. On arrival vitals were stable. Troponin 0.03. EKG showed paced rhythm with no significant changes from previous EKG in January. Patient received loading dose of aspirin in the ED. My assessment patients chest pain significantly improved. Currently a 2 out of 10. Vital stable."""" (1) Unstable angina (2) Coronary artery disease (3) Ischemic cardiomyopathy - hx of PCI and CABG x 3 07/2017 and PCI/ROBINSON to 1st OM 12/27/17. Reports compliance with DAPT. - troponin negative - Cont ASA, Statin, Plavix, BB, Ranexa, alirocumab - Hold IMdur as currently on nitro drip -Continue nitro drip - Cont heparin drip due to concern for unstable angina - Cardiology appreciated: Mucomyst to potentiate effect of NTG. LHC on Mon or Tu if INR < 1.7 - Echo pending (4) Atrial fibrillation History of atrial fibrillation currently paced rhythm. On anticoagulation with warfarin. INR 1.8. -We will hold warfarin for cardiac catheterization. Repeat INR in the morning (5) Diabetes mellitus Blood glucose checks. Sliding scale insulin ACHS (6) DVT prophylaxis Hep gtt - Time Spent with Patient Total time spent is greater than 50% in coordination of care (as documented) at patient's floor/unit and/or counseling patient: Internal Medicine: Result - Labs CBC & Chem 7: 01/18/19 02:29 01/18/19 02:29 Labs: Short CBC 01/17/19 01/18/19 Range/Units 20:07 02:29 WBC 6.9 6.2 (4.3-11.1) K/mcL Hgb 13.5 12.2 L (12.9-16.9) g/dL Hct 40.2 36.7 L (37.5-50.1) % Plt Count 229 202 (140-400) K/mcL Neutrophils # 3.6 3.1 (1.6-8.9) K/mcL BMP 01/17/19 01/18/19 20:07 02:29 Sodium 136 136 Potassium 4.4 4.0 Chloride 102 104 Carbon Dioxide 25 23 BUN 19 16 Creatinine 1.17 0.98 Glucose 171 H 135 H Calcium 9.8 9.4 Cardiac Enzymes 01/17/19 01/18/19 Range/Units 20:07 02:29 Troponin I 0.03 0.03 (< 0.04) ng/mL Liver Function 01/18/19 Range/Units 02:29 Total Bilirubin 0.4 (0.3-1.0) mg/dL AST 12 L (13-39) Units/L ALT 14 (7-52) Units/L Alkaline Phosphatase 55 (34-104) Units/L Albumin 3.9 (3.5-5.7) g/dL - ABG Interpretation ABG results: PT/INR, D-dimer PT 21.8 Seconds (9.4-12.1) H 01/18/19 08:54 - Impressions Impressions Chest X-Ray 01/17/19 19:56 IMPRESSION: Band like opacity in the left lung base which appears similar to previous exam and may represent chronic scarring. D/ / Shira Diaz MD / Shira Diaz MD Interpreting Provider: Shira Diaz MD Consult Discharge Plan - Plan Referrals: Lico Gómez DO [Primary Care Provider] - (1) Chest pain Qualifiers: Chest pain type: unspecified Qualified Code(s): R07.9 - Chest pain, unspecified (2) Coronary artery disease Qualifiers: Coronary Disease-Associated Artery/Lesion type: [place] artery [place] vs. transplanted heart: [place] heart Associated angina: with unstable angina Qualified Code(s): I25.110 - Atherosclerotic heart disease of [place] coronary artery with unstable angina pectoris (4) Hypertension Qualifiers: Hypertension type: essential hypertension Qualified Code(s): I10 - Essential (primary) hypertension (5) Diabetes mellitus Qualifiers: Diabetes mellitus type: type 2 Diabetes mellitus intermediate insulin use: with circuits engineer use Diabetes mellitus complication status: with unspecified complications Qualified Code(s): E11.8 - Type 2 diabetes mellitus with unspecified complications; Z79.4 - retail assistant manager (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 insulin; Z79.4 - assisted (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 insulin; Z79.4 - retail assistant manager (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 insulin; Z79.4 - assisted (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 insulin (6) Atrial fibrillation Qualifiers: Atrial fibrillation type: unspecified Qualified Code(s): I48.91 - Unspecified atrial fibrillation
--- NOTE | 2019-01-18 09:56 | Cardiology Consult Note ---
Date of Encounter: 01/18/19 Time of Encounter: 09:55 Assessment and Plan (1) Angina pectoris Current Visit: No Status: Acute Chronic CCS IV angina undergoing evaluation for cardiac transplant. Currently on max dose of antianginal therapy tolerated by him. Will trial mucomyst to potentiate effects of NTG. A/R/B of [facility] dw patient including 1% chance of [place]//CVA/CABG/PRIYANKA/bleeding given increase in need for NTG. Pt aware and agreeable with proceeding. Plan on Mon/Tues. INR <1.7. (2) Coronary artery disease Current Visit: No Status: Chronic Continue medical therapy with aspirin, BB statin Qualifiers: Coronary Disease-Associated Artery/Lesion type: [place] artery [place] vs. transplanted heart: [place] heart Associated angina: with unstable angina Qualified Code(s): I25.110 - Atherosclerotic heart disease of [place] coronary artery with unstable angina pectoris Discussion w patient/family: The assessment and plan as outlined above was discussed with the patient and/or family members who expressed understanding and agreement. All questions were answered. Thank you for involving us in the care of your patient. Please call with any questions. History of Present Illness Consult date: 01/18/19 Consult reason: chest pain Chief complaint: chest pain History of present illness: Mr. Dominguez is a 63 year old male CAD s/p PCI, CABG x 3, chronic angina, atrial fibrillation, HTN, hyperlipidemia following with Dr. cK and Escobar at [facility] for cardiac transplant evaluation for chronic angina. He presents with his angina requiring 14 NTG before presenting, usually it is 10-12 NTG/day. Chest discomfo rt was severe and currently on NTG drip which has improved his angina to mild and feels much more comfortable. He notes nausea with angina and has had endoscopy/GI evaluation without other cause elucidated. He notes Ranexa 1000mg bid caused side effects but 500mg TID ok. He is on Imdur 240mg daily at home. He thinks there's a strong possibility he has new obstructive CAD as cause of his symptoms. Cardiac catheterization 12/27/17: Impressions: There is severe three vessel coronary artery disease. The left ventricle is normal and has normal contractility EF 40%Patient had successful PTCA/Drug-Eluting Stent placement in the 1st OM. Coronary Dominance: Left Lesion Findings/Interventions * Left Main Coronary Artery The LMCA is angiographically free of disease. * Left Anterior Descending There is a 90% stenosis in the Proximal LAD. There is a 90% stenosis in the Mid LAD. Distal LAD Filled by DAUGHERTY * Circumflex There is a 52 mm long, 80% stenosis in the 1st Marginal. The lesion has a ALICIA flow of 3. An intervention was performed on the 1st Marginal with a final stenosis of 0%. There were no lesion complications. The final ALICIA flow was 3. * Ramus There is a long 80% stenosis in the Ramus. Vessel is small. * Right Coronary Artery There is a 100% stenosis in the Mid RCA. L to R collaterals. Additional Findings: Grafts * The left internal mammary graft to the Mid LAD is patent. ALICIA flow is 3. * The saphenous vein graft to the 1st Diagonal is patent. ALICIA flow is 3. * The sequential saphenous vein graft to the 1st Marginal is occluded. Echocardiogram [facility] 07/22/17: Limited study EF 55-60% with hypokinesis of apical, anteroseptal, anterolateral kemp Cardiac catheterization 07/09/17: Impressions: There is severe three vessel coronary artery disease. The left ventricle is normal and has normal contractility EF 60% Coronary Dominance: Left Lesion Findings/Interventions * Left Main Coronary Artery The LMCA is angiographically free of disease. * Left Anterior Descending The Proximal LAD has patent stents present from a previous procedure. The Mid LAD has patent stents present from a previous procedure. There is a 95% in-stent stenosis in the Proximal LAD. There is a 99% stenosis in the Distal LAD. The lesion has collaterals which feed from left to left. There is a 90% stenosis in the 1st Diagonal. * Circumflex There is a 80% stenosis in the 1st Marginal. * Right Coronary Artery There is a 100% stenosis in the Mid RCA. The lesion has a ALICIA flow of 0 and has collaterals which feed from left to right. Echocardiogram 07/11/17: Impressions: LVEF 55%. Normal LV chamber size and function. Mild concentric left ventricular hypertrophy. Mild segmental left ventricular systolic dysfunction. Atypical septal motion consistent with paced rhythm. Pseudonormal left ventricular diastolic dysfunction. Normal right ventricular structure and function. Mild tricuspid regurgitation. No pulmonary hypertension. A device lead was visualized in the right atrium and right ventricle. Cardiac catheterization 09/27/15: Coronary Dominance: Left Lesion Findings/Interventions * Left Main Coronary Artery The LMCA is angiographically free of disease. * Left Anterior Descending The Proximal LAD has patent stents present from a previous procedure. There is a long 50% stenosis in the Mid LAD. There is a 80% stenosis in the Distal LAD (small vessel). There is a Proximal 60% stenosis in the 2nd Diagonal (small vessel). The distal LAD is small in size. * Circumflex There is a 25% stenosis in the Mid Circumflex. There is a 70% long stenosis in the 1st Marginal (small vessel). There is a 30% proximal stenosis in the 2nd Marginal. * Right Coronary Artery The Proximal RCA is small in size (non-dominant). There is a 100% stenosis in the Proximal RCA, chronic total occlusion. Cardiac catheterization 07/21/14: Impressions: Triple vessel coronary artery disease. The left ventricle is normal and has normal contractility EF 55% Previously stented proximal LAD widely patent. Chronic total occlusion of proximal RCA. Coronary Dominance: right Lesion Findings/Interventions * Left Main Coronary Artery There is a 15% stenosis in the LMCA. * Left Anterior Descending The Proximal LAD has widely patent stent present from a previous procedure. There is a 30% stenosis in the Mid LAD. There is a 100% stenosis in the Distal LAD. The lesion has collaterals which feed from left to left. There is a 50% stenosis in the 1st Diagonal. There is a 50% stenosis in the 2nd Diagonal. * Circumflex There is a 30% stenosis in the Proximal Circumflex. There is a 40% stenosis in the Mid Circumflex. There is a 65% stenosis in the 1st Marginal. There is a 40% stenosis in the 2nd Marginal. * Right Coronary Artery There is a 100% stenosis in the Proximal RCA. The lesion has collaterals which feed from left to right. Echocardiogram 01/2014: Impressions: LVEF 45-50%. Hypokinesis of the distal anterior, anteroseptum, apex, and distal inferior segments. Otherwise, normal segmental wall motion. Moderate left ventricular diastolic dysfunction. Atypical septal motion consistent with paced rhythm. Normal right ventricular structure and function. Mild mitral regurgitation. Mild tricuspid regurgitation. No pulmonary hypertension. A device lead was visualized in the right atrium and right ventricle Cardiac catheterization 12/02/13: Impressions: Triple vessel coronary artery disease. There is moderate LV Dysfunction EF 35% Patient had successful PTCA/Drug-Eluting Stent placement in the proximal LAD. There is a previous stent in Proximal LAD with severe in-stent stenosis that was intervened on. LV Ventriculography Ejection Method: LV Gram Ejection Fraction: 35% Wall Motion: WATSON Anterobasal Mild Hypokinesis Anterolateral Mild Hypokinesis Apical: Mild Hypokinesis Inferoapical Mild Hypokinesis Inferobasal Mild Hypokinesis Coronary Dominance: Left Lesion Findings/Interventions * Left Main Coronary Artery The LMCA is angiographically free of disease. * Left Anterior Descending There is a 15 mm long, 90% instent restenosis in the Proximal LAD. The lesion has a ALICIA flow of 3. An intervention was performed on the Proximal LAD with a final stenosis of 0%. There were no lesion complications. The final ALICIA flow was 3. There is a 50% stenosis in the Mid LAD. The lesion has a ALICIA flow of 3. There is a 100% stenosis in the Distal LAD- fills via left to left collaterals. There is a 50% stenosis in the 1st Diagonal- small vessel There is a 90% stenosis in the 2nd Diagonal- small vessel * Circumflex There is a 20% stenosis in the Proximal Circumflex. There is a 40% stenosis in the Mid Circumflex. There is a 65% stenosis in the 1st Marginal. There is a 40% stenosis in the 2nd Marginal. * Right Coronary Artery There is a 100% stenosis in the Proximal RCA. Distal RCA fills via collaterals which feed from left to right. Past Med Surg Social Fam HX - Past Medical History Medical history: atrial fibrillation, coronary artery disease, diabetes, hyperlipidemia, hypertension, myocardial infarction Additional medical history: "leaky valves" Psychiatric history: no psych history - Past Surgical History Surgical History: angioplasty/stent, appendectomy, coronary bypass (CABG), knee replacement, pacemaker/AICD Additional surgical history: CABG-July 2017. Aleksandar-2013. 4 knee replacements. 13 cardiac stents - Social History Smoking Status: Never smoker Smokeless Tobacco Status: No Alcohol use: none Drug use: none - Family History Father Living Status: Hx Family Cardiac Disorders: Yes ([place]) Mother Living Status: Hx Family Cardiac Disorders: Yes (Heart disease) Medications and Allergies Clopidogrel [Plavix] 75 mg PO DAILY 09/24/15 [History] Insulin ASPART [NovoLOG] 0 unit SQ TIDWM PRN 09/24/15 [History] Insulin Glargine,Hum.rec.anlog [Lantus Solostar] 20 unit SQ BID 09/24/15 [History] Alirocumab [Praluent Pen] 75 mg SQ Q2W 07/10/17 [History] Aspirin Enteric Coated [Aspirin EC] 81 mg PO DAILY 07/10/17 [History] Metformin HCl [Glucophage] 1,000 mg PO BID 07/10/17 [History] Nitroglycerin 1 - 2 spray SL AD PRN 07/10/17 [History] Nitroglycerin [Nitrostat] 0.4 mg SL Q5M PRN 07/10/17 [History] Warfarin perPT [Coumadin perPT] 6 mg PO DAILY 07/10/17 [History] Amlodipine Besylate 5 mg PO DAILY 12/24/17 [History] Metoprolol Tartrate 50 mg PO BID 12/24/17 [History] Isosorbide MONOnitrate (24 HR) [Imdur] 240 mg PO DAILY 01/17/19 [History] Morphine 20 mg PO BID 01/17/19 [History] Ranolazine [Ranexa] 500 mg PO TID 01/17/19 [History] Allergy/AdvReac Type Severity Reaction Status Date / Time colchicine [From Colcrys] Allergy Difficulty Verified 01/29/18 08:48 Breathing ibuprofen Allergy Difficulty Verified 01/29/18 08:48 Breathing lisinopril AdvReac Cough Verified 12/24/17 20:12 pantoprazole AdvReac Difficulty Verified 01/29/18 08:48 Breathing All Systems Review: The remainder of the systems were reviewed and are negative - Constitutional Constitutional: no chills, no fever(s) - EENT Eyes: no blurred vision, no loss of vision Nose, mouth and throat: no bleeding gums, no dysphagia - Cardiovascular Cardiovascular: chest pain at rest, chest pain with exertion - Respiratory Respiratory: no hemoptysis, no wheezing - Gastrointestinal Gastrointestinal: nausea, no hematemesis, no hematochezia - Musculoskeletal Musculoskeletal: no abnormal gait, no muscle weakness - Integumentary Integumentary: no erythema, no rash - Neurological Neurological: no syncope, no tingling - Psychiatric Psychiatric: no hallucinations, no panic attacks - Hematological/Lymphatic Hematologic/Lymphatic: no easy bleeding, no easy bruising Physical Examination Vital Signs, Last 4 Hours Temp Pulse Resp BP Pulse Ox 01/18/19 07:10 97.9 F 69 16 111/57 96 General: Conversant HEENT: Atraumatic Neck: No JVD Cardiac: Reg Rate and Rhythm Lungs: Normal Breath Sounds Neuro: Alert and responsive Skin: No rashes noted on visualized skin Musculoskeletal: No Chest Wall Tenderness Extremities: No Edema Results 01/18/19 02:29 01/18/19 02:29 Lab Results 01/17/19 01/17/19 01/17/19 20:07 20:07 20:07 WBC 6.9 RBC 4.47 Hgb 13.5 Hct 40.2 MCV 89.9 MCH 30.2 MCHC 33.6 RDW 14.4 Plt Count 229 MPV 9.4 Immature Gran % 0.1 Seg Neutrophils % 52.5 Lymphocytes % 30.4 Monocytes % 12.4 Eosinophils % 4.2 Basophils % 0.4 Neutrophils # 3.6 Lymphocytes # 2.1 Monocytes # 0.9 Eosinophils # 0.3 Basophils # 0.0 PT 20.5 H INR 1.8 APTT 38.6 H Heparin Anti-Xa, Unfract Sodium 136 Potassium 4.4 Chloride 102 Carbon Dioxide 25 BUN 19 Creatinine 1.17 Est GFR ( Amer) > 60 Est GFR (Non-Af Amer) > 60 BUN/Creatinine Ratio 16 Glucose 171 H POC Glucose Calculated Osmolality 288 Calcium 9.8 Magnesium Total Bilirubin AST ALT Alkaline Phosphatase Troponin I 0.03 Serum Total Protein Albumin Globulin Albumin/Globulin Ratio 01/18/19 01/18/19 01/18/19 02:29 02:29 02:29 WBC 6.2 RBC 4.13 L Hgb 12.2 L Hct 36.7 L MCV 88.9 MCH 29.5 MCHC 33.2 RDW 14.3 Plt Count 202 MPV 9.4 Immature Gran % 0.3 Seg Neutrophils % 49.7 Lymphocytes % 35.4 Monocytes % 10.2 Eosinophils % 3.9 Basophils % 0.5 Neutrophils # 3.1 Lymphocytes # 2.2 Monocytes # 0.6 Eosinophils # 0.2 Basophils # 0.0 PT INR APTT Heparin Anti-Xa, Unfract Sodium 136 Potassium 4.0 Chloride 104 Carbon Dioxide 23 BUN 16 Creatinine 0.98 Est GFR ( Amer) > 60 Est GFR (Non-Af Amer) > 60 BUN/Creatinine Ratio 16 Glucose 135 H POC Glucose Calculated Osmolality 285 Calcium 9.4 Magnesium 1.8 Total Bilirubin 0.4 AST 12 L ALT 14 Alkaline Phosphatase 55 Troponin I 0.03 Serum Total Protein 6.2 L Albumin 3.9 Globulin 2.3 L Albumin/Globulin Ratio 1.7 01/18/19 01/18/19 01/18/19 02:29 05:51 08:54 WBC RBC Hgb Hct MCV MCH MCHC RDW Plt Count MPV Immature Gran % Seg Neutrophils % Lymphocytes % Monocytes % Eosinophils % Basophils % Neutrophils # Lymphocytes # Monocytes # Eosinophils # Basophils # PT 21.9 H 21.8 H INR 1.9 1.9 APTT 62.8 H D Heparin Anti-Xa, Unfract 0.04 L 0.27 L Sodium Potassium Chloride Carbon Dioxide BUN Creatinine Est GFR ( Amer) Est GFR (Non-Af Amer) BUN/Creatinine Ratio Glucose POC Glucose 127 H Calculated Osmolality Calcium Magnesium Total Bilirubin AST ALT Alkaline Phosphatase Troponin I Serum Total Protein Albumin Globulin Albumin/Globulin Ratio - Imaging and Cardiology Cardiac cath: image reviewed (LCX stent patent, DAUGHERTY LAD, SVG OM patent. RCA occluded) - EKG Interpretation EKG results cardiology: personally reviewed, no diagnostic ischemia, ventricular paced rhythm Consult Discharge Plan - Plan Referrals: Lico Gómez DO [Primary Care Provider] -
[2019-01-18] MEDS ORDERED: *HR* Acetylcysteine 20% 600 MG/3 ML ORAL SYRINGE PO ONE (13:00)
[2019-01-18] MEDS ORDERED: Ondansetron 4 MG/2 ML VIAL IVP PRN (13:24)
[2019-01-18] MEDS: Insulin LISPRO 300 UNITS/3 ML VIAL SQ SCH ×2 (16:48→21:09)
[2019-01-18] MEDS: *HR* Morphine Sulfate SR (12 HR) 15 MG TABLET.ER PO SCH (20:01)
[2019-01-18] MEDS: Insulin DETEMIR 100 UNIT/ML X5UNITS SQ SCH (21:06)
[2019-01-18] MEDS: *HR* Acetylcysteine 20% 600 MG/3 ML ORAL SYRINGE PO SCH (21:07)
--- NOTE | 2019-01-19 07:55 | Event Note ---
Date of Encounter: 01/19/19 Time of Encounter: 07:54 - Cardiology Event Note Plan for LHC when able for worsening angina, increased NTG use, when INR less than 1.7. Continue to hold coumadin. Will make NPO after midnight for possible LHC in am. Will continue to monitor.
[2019-01-19] MEDS: *HR* Morphine Sulfate SR (12 HR) 15 MG TABLET.ER PO SCH ×2 (08:21→19:58)
[2019-01-19] MEDS: Ranolazine 500 MG TAB.ER.12H PO SCH ×3 (08:21→20:53)
[2019-01-19] MEDS: *HR* Acetylcysteine 20% 600 MG/3 ML ORAL SYRINGE PO SCH ×2 (08:21→20:54)
[2019-01-19] MEDS: Nitroglycerin 25 MG/250 ML INFUS..BTL IVC SCH ×2 (08:21→20:03)
[2019-01-19] MEDS: amLODIPine 5 MG TABLET PO SCH (08:21)
[2019-01-19] MEDS: Aspirin Enteric Coated 81 MG Tablet PO SCH (08:21)
[2019-01-19] MEDS: Insulin LISPRO 300 UNITS/3 ML VIAL SQ SCH ×4 (08:24→20:49)
[2019-01-19] MEDS: Insulin DETEMIR 100 UNIT/ML X5UNITS SQ SCH ×2 (08:31→20:54)
--- NOTE | 2019-01-19 08:34 | Internal Med Progress Note ---
Hospitalist Progress Note - Encounter Date of Encounter: 01/19/19 Time of Encounter: 08:31 - Subjective Interval History: chest pain improved since admission, now 1-2/10 while resting in bed on NG gtt and heparin gtt dyspnea on admission has decreased as well no palpitations no syncope no n, v, abd pain - Exam Vitals: Temp Pulse Resp BP Pulse Ox 97.7 F 62 16 143/76 97 01/19/19 07:15 01/19/19 07:15 01/19/19 07:15 01/19/19 07:15 01/19/19 07:15 Exam: General: Alert and oriented 3 lying in bed in no acute distress Skin:Normal color, no rash, no lesions. HEENT: no scleral icterus Cardiovascular:Normal S1 & S2, 2 out of 6 systolic murmur. Pulse regular. JVP 13 cm H2O, positive HJR Lungs:Normal breath sounds, no wheezes or crackles. Abdomen:Soft, non-tender, no rigidity. Extremities:No deformity, no edema or tenderness, no swelling Neurological:Normal cognition and motor skills. No dysarthria Pulses: radial pulses normal +2. - Assessment and Plan (1) Chest pain Current Visit: No Status: Acute (2) Coronary artery disease Current Visit: No Status: Chronic (3) Ischemic cardiomyopathy Current Visit: No Status: Chronic (4) Hypertension Current Visit: No Status: Chronic (5) Diabetes mellitus Current Visit: No Status: Chronic (6) Atrial fibrillation Current Visit: No Status: Chronic (7) Unstable angina pectoris Current Visit: No Status: Acute - Summary of Assessment and Plan Summary of Assessment and Plan: Per H&P: """Mr. Dominguez is a 63 year old male with PMH of CAD s/p PCI, CABG x 3, atrial fibrillation on Coumadin, HTN, hyperlipidemia, PPM who presents with worsening chest pain over the past 2 days. Patient reporting intermittent left- sided chest pain radiating to the neck over the past 2 days occurring at rest and with exertion described as a tightness similar in quality to chest pain prior to last heart catheter. Pain has been responsive to nitroglycerin. Patient has a history of angina pectoris currently on optimal medical management with a long-acting nitrate and ranolazine. Patient has been compliant with his medications. Patient took 14 sublingual nitroglycerin glycerin tablets last nig ht before deciding to come in for further evaluation. Patient reports that he is currently being evaluated for a heart transplant at [facility] and has been undergoing screening evaluation workup. He states he has approximately 13 stents. Endorses shortness of breath, diaphoresis with these episodes of chest pain and nausea. Patient denies any fever, chills, cough, abdominal pain, vomiting or diarrhea. On arrival vitals were stable. Troponin 0.03. EKG showed paced rhythm with no significant changes from previous EKG in January. Patient received loading dose of aspirin in the ED. My assessment patients chest pain significantly improved. Currently a 2 out of 10. Vital stable."""" (1) Unstable angina (2) Coronary artery disease (3) Ischemic cardiomyopathy with recovered LVEF 60% - hx of PCI and CABG x 3 07/2017 and PCI/ROBINSON to 1st OM 12/27/17. Reports adherence with DAPT. - troponin negative - Cont ASA, Statin, Plavix, BB, Ranexa, alirocumab - Hold Imdur as currently on nitro drip - Continue nitro drip - Cont heparin drip due to concern for unstable angina - Will give furosemide 20 mg PO once due to JVD - Cardiology appreciated: Mucomyst to potentiate effect of NTG. LHC on Mon or Tue if INR < 1.7 (4) Atrial fibrillation History of atrial fibrillation currently paced rhythm. On anticoagulation with warfarin. INR 1.9. -We will hold warfarin for LHC. - Repeat INR in the morning (5) Diabetes mellitus Blood glucose checks. Sliding scale insulin ACHS; change to q6h when NPO (6) DVT prophylaxis Hep gtt Admit to inpatient due to ongoing unstable angina at rest while on NG gtt and heparin gtt - Time Spent with Patient Total time spent is greater than 50% in coordination of care (as documented) at patient's floor/unit and/or counseling patient: Internal Medicine: Result - Labs CBC & Chem 7: 01/18/19 02:29 01/18/19 02:29 - ABG Interpretation ABG results: PT/INR, D-dimer PT 21.8 Seconds (9.4-12.1) H 01/18/19 08:54 - Impressions Impressions Echocardiogram 01/18/19 01:05 Impressions: LVEF 60%. Atypical septal motion consistent with post-operative status. Normal LV chamber size, wall thickness and function. Normal right ventricular structure and function. Mild mitral regurgitation. Moderate tricuspid regurgitation. Mild pulmonic regurgitation. Mild pulmonary hypertension. A device lead was visualized in the right atrium and right ventricle. Left Ventricular Wall Motion: Rest Echo Findings All wall segments showed normal motion. Findings: Study Quality * Technically adequate exam. ECG Findings * Sinus rhythm with BBB. Left Ventricle * LVEF 60%. * Atypical septal motion consistent with post-operative status. * Normal LV chamber size, wall thickness and function. Right Ventricle * Normal right ventricular structure and function. Left Atrium * Mildly dilated left atrium. Right Atrium * Moderately dilated right atrium. Aortic Valve * No aortic regurgitation. * Trileaflet aortic valve. * No aortic stenosis. Mitral Valve * Mild mitral annular calcification * Mild mitral regurgitation. * No mitral stenosis. * Mildly calcified mitral valve leaflets. Tricuspid Valve * Normal tricuspid valve structure. * Moderate tricuspid regurgitation. * Estimated RA pressure is 3 mmHg. * Estimated RVSP is 38 mmHg. * Mild pulmonary hypertension. Pulmonic Valve * Pulmonic valve is not well visualized. * No pulmonic stenosis. * Mild pulmonic regurgitation. Pulmonary Artery * Pulmonary artery not well visualized. Aorta * Normally sized aortic root. Pericardium * There is no pericardial effusion present. Device lead * A device lead was visualized in the right atrium and right ventricle. Interatrial Septum * No evidence of PFO by color Doppler. IVC * Normal IVC dimensions and inspiratory collapse. Consult Discharge Plan - Plan Referrals: Lico Gómez DO [Primary Care Provider] - ___ (1) Chest pain Qualifiers: Chest pain type: unspecified Qualified Code(s): R07.9 - Chest pain, unspecified (2) Coronary artery disease Qualifiers: Coronary Disease-Associated Artery/Lesion type: [place] artery [place] vs. transplanted heart: [place] heart Associated angina: with unstable angina Qualified Code(s): I25.110 - Atherosclerotic heart disease of [place] coronary artery with unstable angina pectoris (4) Hypertension Qualifiers: Hypertension type: essential hypertension (5) Diabetes mellitus Qualifiers: Diabetes mellitus type: type 2 Diabetes mellitus chcf insulin use: with chcf use Diabetes mellitus complication status: with unspecified complications Qualified Code(s): E11.8 - Type 2 diabetes mellitus with unspecified complications; Z79.4 - tool engineer (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 insulin; Z79.4 - prison (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 insulin; Z79.4 - tool engineer (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 insulin; Z79.4 - tool engineer (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 insulin (6) Atrial fibrillation Qualifiers: Atrial fibrillation type: unspecified Qualified Code(s): I48.91 - Unspecified atrial fibrillation
[2019-01-19] MEDS ORDERED: Furosemide 20 MG TABLET PO ONE (08:42)
[2019-01-19 10:10] LABS: Hematocrit 39.7 % (37.5-50.1); Hemoglobin 13.3 g/dL (12.9-16.9); Mean Corpuscular HGB Conc 33.5 g/dL (31.6-35.5); Mean Corpuscular Volume 89.4 fL (83.0-100.0); Mean Platelet Volume 9.8 fL (9.4-12.4); Platelet Count 228 K/mcL (140-400); Red Blood Count 4.44 M/mcL (4.19-5.50); Red Cell Distribution Width 14.1 % (11.5-14.5)
[2019-01-19 10:25] LABS: INR 1.7; Prothrombin Time 19.3 Seconds (9.4-12.1)
[2019-01-19 10:27] LABS: BUN/Creatinine Ratio 12 (6-26); Blood Urea Nitrogen 12 mg/dL (8-23); Calcium 9.1 mg/dL (8.6-10.3); Carbon Dioxide 24 mEq/L (23-29); Chloride 104 mEq/L (98-107); Glucose 206 mg/dL (70-105); Osmolality,Calculated 294 (280-300); Potassium 3.8 mEq/L (3.5-5.1); Sodium 139 mEq/L (136-145); eGFR For Non-African Americans > 60 (> 60)
[2019-01-19] MEDS: Heparin 25,000 UNIT/250 ML D5W 25,000 UNIT/250 ML IV.SOLN IVC SCH (20:52)
[2019-01-20 05:53] LABS: Hemoglobin 13.4 g/dL (12.9-16.9); Mean Corpuscular HGB Conc 34.4 g/dL (31.6-35.5); Mean Corpuscular Hemoglobin 30.8 pg (28.0-33.3); Mean Corpuscular Volume 89.7 fL (83.0-100.0); Mean Platelet Volume 9.4 fL (9.4-12.4); Platelet Count 232 K/mcL (140-400); Red Blood Count 4.35 M/mcL (4.19-5.50); Red Cell Distribution Width 14.2 % (11.5-14.5)
[2019-01-20 06:05] LABS: INR 1.4; Prothrombin Time 15.9 Seconds (9.4-12.1)
[2019-01-20 06:14] LABS: BUN/Creatinine Ratio 12 (6-26); Blood Urea Nitrogen 12 mg/dL (8-23); Calcium 9.7 mg/dL (8.6-10.3); Carbon Dioxide 24 mEq/L (23-29); Chloride 104 mEq/L (98-107); Glucose 152 mg/dL (70-105); Osmolality,Calculated 291 (280-300); Potassium 3.6 mEq/L (3.5-5.1); Sodium 139 mEq/L (136-145); eGFR For Non-African Americans > 60 (> 60)
[2019-01-20] MEDS: Insulin LISPRO 300 UNITS/3 ML VIAL SQ SCH ×4 (08:20→22:11)
[2019-01-20] MEDS: Nitroglycerin 25 MG/250 ML INFUS..BTL IVC SCH (08:20)
[2019-01-20] MEDS: *HR* Morphine Sulfate SR (12 HR) 15 MG TABLET.ER PO SCH ×2 (08:23→22:19)
[2019-01-20] MEDS: *HR* Acetylcysteine 20% 600 MG/3 ML ORAL SYRINGE PO SCH ×2 (08:24→22:20)
--- NOTE | 2019-01-20 09:40 | Internal Med Progress Note ---
Hospitalist Progress Note - Encounter Date of Encounter: 01/20/19 Time of Encounter: 09:40 - Subjective Interval History: No acute event overnight. Reviewed labs and vitals Denies fever chills nausea vomiting headache dizziness chest pain shortness of breath diarrhea abdominal pain - Exam Vitals: Temp Pulse Resp BP Pulse Ox 97.4 F L 60 16 108/67 95 01/20/19 06:16 01/20/19 06:16 01/20/19 06:16 01/20/19 06:16 01/20/19 06:16 Exam: General: Alert and oriented 3 lying in bed in no acute distress Skin:Normal color, no rash HEENT: PERRLA EOMI Cardiovascular:Normal S1 & S2, 2 out of 6 systolic murmur. Pulse regular. Lungs:Normal breath sounds, no wheezes or crackles. Abdomen:Soft, non-tender, no rigidity. Extremities:No deformity, no edema or tenderness, no swelling Neurological:Normal cognition and motor skills. No dysarthria Pulses: radial pulses normal +2. - Assessment and Plan (1) Unstable angina Current Visit: Yes Status: Acute Assessment and Plan: Presented with chest pain at both rest and exertion, left sided radiating to the neck associated with dyspnea and diaphoresis, relieved with SL nitro. Chest pain reports "identical" to prior anginal equivalent. Currently on nitro gtt. Nitro gtt and pain medication have helped. Patient reporting angina-like symptoms despite being on optimal medical management for his stable angina and thus concerning for unstable angina. Initial troponin 0.03. EKG shows paced rhythm unchanged from previous EKG in January. As he loading dose of aspirin. TTE 12/2017 EF 55%. Recheck limited TTE to re-evaluate EF. Heart catheter in January 2018 showing severe three-vessel coronary artery disease with an EF of 45%. -Continue telemetry -Trend troponin -Plan for heart catheter today. Cardiology on board. -Continue nitro drip. Will add heparin drip due to concern for unstable angina. -Continue aspirin, statin, beta rené and Plavix Impressions: LVEF 60%. Atypical septal motion consistent with post-operative status. Normal LV chamber size, wall thickness and function. Normal right ventricular structure and function. Mild mitral regurgitation. Moderate tricuspid regurgitation. Mild pulmonic regurgitation. Mild pulmonary hypertension. A device lead was visualized in the right atrium and right ventricle. Left Ventricular Wall Motion: Rest Echo Findings All wall segments showed normal motion. (2) Coronary artery disease Current Visit: No Status: Chronic Assessment and Plan: CAD with hx of PCI and CABG x 3 07/2017 and PCI/ROBINSON to 1st OM 12/27/17. Reports compliance with DAPT. ASA, Statin, Plavix, BB, Ranexa. Stopped nitro drip. Restarted imdur (3) Diabetes mellitus Current Visit: No Status: Chronic Assessment and Plan: Fairly well-controlled blood glucose level. Continue Accu-Chek, Sliding scale insulin . Diabetic diet. A1c ordered (4) Atrial fibrillation Current Visit: No Status: Chronic Assessment and Plan: History of atrial fibrillation currently paced rhythm. On anticoagulation with warfarin. INR 1.4. -on hold warfarin in the event of cardiac catheter- today scheduled. Repeat INR in the morning. resume warfarin when ok with cardio (5) DVT prophylaxis Current Visit: No Status: Acute Assessment and Plan: on hep drip. Transition to pneumatic compression devices. - Time Spent with Patient Total time spent is greater than 50% in coordination of care (as documented) at patient's floor/unit and/or counseling patient: 25 - 35 minutes Plan of Care Discussed with: patient Internal Medicine: Result - Labs CBC & Chem 7: 01/20/19 05:33 01/20/19 05:33 Labs: Short CBC 01/19/19 01/20/19 Range/Units 09:30 05:33 WBC 5.2 6.3 (4.3-11.1) K/mcL Hgb 13.3 13.4 (12.9-16.9) g/dL Hct 39.7 39.0 (37.5-50.1) % Plt Count 228 232 (140-400) K/mcL BMP 01/19/19 01/20/19 09:30 05:33 Sodium 139 139 Potassium 3.8 3.6 Chloride 104 104 Carbon Dioxide 24 24 BUN 12 12 Creatinine 1.03 0.98 Glucose 206 H 152 H Calcium 9.1 9.7 - ABG Interpretation ABG results: PT/INR, D-dimer PT 15.9 Seconds (9.4-12.1) H 01/20/19 05:33 Consult Discharge Plan - Plan Referrals: Rosemary Andrews, SEED TRUCKER [Advanced Practice Nurse] - (office will call patient at home with follow up appointment ) Lico Gómez DO [Primary Care Provider] - 01/28/19 11:30 am (2) Coronary artery disease Qualifiers: Coronary Disease-Associated Artery/Lesion type: hoh artery [place] vs. 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
[2019-01-20] MEDS ORDERED: 0.9 % Sodium Chloride 1,000 ML ONE (09:50)
[2019-01-20] MEDS ORDERED: ISOVUE-370 200 ML INFUS..BTL ONE (09:50)
[2019-01-20] MEDS ORDERED: *HR* Heparin 10,000 UNIT/10 ML VIAL ONE (09:50)
[2019-01-20] MEDS ORDERED: Heparin 1,000 UNITS/500 mL 500 ML ONE (09:50)
[2019-01-20] MEDS ORDERED: Nitroglycerin 1,000 MCG/10 ML VIAL IV ONE (09:51)
--- NOTE | 2019-01-20 09:53 | Electrocardiograph Report ---
[address] [address] Test Date: 2019-01-17 Pat Name: Lukas Dominguez Department: [id number] Room: 2N02 Gender: M Patent Legal Assistant: : 1955 Requested By: Rcihi Meléndez Order Number: [id number] Reading MD: Clive Shetty Measurements Intervals [place] Rate: 69 P: 61 [place]: 212 QRS: -78 QRSD: 171 T: 106 QT: 448 QTc: 480 Interpretive Statements Atrial-ventricular dual-paced rhythm No further analysis attempted due to paced rhythm Electronically Signed On 01-20-2019 9:52:15 EDT by Clive Shetty
--- NOTE | 2019-01-20 09:55 | Electrocardiograph Report ---
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
[2019-01-20] MEDS ORDERED: *HR* Midazolam HCl 2 MG/2 ML VIAL ONE (10:11)
[2019-01-20] MEDS ORDERED: *HR* FentaNYL (PF) 100 MCG/2 ML VIAL ONE (10:11)
--- NOTE | 2019-01-20 10:12 | Electrocardiograph Report ---
[address] [address] Test Date: 2019-01-19 Pat Name: Lukas Dominguez Department: 110 Room: 2N02 Gender: M Glass Etcher: : 1955 Requested By: Celso Patton Order Number: [id number] Reading MD: Clive Shetty Measurements Intervals [place] Rate: 60 P: 88 [place]: 168 QRS: -82 QRSD: 214 T: 97 QT: 526 QTc: 526 Interpretive Statements ELECTRONIC ATRIAL PACEMAKER ELECTRONIC VENTRICULAR PACEMAKER Electronically Signed On 01-20-2019 10:11:04 EDT by Clive Shetty
--- NOTE | 2019-01-20 10:20 | Pre-Sedation Evaluation ---
Pre-sedation evaluation - Pre-sedation checklist Date of procedure: 01/20/19 Procedure: [facility] Recent Vitals: Last Vital Signs Temp 97.4 F L 01/20/19 08:30 Pulse 60 01/20/19 08:30 Resp 16 01/20/19 08:30 BP 108/67 01/20/19 08:30 Pulse Ox 95 01/20/19 08:30 H&P (including ROS) documented in medical record: Yes Previous reaction to sedatives/anesthetics: No Dietary Status: NPO after Midnight Dentition: No loose teeth or bridges, full dentition ASA Classification *see protocol: CLASS II-Mild systemic disease Plan of Care: Pt appropriate candidate for procedure/moderate/conscious sedation, Risks/benefits of procedure/sedation discussed w/ patient/family Cardiac Registry (Cardio Only) - Functional Capacity Functional Capacity: >=4 METS without symptoms - Clincal Frailty Scale Clinical Frailty Scale: Managing Well
[2019-01-20] MEDS: Ranolazine 500 MG TAB.ER.12H PO SCH ×3 (11:34→22:19)
[2019-01-20] MEDS: amLODIPine 5 MG TABLET PO SCH (11:34)
[2019-01-20] MEDS: Aspirin Enteric Coated 81 MG Tablet PO SCH (11:34)
[2019-01-20] MEDS: Insulin DETEMIR 100 UNIT/ML X5UNITS SQ SCH ×2 (11:35→22:20)
[2019-01-20] MEDS: Isosorbide MONOnitrate (24 HR) 60 MG TAB.ER.24H PO SCH (11:40)
[2019-01-20 13:42] LABS: Estimated Average Glucose 143 mg/dl; Hemoglobin A1C 6.6 %
[2019-01-20] MEDS ORDERED: Nitroglycerin 0.4 MG TAB.SUBL SL STA (14:19)
[2019-01-20] MEDS: Heparin 25,000 UNIT/250 ML D5W 25,000 UNIT/250 ML IV.SOLN IVC SCH (22:26)
[2019-01-21 06:43] LABS: BUN/Creatinine Ratio 12 (6-26); Blood Urea Nitrogen 11 mg/dL (8-23); Calcium 9.7 mg/dL (8.6-10.3); Carbon Dioxide 23 mEq/L (23-29); Chloride 106 mEq/L (98-107); Glucose 154 mg/dL (70-105); Osmolality,Calculated 286 (280-300); Potassium 3.8 mEq/L (3.5-5.1); Sodium 137 mEq/L (136-145); eGFR For Non-African Americans > 60 (> 60)
[2019-01-21] MEDS: *HR* Acetylcysteine 20% 600 MG/3 ML ORAL SYRINGE PO SCH (09:36)
[2019-01-21] MEDS: Aspirin Enteric Coated 81 MG Tablet PO SCH (09:37)
[2019-01-21] MEDS: Ranolazine 500 MG TAB.ER.12H PO SCH (09:37)
[2019-01-21] MEDS: Isosorbide MONOnitrate (24 HR) 60 MG TAB.ER.24H PO SCH (09:37)
[2019-01-21] MEDS: *HR* Morphine Sulfate SR (12 HR) 15 MG TABLET.ER PO SCH (09:37)
[2019-01-21] MEDS: amLODIPine 5 MG TABLET PO SCH (09:37)
[2019-01-21] MEDS: Insulin DETEMIR 100 UNIT/ML X5UNITS SQ SCH (09:38)
[2019-01-21] MEDS: Insulin LISPRO 300 UNITS/3 ML VIAL SQ SCH ×2 (09:40→13:03)
[2019-01-21] MEDS ORDERED: Nitroglycerin 0.4 MG TAB.SUBL SL PRN (10:00)
[2019-01-21 11:15] VITALS: BP 123/76
--- NOTE | 2019-01-21 11:42 | Cardiology Progress Note ---
Date of Encounter: 01/21/19 Time of Encounter: 11:40 Assessment and Plan (1) Unstable angina Current Visit: Yes Status: Acute Chronic CCS IV angina undergoing evaluation for cardiac transplant. Currently on max dose of antianginal therapy tolerated by him with continued accelerating angina Following with Dr. Kc and Escobar at [facility] for cardiac transplant evaluation for chronic angina. He presents with his angina requiring 14 NTG before presenting, usually it is 10-12 NTG/day. He notes Ranexa 1000mg bid caused side effects but 500mg TID ok. He is on Imdur 240mg daily at home. Reviewed most recent [facility] note with Dr. Kc and pt was referred to [facility] for transplant eval. Per pt, has not received call for any appointment yet. Underwent LHC yesterday. There is severe 3V CAD. EF 35% S/P CABG 2 of 2 patent bypass grafts. Chronic angina. 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 No intervention. Right femoral access site healing well. No bleeding, hematoma or ecchymosis noted. Given ongoing unstable angina, recommend inpt transfer to [facility] for further management. Will start nitro gtt. On heparin gtt for unstable angina and PAF. Coumadin on hold. Will continue to follow until pt is transferred. (2) Paroxysmal A-fib Current Visit: No Status: Chronic On heparin gtt for now. Coumadin on hold. Continue BB. Discussion w patient/family: The assessment and plan as outlined above was discussed with the patient and/or family members who expressed understanding and agreement. All questions were answered. Thank you for involving us in the care of your patient. Please call with any questions. I will discuss all the above with Dr. Shetty and make changes as necessary. Subjective Principal diagnosis: Unstable angina Interval history: Pt continues to have chest pain. LHC yesterday without intervention. Objective Vital Signs, Last 4 Hours Temp Pulse Resp BP Pulse Ox 01/21/19 11:11 97.7 F 67 16 123/76 99 Vital Signs Temp Pulse Resp BP Pulse Ox 01/21/19 11:11 97.7 F 67 16 123/76 99 01/21/19 07:15 97.5 F L 60 16 124/70 96 01/21/19 03:45 97.4 F L 60 18 116/71 97 01/20/19 23:51 98.3 F 60 18 118/61 94 01/20/19 19:19 97.6 F 60 18 110/66 97 01/20/19 16:00 97.4 F L 60 16 105/60 96 01/20/19 15:59 97.4 F L 60 16 105/60 96 01/20/19 15:00 98.1 F 60 16 112/72 96 01/20/19 14:00 98.1 F 60 16 122/86 95 01/20/19 13:00 98.1 F 60 16 117/75 98 01/20/19 12:30 98.1 F 60 16 115/75 96 01/20/19 12:00 98.1 F 60 16 118/69 98 01/20/19 11:45 98.1 F 62 16 115/67 95 Intake and Output 01/20/19 01/21/19 01/21/19 23:59 07:59 15:59 Intake Total 370 / 620 195 / 315 120 / 315 Output Total 500 / 1000 600 / 600 Balance -130 / -380 -405 / -285 120 / -285 Intake: IV Fluids 250 / 500 195 / 195 Heparin 25,000 UNIT/250 ML D5W 250 / 250 195 / 195 25,000 unit In 250 ml @ 9.7 UNIT/KG/HR 10.087 mls/hr IVC . Q24H [facility] Rx#:[id number] Oral 120 / 120 120 / 120 Output: Urine 500 / 1000 600 / 600 Other: Meal Dinner Breakfast Percent of Meal Consumed 25% 75% Weight 89 kg Blood Glucose* 133 145 211 Patient Weight 01/21/19 23:59 Weight 89 kg General: Conversant, No Apparent Distress HEENT: Atraumatic, Normocephaly, Mucus Membranes Moist Neck: No JVD, Normal carotid pulses Cardiac: Reg Rate and Rhythm, Normal S1 and S2, No Murmur Lungs: Normal Breath Sounds, No Wheeze, Rales, Rhonchi Neuro: Alert and responsive, No focal deficits noted Abdomen: Soft, Non-Tender Skin: No rashes noted on visualized skin Musculoskeletal: No Chest Wall Tenderness Extremities: No Clubbing, No Cyanosis, No Edema, Normal Pulses Results 01/20/19 05:33 01/21/19 06:12 Lab Results 01/21/19 06:12 Sodium 137 Potassium 3.8 Chloride 106 Carbon Dioxide 23 BUN 11 Creatinine 0.91 Glucose 154 H Calcium 9.7 BMP 01/21/19 Range/Units 06:12 Sodium 137 (136-145) mEq/L Potassium 3.8 (3.5-5.1) mEq/L Chloride 106 (98-107) mEq/L Carbon Dioxide 23 (23-29) mEq/L BUN 11 (8-23) mg/dL Creatinine 0.91 (0.70-1.30) mg/dL Glucose 154 H (70-105) mg/dL Calcium 9.7 (8.6-10.3) mg/dL Active Medications Acetylcysteine (Acetylcysteine 20%) 600 mg PO BID [facility] Stop: 07/20/19 21:01 Last Admin: 01/21/19 09:36 Dose: 600 mg Documented by: Amlodipine Besylate (Norvasc) 5 mg PO DAILY [facility] Stop: 07/20/19 09:01 Last Admin: 01/21/19 09:37 Dose: 5 mg Documented by: Aspirin (Aspirin Ec) 81 mg PO DAILY [facility] Stop: 07/20/19 09:01 Last Admin: 01/21/19 09:37 Dose: 81 mg Documented by: Atorvastatin Calcium (Lipitor) 80 mg PO HS [facility] Stop: 07/20/19 01:16 Last Admin: 01/20/19 22:17 Dose: Not Given Documented by: Clopidogrel Bisulfate (Plavix) 75 mg PO DAILY [facility] Stop: 07/20/19 09:01 Last Admin: 01/21/19 09:37 Dose: 75 mg Documented by: Dextrose/Water (Dextrose 50% (Syg)) 25 ml IVP AD PRN PRN Reason: Hypoglycemia Stop: 07/20/19 02:07 Glucagon (Glucagen) 1 mg IM ONCE PRN PRN Reason: Hypoglycemia Stop: 07/20/19 02:07 Glucose (Gluctose) 15 gm PO ONCE PRN PRN Reason: Hypoglycemia Stop: 07/20/19 02:07 Glucose (Gluctose) 30 gm PO ONCE PRN PRN Reason: Hypoglycemia Stop: 07/20/19 02:07 Heparin Sodium (Porcine) (Heparin) 4,000 unit IVP Q6HR PRN PRN Reason: SEE COMMENTS Stop: 07/20/19 01:52 Heparin Sodium (Porcine) (Heparin) 2,000 unit IVP Q6H PRN PRN Reason: SEE COMMENTS Stop: 07/20/19 01:52 Last Admin: 01/18/19 10:55 Dose: 2,000 unit Documented by: Heparin Sodium/Dextrose (Heparin 25,000 Unit/250 Ml D5w) 25,000 unit in 250 mls @ 10.087 mls/hr IVC .Q24H [facility]; Protocol Stop: 07/20/19 02:01 Last Titration: 01/21/19 06:53 Dose: 11.73 unit/kg/hr, 12.2 mls/hr Documented by: Dextrose (Dextrose 5%) 1,000 mls @ 100 mls/hr IVC .Q10H PRN PRN Reason: HYPOGLYCEMIA Stop: 07/20/19 02:07 Insulin Detemir (Levemir) 15 unit SQ BID [facility] Stop: 07/20/19 21:01 Last Admin: 01/21/19 09:38 Dose: 15 unit Documented by: Insulin Human Lispro (Humalog) 0 units SQ ACHS [facility]; Protocol Stop: 07/20/19 16:31 Last Admin: 01/21/19 09:40 Dose: 2 units Documented by: Isosorbide Mononitrate (Imdur) 240 mg PO DAILY [facility] Stop: 07/22/19 13:01 Last Admin: 01/21/19 09:37 Dose: 240 mg Documented by: Metoprolol Tartrate (Lopressor) 50 mg PO BID [facility] Stop: 07/20/19 09:01 Last Admin: 01/21/19 09:37 Dose: 50 mg Documented by: Morphine Sulfate (Ms Contin) 15 mg PO Q12H [facility] Stop: 07/20/19 20:01 Last Admin: 01/21/19 09:37 Dose: 15 mg Documented by: Nitroglycerin (Nitroglycerin) 0.4 mg SL Q5MIN PRN PRN Reason: Chest Pain Stop: 07/23/19 10:01 Ondansetron HCl (Zofran) 4 mg IVP Q6HR PRN; Protocol PRN Reason: Nausea Stop: 07/20/19 13:25 Ranolazine (Ranexa) 500 mg PO TID [facility] Stop: 07/20/19 09:01 Last Admin: 01/21/19 09:37 Dose: 500 mg Documented by: - Imaging and Cardiology Echo: report reviewed Cardiac cath: report reviewed - EKG Interpretation EKG results cardiology: other (12 hr tele AVG HR 60) Consult Discharge Plan - Plan Referrals: Rosemary Andrews, PROCUREMENT COORDINATOR [Advanced Practice Nurse] - (office will call patient at home with follow up appointment ) Lico Gómez DO [Primary Care Provider] - 01/28/19 11:30 am
[2019-01-21] MEDS ORDERED: Nitroglycerin 25 MG/250 ML INFUS..BTL IVC SCH (12:30)
--- NOTE | 2019-01-21 13:09 | Discharge Summary ---
Orders not resulted at time of discharge: Pending orders 01/22/19 06:00 Heparin anti-factor XA UFH [COAG] Timed Date of Encounter: 01/21/19 Time of Encounter: 13:01 - Discharge Diagnosis (1) Unstable angina Priority: Primary Status: Acute Assessment and Plan: Presented with chest pain at both rest and exertion, left sided radiating to the neck associated with dyspnea and diaphoresis, relieved with SL nitro. Patient reporting angina-like symptoms despite being on optimal medical management for his stable angina and thus concerning for unstable angina. Initial troponin 0.03. EKG shows paced rhythm unchanged from previous EKG in January. -Chronic CCS IV angina undergoing evaluation for cardiac transplant. Currently on max dose of antianginal therapy tolerated by him with continued accelerating angina - pt is Following with Dr. Kc and Escobar at [facility] for cardiac transplant evaluation for chronic angina. He presents with his angina requiring 14 NTG before presenting, usually it is 10-12 NTG/day. He notes Ranexa 1000mg bid caused side effects but 500mg TID ok. He is on Imdur 240mg daily at home. Reviewed most recent [facility] note with Dr. Kc and pt was referred to [facility] for transplant eval. Per pt, has not received call for any appointment yet. Underwent LHC yesterday01/20. There is severe 3V CAD. EF 35% S/P CABG 2 of 2 patent bypass grafts. Chronic angina. 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 No intervention. Given ongoing unstable angina, cardiology recommended inpt transfer to [facility] for further management. I called transfer center and talk to on-call cardiology Dr. walls and he accepted the patient. Nitro drip restarted because of ongoing chest pain that he described 4 x 10 in severity with continuation of heparin drip. Coumadin on hold. Will continue to follow until pt is transferred. echo- Impressions: LVEF 60%. Atypical septal motion consistent with post-operative status. Normal LV chamber size, wall thickness and function. Normal right ventricular structure and function. Mild mitral regurgitation. Moderate tricuspid regurgitation. Mild pulmonic regurgitation. Mild pulmonary hypertension. A device lead was visualized in the right atrium and right ventricle. Left Ventricular Wall Motion: Rest Echo Findings All wall segments showed normal motion. (2) Coronary artery disease Priority: Primary Status: Chronic Assessment and Plan: CAD with hx of PCI and CABG x 3 07/2017 and PCI/ROBINSON to 1st OM 12/27/17. Reports compliance with DAPT. ASA, Statin, Plavix, BB, Ranexa. Qualifiers: Coronary Disease-Associated Artery/Lesion type: [place] artery [place] vs. transplanted heart: [place] heart Associated angina: with unstable angina Qualified Code(s): I25.110 - Atherosclerotic heart disease of [place] coronary artery with unstable angina pectoris (3) Diabetes mellitus Priority: Secondary Status: Chronic Assessment and Plan: Fairly well-controlled blood glucose level. Continue Accu-Chek, Sliding scale insulin . Diabetic diet. A1c 6.6 Qualifiers: Diabetes mellitus type: type 2 Diabetes mellitus long term care pharmacist insulin use: with jail use Diabetes mellitus complication status: with unspecified complications Qualified Code(s): E11.8 - Type 2 diabetes mellitus with unspecified complications; Z79.4 - halfway (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 insulin; Z79.4 - termite helper (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 insulin; Z79.4 - halfway (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 insulin; Z79.4 - termite helper (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 insulin (4) Atrial fibrillation Priority: Primary Status: Chronic Assessment and Plan: History of atrial fibrillation currently paced rhythm. On anticoagulation with warfarin. INR 1.4. -on hold warfarin. Qualifiers: Atrial fibrillation type: unspecified Qualified Code(s): I48.91 - Unspecified atrial fibrillation (5) DVT prophylaxis Priority: Primary Status: Acute Assessment and Plan: on hep drip. . Hospital course: Mr. Dominguez is a 63 year old male patient with PMH of CAD s/p PCI, CABG x 3, atrial fibrillation on Coumadin, HTN, hyperlipidemia, PPM who presents with worsening chest pain over the past 2 days. Please see detail diagnosis section of transfer summary. Patient is clinically and hemodynamically stable at the time of discharge. Discharge discussed with: patient, nurse, social work, marketing operations consultant - Time Spent with Patient Total time spent providing and/or coordinating discharge services: Time spent: Greater than 30 minutes - Discharge Medications Prescriptions: No Action Clopidogrel [Plavix] 75 mg PO DAILY Insulin Glargine,Hum.rec.anlog [Lantus Solostar] 20 unit SQ BID Metformin HCl [Glucophage] 1,000 mg PO BIDWM Alirocumab [Praluent Pen] 75 mg SQ Q2W Nitroglycerin [Nitrostat] 0.4 mg SL Q5M PRN PRN Reason: Chest Pain Nitroglycerin 1 - 2 spray SL AD PRN PRN Reason: Chest Pain Allopurinol [Zyloprim 300 MG] 300 mg PO DAILY Amlodipine Besylate 5 mg PO DAILY Aspirin [Adult Aspirin Regimen] 81 mg PO DAILY Dulaglutide [Trulicity] 1.5 mg SQ WE Furosemide [Lasix] 20 mg PO DAILY PRN PRN Reason: Edema Insulin ASPART [Novolog Flexpen] 0 unit SQ TIDWM PRN PRN Reason: PER SLIDING SCALE Isosorbide MONOnitrate [Isosorbide Mononitrate ER] 240 mg PO DAILY Losartan Potassium 12.5 mg PO DAILY Metoprolol Tartrate 100 mg PO BID Morphine Sulfate [Arymo ER] 15 mg PO BID Pantoprazole Sodium [Protonix] 40 mg PO DAILY Warfarin Sodium 6 mg PO QPM Home Medications: Clopidogrel [Plavix] 75 mg PO DAILY 09/24/15 [History] Insulin Glargine,Hum.rec.anlog [Lantus Solostar] 20 unit SQ BID 09/24/15 [History] Alirocumab [Praluent Pen] 75 mg SQ Q2W 07/10/17 [History] Metformin HCl [Glucophage] 1,000 mg PO BIDWM 07/10/17 [History] Nitroglycerin 1 - 2 spray SL AD PRN 07/10/17 [History] Nitroglycerin [Nitrostat] 0.4 mg SL Q5M PRN 07/10/17 [History] Allopurinol [Zyloprim 300 MG] 300 mg PO DAILY 01/18/19 [History] Amlodipine Besylate 5 mg PO DAILY 01/18/19 [History] Aspirin [Adult Aspirin Regimen] 81 mg PO DAILY 01/18/19 [History] Dulaglutide [Trulicity] 1.5 mg SQ WE 01/18/19 [History] Furosemide [Lasix] 20 mg PO DAILY PRN 01/18/19 [History] Insulin ASPART [Novolog Flexpen] 0 unit SQ TIDWM PRN 01/18/19 [History] Isosorbide MONOnitrate [Isosorbide Mononitrate ER] 240 mg PO DAILY 01/18/19 [History] Losartan Potassium 12.5 mg PO DAILY 01/18/19 [History] Metoprolol Tartrate 100 mg PO BID 01/18/19 [History] Morphine Sulfate [Arymo ER] 15 mg PO BID 01/18/19 [History] Pantoprazole Sodium [Protonix] 40 mg PO DAILY 01/18/19 [History] Warfarin Sodium 6 mg PO QPM 01/18/19 [History] Allergies/Adverse Reactions: Allergy/AdvReac Type Severity Reaction Status Date / Time colchicine [From Colcrys] Allergy Difficulty Verified 01/18/19 11:48 Breathing ibuprofen Allergy Difficulty Verified 01/18/19 11:48 Breathing lisinopril AdvReac Cough Verified 01/18/19 11:48 pantoprazole AdvReac Difficulty Verified 01/18/19 11:48 Breathing Date of admission: 01/19/19 08:48 Primary care physician: Lico Gómez DO Consults: 01/18/19 01:05 Consult to Cardiac Rehabilitation-Phase1 [CONS] Routine Comment: Reason for Consult: AMI Call Completed: Yes Consult to Cardiology [CONS] Routine Comment: Consulting Provider: Cardiology [place] Reason for Consult: Chest pain.Hx of CAD Call Completed: No Consult to Nurse Navigator [CONS] Routine Comment: - Constitutional Vitals: Temp Pulse Resp BP Pulse Ox 97.7 F 67 16 123/76 99 01/21/19 11:11 01/21/19 11:11 01/21/19 11:11 01/21/19 11:11 01/21/19 11:11 Exam: General: Alert and oriented 3 lying in bed in no acute distress Skin:Normal color, no rash HEENT: PERRLA EOMI Cardiovascular:Normal S1 & S2, 2 out of 6 systolic murmur. Pulse regular. Lungs:Normal breath sounds, no wheezes or crackles. Abdomen:Soft, non-tender, no rigidity. Extremities:No deformity, no edema or tenderness, no swelling Neurological:Normal cognition and motor skills. No dysarthria Pulses: radial pulses normal +2. - Patient Status Disposition: Transfer Other Condition: Fair - Discharge Instructions Follow Up With: Rosemary Andrews, UPPER MARKER [Advanced Practice Nurse] - (office will call patient at home with follow up appointment ) Lico Gómez DO [Primary Care Provider] - 01/28/19 11:30 am
[2019-01-29] MEDS ORDERED: ALIROCUMAB 75 MG SQ SCH (09:00)
== END 2019-01-21 16:05 | disposition other institution (70) | DRG 287 ==
LOC: EMEROOARM 19:40 → 2NNU 19:40
PROVIDERS: ADMIT Internal Medicine; ATTEND Internal Medicine

== ENCOUNTER 2020-04-04 14:49 | Observation (INO) ==
[2020-04-04] MEDS ORDERED: Morphine Sulfate 2 MG/ML SYRINGE IVP ONE (15:24)
[2020-04-04 15:36] LABS: Basophils % 0.5 %; Eosinophils # 0.1 K/mcL (0.0-0.6); Eosinophils % 0.9 %; Hematocrit 44.2 % (37.5-50.1); Hemoglobin 14.6 g/dL (12.9-16.9); Immature Granulocytes % 0.8 % (0-4); Lymphocytes # 1.6 K/mcL (0.6-4.6); Lymphocytes % 18.3 %; Mean Corpuscular Hemoglobin 31.3 pg (28.0-33.3); Mean Corpuscular Volume 94.8 fL (83.0-100.0); Mean Platelet Volume 9.7 fL (9.4-12.4); Monocytes # 0.6 K/mcL (0.0-1.3); Monocytes % 6.4 %; Neutrophils # 6.4 K/mcL (1.6-8.9); Platelet Count 294 K/mcL (140-400); Red Blood Count 4.66 M/mcL (4.19-5.50); Red Cell Distribution Width 12.3 % (11.5-14.5); Segmented Neutrophils % 73.1 %; White Blood Count 8.7 K/mcL (4.3-11.1)
[2020-04-04 15:45] LABS: INR 1.1; Prothrombin Time 12.4 Seconds (9.4-12.1)
[2020-04-04 15:48] LABS: Activated Partial Thrombo Time 34.1 Seconds (26.0-36.0)
[2020-04-04 15:52] LABS: BUN/Creatinine Ratio 17 (6-26); Blood Urea Nitrogen 21 mg/dL (8-23); Carbon Dioxide 24 mEq/L (23-29); Chloride 97 mEq/L (98-107); Glucose 448 mg/dL (70-105); Osmolality,Calculated 294 (280-300); Potassium 4.9 mEq/L (3.5-5.1); Sodium 131 mEq/L (136-145); Troponin I < 0.03 ng/mL (< 0.04); eGFR For African Americans > 60 (> 60); eGFR For Non-African Americans 58 (> 60)
[2020-04-04] MEDS ORDERED: Ondansetron 4 MG/2 ML VIAL IVP PRN (16:45)
[2020-04-04] MEDS ORDERED: Nitroglycerin 0.4 MG TAB.SUBL SL PRN (16:45)
[2020-04-04] MEDS ORDERED: Aspirin 325 MG TABLET PO ONE ×2 (16:45→17:03)
[2020-04-04] MEDS ORDERED: D5% in Water 1,000 ML IVC PRN (16:47)
[2020-04-04] MEDS ORDERED: Dextrose Gel 15 GM/37.5 ML TUBE PO PRN ×2 (16:47)
[2020-04-04] MEDS ORDERED: *HR* Dextrose 50 % in Water (Vial) 50 ML VIAL IVP PRN (16:47)
[2020-04-04 17:57] LABS: Adenovirus Not Detected (Not Detect); Coronavirus 229E Not Detected (Not Detect); Coronavirus HKU1 Not Detected (Not Detect); Coronavirus NL63 Not Detected (Not Detect); Coronavirus OC43 Not Detected (Not Detect)
[2020-04-04 17:58] LABS: Bordetella Pertussis Not Detected (Not Detect); Chlamydophila pneumoniae Not Detected (Not Detect); Human Metapneumovirus Not Detected (Not Detect); Human Rhinovirus/Enterovirus DETECTED (Not Detect); Influenza A Subtype 2009 H1 Not Detected (Not Detect); Influenza B Not Detected (Not Detect); Mycoplasma pneumoniae Not Detected (Not Detect); Parainfluenza Virus 1 Not Detected (Not Detect); Parainfluenza Virus 2 Not Detected (Not Detect); Parainfluenza Virus 3 Not Detected (Not Detect); Parainfluenza Virus 4 Not Detected (Not Detect); Respiratory Syncytial Virus Not Detected (Not Detect); SARS-CoV-2 Not Detected (Not Detect)
[2020-04-04] MEDS: Morphine Sulfate 2 MG/ML SYRINGE IVP PRN ×2 (19:28→21:54)
[2020-04-04] MEDS: Metoprolol 100 MG TABLET PO SCH (19:55)
[2020-04-04] MEDS: Insulin DETEMIR 100 UNIT/ML X5UNITS SQ SCH (19:55)
[2020-04-04] MEDS: Apixaban 5 MG TABLET PO SCH (19:55)
[2020-04-04] MEDS ORDERED: Insulin LISPRO 300 UNITS/3 ML VIAL SQ SCH (21:00)
[2020-04-05] MEDS: Morphine Sulfate 2 MG/ML SYRINGE IVP PRN ×5 (00:01→16:29)
[2020-04-05 04:26] LABS: INR 1.1; Prothrombin Time 12.8 Seconds (9.4-12.1)
[2020-04-05 04:27] LABS: Basophils % 0.3 %; Eosinophils % 0.2 %; Hematocrit 42.1 % (37.5-50.1); Hemoglobin 14.1 g/dL (12.9-16.9); Immature Granulocytes % 0.7 % (0-4); Lymphocytes # 1.5 K/mcL (0.6-4.6); Lymphocytes % 14.4 %; Mean Corpuscular HGB Conc 33.5 g/dL (31.6-35.5); Mean Corpuscular Hemoglobin 32.4 pg (28.0-33.3); Mean Corpuscular Volume 96.8 fL (83.0-100.0); Monocytes # 0.6 K/mcL (0.0-1.3); Monocytes % 6.1 %; Neutrophils # 7.9 K/mcL (1.6-8.9); Platelet Count 304 K/mcL (140-400); Red Blood Count 4.35 M/mcL (4.19-5.50); Red Cell Distribution Width 12.3 % (11.5-14.5); Segmented Neutrophils % 78.3 %; White Blood Count 10.1 K/mcL (4.3-11.1)
[2020-04-05 04:46] LABS: Alanine Aminotransferase 16 Units/L (7-52); Albumin 3.8 g/dL (3.5-5.7); Albumin/Globulin Ratio 1.5 (1.1-2.2); Alkaline Phosphatase 46 Units/L (34-104); Aspartate Amino Transferase 10 Units/L (13-39); BUN/Creatinine Ratio 18 (6-26); Bilirubin,Total 0.5 mg/dL (0.3-1.0); Blood Urea Nitrogen 20 mg/dL (8-23); Calcium 9.6 mg/dL (8.6-10.3); Carbon Dioxide 22 mEq/L (23-29); Chloride 100 mEq/L (98-107); Globulin 2.5 g/dL (2.4-3.5); Glucose 298 mg/dL (70-105); Osmolality,Calculated 292 (280-300); Potassium 4.3 mEq/L (3.5-5.1); Sodium 134 mEq/L (136-145); Total Protein 6.3 g/dL (6.4-8.9); eGFR For African Americans > 60 (> 60); eGFR For Non-African Americans > 60 (> 60)
[2020-04-05] MEDS: Apixaban 5 MG TABLET PO SCH (08:53)
[2020-04-05] MEDS: Metoprolol 100 MG TABLET PO SCH (08:53)
[2020-04-05] MEDS: Insulin LISPRO 300 UNITS/3 ML VIAL SQ SCH ×3 (08:55→16:19)
[2020-04-05] MEDS: Insulin DETEMIR 100 UNIT/ML X5UNITS SQ SCH (09:01)
[2020-04-05] MEDS ORDERED: Tapentadol Hcl [Nucynta] 50 MG PO PRN (09:17)
[2020-04-05 16:05] VITALS: BP 126/77
[2020-04-05] MEDS: Ranolazine 500 MG TAB.ER.12H PO SCH ×2 (16:18→16:27)
[2020-04-05] MEDS ORDERED: *HR* Metformin 500 MG TABLET PO SCH (17:00)
[2020-04-05] MEDS ORDERED: Apixaban 5 MG TABLET PO SCH (21:00)
[2020-04-05] MEDS ORDERED: Insulin DETEMIR 100 UNIT/ML X5UNITS SQ SCH (21:00)
[2020-04-05] MEDS ORDERED: Metoprolol XL (24 HR) Succ 25 MG TAB.ER.24H PO SCH (21:00)
[2020-04-05] MEDS ORDERED: Famotidine 20 MG TABLET PO SCH (21:00)
[2020-04-06] MEDS ORDERED: predniSONE 20 MG TABLET PO SCH (09:00)
[2020-04-06] MEDS ORDERED: Cholecalciferol (D-3) 1,000 UNIT (25MCG) TABLET PO SCH (09:00)
[2020-04-06] MEDS ORDERED: Valsartan 80 MG TABLET PO SCH (09:00)
[2020-04-06] MEDS ORDERED: DilTIAZem CD (24hr) 240 MG CAP.ER.24H PO SCH (09:00)
[2020-04-06] MEDS ORDERED: allopurinoL 300 MG TABLET PO SCH (09:00)
== END 2020-04-05 17:44 | disposition home or self-care (01) ==
LOC: EMEROOARM 14:49 → 3BNU 14:49
PROVIDERS: ADMIT Family Medicine; ATTEND Family Medicine

== ENCOUNTER 2020-11-11 19:48 | Inpatient (IN) ==
[2020-11-11] MEDS ORDERED: Aspirin 81 MG TAB.CHEW PO ONE (20:15)
[2020-11-11 20:34] LABS: Basophils % 0.4 %; Eosinophils % 0.1 %; Hematocrit 44.2 % (37.5-50.1); Hemoglobin 14.7 g/dL (12.9-16.9); Immature Granulocytes % 1.3 % (0-4); Lymphocytes # 1.1 K/mcL (0.6-4.6); Lymphocytes % 10.4 %; Mean Corpuscular HGB Conc 33.3 g/dL (31.6-35.5); Mean Corpuscular Volume 93.2 fL (83.0-100.0); Mean Platelet Volume 9.1 fL (9.4-12.4); Monocytes # 0.5 K/mcL (0.0-1.3); Monocytes % 4.7 %; Neutrophils # 8.8 K/mcL (1.6-8.9); Platelet Count 286 K/mcL (140-400); Red Blood Count 4.74 M/mcL (4.19-5.50); Red Cell Distribution Width 12.5 % (11.5-14.5); Segmented Neutrophils % 83.1 %; White Blood Count 10.5 K/mcL (4.3-11.1)
[2020-11-11 20:41] LABS: INR 1.2; Prothrombin Time 13.7 Seconds (9.4-12.1)
[2020-11-11 20:52] LABS: BUN/Creatinine Ratio 24 (6-26); Blood Urea Nitrogen 25 mg/dL (8-23); Calcium 9.9 mg/dL (8.6-10.3); Carbon Dioxide 23 mEq/L (23-29); Chloride 99 mEq/L (98-107); Glucose 246 mg/dL (70-105); Osmolality,Calculated 295 (280-300); Potassium 4.2 mEq/L (3.5-5.1); Sodium 136 mEq/L (136-145); Troponin I < 0.03 ng/mL (< 0.04); eGFR For African Americans > 60 (> 60); eGFR For Non-African Americans > 60 (> 60)
[2020-11-11] MEDS ORDERED: *HR* FentaNYL (PF) 100 MCG/2 ML VIAL IVP ONE (21:08)
[2020-11-11] MEDS: Nitroglycerin 0.4 MG TAB.SUBL SL PRN ×2 (21:56→22:12)
[2020-11-12] MEDS ORDERED: Nitroglycerin 1 INCH/GM PACKET TP ONE (00:05)
[2020-11-12] MEDS: Apixaban 5 MG TABLET PO SCH ×2 (00:14→09:19)
[2020-11-12] MEDS ORDERED: D5% in Water 1,000 ML IVC PRN (00:19)
[2020-11-12] MEDS ORDERED: Naloxone 0.4 MG/ML INJ IVP PRN (00:19)
[2020-11-12] MEDS ORDERED: *HR* Dextrose 50 % in Water (Vial) 50 ML VIAL IVP PRN (00:19)
[2020-11-12] MEDS ORDERED: Acetaminophen 325 MG TABLET PO PRN (00:19)
[2020-11-12] MEDS ORDERED: Ondansetron 4 MG/2 ML VIAL IVP PRN (00:19)
[2020-11-12] MEDS ORDERED: Dextrose Gel 15 GM/37.5 ML TUBE PO PRN ×2 (00:19)
[2020-11-12] MEDS ORDERED: Perflutren Lipid Microsphere 1.3 ML in 0.9 % Sodium Chloride 8.7 ML IVP PRN (00:25)
[2020-11-12 03:10] LABS: Basophils # 0.1 K/mcL (0.0-0.2); Basophils % 0.6 %; Eosinophils # 0.1 K/mcL (0.0-0.6); Eosinophils % 0.7 %; Hematocrit 40.7 % (37.5-50.1); Hemoglobin 13.4 g/dL (12.9-16.9); Immature Granulocytes % 1.2 % (0-4); Lymphocytes # 2.5 K/mcL (0.6-4.6); Lymphocytes % 29.2 %; Mean Corpuscular HGB Conc 32.9 g/dL (31.6-35.5); Mean Corpuscular Hemoglobin 30.9 pg (28.0-33.3); Mean Platelet Volume 9.3 fL (9.4-12.4); Monocytes # 0.6 K/mcL (0.0-1.3); Monocytes % 7.3 %; Neutrophils # 5.2 K/mcL (1.6-8.9); Platelet Count 260 K/mcL (140-400); Red Blood Count 4.33 M/mcL (4.19-5.50); Red Cell Distribution Width 12.5 % (11.5-14.5); White Blood Count 8.6 K/mcL (4.3-11.1)
[2020-11-12 03:32] LABS: BUN/Creatinine Ratio 26 (6-26); Blood Urea Nitrogen 24 mg/dL (8-23); Calcium 9.3 mg/dL (8.6-10.3); Carbon Dioxide 21 mEq/L (23-29); Chloride 102 mEq/L (98-107); Chol/HDL Ratio 2.5 (0-4.9); Cholesterol 126 mg/dL (< 200); Glucose 107 mg/dL (70-105); HDL Cholesterol 50 mg/dL (40-59); LDL Cholesterol,Calculated 3 mg/dL (< 100); Osmolality,Calculated 287 (280-300); Potassium 3.5 mEq/L (3.5-5.1); Sodium 136 mEq/L (136-145); Triglycerides 367 mg/dL (< 150); Troponin I < 0.03 ng/mL (< 0.04); eGFR For African Americans > 60 (> 60); eGFR For Non-African Americans > 60 (> 60)
[2020-11-12] MEDS ORDERED: Morphine Sulfate 2 MG/ML SYRINGE IVP ONE (03:59)
[2020-11-12] MEDS ORDERED: Valsartan 80 MG TABLET PO SCH (09:00)
[2020-11-12] MEDS ORDERED: Insulin DETEMIR 100 UNIT/ML X5UNITS SUBQ SCH (09:00)
[2020-11-12] MEDS: Cholecalciferol (D-3) 1,000 UNIT (25MCG) TABLET PO SCH (09:17)
[2020-11-12] MEDS: Ranolazine 500 MG TAB.ER.12H PO SCH ×2 (09:18→21:30)
[2020-11-12] MEDS: DilTIAZem CD (24hr) 240 MG CAP.ER.24H PO SCH (09:18)
[2020-11-12] MEDS: Metoprolol XL (24 HR) Succ 50 MG TAB.ER.24H PO SCH ×2 (09:18→21:30)
[2020-11-12] MEDS: Famotidine 20 MG TABLET PO SCH ×2 (09:18→21:30)
[2020-11-12] MEDS: Fenofibrate 54 MG TABLET PO SCH (09:19)
[2020-11-12] MEDS: predniSONE 10 MG TABLET PO SCH (09:19)
[2020-11-12] MEDS: Insulin LISPRO 300 UNITS/3 ML VIAL SUBQ SCH ×3 (09:19→18:23)
[2020-11-12] MEDS: allopurinoL 300 MG TABLET PO SCH (09:19)
[2020-11-12] MEDS: Nitroglycerin 0.4 MG TAB.SUBL SL PRN ×3 (09:44→09:55)
[2020-11-12] MEDS: Insulin DETEMIR 100 UNIT/ML X5UNITS SUBQ SCH ×2 (09:57→21:30)
[2020-11-12] MEDS: Pyridostigmine Br 60 MG TABLET PO SCH ×2 (11:26→17:48)
[2020-11-12] MEDS ORDERED: *HR* Heparin 5,000 UNIT/ML VIAL IVP PRN ×3 (13:35→21:00)
[2020-11-12 14:30] LABS: Hematocrit 44.1 % (37.5-50.1); Hemoglobin 14.8 g/dL (12.9-16.9); Mean Corpuscular HGB Conc 33.6 g/dL (31.6-35.5); Mean Corpuscular Volume 92.5 fL (83.0-100.0); Platelet Count 266 K/mcL (140-400); Red Blood Count 4.77 M/mcL (4.19-5.50); Red Cell Distribution Width 12.6 % (11.5-14.5); White Blood Count 8.8 K/mcL (4.3-11.1)
[2020-11-12 14:37] LABS: INR 1.3; Prothrombin Time 15.1 Seconds (9.4-12.1)
[2020-11-12 14:46] LABS: Heparin anti-factor XA UFH 1.53 IU/mL (0.30-0.70)
[2020-11-12] MEDS ORDERED: Heparin 25,000UNIT/250ML 1/2NS 25,000 UNIT/250 ML IV.SOLN IVC SCH (21:00)
[2020-11-13] MEDS: Heparin 25,000UNIT/250ML 1/2NS 25,000 UNIT/250 ML IV.SOLN IVC SCH ×2 (02:51→21:38)
[2020-11-13] MEDS: Pyridostigmine Br 60 MG TABLET PO SCH ×3 (07:07→18:00)
[2020-11-13] MEDS: Insulin LISPRO 300 UNITS/3 ML VIAL SUBQ SCH ×3 (08:12→17:57)
[2020-11-13] MEDS: Aspirin Enteric Coated 81 MG Tablet PO SCH (09:12)
[2020-11-13] MEDS: predniSONE 10 MG TABLET PO SCH (09:13)
[2020-11-13] MEDS: Fenofibrate 54 MG TABLET PO SCH (09:13)
[2020-11-13] MEDS: DilTIAZem CD (24hr) 240 MG CAP.ER.24H PO SCH (09:13)
[2020-11-13] MEDS: Cholecalciferol (D-3) 1,000 UNIT (25MCG) TABLET PO SCH (09:14)
[2020-11-13] MEDS: Famotidine 20 MG TABLET PO SCH ×2 (09:15→21:30)
[2020-11-13] MEDS: allopurinoL 300 MG TABLET PO SCH (09:15)
[2020-11-13] MEDS: Ranolazine 500 MG TAB.ER.12H PO SCH ×2 (09:15→21:30)
[2020-11-13] MEDS: Metoprolol XL (24 HR) Succ 50 MG TAB.ER.24H PO SCH ×2 (09:18→21:30)
[2020-11-13] MEDS: Insulin DETEMIR 100 UNIT/ML X5UNITS SUBQ SCH ×2 (09:19→21:31)
[2020-11-13] MEDS: TAPENTADOL HCL 50 MG PO PRN (12:00)
[2020-11-13] MEDS: Morphine Sulfate 2 MG/ML SYRINGE IVP PRN (15:37)
[2020-11-13] MEDS ORDERED: Morphine Sulfate 2 MG/ML SYRINGE IVP ONE (21:14)
[2020-11-14] MEDS: Pyridostigmine Br 60 MG TABLET PO SCH ×3 (01:26→18:35)
[2020-11-14] MEDS: Morphine Sulfate 2 MG/ML SYRINGE IVP PRN ×5 (03:41→22:13)
[2020-11-14 05:21] LABS: Basophils # 0.1 K/mcL (0.0-0.2); Basophils % 0.6 %; Eosinophils # 0.1 K/mcL (0.0-0.6); Eosinophils % 1.2 %; Hematocrit 40.5 % (37.5-50.1); Hemoglobin 13.8 g/dL (12.9-16.9); Immature Granulocytes % 0.7 % (0-4); Lymphocytes # 3.1 K/mcL (0.6-4.6); Lymphocytes % 38.3 %; Mean Corpuscular HGB Conc 34.1 g/dL (31.6-35.5); Monocytes # 0.6 K/mcL (0.0-1.3); Neutrophils # 4.3 K/mcL (1.6-8.9); Platelet Count 242 K/mcL (140-400); Red Blood Count 4.45 M/mcL (4.19-5.50); Red Cell Distribution Width 12.6 % (11.5-14.5); Segmented Neutrophils % 52.2 %; White Blood Count 8.2 K/mcL (4.3-11.1)
[2020-11-14 05:40] LABS: BUN/Creatinine Ratio 20 (6-26); Blood Urea Nitrogen 17 mg/dL (8-23); Calcium 9.4 mg/dL (8.6-10.3); Carbon Dioxide 24 mEq/L (23-29); Chloride 102 mEq/L (98-107); Glucose 108 mg/dL (70-105); Osmolality,Calculated 284 (280-300); Phosphorous 3.8 mg/dL (2.7-4.5); Potassium 3.4 mEq/L (3.5-5.1); Sodium 136 mEq/L (136-145); eGFR For African Americans > 60 (> 60); eGFR For Non-African Americans > 60 (> 60)
[2020-11-14] MEDS: Insulin LISPRO 300 UNITS/3 ML VIAL SUBQ SCH ×3 (07:01→17:31)
[2020-11-14] MEDS: Insulin DETEMIR 100 UNIT/ML X5UNITS SUBQ SCH ×2 (09:03→20:03)
[2020-11-14] MEDS: predniSONE 10 MG TABLET PO SCH (09:05)
[2020-11-14] MEDS: Fenofibrate 54 MG TABLET PO SCH (09:07)
[2020-11-14] MEDS: Famotidine 20 MG TABLET PO SCH ×2 (09:07→20:02)
[2020-11-14] MEDS: Metoprolol XL (24 HR) Succ 50 MG TAB.ER.24H PO SCH ×2 (09:07→20:02)
[2020-11-14] MEDS: Ranolazine 500 MG TAB.ER.12H PO SCH ×2 (09:07→20:02)
[2020-11-14] MEDS: Aspirin Enteric Coated 81 MG Tablet PO SCH (09:07)
[2020-11-14] MEDS: allopurinoL 300 MG TABLET PO SCH (09:07)
[2020-11-14] MEDS: Cholecalciferol (D-3) 1,000 UNIT (25MCG) TABLET PO SCH (09:07)
[2020-11-14] MEDS: DilTIAZem CD (24hr) 240 MG CAP.ER.24H PO SCH (09:07)
[2020-11-15] MEDS: Heparin 25,000UNIT/250ML 1/2NS 25,000 UNIT/250 ML IV.SOLN IVC SCH ×2 (00:20→19:06)
[2020-11-15] MEDS: Pyridostigmine Br 60 MG TABLET PO SCH ×3 (02:30→17:42)
[2020-11-15] MEDS: Morphine Sulfate 2 MG/ML SYRINGE IVP PRN ×4 (03:39→21:31)
[2020-11-15 06:26] LABS: Basophils % 0.6 %; Eosinophils # 0.1 K/mcL (0.0-0.6); Eosinophils % 0.8 %; Hematocrit 41.9 % (37.5-50.1); Hemoglobin 14.1 g/dL (12.9-16.9); Immature Granulocytes % 0.7 % (0-4); Lymphocytes # 2.6 K/mcL (0.6-4.6); Mean Corpuscular HGB Conc 33.7 g/dL (31.6-35.5); Mean Corpuscular Hemoglobin 31.2 pg (28.0-33.3); Mean Corpuscular Volume 92.7 fL (83.0-100.0); Mean Platelet Volume 9.1 fL (9.4-12.4); Monocytes # 0.6 K/mcL (0.0-1.3); Monocytes % 8.1 %; Neutrophils # 3.9 K/mcL (1.6-8.9); Platelet Count 245 K/mcL (140-400); Red Blood Count 4.52 M/mcL (4.19-5.50); Red Cell Distribution Width 12.5 % (11.5-14.5); Segmented Neutrophils % 53.8 %; White Blood Count 7.2 K/mcL (4.3-11.1)
[2020-11-15 06:45] LABS: BUN/Creatinine Ratio 15 (6-26); Blood Urea Nitrogen 15 mg/dL (8-23); Calcium 9.3 mg/dL (8.6-10.3); Carbon Dioxide 26 mEq/L (23-29); Chloride 103 mEq/L (98-107); Glucose 149 mg/dL (70-105); Magnesium 1.9 mg/dL (1.6-2.6); Osmolality,Calculated 288 (280-300); Phosphorous 3.4 mg/dL (2.7-4.5); Potassium 3.7 mEq/L (3.5-5.1); Sodium 137 mEq/L (136-145); eGFR For African Americans > 60 (> 60); eGFR For Non-African Americans > 60 (> 60)
[2020-11-15] MEDS: Ranolazine 500 MG TAB.ER.12H PO SCH ×2 (07:48→20:05)
[2020-11-15] MEDS: predniSONE 10 MG TABLET PO SCH (07:48)
[2020-11-15] MEDS: Aspirin Enteric Coated 81 MG Tablet PO SCH (07:48)
[2020-11-15] MEDS: Famotidine 20 MG TABLET PO SCH ×2 (07:49→20:05)
[2020-11-15] MEDS: Cholecalciferol (D-3) 1,000 UNIT (25MCG) TABLET PO SCH (07:50)
[2020-11-15] MEDS: Metoprolol XL (24 HR) Succ 50 MG TAB.ER.24H PO SCH ×2 (07:50→20:05)
[2020-11-15] MEDS: DilTIAZem CD (24hr) 240 MG CAP.ER.24H PO SCH (07:51)
[2020-11-15] MEDS: allopurinoL 300 MG TABLET PO SCH (07:52)
[2020-11-15] MEDS: Insulin DETEMIR 100 UNIT/ML X5UNITS SUBQ SCH ×2 (07:58→20:05)
[2020-11-15] MEDS: Insulin LISPRO 300 UNITS/3 ML VIAL SUBQ SCH ×3 (08:01→17:00)
[2020-11-15] MEDS ORDERED: 0.9 % Sodium Chloride 2,000 ML ONE (08:03)
[2020-11-15] MEDS ORDERED: Heparin 1,000 UNITS/500 mL 500 ML ONE (08:03)
[2020-11-15] MEDS ORDERED: *HR* Heparin 10,000 UNIT/10 ML VIAL ONE ×2 (08:03→15:32)
[2020-11-15] MEDS ORDERED: ISOVUE-370 200 ML INFUS..BTL ONE ×2 (08:03→14:27)
[2020-11-15] MEDS: Fenofibrate 54 MG TABLET PO SCH (08:29)
[2020-11-15] MEDS ORDERED: *HR* Midazolam HCl 2 MG/2 ML VIAL ONE (13:37)
[2020-11-15] MEDS ORDERED: *HR* FentaNYL (PF) 100 MCG/2 ML VIAL ONE (13:38)
[2020-11-15] MEDS: 0.9 % Sodium Chloride 1,000 ML IVC SCH (18:24)
[2020-11-15] MEDS ORDERED: Perflutren Lipid Microsphere 1.3 ML in 0.9 % Sodium Chloride 8.7 ML IVP PRN (19:25)
[2020-11-16] MEDS: 0.9 % Sodium Chloride 1,000 ML IVC SCH ×3 (02:39→23:53)
[2020-11-16] MEDS: Morphine Sulfate 2 MG/ML SYRINGE IVP PRN ×6 (02:39→23:54)
[2020-11-16] MEDS: Pyridostigmine Br 60 MG TABLET PO SCH ×3 (02:45→17:28)
[2020-11-16 07:03] LABS: Basophils % 0.6 %; Eosinophils # 0.1 K/mcL (0.0-0.6); Hematocrit 41.2 % (37.5-50.1); Hemoglobin 13.6 g/dL (12.9-16.9); Immature Granulocytes % 0.9 % (0-4); Lymphocytes # 2.6 K/mcL (0.6-4.6); Lymphocytes % 38.2 %; Mean Corpuscular Volume 93.8 fL (83.0-100.0); Mean Platelet Volume 9.2 fL (9.4-12.4); Monocytes # 0.6 K/mcL (0.0-1.3); Monocytes % 8.1 %; Neutrophils # 3.5 K/mcL (1.6-8.9); Platelet Count 235 K/mcL (140-400); Red Blood Count 4.39 M/mcL (4.19-5.50); Red Cell Distribution Width 12.6 % (11.5-14.5); Segmented Neutrophils % 51.2 %; White Blood Count 6.8 K/mcL (4.3-11.1)
[2020-11-16 07:22] LABS: BUN/Creatinine Ratio 17 (6-26); Blood Urea Nitrogen 16 mg/dL (8-23); Calcium 8.8 mg/dL (8.6-10.3); Carbon Dioxide 25 mEq/L (23-29); Chloride 107 mEq/L (98-107); Glucose 143 mg/dL (70-105); Magnesium 1.9 mg/dL (1.6-2.6); Osmolality,Calculated 290 (280-300); Phosphorous 2.6 mg/dL (2.7-4.5); Potassium 3.7 mEq/L (3.5-5.1); Sodium 138 mEq/L (136-145); eGFR For African Americans > 60 (> 60); eGFR For Non-African Americans > 60 (> 60)
[2020-11-16] MEDS: Insulin LISPRO 300 UNITS/3 ML VIAL SUBQ SCH ×3 (08:43→17:34)
[2020-11-16] MEDS: Insulin DETEMIR 100 UNIT/ML X5UNITS SUBQ SCH ×2 (08:52→19:33)
[2020-11-16] MEDS: Metoprolol XL (24 HR) Succ 50 MG TAB.ER.24H PO SCH ×2 (08:52→19:33)
[2020-11-16] MEDS: predniSONE 10 MG TABLET PO SCH (08:52)
[2020-11-16] MEDS: Ranolazine 500 MG TAB.ER.12H PO SCH ×3 (08:52→19:32)
[2020-11-16] MEDS: Famotidine 20 MG TABLET PO SCH ×2 (08:52→19:33)
[2020-11-16] MEDS: Apixaban 5 MG TABLET PO SCH ×2 (08:52→19:32)
[2020-11-16] MEDS: DilTIAZem CD (24hr) 240 MG CAP.ER.24H PO SCH (08:52)
[2020-11-16] MEDS: Cholecalciferol (D-3) 1,000 UNIT (25MCG) TABLET PO SCH (08:52)
[2020-11-16] MEDS: allopurinoL 300 MG TABLET PO SCH (08:52)
[2020-11-16] MEDS: Fenofibrate 54 MG TABLET PO SCH (08:52)
[2020-11-16] MEDS: Aspirin Enteric Coated 81 MG Tablet PO SCH (08:52)
[2020-11-16] MEDS: Isosorbide MONOnitrate (24 HR) 30 MG TAB.ER.24H PO SCH (19:32)
[2020-11-17] MEDS: Pyridostigmine Br 60 MG TABLET PO SCH ×3 (01:04→17:01)
[2020-11-17] MEDS: Morphine Sulfate 2 MG/ML SYRINGE IVP PRN ×5 (04:22→21:28)
[2020-11-17 07:38] LABS: Basophils % 0.4 %; Eosinophils # 0.1 K/mcL (0.0-0.6); Eosinophils % 1.2 %; Hematocrit 39.7 % (37.5-50.1); Hemoglobin 13.1 g/dL (12.9-16.9); Immature Granulocytes % 0.5 % (0-4); Lymphocytes # 2.7 K/mcL (0.6-4.6); Mean Corpuscular Hemoglobin 31.4 pg (28.0-33.3); Mean Corpuscular Volume 95.2 fL (83.0-100.0); Mean Platelet Volume 9.6 fL (9.4-12.4); Monocytes # 0.6 K/mcL (0.0-1.3); Monocytes % 8.2 %; Neutrophils # 3.8 K/mcL (1.6-8.9); Platelet Count 230 K/mcL (140-400); Red Blood Count 4.17 M/mcL (4.19-5.50); Red Cell Distribution Width 12.6 % (11.5-14.5); Segmented Neutrophils % 52.7 %; White Blood Count 7.3 K/mcL (4.3-11.1)
[2020-11-17 07:56] LABS: BUN/Creatinine Ratio 19 (6-26); Blood Urea Nitrogen 15 mg/dL (8-23); Calcium 8.6 mg/dL (8.6-10.3); Carbon Dioxide 23 mEq/L (23-29); Chloride 109 mEq/L (98-107); Glucose 90 mg/dL (70-105); Magnesium 1.9 mg/dL (1.6-2.6); Osmolality,Calculated 288 (280-300); Phosphorous 2.7 mg/dL (2.7-4.5); Potassium 3.3 mEq/L (3.5-5.1); Sodium 139 mEq/L (136-145); eGFR For African Americans > 60 (> 60); eGFR For Non-African Americans > 60 (> 60)
[2020-11-17] MEDS: Insulin LISPRO 300 UNITS/3 ML VIAL SUBQ SCH ×3 (08:38→17:04)
[2020-11-17] MEDS: Ranolazine 500 MG TAB.ER.12H PO SCH ×3 (08:50→21:28)
[2020-11-17] MEDS: allopurinoL 300 MG TABLET PO SCH (08:50)
[2020-11-17] MEDS: Fenofibrate 54 MG TABLET PO SCH (08:50)
[2020-11-17] MEDS: predniSONE 10 MG TABLET PO SCH (08:50)
[2020-11-17] MEDS: Famotidine 20 MG TABLET PO SCH ×2 (08:51→21:28)
[2020-11-17] MEDS: Apixaban 5 MG TABLET PO SCH ×2 (08:51→21:27)
[2020-11-17] MEDS: DilTIAZem CD (24hr) 240 MG CAP.ER.24H PO SCH (08:51)
[2020-11-17] MEDS: Cholecalciferol (D-3) 1,000 UNIT (25MCG) TABLET PO SCH (08:51)
[2020-11-17] MEDS: Metoprolol XL (24 HR) Succ 50 MG TAB.ER.24H PO SCH ×2 (08:51→21:27)
[2020-11-17] MEDS: Aspirin Enteric Coated 81 MG Tablet PO SCH (08:52)
[2020-11-17] MEDS: Isosorbide MONOnitrate (24 HR) 30 MG TAB.ER.24H PO SCH (08:52)
[2020-11-17] MEDS: 0.9 % Sodium Chloride 1,000 ML IVC SCH ×2 (09:06→19:33)
[2020-11-17] MEDS: Insulin DETEMIR 100 UNIT/ML X5UNITS SUBQ SCH ×2 (12:03→21:36)
[2020-11-17] MEDS: Isosorbide MONOnitrate (24 HR) 60 MG TAB.ER.24H PO SCH (21:28)
[2020-11-18] MEDS: Pyridostigmine Br 60 MG TABLET PO SCH ×2 (00:56→11:43)
[2020-11-18] MEDS: Morphine Sulfate 2 MG/ML SYRINGE IVP PRN ×2 (01:29→06:02)
[2020-11-18] MEDS: 0.9 % Sodium Chloride 1,000 ML IVC SCH (06:02)
[2020-11-18] MEDS ORDERED: *HR* OxyCODONE/APAP 5/325 TABLET PO PRN (08:00)
[2020-11-18] MEDS: Insulin LISPRO 300 UNITS/3 ML VIAL SUBQ SCH ×2 (09:38→11:57)
[2020-11-18] MEDS: TAPENTADOL HCL 50 MG PO PRN (09:56)
[2020-11-18] MEDS: Metoprolol XL (24 HR) Succ 50 MG TAB.ER.24H PO SCH (09:57)
[2020-11-18] MEDS: predniSONE 10 MG TABLET PO SCH (09:57)
[2020-11-18] MEDS: Famotidine 20 MG TABLET PO SCH (09:57)
[2020-11-18] MEDS: Aspirin Enteric Coated 81 MG Tablet PO SCH (09:58)
[2020-11-18] MEDS: Cholecalciferol (D-3) 1,000 UNIT (25MCG) TABLET PO SCH (09:58)
[2020-11-18] MEDS: allopurinoL 300 MG TABLET PO SCH (09:58)
[2020-11-18] MEDS: Apixaban 5 MG TABLET PO SCH (09:58)
[2020-11-18] MEDS: DilTIAZem CD (24hr) 240 MG CAP.ER.24H PO SCH (09:58)
[2020-11-18] MEDS: Ranolazine 500 MG TAB.ER.12H PO SCH (09:58)
[2020-11-18] MEDS: Fenofibrate 54 MG TABLET PO SCH (09:58)
[2020-11-18] MEDS: Isosorbide MONOnitrate (24 HR) 60 MG TAB.ER.24H PO SCH (09:58)
[2020-11-18] MEDS: Insulin DETEMIR 100 UNIT/ML X5UNITS SUBQ SCH (10:05)
[2020-11-18 16:17] VITALS: BP 124/73
== END 2020-11-18 17:43 | disposition home or self-care (01) | DRG 287 ==
LOC: 3BNU 19:48 → EMEROOARM 19:48 → SUATTDRO 22:07 → 3BNU 22:58 → SUATTDRO 11-14 12:58
PROVIDERS: ADMIT Internal Medicine; ATTEND Internal Medicine

== ENCOUNTER 2021-02-21 15:14 | Observation (INO) ==
[2021-02-21 16:10] LABS: Basophils % 0.3 %; Eosinophils % 0.3 %; Hemoglobin 16.2 g/dL (12.9-16.9); Immature Granulocytes % 0.5 % (0-4); Lymphocytes # 1.1 K/mcL (0.6-4.6); Lymphocytes % 12.3 %; Mean Corpuscular HGB Conc 33.1 g/dL (31.6-35.5); Mean Corpuscular Hemoglobin 29.8 pg (28.0-33.3); Mean Corpuscular Volume 90.1 fL (83.0-100.0); Mean Platelet Volume 9.4 fL (9.4-12.4); Monocytes # 0.6 K/mcL (0.0-1.3); Monocytes % 6.3 %; Platelet Count 146 K/mcL (140-400); Red Blood Count 5.44 M/mcL (4.19-5.50); Segmented Neutrophils % 80.3 %; White Blood Count 8.7 K/mcL (4.3-11.1)
[2021-02-21] MEDS ORDERED: Aspirin 81 MG TAB.CHEW PO ONE (17:05)
[2021-02-21 17:14] LABS: Alanine Aminotransferase 14 Units/L (7-52); Albumin/Globulin Ratio 1.3 (1.1-2.2); Alkaline Phosphatase 59 Units/L (34-104); Aspartate Amino Transferase 15 Units/L (13-39); BUN/Creatinine Ratio 14 (6-26); Bilirubin,Total 1.2 mg/dL (0.3-1.0); Blood Urea Nitrogen 15 mg/dL (8-23); Carbon Dioxide 19 mEq/L (23-29); Chloride 95 mEq/L (98-107); Globulin 3.1 g/dL (2.4-3.5); Glucose 253 mg/dL (70-105); Osmolality,Calculated 289 (280-300); Sodium 135 mEq/L (136-145); Total Protein 7.1 g/dL (6.4-8.9); Troponin I 0.04 ng/mL (< 0.04); eGFR For African Americans > 60 (> 60); eGFR For Non-African Americans > 60 (> 60)
[2021-02-21] MEDS ORDERED: Nitroglycerin 0.4 MG TAB.SUBL SL PRN (17:24)
[2021-02-21] MEDS ORDERED: Morphine Sulfate Immed Rel 15 MG TABLET PO STA (17:25)
[2021-02-21] MEDS ORDERED: Dextrose Gel 15 GM/37.5 ML TUBE PO PRN ×2 (21:01)
[2021-02-21] MEDS ORDERED: *HR* Dextrose 50 % in Water (Vial) 50 ML VIAL IVP PRN (21:01)
[2021-02-21] MEDS ORDERED: D5% in Water 1,000 ML IVC PRN (21:01)
[2021-02-21] MEDS ORDERED: Ondansetron 4 MG/2 ML VIAL IVP PRN (21:04)
[2021-02-21] MEDS ORDERED: Naloxone 0.4 MG/ML INJ IVP PRN (21:04)
[2021-02-21] MEDS ORDERED: Acetaminophen 325 MG TABLET PO PRN (21:04)
[2021-02-21] MEDS ORDERED: *HR* Heparin 5,000 UNIT/ML VIAL IVP PRN ×2 (21:05)
[2021-02-21] MEDS ORDERED: *HR* Heparin 5,000 UNIT/ML VIAL IVP ONE (21:05)
[2021-02-21] MEDS ORDERED: Insulin LISPRO 300 UNITS/3 ML VIAL SUBQ SCH (21:15)
[2021-02-21] MEDS ORDERED: Heparin 25,000UNIT/250ML 1/2NS 25,000 UNIT/250 ML IV.SOLN IVC SCH ×2 (21:15→21:30)
[2021-02-21] MEDS: Morphine Sulfate 2 MG/ML SYRINGE IVP PRN (21:41)
[2021-02-21 21:49] LABS: Hematocrit 45.2 % (37.5-50.1); Hemoglobin 14.9 g/dL (12.9-16.9); Mean Corpuscular Hemoglobin 29.6 pg (28.0-33.3); Mean Corpuscular Volume 89.9 fL (83.0-100.0); Mean Platelet Volume 9.2 fL (9.4-12.4); Platelet Count 117 K/mcL (140-400); Red Blood Count 5.03 M/mcL (4.19-5.50); Red Cell Distribution Width 12.9 % (11.5-14.5); White Blood Count 7.8 K/mcL (4.3-11.1)
[2021-02-21 21:59] LABS: Heparin anti-factor XA UFH 0.08 IU/mL (0.30-0.70); INR 1.3; Prothrombin Time 14.4 Seconds (9.4-12.1)
[2021-02-21 22:02] LABS: Activated Partial Thrombo Time 29.3 Seconds (26.0-36.0)
[2021-02-22 01:28] LABS: Hematocrit 44.4 % (37.5-50.1); Hemoglobin 14.3 g/dL (12.9-16.9); Mean Corpuscular HGB Conc 32.2 g/dL (31.6-35.5); Mean Corpuscular Hemoglobin 29.1 pg (28.0-33.3); Mean Corpuscular Volume 90.4 fL (83.0-100.0); Mean Platelet Volume 9.5 fL (9.4-12.4); Platelet Count 119 K/mcL (140-400); Red Blood Count 4.91 M/mcL (4.19-5.50); Red Cell Distribution Width 12.9 % (11.5-14.5); White Blood Count 5.5 K/mcL (4.3-11.1)
[2021-02-22 01:49] LABS: BUN/Creatinine Ratio 16 (6-26); Blood Urea Nitrogen 16 mg/dL (8-23); Calcium 9.4 mg/dL (8.6-10.3); Carbon Dioxide 21 mEq/L (23-29); Chloride 98 mEq/L (98-107); Chol/HDL Ratio 2.9 (0-4.9); Cholesterol 81 mg/dL (< 200); Glucose 262 mg/dL (70-105); HDL Cholesterol 28 mg/dL (40-59); LDL Cholesterol,Calculated 10 mg/dL (< 100); Osmolality,Calculated 286 (280-300); Potassium 3.8 mEq/L (3.5-5.1); Sodium 133 mEq/L (136-145); Triglycerides 214 mg/dL (< 150); eGFR For African Americans > 60 (> 60); eGFR For Non-African Americans > 60 (> 60)
[2021-02-22 02:01] LABS: Estimated Average Glucose 183 mg/dl
[2021-02-22] MEDS: Morphine Sulfate 2 MG/ML SYRINGE IVP PRN ×2 (04:05→10:30)
[2021-02-22] MEDS ORDERED: Metoprolol XL (24 HR) Succ 50 MG TAB.ER.24H PO SCH (09:00)
[2021-02-22] MEDS ORDERED: Ranolazine 500 MG TAB.ER.12H PO SCH (09:00)
[2021-02-22] MEDS ORDERED: allopurinoL 300 MG TABLET PO SCH (09:00)
[2021-02-22] MEDS ORDERED: Isosorbide MONOnitrate (24 HR) 30 MG TAB.ER.24H PO SCH (09:00)
[2021-02-22] MEDS ORDERED: Aspirin Enteric Coated 81 MG Tablet PO SCH (09:00)
[2021-02-22] MEDS ORDERED: DilTIAZem CD (24hr) 180 MG CAP.ER.24H PO SCH (09:00)
[2021-02-22 11:07] LABS: Bacteria,Urine Few per hpf (None-Few); Bilirubin,Urine Small (Negative); Blood,Urine Negative (Negative); Clarity,Urine Clear (Clear); Color,Urine Dark-Yellow (Yellow); Glucose,Urine (UA) >=1000 mg/dL (Normal); Hyaline Casts,Urine Few per lpf (None Seen); Ketones,Urine 80 mg/dL (Negative); Leukocyte Esterase,Urine Negative (Negative); Mucus,Urine Few per lpf (None-Few); Nitrite,Urine Negative (Negative); Protein,Urine 30 mg/dL (Neg-Trace); RBC,Urine 0-3 per hpf (0-3); Renal Epithelial Cells,Urine Few per hpf (None-Few); Specific Gravity,Urine > 1.030 (1.010-1.025); WBC,Urine 0-3 per hpf (0-3)
[2021-02-22 15:51] VITALS: BP 95/55
== END 2021-02-22 17:08 | disposition home or self-care (01) ==
LOC: 2ANU 15:14 → EMEROOARM 15:14 → SUATTDRO 19:01 → 2ANU 20:17
PROVIDERS: ADMIT Internal Medicine; ATTEND Family Medicine

== ENCOUNTER 2021-03-01 06:37 | Observation (INO) ==
[2021-03-01 07:12] LABS: Basophils # 0.1 K/mcL (0.0-0.2); Basophils % 0.5 %; Eosinophils % 0.1 %; Hematocrit 41.7 % (37.5-50.1); Hemoglobin 13.5 g/dL (12.9-16.9); Immature Granulocytes % 1.8 % (0-4); Lymphocytes % 10.7 %; Mean Corpuscular HGB Conc 32.4 g/dL (31.6-35.5); Mean Corpuscular Hemoglobin 29.2 pg (28.0-33.3); Mean Corpuscular Volume 90.1 fL (83.0-100.0); Mean Platelet Volume 9.2 fL (9.4-12.4); Monocytes # 0.5 K/mcL (0.0-1.3); Monocytes % 5.3 %; Neutrophils # 7.5 K/mcL (1.6-8.9); Nucleated Red Blood Cells 0.2 /100 WBC (0); Platelet Count 259 K/mcL (140-400); Red Blood Count 4.63 M/mcL (4.19-5.50); Red Cell Distribution Width 13.1 % (11.5-14.5); Segmented Neutrophils % 81.6 %; White Blood Count 9.2 K/mcL (4.3-11.1)
[2021-03-01] MEDS ORDERED: Aspirin 325 MG TABLET PO ONE (07:12)
[2021-03-01] MEDS ORDERED: Acetaminophen 325 MG TABLET PO ONE (07:12)
[2021-03-01] MEDS ORDERED: 0.9 % Sodium Chloride 1,000 ML IVC ONE ×2 (07:12→07:47)
[2021-03-01 07:19] LABS: INR 1.5; Prothrombin Time 16.9 Seconds (9.4-12.1)
[2021-03-01 07:22] LABS: Activated Partial Thrombo Time 27.5 Seconds (26.0-36.0)
[2021-03-01 07:29] LABS: Alanine Aminotransferase 21 Units/L (7-52); Albumin 3.9 g/dL (3.5-5.7); Albumin/Globulin Ratio 1.4 (1.1-2.2); Alkaline Phosphatase 113 Units/L (34-104); Aspartate Amino Transferase 13 Units/L (13-39); BUN/Creatinine Ratio 23 (6-26); Bilirubin,Direct 0.1 mg/dL (0.0-0.2); Bilirubin,Indirect 0.5 mg/dL (0.0-1.0); Bilirubin,Total 0.6 mg/dL (0.3-1.0); Blood Urea Nitrogen 25 mg/dL (8-23); Calcium 9.4 mg/dL (8.6-10.3); Carbon Dioxide 27 mEq/L (23-29); Chloride 98 mEq/L (98-107); Globulin 2.7 g/dL (2.4-3.5); Glucose 181 mg/dL (70-105); Magnesium 1.7 mg/dL (1.6-2.6); Osmolality,Calculated 285 (280-300); Phosphorous 2.3 mg/dL (2.7-4.5); Potassium 4.3 mEq/L (3.5-5.1); Sodium 133 mEq/L (136-145); Total Protein 6.6 g/dL (6.4-8.9); eGFR For African Americans > 60 (> 60); eGFR For Non-African Americans > 60 (> 60)
[2021-03-01 07:30] LABS: Troponin I < 0.03 ng/mL (< 0.04)
[2021-03-01] MEDS ORDERED: 0.9 % Sodium Chloride 500 ML IVC ONE (07:47)
[2021-03-01] MEDS ORDERED: cefTRIAXone 1,000 MG in 0.9 % Sodium Chloride Mini Bag 100 ML IVPB ONE (09:18)
[2021-03-01 09:27] LABS: Bilirubin,Urine Negative (Negative); Blood,Urine Negative (Negative); Clarity,Urine Clear (Clear); Color,Urine Yellow (Yellow); Glucose,Urine (UA) >=1000 mg/dL (Normal); Ketones,Urine Negative (Negative); Leukocyte Esterase,Urine Negative (Negative); Mucus,Urine Few per lpf (None-Few); Nitrite,Urine Negative (Negative); PH,Urine 5.5 pH Units (5.0-8.0); Protein,Urine Negative (Neg-Trace); RBC,Urine 0-3 per hpf (0-3); Specific Gravity,Urine 1.024 (1.010-1.025); Urobilinogen,Urine Normal (Normal); WBC,Urine 0-3 per hpf (0-3)
[2021-03-01] MEDS ORDERED: Isovue-370 500 ML BOTTLE IVP ONE (09:31)
[2021-03-01] MEDS ORDERED: Piperacillin/Tazobactam 3.375 GM in 0.9 % Sodium Chloride Mini Bag 100 ML IVPB ONE (09:31)
[2021-03-01] MEDS ORDERED: Vancomycin 1,250 MG/262.5 ML IV.SOLN IVPB ONE (09:31)
[2021-03-01] MEDS ORDERED: Naloxone 0.4 MG/ML INJ IVP PRN (11:31)
[2021-03-01] MEDS ORDERED: 0.9 % Sodium Chloride 1,000 ML IVC SCH (11:45)
[2021-03-01] MEDS ORDERED: D5% in Water 1,000 ML IVC PRN (13:23)
[2021-03-01] MEDS ORDERED: Dextrose Gel 15 GM/37.5 ML TUBE PO PRN ×2 (13:23)
[2021-03-01] MEDS ORDERED: *HR* Dextrose 50 % in Water (Vial) 50 ML VIAL IVP PRN (13:23)
[2021-03-01] MEDS ORDERED: Nitroglycerin 0.4 MG TAB.SUBL SL PRN (14:29)
[2021-03-01] MEDS ORDERED: Acetaminophen 325 MG TABLET PO PRN (14:29)
[2021-03-01] MEDS: Insulin LISPRO 300 UNITS/3 ML VIAL SUBQ SCH ×2 (15:46→16:11)
[2021-03-01] MEDS ORDERED: Piperacillin/Tazobactam 3.375 GM in 0.9 % Sodium Chloride Mini Bag 100 ML IVPB SCH (16:00)
[2021-03-01] MEDS ORDERED: Ranolazine 500 MG TAB.ER.12H PO SCH (18:00)
[2021-03-01 19:09] VITALS: BP 108/55
[2021-03-01] MEDS ORDERED: Insulin LISPRO 300 UNITS/3 ML VIAL SUBQ SCH (21:00)
[2021-03-01] MEDS ORDERED: Insulin DETEMIR 100 UNIT/ML X5UNITS SUBQ SCH (21:00)
[2021-03-01] MEDS ORDERED: Apixaban 5 MG TABLET PO SCH (21:00)
[2021-03-01] MEDS ORDERED: Metoprolol XL (24 HR) Succ 50 MG TAB.ER.24H PO SCH (21:00)
[2021-03-01] MEDS ORDERED: Buprenorphine Hcl [Belbuca] 300 MCG Film PO SCH (21:00)
[2021-03-01] MEDS ORDERED: Vancomycin 1,250 MG/262.5 ML IV.SOLN IVPB SCH (23:00)
[2021-03-02] MEDS ORDERED: Famotidine 20 MG TABLET PO SCH (09:00)
[2021-03-02] MEDS ORDERED: DilTIAZem CD (24hr) 180 MG CAP.ER.24H PO SCH (09:00)
[2021-03-02] MEDS ORDERED: Cholecalciferol (D-3) 1,000 UNIT (25MCG) TABLET PO SCH (09:00)
[2021-03-02] MEDS ORDERED: predniSONE 20 MG TABLET PO SCH (09:00)
[2021-03-02] MEDS ORDERED: Isosorbide MONOnitrate (24 HR) 60 MG TAB.ER.24H PO SCH (09:00)
[2021-03-02] MEDS ORDERED: allopurinoL 300 MG TABLET PO SCH (09:00)
[2021-03-03 04:24] LABS: Acinetobacter baumannii by PCR Not Detected (Not Detect); Candida albicans by PCR Not Detected (Not Detect); Candida glabrata by PCR Not Detected (Not Detect); Candida krusei by PCR Not Detected (Not Detect); Candida parapsilosis by PCR Not Detected (Not Detect); Candida tropicalis by PCR Not Detected (Not Detect); Enterobacter cloacae Cmplx PCR Not Detected (Not Detect); Enterobacteriaceae by PCR Not Detected (Not Detect); Enterococcus by PCR DETECTED (Not Detect); Escherichia coli by PCR Not Detected (Not Detect); Klebsiella oxytoca by PCR Not Detected (Not Detect); Klebsiella pneumoniae by PCR Not Detected (Not Detect); Proteus by PCR Not Detected (Not Detect); Pseudomonas aeruginosa by PCR Not Detected (Not Detect); Serratia marcescens by PCR Not Detected (Not Detect); Staphylococcus aureus by PCR Not Detected (Not Detect); Staphylococcus by PCR Not Detected (Not Detect); Streptococcus agalactiae(B)PCR Not Detected (Not Detect); Streptococcus by PCR Not Detected (Not Detect); Streptococcus pneumoniae PCR Not Detected (Not Detect); Streptococcus pyogenes (A) PCR Not Detected (Not Detect); vanA/B Vancomycin-Resist Genes Not Detected (Not Detect)
== END 2021-03-01 20:31 | disposition short-term general hospital (02) ==
LOC: 3ANU 06:37 → EMEROOARM 06:37 → 3ANU 13:25
PROVIDERS: ADMIT Internal Medicine; ATTEND Internal Medicine